=== PATIENT | male | born 1955 | race American Indian/Alaskan Native ===

== ENCOUNTER 2018-03-04 13:49 | Inpatient (IN) | payer BC, OTHER ==
[2018-03-04 14:06] VITALS: BMI 39.4
[2018-03-04] MEDS ORDERED: Sodium Chloride 0.9% 1,000 ML IV ONE (15:05)
[2018-03-04] MEDS ORDERED: Sodium Chloride 0.9% 1,000 ML ONE (15:15)
--- NOTE | 2018-03-04 15:34 | C.PDOC ---
History Of Present Illness 62-year-old male, presents to the emergency department with complaints of swelling to the right inner thigh for the past three days. Patient states he went to see his PMD, who referred him to ED for further evaluation. Patient denies any fever, rectal pain, scrotal pain, abdominal pain, or n/v. PMD Konrad Nicole MD. Time Seen by Provider: 03/04/18 14:30 Chief Complaint (Nursing): Abnormal Skin Integrity Past Medical History Vital Signs: Last Vital Signs Temp 98.3 F 03/04/18 17:30 Pulse 68 03/04/18 17:30 Resp 20 03/04/18 17:30 BP 161/76 H 03/04/18 17:30 Pulse Ox 98 03/04/18 17:30 - Medical History PMH: HTN Family History: States: Unknown Family Hx - Social History Hx Alcohol Use: No Hx Substance Use: No Review Of Systems Constitutional: Negative for: Fever Cardiovascular: Negative for: Chest Pain Respiratory: Negative for: Shortness of Breath Gastrointestinal: Negative for: Vomiting Musculoskeletal: Positive for: Other (swelling and erythema to right inner thigh ) Physical Exam - Physical Exam Appears: Well, Non-toxic, No Acute Distress, Other (obese) Skin: Warm, Dry, No Rash Head: Normacephalic Eye(s): bilateral: Normal Inspection, EOMI Nose: Normal Oral Mucosa: Moist Lips: Normal Appearing Neck: Normal ROM Chest: Symmetrical Cardiovascular: Rhythm Regular Respiratory: Normal Breath Sounds, No Accessory Muscle Use Gastrointestinal/Abdominal: Soft, No Tenderness Extremity: Normal ROM, No Deformity, Other (There is a 6x3cm area of induration with tenderness and warmth to medial aspect of right upper thigh. ) Neurological/Psych: Oriented x3, Normal Speech ED Course And Treatment - Laboratory Results Result Diagrams: 03/04/18 15:33 03/04/18 15:33 O2 Sat by Pulse Oximetry: 97 (RA) Pulse Ox Interpretation: Normal Progress Note: Case with Dr Nicole, agreed upon admission. Requests Dr Martinez for consult. Case discussed with Dr Martínez agreed upon consult. Disposition - Disposition Disposition: HOSPITALIZED Disposition Time: 17:00 Condition: STABLE - Clinical Impression Clinical Impression: Cellulitis, Abscess - Scribe Statement The provider has reviewed the documentation as recorded by the Scribe (Zunaira Tamanna) All medical record entries made by the Scribe were at my direction and personally dictated by me. I have reviewed the chart and agree that the record accurately reflects my personal performance of the history, physical exam, medical decision making, and the department course for this patient. I have also personally directed, reviewed, and agree with the discharge instructions and disposition.
[2018-03-04 15:38] LABS: BASO % 0.4 % (0.0-2.0); EOS # 0.1 K/uL (0.0-0.7); EOS % 1.4 % (0.0-4.0); HEMOGLOBIN 12.2 g/dL (12.0-18.0); LYMPH # 0.9 K/uL (1.0-4.3); LYMPH % 12.7 % (20.0-40.0); MEAN CELL VOLUME 85.6 fL (80.0-94.0); MEAN CORPUSCULAR HEMOGLOBIN 29.4 pg (27.0-31.0); MEAN CORPUSCULAR HGB CONC 34.3 g/dL (33.0-37.0); MEAN PLATELET VOLUME 10.2 fL (7.2-11.7); MONO # 0.5 K/uL (0.0-0.8); MONO % 6.3 % (0.0-10.0); NEUT # 5.8 K/uL (1.8-7.0); NEUT % 79.2 % (50.0-75.0); RBC 4.14 Mil/uL (4.40-5.90); RED CELL DISTRIBUTION WIDTH 13.4 % (11.5-14.5); WHITE BLOOD COUNT 7.3 K/uL (4.8-10.8)
[2018-03-04] MEDS ORDERED: Piperacillin/Tazobact 3.375 gm 100 ML IV STA (15:45)
[2018-03-04 15:46] LABS: INR 1.2; PROTHROMBIN TIME 12.7 SECONDS (9.7-12.2)
[2018-03-04 15:50] LABS: ALT/SGPT 23 U/L (21-72); AST/SGOT 22 U/L (17-59); BLOOD UREA NITROGEN 10 mg/dL (9-20); CALCIUM 9.4 mg/dl (8.6-10.4); GFR AFRICAN-AMERICAN > 60; GFR NON-AFRICAN AMERICAN > 60
[2018-03-04] MEDS ORDERED: Piperacillin/Tazobact 3.375 gm 100 ML IVPB ONE (16:02)
[2018-03-04 16:17] LABS: SQUAMOUS EPITHIAL < 1 /hpf (0-5); URINE BILIRUBIN NEGATIVE (NEGATIVE); URINE BLOOD NEGATIVE (NEGATIVE); URINE CLARITY Clear (Clear); URINE COLOR Yellow (YELLOW); URINE GLUCOSE (UA) NORMAL (Normal); URINE LEUKOCYTE ESTERASE NEG Leu/uL (Negative); URINE PROTEIN NEGATIVE (NEGATIVE); URINE UROBILINOGEN NORMAL mg/dL (0.2-1.0)
--- NOTE | 2018-03-05 10:14 | CP.PCM.PN ---
Subjective - Date & Time of Evaluation Date of Evaluation: 03/05/18 Time of Evaluation: 10:10 - Subjective Subjective: PGY-[address] Dillard's service Pt seen and examined at bedside. Nursing reports no acute events overnight. Patient reports minimal pain at site of abscess this morning. Pt NPO for drainage with Dr. Martinez this AM. Denies fever, chills, chest pain, palpitations, abd pain, N/V. 62-year-old male, presents to the emergency department with complaints of swelling to the right inner thigh for the past three days. Patient states he went to see his PMD, DR. DILLARD, who referred him to ED for further evaluation. Patient denies any fever, rectal pain, scrotal pain, abdominal pain, or n/v. Objective - Vital Signs/Intake and Output Vital Signs (last 24 hours): Temp Pulse Resp BP Pulse Ox 98.4 F 67 20 137/75 96 03/05/18 07:43 03/05/18 07:43 03/05/18 07:43 03/05/18 07:43 03/05/18 07:43 Intake and Output: 03/05/18 03/05/18 06:59 18:59 Intake Total 450 Balance 450 - Medications Medications: Current Medications Amlodipine Besylate (Norvasc) 2.5 mg PO DAILY [facility] Last Admin: 03/05/18 09:47 Dose: Not Given Aspirin (Ecotrin) 81 mg PO DAILY [facility] Last Admin: 03/05/18 09:47 Dose: Not Given Finasteride (Proscar) 5 mg PO DAILY [facility] Last Admin: 03/05/18 09:47 Dose: Not Given Lisinopril (Zestril) 40 mg PO DAILY [facility] Last Admin: 03/04/18 18:22 Dose: 40 mg Tamsulosin HCl (Flomax) 0.4 mg PO DAILY [facility] Last Admin: 03/05/18 09:47 Dose: Not Given - Labs Labs: 03/04/18 15:33 03/04/18 15:33 PT 12.7 SECONDS (9.7-12.2) H 03/04/18 15:33 INR 1.2 03/04/18 15:33 APTT 31 SECONDS (21-34) 03/04/18 15:33 - Constitutional Appears: Non-toxic, No Acute Distress - Head Exam Head Exam: ATRAUMATIC, NORMAL INSPECTION - Eye Exam Eye Exam: EOMI. absent: Scleral icterus Pupil Exam: PERRL - ENT Exam ENT Exam: Mucous Membranes Moist - Neck Exam Neck Exam: Full ROM - Respiratory Exam Respiratory Exam: Clear to Ausculation Bilateral, NORMAL BREATHING PATTERN - Cardiovascular Exam Cardiovascular Exam: REGULAR RHYTHM, +S1, +S2 - GI/Abdominal Exam GI & Abdominal Exam: Soft, Normal Bowel Sounds. absent: Tenderness - Exam Additional comments: Approximately 6 x 3 cm indurated area, warm to touch, slight TTP - Extremities Exam Extremities Exam: Normal Inspection. absent: Pedal Edema - Back Exam Back Exam: absent: CVA tenderness (L), CVA tenderness (R) - Neurological Exam Neurological Exam: Alert, Awake, Oriented x3 - Psychiatric Exam Psychiatric exam: Normal Affect, Normal Mood - Skin Skin Exam: Normal Color (except otherwise noted on exam (indurated abscess)) , Warm Assessment and Plan - Assessment and Plan (Free Text) Plan: Abscess rt inner thigh Admit to med/surg Pt afebrile overnight; WBC WNL Dr. Martinez consulted, Gen Surgery - NPO for this AM Pre-op workup f/u CXR, EKG Coags: INR 1.2, PT 12.7 HTN Norvasc 2.5 mg PO Daily CAD ASA 81mg PO Daily BPH Proscar 5mg PO Daily Flomax 0.4mg PO Daily Prophylaxis SCDs VTE c/i due to impending procedure, to be restarted per surgery GI not indicated Disposition: Pt NPO for procedure with Dr. Martinez. Mohit Griggs PGY-2 All management per Corey
--- NOTE | 2018-03-05 12:21 | RAD ---
HISTORY: PRE-OP COMPARISON: No prior. TECHNIQUE: Chest PA and lateral FINDINGS: LUNGS: No active pulmonary disease. PLEURA: No significant pleural effusion identified. No pneumothorax apparent. Mammillation of the right hemidiaphragm is identified. CARDIOVASCULAR: Cardiomegaly. No pulmonary vascular derangement. OSSEOUS STRUCTURES: No significant abnormalities. VISUALIZED UPPER ABDOMEN: Normal. OTHER FINDINGS: None. IMPRESSION: Cardiomegaly. No pulmonary vascular congestion. No active pulmonary disease appreciable.
[2018-03-05] MEDS: ceFAZolin 1 gm in NS 1 GM/100 ML BAG IVPB ONE ×3 (14:13→14:49)
[2018-03-05] MEDS ORDERED: Midazolam 2 MG/2 ML VIAL ONE (14:19)
[2018-03-05] MEDS ORDERED: Propofol 10 mg/ml Inj (20 ML) ONE ×2 (14:19→14:43)
[2018-03-05] MEDS ORDERED: ceFAZolin 1 gm in NS 1 GM/100 ML BAG IVPB ONE (14:30)
[2018-03-05] MEDS ORDERED: Bupivacaine HCl 0.25% PF (30 ml) Inj ONE (14:41)
[2018-03-05] MEDS ORDERED: Morphine 4 MG/ML VIAL IVP PRN (15:26)
[2018-03-05] MEDS: Piperacill/Tazo 3.375gm in Dex 3.375 GM/50 ML BAG IVPB SCH ×2 (17:22→21:20)
[2018-03-05] MEDS: Vancomycin 1 gm/NS 200 ml 1 GM/200 ML BAG IVPB SCH (22:10)
--- NOTE | 2018-03-06 00:24 | OP ---
PROCEDURE DATE: 03/05/2018 PREOPERATIVE DIAGNOSIS: Infected pelvic mass. POSTOPERATIVE DIAGNOSIS: Infected pelvic mass. PROCEDURE PERFORMED: Wide deep excision (radical resection) of infected pelvic mass with drainage of underlying pelvic (retroperitoneal) abscess and advancement flap closure. SURGEON: Dallin Martinez MD ANESTHESIA: General. BLOOD LOSS: 40 mL. POSTOPERATIVE CONDITION: Stable. INDICATIONS FOR SURGERY: This is a 62-year-old male with a history of a large left pelvic mass. It is indurated and there was suspicion of an underlying abscess. He now will undergo wide deep excision of the mass along with drainage of any underlying abscess. GROSS FINDINGS: The patient had 6 to 7 cm infected left pelvic mass which extended into the retroperitoneal space, underlying was a retroperitoneal abscess, wide deep excision was performed. DESCRIPTION OF PROCEDURE: The patient was taken to the operating room, general anesthesia was administered and the left pelvic region was prepped and draped after the patient was placed in lithotomy position. Generous elliptical incision was made, measuring approximately 8 x 12 cm and the mass was excised deep into the fascial layer into the pelvic retroperitoneal region. Underlying pus was drained and cultured. Bleeding was controlled using the Bovie. There was a very large tissue defect left and an advancement flap closure was performed by raising full-thickness flaps including muscle and fascia, bringing them together peripherally, measuring approximately 24 sq cm of closure. The central portion of wound was left open and packed open with wet saline gauze after the wound was aggressively irrigated. The patient tolerated the procedure well. Returned to recovery room in stable condition. Dallin Martinez MD
[2018-03-06] MEDS: Piperacill/Tazo 3.375gm in Dex 3.375 GM/50 ML BAG IVPB SCH ×4 (01:29→20:00)
[2018-03-06 08:08] LABS: BASO % 0.4 % (0.0-2.0); EOS # 0.1 K/uL (0.0-0.7); EOS % 2.6 % (0.0-4.0); HEMOGLOBIN 11.5 g/dL (12.0-18.0); LYMPH % 21.1 % (20.0-40.0); MEAN CELL VOLUME 84.9 fL (80.0-94.0); MEAN CORPUSCULAR HEMOGLOBIN 28.9 pg (27.0-31.0); MEAN PLATELET VOLUME 10.1 fL (7.2-11.7); MONO # 0.4 K/uL (0.0-0.8); MONO % 7.7 % (0.0-10.0); NEUT # 3.3 K/uL (1.8-7.0); NEUT % 68.2 % (50.0-75.0); NRBC % 0.1 % (0.0-2.0); RBC 3.98 Mil/uL (4.40-5.90); RED CELL DISTRIBUTION WIDTH 13.2 % (11.5-14.5); WHITE BLOOD COUNT 4.8 K/uL (4.8-10.8)
[2018-03-06 08:21] LABS: ALBUMIN 3.5 g/dL (3.5-5.0); ALT/SGPT 12 U/L (21-72); AST/SGOT 20 U/L (17-59); BLOOD UREA NITROGEN 11 mg/dL (9-20); CALCIUM 8.8 mg/dl (8.6-10.4); GFR AFRICAN-AMERICAN > 60; GFR NON-AFRICAN AMERICAN > 60
--- NOTE | 2018-03-06 09:52 | CP.PCM.PN ---
Subjective - Date & Time of Evaluation Date of Evaluation: 03/06/18 Time of Evaluation: 09:49 - Subjective Subjective: PGY-[address] Nicole's service Pt seen and examined at bedside. Nursing reports no acute events overnight. POD# 1 I&D of infected pelvic mass. Pt NPO for additional procedure this AM with Dr. Martinez. Patient states he has minimal pain this morning at site of surgery. Denies fever, chills, chest pain, palpitations, abd pain, N/V. Objective - Vital Signs/Intake and Output Vital Signs (last 24 hours): Temp Pulse Resp BP Pulse Ox 98.4 F 60 20 128/67 99 03/06/18 08:00 03/06/18 08:00 03/06/18 08:00 03/06/18 08:00 03/06/18 08:00 Intake and Output: 03/06/18 03/06/18 06:59 18:59 Intake Total 700 Output Total 1000 Balance -300 - Medications Medications: Current Medications Amlodipine Besylate (Norvasc) 2.5 mg PO DAILY [facility] Last Admin: 03/06/18 09:25 Dose: Not Given Aspirin (Ecotrin) 81 mg PO DAILY [facility] Last Admin: 03/06/18 09:24 Dose: Not Given Finasteride (Proscar) 5 mg PO DAILY [facility] Last Admin: 03/06/18 09:25 Dose: Not Given Piperacillin Sod/Tazobactam Sod (Zosyn 3.375 Gm Iv Premix) 3.375 gm in 50 mls @ 100 mls/hr IVPB Q6H [facility] PRN Reason: Protocol Last Admin: 03/06/18 08:28 Dose: 100 mls/hr Vancomycin/Sodium Chloride (Vancomycin 1 Gm/Ns 200 Ml) 1 gm in 200 mls @ 133 mls/hr IVPB Q12H [facility] PRN Reason: Protocol Stop: 03/10/18 22:01 Last Admin: 03/05/18 22:10 Dose: 133 mls/hr Lisinopril (Zestril) 40 mg PO DAILY [facility] Last Admin: 03/05/18 19:19 Dose: 40 mg Pneumococcal Polyvalent Vaccine (Pneumovax 23 Vaccine) 0.5 ml IM .ONCE ONE Stop: 03/07/18 10:01 Tamsulosin HCl (Flomax) 0.4 mg PO DAILY [facility] Last Admin: 03/06/18 09:24 Dose: Not Given - Labs Labs: 03/06/18 08:00 03/06/18 08:00 PT 12.7 SECONDS (9.7-12.2) H 03/04/18 15:33 INR 1.2 03/04/18 15:33 APTT 31 SECONDS (21-34) 03/04/18 15:33 - Additional Findings Additional findings: - Constitutional Appears: Non-toxic, No Acute Distress - Head Exam Head Exam: ATRAUMATIC, NORMAL INSPECTION - Eye Exam Eye Exam: EOMI. absent: Scleral icterus Pupil Exam: PERRL - ENT Exam ENT Exam: Mucous Membranes Moist - Neck Exam Neck Exam: Full ROM - Respiratory Exam Respiratory Exam: Clear to Ausculation Bilateral, NORMAL BREATHING PATTERN - Cardiovascular Exam Cardiovascular Exam: REGULAR RHYTHM, +S1, +S2 - GI/Abdominal Exam GI & Abdominal Exam: Soft, Normal Bowel Sounds. absent: Tenderness - Exam Additional comments: Surgical bandage at left inguinal area - Extremities Exam Extremities Exam: Normal Inspection. absent: Pedal Edema - Back Exam Back Exam: absent: CVA tenderness (L), CVA tenderness (R) - Neurological Exam Neurological Exam: Alert, Awake, Oriented x3 - Psychiatric Exam Psychiatric exam: Normal Affect, Normal Mood - Skin Skin Exam: Normal Color (except otherwise noted on exam (indurated abscess)) , Warm Assessment and Plan - Assessment and Plan (Free Text) Plan: Abscess rt inner thigh Admit to med/surg Pt afebrile overnight; WBC WNL Dr. Martinez consulted, Gen Surgery - contact isolation precautions per Dr. Martinez - s/p Pelvic abscess I&D (POD#1) - NPO for this AM for procedure Pre-op workup CXR (03/05/18): Cardiomegaly. No vasc congestion. No active disease. 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 Pt NPO for procedure with Dr. Martinez. F/u wound culture Mohit Griggs PGY-2 All management per Corey
[2018-03-06] MEDS: Vancomycin 1 gm/NS 200 ml 1 GM/200 ML BAG IVPB SCH ×2 (10:00→21:50)
[2018-03-06] MEDS ORDERED: Midazolam 2 MG/2 ML VIAL ONE (14:24)
[2018-03-06] MEDS ORDERED: Propofol 10 mg/ml Inj (20 ML) ONE (14:24)
[2018-03-06] MEDS ORDERED: HYDROmorphone 0.5 mg/0.5 ml ISec IVP PRN (15:18)
[2018-03-06] MEDS: Lactated Ringer's 1,000 ML IV SCH (17:30)
--- NOTE | 2018-03-06 19:08 | CP.PCM.CON ---
History of Present Illness - History of Present Illness History of Present Illness: 62-year-old male, presents to the emergency department with complaints of swelling to the left inner thigh for the past three days. Patient states he went to see his PMD, who referred him to ED for further evaluation. Patient denies any fever, rectal pain, scrotal pain, abdominal pain, or n/v. started on IV antibiotics ID consulted went for I and D cultures pending Review of Systems - Review of Systems All systems: reviewed and no additional remarkable complaints except - Constitutional Constitutional: As Per HPI - EENT Eyes: absent: As Per HPI, Blind Spots, Blurred Vision, Change in Vision, Decreased Night Vision, Diplopia, Discharge, Dry Eye, Exophthalmos, Floaters, Irritation, Itchy Eyes, Loss of Peripheral Vision, Pain, Photophobia, Requires Corrective Lenses, Sees Flashes, Spots in Vision, Tunnel Vision, Other Visual Disturbances, Loss of Vision, Other Ears: absent: As Per HPI, Decreased Hearing, Ear Discharge, Ear Pain, Tinnitus, Abnormal Hearing, Disequilibrium, Dizziness, Other Nose/Mouth/Throat: absent: As Per HPI, Epistaxis, Nasal Congestion, Nasal Discharge, Nasal Obstruction, Nasal Trauma, Nose Pain, Post Nasal Drip, Sinus Pain, Sinus Pressure, Bleeding Gums, Change in Voice, Dental Pain, Dry Mouth, Dysphagia, Halitosis, Hoarsness, Lip Swelling, Mouth Lesions, Mouth Pain, Odynophagia, Sore Throat, Throat Swelling, Tongue Swelling, Facial Pain, Neck Pain, Neck Mass, Other - Cardiovascular Cardiovascular: absent: As Per HPI, Acrocyanosis, Chest Pain, Chest Pain at Rest , Chest Pain with Activity, Claudication, Diaphoresis, Dyspnea, Dyspnea on Exertion, Edema, Irregular Heart Rhythm, Pain Radiating to Arm/Neck/Jaw, Leg Edema, Leg Ulcers, Lightheadedness, Orthopnea, Palpitations, Paroxysmal Nocturnal Dyspnea, Pedal Edema, Radiating Pain, Rapid Heart Rate, Slow Heart Rate, Syncope, Other - Respiratory Respiratory: absent: As Per HPI, Cough, Dyspnea, Hemoptysis, Dyspnea on Exertion , Wheezing, Snoring, Stridor, Pain on Inspiration, Chest Congestion, Excessive Mucous Production, Change in Mucous Color, Pain with Coughing, Other - Gastrointestinal Gastrointestinal: absent: As Per HPI, Abdominal Pain, Belching, Bloating, Change in Bowel Habits, Change in Stool Character, Coffee Ground Emesis, Constipation, Cramping, Diarrhea, Dyspepsia, Dysphagia, Early Satiety, Excessive Flatus, Fecal Incontinence, Heartburn, Hematemesis, Hematochezia, Loose Stools, Melena, Nausea, Odynophagia, Temesmus, Vomiting, Other - Genitourinary Genitourinary: absent: As Per HPI, Change in Urinary Stream, Difficulty Urinating, Dysuria, Flank Pain, Hematuria, Pyuria, Nocturia, Urinary Incontinence, Urinary Frequency, Urinary Hesitance, Urinary Urgency, Voiding Freq/Small Amts, Freq UTI, Hx Renal/Bladder Calculi, Hx /Renal Surgery, Bladder Distension, Other - Musculoskeletal Musculoskeletal: As Per HPI - Integumentary Integumentary: As Per HPI - Neurological Neurological: absent: As Per HPI, Abnormal Gait, Abnormal Hearing, Abnormal Movements, Abnormal Speech, Behavioral Changes, Burning Sensations, Confusion, Convulsions, Disequilibrium, Dizziness, Numbness, Focal Weakness, Frequent Falls , Headaches, Lack of Coordination, Loss of Vision, Memory Loss, Paresthesias, Radicular Pain, Restless Legs, Sensory Deficit, Syncope, Tingling, Tremor, Vertigo, Weakness, Other Visual Disturbances, Other - Psychiatric Psychiatric: absent: As Per HPI, Abnormal Sleep Pattern, Anhedonia, Anxiety, Auditory Hallucinations, Behavioral Changes, Change in Appetite, Change in Libido, Confusion, Depression, Difficulty Concentrating, Hallucinations, Homicidal Ideation, Hopelessness, Irritability, Memory Loss, Mood Swings, Panic Attacks, Paranoia, Suicidal Ideation, Visual Hallucinations, Tactile Hallucinations, Other - Endocrine Endocrine: absent: As Per HPI, Change in Body Appearance, Change in Libido, Cold Intolorance, Deepening of Voice, Excessive Sweating, Fatigue, Flushing, Heat Intolorance, Increase in Ring/Shoe/Hat Size, Palpitations, Polydipsia, Polyphagia, Polyuria, Other - Hematologic/Lymphatic Hematologic: absent: As Per HPI, Easy Bleeding, Easy Bruising, Lymphadenopathy, Other Past Patient History - Past Medical History & Family History Past Medical History?: Yes - Past Social History Smoking Status: Never Smoked - CARDIAC Hx Hypertension: Yes - PULMONARY Hx Respiratory Disorders: No - NEUROLOGICAL Hx Neurological Disorder: No - HEENT Hx HEENT Problems: No - RENAL Hx Chronic Kidney Disease: No - ENDOCRINE/METABOLIC Hx Endocrine Disorders: No - HEMATOLOGICAL/ONCOLOGICAL Hx Blood Disorders: No - INTEGUMENTARY Hx Dermatological Problems: No - MUSCULOSKELETAL/RHEUMATOLOGICAL Hx Musculoskeletal Disorders: No Hx Falls: No - GENITOURINARY/GYNECOLOGICAL Hx Genitourinary Disorders: No - PSYCHIATRIC Hx Psychophysiologic Disorder: No Hx Substance Use: No - SURGICAL HISTORY Hx Surgeries: Yes Other/Comment: STOMACH SURGERY PER PATIENT - ANESTHESIA Hx Anesthesia: Yes Hx Anesthesia Reactions: No Meds Allergies/Adverse Reactions: Allergies Allergy/AdvReac Type Severity Reaction Status Date / Time No Known Allergies Allergy Verified 03/04/18 13:57 - Medications Medications: Current Medications Amlodipine Besylate (Norvasc) 2.5 mg PO DAILY [facility] Last Admin: 03/06/18 09:25 Dose: Not Given Aspirin (Ecotrin) 81 mg PO DAILY [facility] Last Admin: 03/06/18 09:24 Dose: Not Given Finasteride (Proscar) 5 mg PO DAILY [facility] Last Admin: 03/06/18 09:25 Dose: Not Given Piperacillin Sod/Tazobactam Sod (Zosyn 3.375 Gm Iv Premix) 3.375 gm in 50 mls @ 100 mls/hr IVPB Q6H [facility] PRN Reason: Protocol Last Admin: 03/06/18 14:30 Dose: 50 mls Vancomycin/Sodium Chloride (Vancomycin 1 Gm/Ns 200 Ml) 1 gm in 200 mls @ 133 mls/hr IVPB Q12H [facility] PRN Reason: Protocol Stop: 03/10/18 22:01 Last Admin: 03/06/18 10:00 Dose: 133 mls/hr Lactated Ringer's (Lactated Ringer's) 1,000 mls @ 100 mls/hr IV .Q10H [facility] Lisinopril (Zestril) 40 mg PO DAILY [facility] Last Admin: 03/06/18 10:48 Dose: 40 mg Pneumococcal Polyvalent Vaccine (Pneumovax 23 Vaccine) 0.5 ml IM .ONCE ONE Stop: 03/07/18 10:01 Tamsulosin HCl (Flomax) 0.4 mg PO DAILY [facility] Last Admin: 03/06/18 09:24 Dose: Not Given Physical Exam - Constitutional Appears: Non-toxic, Chronically Ill - Head Exam Head Exam: NORMOCEPHALIC - Eye Exam Eye Exam: PERRL - ENT Exam ENT Exam: Mucous Membranes Dry - Neck Exam Neck exam: Negative for: Lymphadenopathy - Respiratory Exam Respiratory Exam: Decreased Breath Sounds - Cardiovascular Exam Cardiovascular Exam: REGULAR RHYTHM - GI/Abdominal Exam GI & Abdominal Exam: Diminished Bowel Sounds, Soft. absent: Tenderness - Rectal Exam Rectal Exam: Deferred - Exam Exam: NORMAL INSPECTION - Extremities Exam Extremities exam: Negative for: pedal edema - Back Exam Back exam: absent: CVA tenderness (L), CVA tenderness (R) - Neurological Exam Neurological exam: Alert, CN II-XII Intact, Oriented x3, Reflexes Normal - Psychiatric Exam Psychiatric exam: Normal Mood - Skin Skin Exam: Dry Additional comments: packing in place left inner thigh Results - Vital Signs Recent Vital Signs: Last Vital Signs Temp 97.6 F 03/06/18 16:00 Pulse 59 L 03/06/18 16:00 Resp 20 03/06/18 16:00 BP 152/88 H 03/06/18 16:00 Pulse Ox 95 03/06/18 16:00 - Labs Result Diagrams: 03/06/18 08:00 03/06/18 08:00 Labs: Laboratory Results - last 24 hr 03/06/18 03/06/18 08:00 08:00 WBC 4.8 RBC 3.98 L Hgb 11.5 L Hct 33.8 L MCV 84.9 MCH 28.9 MCHC 34.0 RDW 13.2 Plt Count 157 MPV 10.1 Neut % (Auto) 68.2 Lymph % (Auto) 21.1 [place] % (Auto) 7.7 Eos % (Auto) 2.6 Baso % (Auto) 0.4 Neut # (Auto) 3.3 Lymph # (Auto) 1.0 [place] # (Auto) 0.4 Eos # (Auto) 0.1 Baso # (Auto) 0.0 Sodium 145 Potassium 3.8 Chloride 106 Carbon Dioxide 28 Anion Gap 15 BUN 11 Creatinine 1.0 Est GFR ( Amer) > 60 Est GFR (Non-Af Amer) > 60 Random Glucose 100 Calcium 8.8 Phosphorus 3.1 Magnesium 2.2 Total Bilirubin 0.4 AST 20 ALT 12 L D Alkaline Phosphatase 78 Total Protein 7.0 Albumin 3.5 Globulin 3.4 Albumin/Globulin Ratio 1.0 Assessment & Plan (1) Abscess Status: Acute (2) Cellulitis Status: Acute - Assessment and Plan (Free Text) Assessment: await cultures cont iv rx and wound care
[2018-03-07] MEDS: Piperacill/Tazo 3.375gm in Dex 3.375 GM/50 ML BAG IVPB SCH ×4 (01:04→20:14)
[2018-03-07] MEDS: Lactated Ringer's 1,000 ML IV SCH ×2 (01:04→21:23)
--- NOTE | 2018-03-07 02:02 | OP ---
PROCEDURE DATE: 03/06/2018 PREOPERATIVE DIAGNOSIS: Left pelvic abscess with open wound to the pelvis. POSTOPERATIVE DIAGNOSIS: Left pelvic abscess with open wound to the pelvis. PROCEDURE: Redrainage of the pelvic abscess with debridement, repair of pelvic blood vessel and partial tissue transfer closure. SURGEON: Dallin Martinez MD TYPE OF ANESTHESIA: General. ESTIMATED BLOOD LOSS: 30 mL POSTOPERATIVE CONDITION: Stable. INDICATIONS FOR SURGERY: This is a 62-year-old male with a large left thigh and pelvic mass excised yesterday, which revealed an underlying abscess. This was drained, cultured and packed deeply, taken back to the operating room for change of packing under anesthesia. GROSS FINDINGS: There was fair amount of bleeding when the packing was removed and the blood vessel had to be repaired prior to pulse irrigation of the wound. Otherwise, the wound was open, clean and had only a small remnant of collection left which was redrained. DESCRIPTION OF PROCEDURE: The patient was taken to the operating room, general anesthesia was administered, placed in lithotomy position. The previous packing was removed and the area was prepped and draped. Bleeding blood vessel was immediately encountered and repaired. Wound was pulse irrigated with saline, Kantrex solution after debridement and redrainage of collection was carried out. The tissue flaps were raised to the periphery and a tissue flap closure was performed utilizing advancement flaps. Central portion of the wound was packed with saline gauze. The patient tolerated the procedure well, returned to recovery room in stable condition. Dallin Martinez MD
[2018-03-07 07:04] LABS: BASO % 0.7 % (0.0-2.0); EOS # 0.2 K/uL (0.0-0.7); EOS % 3.1 % (0.0-4.0); HEMOGLOBIN 11.9 g/dL (12.0-18.0); LYMPH # 1.4 K/uL (1.0-4.3); LYMPH % 25.3 % (20.0-40.0); MEAN CELL VOLUME 84.6 fL (80.0-94.0); MEAN CORPUSCULAR HEMOGLOBIN 29.5 pg (27.0-31.0); MEAN CORPUSCULAR HGB CONC 34.9 g/dL (33.0-37.0); MEAN PLATELET VOLUME 9.6 fL (7.2-11.7); MONO # 0.4 K/uL (0.0-0.8); MONO % 7.3 % (0.0-10.0); NEUT # 3.5 K/uL (1.8-7.0); NEUT % 63.6 % (50.0-75.0); RBC 4.02 Mil/uL (4.40-5.90); RED CELL DISTRIBUTION WIDTH 13.3 % (11.5-14.5); WHITE BLOOD COUNT 5.5 K/uL (4.8-10.8)
[2018-03-07 07:32] LABS: ALBUMIN 3.8 g/dL (3.5-5.0); ALT/SGPT 10 U/L (21-72); AST/SGOT 22 U/L (17-59); BLOOD UREA NITROGEN 12 mg/dL (9-20); CALCIUM 8.9 mg/dl (8.6-10.4); GFR AFRICAN-AMERICAN > 60; GFR NON-AFRICAN AMERICAN > 60
--- NOTE | 2018-03-07 08:18 | HP ---
HISTORY OF PRESENT ILLNESS: A 62-year-old male, admitted to the hospital today with swelling on his thigh. The patient was found to have a large abscess. PHYSICAL EXAMINATION: GENERAL: The patient is awake, alert, and oriented. VITAL SIGNS: Temperature 98, pulse 90, blood pressure 117/90. HEENT: Within normal limits. NECK: Supple. CHEST: Symmetrical. HEART: Regular. ABDOMEN: Soft. EXTREMITIES: Swelling of his thigh and tenderness and induration. IMPRESSION AND PLAN: The patient has cellulitis, abscess. The patient to get bedrest, antibiotics. Konrad Nicole MD
--- NOTE | 2018-03-07 09:53 | CP.PCM.PN ---
Subjective - Date & Time of Evaluation Date of Evaluation: 03/07/18 Time of Evaluation: 09:10 - Subjective Subjective: Medicine Progress Note for Dr. Nicole Patient seen and examined at bedside. No acute events reported overnight. Patient is aware of surgical procedure with Dr. Martinez after this morning. Patient reports to have discomfort at the incision site. Otherwise patient denies fever, chills, dizziness, shortness of breath, chest pain, nausea, vomiting, or diarrhea. Objective - Vital Signs/Intake and Output Vital Signs (last 24 hours): Temp Pulse Resp BP Pulse Ox 98.7 F 61 20 137/65 97 03/07/18 08:02 03/07/18 08:02 03/07/18 08:02 03/07/18 08:02 03/07/18 08:02 Intake and Output: 03/07/18 03/07/18 06:59 18:59 Intake Total 1700 Output Total 1100 Balance 600 - Medications Medications: Current Medications Amlodipine Besylate (Norvasc) 2.5 mg PO DAILY [facility] Last Admin: 03/06/18 22:00 Dose: 2.5 mg Aspirin (Ecotrin) 81 mg PO DAILY [facility] Last Admin: 03/06/18 09:24 Dose: Not Given Finasteride (Proscar) 5 mg PO DAILY [facility] Last Admin: 03/06/18 09:25 Dose: Not Given Piperacillin Sod/Tazobactam Sod (Zosyn 3.375 Gm Iv Premix) 3.375 gm in 50 mls @ 100 mls/hr IVPB Q6H [facility] PRN Reason: Protocol Last Admin: 03/07/18 08:25 Dose: 100 mls/hr Vancomycin/Sodium Chloride (Vancomycin 1 Gm/Ns 200 Ml) 1 gm in 200 mls @ 133 mls/hr IVPB Q12H [facility] PRN Reason: Protocol Stop: 03/10/18 22:01 Last Admin: 03/06/18 21:50 Dose: 133 mls/hr Lactated Ringer's (Lactated Ringer's) 1,000 mls @ 100 mls/hr IV .Q10H [facility] Last Admin: 03/07/18 01:04 Dose: 100 mls/hr Lisinopril (Zestril) 40 mg PO DAILY [facility] Last Admin: 03/06/18 10:48 Dose: 40 mg Pneumococcal Polyvalent Vaccine (Pneumovax 23 Vaccine) 0.5 ml IM .ONCE ONE Stop: 03/07/18 10:01 Tamsulosin HCl (Flomax) 0.4 mg PO DAILY [facility] Last Admin: 03/06/18 21:59 Dose: 0.4 mg - Labs Labs: 03/07/18 06:56 03/07/18 06:56 PT 12.7 SECONDS (9.7-12.2) H 03/04/18 15:33 INR 1.2 03/04/18 15:33 APTT 31 SECONDS (21-34) 03/04/18 15:33 - Additional Findings Additional findings: - Constitutional Appears: Non-toxic, No Acute Distress - Head Exam Head Exam: ATRAUMATIC, NORMAL INSPECTION - Eye Exam Eye Exam: EOMI. absent: Scleral icterus Pupil Exam: PERRL - ENT Exam ENT Exam: Mucous Membranes Moist - Neck Exam Neck Exam: Full ROM - Respiratory Exam Respiratory Exam: Clear to Ausculation Bilateral, NORMAL BREATHING PATTERN - Cardiovascular Exam Cardiovascular Exam: REGULAR RHYTHM, +S1, +S2 - GI/Abdominal Exam GI & Abdominal Exam: Soft, Normal Bowel Sounds. absent: Tenderness - Exam Additional comments: Surgical bandage at left inguinal area - Extremities Exam Extremities Exam: Normal Inspection. absent: Pedal Edema - Back Exam Back Exam: absent: CVA tenderness (L), CVA tenderness (R) - Neurological Exam Neurological Exam: Alert, Awake, Oriented x3 - Psychiatric Exam Psychiatric exam: Normal Affect, Normal Mood - Skin Skin Exam: Normal Color (except otherwise noted on exam (indurated abscess), Warm Assessment and Plan - Assessment and Plan (Free Text) Assessment: Abscess rt inner thigh Admit to med/surg Afebrile, no leukocytosis Dr. Mratinez consulted, Gen Surgery - contact isolation precautions per Dr. Martinez - s/p Pelvic abscess I&D, further I&D today Dr. Melara, ID labor relations consultant Zosyn 3.375gm IV Q6H (start 03/05/18), Trough 8.6 Vancomycin 1gm IV Q12H (start 03/05/18) Preliminary wound culture shows Gram Positive Cocci HTN Stable Norvasc 2.5 mg PO Daily CAD ASA 81mg PO Daily BPH Proscar 5mg PO Daily Flomax 0.4mg PO Daily Prophylaxis SCDs VTE c/i due to impending procedure, to be restarted per surgery GI not indicated Disposition: Pt s/p I&D (POD#1). Pt NPO for procedure with Dr. Martinez. F/u wound culture Case discussed with Attending physician All management per Dr. Nicole
[2018-03-07] MEDS ORDERED: Pneumococcal 23-Valent Vaccine IM ONE (10:00)
[2018-03-07] MEDS: Vancomycin 1 gm/NS 200 ml 1 GM/200 ML BAG IVPB SCH ×2 (10:10→21:24)
[2018-03-07] MEDS ORDERED: Propofol 10 mg/ml Inj (20 ML) ONE (11:38)
[2018-03-07] MEDS ORDERED: Midazolam 2 MG/2 ML VIAL ONE (11:38)
[2018-03-07] MEDS ORDERED: Atropine 0.4 mg/ml Inj (1 mL) ONE (12:20)
[2018-03-07] MEDS ORDERED: Bacitracin Ointment 30 GM TUBE ONE (12:32)
[2018-03-07] MEDS ORDERED: Lactated Ringer's 1,000 ML IV SCH (12:45)
[2018-03-07 17:32] VITALS: RESP 20
--- NOTE | 2018-03-07 19:19 | CP.PCM.PN ---
Subjective - Date & Time of Evaluation Date of Evaluation: 03/07/18 Time of Evaluation: 09:00 - Subjective Subjective: cultures pending growing cocci no ID yet on Vanco IV swelling less Objective - Vital Signs/Intake and Output Vital Signs (last 24 hours): Temp Pulse Resp BP Pulse Ox 98 F 60 20 131/67 97 03/07/18 15:00 03/07/18 15:00 03/07/18 15:00 03/07/18 15:00 03/07/18 15:00 Intake and Output: 03/07/18 03/08/18 18:59 06:59 Intake Total 500 Balance 500 - Medications Medications: Current Medications Amlodipine Besylate (Norvasc) 2.5 mg PO DAILY [facility] Last Admin: 03/07/18 10:09 Dose: 2.5 mg Aspirin (Ecotrin) 81 mg PO DAILY [facility] Last Admin: 03/07/18 10:09 Dose: Not Given Finasteride (Proscar) 5 mg PO DAILY [facility] Last Admin: 03/07/18 10:09 Dose: 5 mg Piperacillin Sod/Tazobactam Sod (Zosyn 3.375 Gm Iv Premix) 3.375 gm in 50 mls @ 100 mls/hr IVPB Q6H TIO PRN Reason: Protocol Last Admin: 03/07/18 14:05 Dose: 100 mls/hr Vancomycin/Sodium Chloride (Vancomycin 1 Gm/Ns 200 Ml) 1 gm in 200 mls @ 133 mls/hr IVPB Q12H TIO PRN Reason: Protocol Stop: 03/10/18 22:01 Last Admin: 03/07/18 10:10 Dose: 133 mls/hr Lactated Ringer's (Lactated Ringer's) 1,000 mls @ 100 mls/hr IV .Q10H [facility] Last Admin: 03/07/18 01:04 Dose: 100 mls/hr Lactated Ringer's (Lactated Ringer's) 1,000 mls @ 100 mls/hr IV .Q10H [facility] Lisinopril (Zestril) 40 mg PO DAILY [facility] Last Admin: 03/07/18 10:10 Dose: Not Given Tamsulosin HCl (Flomax) 0.4 mg PO DAILY [facility] Last Admin: 03/07/18 10:09 Dose: 0.4 mg - Labs Labs: 03/07/18 06:56 03/07/18 06:56 PT 12.7 SECONDS (9.7-12.2) H 03/04/18 15:33 INR 1.2 03/04/18 15:33 APTT 31 SECONDS (21-34) 03/04/18 15:33 Assessment and Plan (1) Abscess Status: Acute (2) Cellulitis Status: Acute
--- NOTE | 2018-03-08 00:13 | OP ---
PROCEDURE DATE: 03/07/2018 PREOPERATIVE DIAGNOSIS: Open wound secondary to pelvic abscess. POSTOPERATIVE DIAGNOSIS: Open wound secondary to pelvic abscess. PROCEDURE PERFORMED: Debridement, redrainage of pelvic abscess with advancement flap closure. SURGEON: Dallin Martinez MD ANESTHESIA: General. BLOOD LOSS: 40 mL. POSTOPERATIVE CONDITION: Stable. INDICATIONS FOR SURGERY: This is a 62-year-old male, status post drainage of a pelvic abscess with exchange of packing in the operating room yesterday, taken back for staged closure of the wound. DESCRIPTION OF PROCEDURE: The patient was taken to the operating room, placed in lithotomy position. The left pelvic area was prepped and draped, and the wound was aggressively debrided. Any remaining collections were drained. A pelvic blood vessel was repaired. Generous full-thickness tissue flaps were raised, and advancement flap closure totaling 32 sq cm was performed using multiple layers of Monocryl, subcuticular Monocryl. The wound was dressed sterilely with Bacitracin. The patient tolerated the procedure well and returned to the recovery room in stable condition. Dallin Martinez MD
[2018-03-08] MEDS: Piperacill/Tazo 3.375gm in Dex 3.375 GM/50 ML BAG IVPB SCH ×3 (01:03→13:26)
[2018-03-08 08:20] LABS: BASO % 0.5 % (0.0-2.0); EOS # 0.3 K/uL (0.0-0.7); EOS % 5.4 % (0.0-4.0); HEMOGLOBIN 11.8 g/dL (12.0-18.0); LYMPH # 1.1 K/uL (1.0-4.3); LYMPH % 23.1 % (20.0-40.0); MEAN CELL VOLUME 84.8 fL (80.0-94.0); MEAN CORPUSCULAR HEMOGLOBIN 28.8 pg (27.0-31.0); MEAN PLATELET VOLUME 10.2 fL (7.2-11.7); MONO # 0.4 K/uL (0.0-0.8); MONO % 7.4 % (0.0-10.0); NEUT # 3.1 K/uL (1.8-7.0); NEUT % 63.6 % (50.0-75.0); RBC 4.08 Mil/uL (4.40-5.90); RED CELL DISTRIBUTION WIDTH 13.1 % (11.5-14.5); WHITE BLOOD COUNT 4.8 K/uL (4.8-10.8)
[2018-03-08] MEDS: Lactated Ringer's 1,000 ML IV SCH (08:30)
[2018-03-08 08:49] LABS: ALBUMIN 3.7 g/dL (3.5-5.0); ALT/SGPT 14 U/L (21-72); AST/SGOT 25 U/L (17-59); BLOOD UREA NITROGEN 11 mg/dL (9-20); CALCIUM 9.4 mg/dl (8.6-10.4); GFR AFRICAN-AMERICAN > 60; GFR NON-AFRICAN AMERICAN > 60
--- NOTE | 2018-03-08 09:18 | CP.PCM.PN ---
Subjective - Date & Time of Evaluation Date of Evaluation: 03/08/18 Time of Evaluation: 09:04 - Subjective Subjective: PGY-[address] Nicole's service: Patient seen and examined at bedside. No acute events reported overnight. Reports only mild pain at site of incision. States able to walk without difficulty; tolerating diet. Denies fever or chills, shortness of breath, chest pain, nausea, vomiting, or diarrhea. Objective - Vital Signs/Intake and Output Vital Signs (last 24 hours): Temp Pulse Resp BP Pulse Ox 97.8 F 60 20 153/66 H 99 03/08/18 08:00 03/08/18 08:00 03/08/18 08:00 03/08/18 08:00 03/08/18 08:00 Intake and Output: 03/08/18 03/08/18 06:59 18:59 Intake Total 2160 Output Total 1600 Balance 560 - Medications Medications: Current Medications Amlodipine Besylate (Norvasc) 2.5 mg PO DAILY [facility] Last Admin: 03/07/18 10:09 Dose: 2.5 mg Aspirin (Ecotrin) 81 mg PO DAILY [facility] Last Admin: 03/07/18 10:09 Dose: Not Given Finasteride (Proscar) 5 mg PO DAILY [facility] Last Admin: 03/07/18 10:09 Dose: 5 mg Piperacillin Sod/Tazobactam Sod (Zosyn 3.375 Gm Iv Premix) 3.375 gm in 50 mls @ 100 mls/hr IVPB Q6H [facility] PRN Reason: Protocol Last Admin: 03/08/18 08:36 Dose: 100 mls/hr Vancomycin/Sodium Chloride (Vancomycin 1 Gm/Ns 200 Ml) 1 gm in 200 mls @ 133 mls/hr IVPB Q12H [facility] PRN Reason: Protocol Stop: 03/10/18 22:01 Last Admin: 03/07/18 21:24 Dose: 133 mls/hr Lactated Ringer's (Lactated Ringer's) 1,000 mls @ 100 mls/hr IV .Q10H [facility] Last Admin: 03/08/18 08:30 Dose: 100 mls/hr Lactated Ringer's (Lactated Ringer's) 1,000 mls @ 100 mls/hr IV .Q10H [facility] Lisinopril (Zestril) 40 mg PO DAILY [facility] Last Admin: 03/07/18 10:10 Dose: Not Given Tamsulosin HCl (Flomax) 0.4 mg PO DAILY [facility] Last Admin: 03/07/18 10:09 Dose: 0.4 mg - Labs Labs: 03/08/18 08:08 03/08/18 08:08 PT 12.7 SECONDS (9.7-12.2) H 03/04/18 15:33 INR 1.2 03/04/18 15:33 APTT 31 SECONDS (21-34) 03/04/18 15:33 - Additional Findings Additional findings: - Constitutional Appears: Non-toxic, No Acute Distress - Head Exam Head Exam: ATRAUMATIC, NORMAL INSPECTION - Eye Exam Eye Exam: EOMI. absent: Scleral icterus Pupil Exam: PERRL - ENT Exam ENT Exam: Mucous Membranes Moist - Neck Exam Neck Exam: Full ROM - Respiratory Exam Respiratory Exam: Clear to Ausculation Bilateral, NORMAL BREATHING PATTERN - Cardiovascular Exam Cardiovascular Exam: REGULAR RHYTHM, +S1, +S2 - GI/Abdominal Exam GI & Abdominal Exam: Soft, Normal Bowel Sounds. absent: Tenderness - Exam Additional comments: Surgical bandage at left inguinal area - Extremities Exam Extremities Exam: Normal Inspection. absent: Pedal Edema - Back Exam Back Exam: absent: CVA tenderness (L), CVA tenderness (R) - Neurological Exam Neurological Exam: Alert, Awake, Oriented x3 - Psychiatric Exam Psychiatric exam: Normal Affect, Normal Mood - Skin Skin Exam: Normal Color, Warm Assessment and Plan - Assessment and Plan (Free Text) Plan: Abscess rt inner thigh Admit to med/surg Afebrile, no leukocytosis Dr. Martinez consulted, Gen Surgery - contact isolation precautions per Dr. Martinez - s/p Pelvic abscess I&D, further I&D today Dr. Melara, ID physician practice consultant Zosyn 3.375gm IV Q6H (start 03/05/18), Trough 8.6 Vancomycin 1gm IV Q12H (start 03/05/18) Preliminary wound culture shows Gram Positive Cocci HTN Stable Norvasc 2.5 mg PO Daily CAD ASA 81mg PO Daily BPH Proscar 5mg PO Daily Flomax 0.4mg PO Daily Prophylaxis SCDs VTE c/i due to impending procedure, to be restarted per surgery GI not indicated Disposition: Dr. Martinez placed discharge yesterday. Antibiotics/pain meds per Michelle. F/u final wound culture as outpatient. Case discussed with Attending physician All management per Dr. Nicole
[2018-03-08] MEDS: Vancomycin 1 gm/NS 200 ml 1 GM/200 ML BAG IVPB SCH (10:14)
[2018-03-08 15:54] VITALS: BP 147/75; PULSE 55; TEMP 98.2; O2SAT 98
--- NOTE | 2018-03-08 17:21 | CARD ---
APPROVED REPORT EKG Measurement Heart [id number] <Conclusion> Normal sinus rhythm Right bundle branch block Minimal voltage criteria for LVH, may be normal variant Abnormal ECG
== END 2018-03-08 17:30 | disposition home or self-care (01) | DRG 357 ==
LOC: C.ER 13:49 → C.9E 15:46 → C.3T 16:27 → OBSVTOIN 03-06 11:07 → UNDODISIN 03-07 09:45
PROVIDERS: ADMIT Internal Medicine Pulmonary Disease; ATTEND Internal Medicine Pulmonary Disease
PROC: 0W9H0ZX Drainage of Retroperitoneum, Open Approach, Diagnostic (ICD-10-PCS; 2018-03-05)
PROC: 0JXC0ZC Transfer Pelvic Region Subcutaneous Tissue and Fascia with Skin, Subcutaneous Tissue and Fascia, Open Approach (ICD-10-PCS; 2018-03-05)
PROC: 0JBC0ZZ Excision of Pelvic Region Subcutaneous Tissue and Fascia, Open Approach (ICD-10-PCS; principal; 2018-03-05 14:45)
PROC: 0J9C0ZZ Drainage of Pelvic Region Subcutaneous Tissue and Fascia, Open Approach (ICD-10-PCS; 2018-03-06)
PROC: 0JBC0ZZ Excision of Pelvic Region Subcutaneous Tissue and Fascia, Open Approach (ICD-10-PCS; 2018-03-06)
PROC: 0JBC0ZZ Excision of Pelvic Region Subcutaneous Tissue and Fascia, Open Approach (ICD-10-PCS; 2018-03-07)
PROC: 0J9C0ZZ Drainage of Pelvic Region Subcutaneous Tissue and Fascia, Open Approach (ICD-10-PCS; 2018-03-07)
PROC: 0JXC0ZC Transfer Pelvic Region Subcutaneous Tissue and Fascia with Skin, Subcutaneous Tissue and Fascia, Open Approach (ICD-10-PCS; 2018-03-07)
DX: K68.19 Other retroperitoneal abscess (principal); L02.415 Cutaneous abscess of right lower limb; R19.00 Intra-abdominal and pelvic swelling, mass and lump, unspecified site; I10 Essential (primary) hypertension; I25.10 Atherosclerotic heart disease of native coronary artery without angina pectoris; N40.0 Benign prostatic hyperplasia without lower urinary tract symptoms; Z79.82 Long term (current) use of aspirin

== ENCOUNTER 2018-07-22 11:40 | Day surgery (SDC) | payer BC, OTHER ==
[2018-07-22] MEDS ORDERED: Ciprofloxacin 400mg/200ml D5W 400 MG/200 ML BAG IVPB ONE (16:02)
[2018-07-22] MEDS ORDERED: Gentamicin 80 mg in 0.9% NS 160 MG/200 ML BAG IVPB ONE (16:02)
[2018-07-22] MEDS ORDERED: Midazolam 2 MG/2 ML VIAL ONE (16:03)
[2018-07-22] MEDS ORDERED: Propofol 10 mg/ml Inj (20 ML) ONE (16:03)
[2018-07-22] MEDS ORDERED: Lidocaine 2% Jelly (Uro-Jet) ONE (16:11)
--- NOTE | 2018-07-22 16:18 | PCM.SURG1 ---
Surgeon's Initial Post Op Note - Surgeon's Notes Surgeon: Zara Dental Mechanic: Naye Type of Anesthesia: General LMA Anesthesia Administered By: Staff Pre-Operative Diagnosis: BPH VILLASENOR Operative Findings: SAME Post-Operative Diagnosis: SAME Operation Performed: CYSTOSCOPY Specimen/Specimens Removed: NA Estimated Blood Loss: EBL {In ML}: 0 Blood Products Given: N/A Drains Used: No Drains Post-Op Condition: Good Date of Surgery/Procedure: 07/22/18 Time of Surgery/Procedure: 16:17
[2018-07-22 17:13] VITALS: PULSE 55
[2018-07-22 17:32] VITALS: TEMP 97.6
[2018-07-22 17:47] VITALS: RESP 16
[2018-07-22 18:39] VITALS: BP 125/59; O2SAT 98
--- NOTE | 2018-07-23 06:38 | OP ---
PROCEDURE DATE: 07/22/2018 PREOPERATIVE DIAGNOSIS: Benign prostatic hyperplasia and bladder outlet obstruction refractory to medical therapy. POSTOPERATIVE DIAGNOSIS: Benign prostatic hyperplasia and bladder outlet obstruction refractory to medical therapy. PROCEDURE: Cystopanendoscopy. FINDINGS: Trilobar hypertrophy with a high median bar and compensatory trabeculation of the bladder. DESCRIPTION OF PROCEDURE: As follows: Prior to the procedure, a detailed informed consent was obtained from the patient. He is aware of the risks and complications of the cystoscopy and other ways of managing BPH refractory to medical therapy. He consented to the risks of procedure and was brought into the room and time-out was taken according to the rules and regulations of [facility]. The patient was then positioned in low lithotomy position, draped and prepped in the usual manner. After 2% Xylocaine gel was instilled through the urethra, he was cystoscoped with a #21 Storz panendoscope. The pendulous and membranous urethra were normal. The prostatic urethra showed trilobed hypertrophy with a high median bar. The bladder was entered atraumatically. There was +3 trabeculation of the bladder. Based on the above findings, it appears that the patient is a candidate for green light laser. If he consents, it will be scheduled in the next available day. Jalen Zuñiga MD
== END 2018-07-22 18:25 | disposition home or self-care (01) ==
LOC: C.SDS 11:40
PROVIDERS: ATTEND Urology
DX: N40.1 Benign prostatic hyperplasia with lower urinary tract symptoms (principal); N13.8 Other obstructive and reflux uropathy; N32.89 Other specified disorders of bladder
CPT/HCPCS: 52000; J0744; J1580

== ENCOUNTER 2018-08-06 18:08 | Inpatient (IN) | payer BC, OTHER ==
[2018-08-06 18:08] VITALS: BMI 39.4
[2018-08-06] MEDS ORDERED: ceFAZolin IV 1 gm in Dextrose 1 GM/50 ML BAG IVPB ONE (19:41)
[2018-08-06] MEDS ORDERED: ceFAZolin 1 gm in NS 1 GM/100 ML BAG IVPB ONE (19:52)
[2018-08-06 19:59] LABS: BASO % 0.5 % (0.0-2.0); EOS # 0.2 K/uL (0.0-0.7); EOS % 1.9 % (0.0-4.0); HEMOGLOBIN 12.6 g/dL (12.0-18.0); LYMPH # 0.9 K/uL (1.0-4.3); LYMPH % 10.7 % (20.0-40.0); MEAN CELL VOLUME 84.9 fL (80.0-94.0); MEAN CORPUSCULAR HEMOGLOBIN 28.6 pg (27.0-31.0); MEAN CORPUSCULAR HGB CONC 33.7 g/dL (33.0-37.0); MEAN PLATELET VOLUME 10.2 fL (7.2-11.7); MONO # 0.5 K/uL (0.0-0.8); NEUT % 80.9 % (50.0-75.0); NRBC % 0.1 % (0.0-2.0); RBC 4.4 Mil/uL (4.40-5.90); RED CELL DISTRIBUTION WIDTH 13.5 % (11.5-14.5); WHITE BLOOD COUNT 8.6 K/uL (4.8-10.8)
[2018-08-06 20:12] LABS: BLOOD UREA NITROGEN 14 mg/dL (9-20); CALCIUM 9.3 mg/dl (8.6-10.4); GFR NON-AFRICAN AMERICAN > 60
[2018-08-06 20:13] LABS: ALB/GLOB RATIO 1.1 (1.0-2.1); ALBUMIN 4.3 g/dL (3.5-5.0); ALT/SGPT 18 U/L (21-72); AST/SGOT 31 U/L (17-59)
[2018-08-06 20:26] LABS: INR 1.1; PROTHROMBIN TIME 11.7 SECONDS (9.7-12.2)
--- NOTE | 2018-08-06 20:34 | C.PDOC ---
History Of Present Illness 62 year old male presents to the ED for evaluation of swelling to his groin region. Patient reports that for the last 3 days, he has had swelling to the left side of his pubic area. Patient has experienced similar symptoms in the pas t, which have been intermittent. Patient states he sometimes pops the area, and symptoms resolved. Patient attempted to pop the area yesterday, which he notes made the area worse. The area has increased in size and has become more painful. Patient also reports subjective fever and took Ibuprofen. Patient was evaluated by his doctor today, and advised to present to the ED for further management and possible surgical management of his groin abscess. Patient denies abdominal pain, back pain. Past medical history: hypertension surgical history: patient had similar episode previously social history: no smoking Time Seen by Provider: 08/06/18 18:48 Chief Complaint (Nursing): Abnormal Skin Integrity History Per: Patient History/Exam Limitations: no limitations Current Symptoms Are (Timing): Still Present Quality Of Symptoms: Painful Additional History Per: Patient Past Medical History Reviewed: Historical Data, Nursing Documentation, Vital Signs Vital Signs: Last Vital Signs Temp 99.8 F H 08/06/18 20:13 Pulse 68 08/06/18 20:13 Resp 16 08/06/18 20:13 BP 143/77 08/06/18 20:13 Pulse Ox 97 08/06/18 20:13 - Medical History PMH: HTN Denies: Chronic Kidney Disease Surgical History: No Surg Hx - [facility] Procedures DRAINAGE OF PELVIC SUBCU/FASCIA, OPEN APPROACH (03/06/18) DRAINAGE OF RETROPERITONEUM, OPEN APPROACH, DIAGNOSTIC (03/06/18) EXCISION OF PELVIC SUBCU/FASCIA, OPEN APPROACH (03/06/18) TRANSFER PELVIC SUBCU/FASCIA W SKIN, SUBCU, FASCIA, OPEN (03/06/18) Family History: States: Unknown Family Hx - Social History Hx Alcohol Use: No Hx Substance Use: No Review Of Systems Skin: Positive for: Other (skin abscess ) Physical Exam - Physical Exam Appears: Non-toxic, No Acute Distress Skin: Other (suprapubic area, left of midline: there is an indurated swelling with tenderness, warmth and questionable fluctuance) Head: Normacephalic, Tenderness Eye(s): bilateral: PERRL, EOMI Oral Mucosa: Moist Throat: No Erythema, No Exudate Neck: Normal ROM, Trachea Midline Lymphatic: No Adenopathy Cardiovascular: Rhythm Regular, No Murmur Respiratory: Normal Breath Sounds, No Rales Gastrointestinal/Abdominal: Soft, No Tenderness Extremity: Normal ROM, No Deformity Neurological/Psych: Oriented x3, Normal Motor, Normal Sensation ED Course And Treatment - Laboratory Results Result Diagrams: 08/06/18 19:56 08/06/18 19:56 ECG: Interpreted By Me ECG Rhythm: Sinus Rhythm (66), R BBB, Nonspecific Changes O2 Sat by Pulse Oximetry: 97 (on RA) Pulse Ox Interpretation: Normal Medical Decision Making Medical Decision Making: Impression: abscess and cellulitis to pubic area Progress: Bloodwork, EKG, CXR ordered and reviewed. Ancef IV given. Case discussed with Dr. Nicole and Dr. Martinez. PAtient to be hospitalized for surgical management in the morning. Discussed this with patient. Disposition - Disposition Disposition: HOSPITALIZED Disposition Time: 19:30 Condition: FAIR - POA Present On Arrival: None - Clinical Impression Clinical Impression: Abscess, Cellulitis - Scribe Statement The provider has reviewed the documentation as recorded by the Scribe (Lisa Wu) Provider Attestation: All medical record entries made by the Scribe were at my direction and personally dictated by me. I have reviewed the chart and agree that the record accurately reflects my personal performance of the history, physical exam, me dical decision making, and the department course for this patient. I have also personally directed, reviewed, and agree with the discharge instructions and disposition.
[2018-08-06] MEDS: Dextrose 5%/0.45% NS 1,000 ML IV SCH (21:30)
[2018-08-06] MEDS ORDERED: Dextrose 5%/0.45% NS 1,000 ML IV ONE (21:31)
[2018-08-07] MEDS: Dextrose 5%/0.45% NS 1,000 ML IV SCH ×2 (06:58→10:00)
--- NOTE | 2018-08-07 07:46 | RAD ---
Date of service: 08/06/2018 HISTORY: preop COMPARISON: No prior. TECHNIQUE: Chest PA and lateral FINDINGS: LUNGS: No active pulmonary disease. PLEURA: No significant pleural effusion identified. No pneumothorax apparent. CARDIOVASCULAR: Stable cardiomegaly. No pulmonary vascular congestion. OSSEOUS STRUCTURES: No significant abnormalities. VISUALIZED UPPER ABDOMEN: Mammilated right hemidiaphragm reiterated. OTHER FINDINGS: None. IMPRESSION: Stable cardiomegaly. No interval acute cardiopulmonary disease identified.
--- NOTE | 2018-08-07 10:10 | CP.PCM.PN ---
Subjective - Date & Time of Evaluation Date of Evaluation: 08/07/18 Time of Evaluation: 07:00 - Subjective Subjective: PGY2- Progress Note for Dr. Nicole Patient is a 62 year old male with PMHx of HTN, BPH, and possible CAD who presents today for a left sided groin abscess. Patient says it started out as a small bump and then he tried to squeeze it and for the past two days it has grown larger and become painful. Patient also mentions a smaller raised area on the right side of his groin which he says is just starting to develop. Patient had an abscess like this in February which was drained and treated with antibiotics. At the time wound was positive for MRSA. Patient denies fevers, chills, headache, chest pain, abdominal pain, nausea, vomiting, constipation, or diarrhea. All: NKDA PMHx: HTN, BPH, CAD Surg: R thigh abscess I&D, cystoscopy 08/[address] 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 Meds: Amlodipine 5mg po daily, Flomax .4mg po daily, ASA 81mg po daily Objective - Vital Signs/Intake and Output Vital Signs (last 24 hours): Temp Pulse Resp BP Pulse Ox 98.5 F 64 20 160/70 H 94 L 08/07/18 07:00 08/07/18 07:00 08/07/18 07:00 08/07/18 07:00 08/07/18 07:00 Intake and Output: 08/07/18 08/07/18 06:59 18:59 Intake Total 640 Output Total 700 Balance -60 - Medications Medications: Current Medications Amlodipine Besylate (Norvasc) 5 mg PO DAILY [facility] Dextrose/Sodium Chloride (Dextrose 5%/0.45% Ns 1000 Ml) 1,000 mls @ 80 mls/hr IV .[id number] [facility] Last Admin: 08/07/18 06:58 Dose: 80 mls/hr Pneumococcal Polyvalent Vaccine (Pneumovax 23 Vaccine) 0.5 ml IM .ONCE ONE Stop: 08/08/18 10:01 Tamsulosin HCl (Flomax) 0.4 mg PO DAILY [facility] - Labs Labs: 08/06/18 19:56 08/06/18 19:56 PT 11.7 SECONDS (9.7-12.2) 08/06/18 19:56 INR 1.1 08/06/18 19:56 APTT 30 SECONDS (21-34) 08/06/18 19:56 - Constitutional Appears: Non-toxic, No Acute Distress - Head Exam Head Exam: ATRAUMATIC, NORMAL INSPECTION, NORMOCEPHALIC - Eye Exam Eye Exam: EOMI, Normal appearance - ENT Exam ENT Exam: Mucous Membranes Moist - Respiratory Exam Respiratory Exam: Clear to Ausculation Bilateral, NORMAL BREATHING PATTERN. absent: Rales, Wheezes - Cardiovascular Exam Cardiovascular Exam: REGULAR RHYTHM, RRR, +S1, +S2 - GI/Abdominal Exam GI & Abdominal Exam: Soft, Normal Bowel Sounds. absent: Tenderness - Exam Additional comments: left sided suprapubic area of induration with tenderness - Extremities Exam Extremities Exam: Full ROM. absent: Pedal Edema, Tenderness - Neurological Exam Neurological Exam: Alert, Awake, Oriented x3 - Psychiatric Exam Psychiatric exam: Normal Affect, Normal Mood - Skin Skin Exam: Intact, Normal Color, Warm Assessment and Plan - Assessment and Plan (Free Text) Assessment: L Sided Groin Abscess NPO f/u blood cultures possible I&D with Dr. Martinez today D5 1/2 NS at 80 cc/hr HTN Norvasc 5mg po daily EKG: NSR at 66bpm, RBBB Cxray: stable cardiomegaly, no interval acute cardiopulmonary disease identified. BPH Flomax .4mg po daily Prophylaxis SCDs Management as per Dr. Nicole
[2018-08-07 11:54] LABS: BASO % 0.3 % (0.0-2.0); EOS # 0.1 K/uL (0.0-0.7); EOS % 1.6 % (0.0-4.0); HEMOGLOBIN 11.9 g/dL (12.0-18.0); LYMPH % 13.6 % (20.0-40.0); MEAN CELL VOLUME 84.6 fL (80.0-94.0); MEAN CORPUSCULAR HEMOGLOBIN 28.5 pg (27.0-31.0); MEAN CORPUSCULAR HGB CONC 33.7 g/dL (33.0-37.0); MEAN PLATELET VOLUME 10.6 fL (7.2-11.7); MONO # 0.5 K/uL (0.0-0.8); MONO % 6.4 % (0.0-10.0); NEUT # 5.7 K/uL (1.8-7.0); NEUT % 78.1 % (50.0-75.0); RBC 4.17 Mil/uL (4.40-5.90); RED CELL DISTRIBUTION WIDTH 13.6 % (11.5-14.5); WHITE BLOOD COUNT 7.3 K/uL (4.8-10.8)
[2018-08-07 12:15] LABS: ALB/GLOB RATIO 1.2 (1.0-2.1); ALT/SGPT 21 U/L (21-72); AST/SGOT 21 U/L (17-59); BLOOD UREA NITROGEN 10 mg/dL (9-20); CALCIUM 9.1 mg/dl (8.6-10.4); GFR NON-AFRICAN AMERICAN > 60
[2018-08-07] MEDS ORDERED: ceFAZolin IV 1 gm in Dextrose 2 GM/100 ML BAG IVPB ONE (12:51)
[2018-08-07] MEDS ORDERED: Propofol 10 mg/ml Inj (20 ML) ONE (12:54)
[2018-08-07] MEDS ORDERED: Midazolam 2 MG/2 ML VIAL ONE (12:54)
[2018-08-07] MEDS ORDERED: Succinylcholine Chloride 20 mg/ml Syr (5 ml) IV ONE (12:55)
[2018-08-07] MEDS ORDERED: Rocuronium 10 mg/ml (5 ml) ONE (12:55)
[2018-08-07] MEDS ORDERED: Clotrimazole/Betamethasone Cream(15 gm) TOP ONE (13:09)
[2018-08-07] MEDS ORDERED: HYDROmorphone 0.5 mg/0.5 ml ISec IVP PRN (13:52)
[2018-08-07] MEDS ORDERED: Oxycodone/Acetaminophen 5/325 mg Tab PO PRN (14:28)
--- NOTE | 2018-08-07 20:46 | OP ---
PROCEDURE DATE: 08/07/2018 PREOPERATIVE DIAGNOSIS: Bilateral infected groin masses. POSTOPERATIVE DIAGNOSIS: Bilateral infected groin masses. PROCEDURE PERFORMED: Wide and deep excision, radical resection, 5-cm bilateral infected masses of the right groin and pelvis. SURGEON: Dallin Martinez MD ANESTHESIA: General. BLOOD LOSS: 40 mL. POSTOPERATIVE CONDITION: Stable. INDICATIONS FOR SURGERY: This is a 62-year-old male, presents with bilateral masses in both his groins, painful, indurated, infected who presents for operative I and D and possible excision. DESCRIPTION OF PROCEDURE: The patient was taken to the operating room, general anesthesia administered. The patient was placed in the modified frog position. Both groins along with the proximal extremities in the lower abdomen were prepped and draped. Attention was first turned to the right pelvic area where a wide generous elliptical incision was made surrounding the 5 cm mass. It was dissected into the fascia and the mass was completely removed at a side table, it was opened and cultured. Bleeding was controlled using the Bovie. Larger blood vessel was repaired separately with Prolene. Full-thickness tissue flaps were raised with Prolene and counter incisions were made into the flaps and advancement flap closure of 32 sq cm was performed on the right side. Next, the wounds were closed with heavy Vicryl, and the skin was closed loosely with skin clips. Next, attention was turned to the left side. Once again, a generous elliptical incision was made surrounding the 5 cm mass, it was dissected into and through the fascial layer and completely removed. Bleeding was controlled using the Bovie. Full-thickness flaps were raised, and a partial tissue flap closure was performed. The central portion of wound was packed open with wet saline gauze due to contamination with pus. The wounds were dressed sterilely. The patient tolerated the procedure well. Returned to recovery room in stable condition. Dallin Martinez MD
[2018-08-08] MEDS: Dextrose 5%/0.45% NS 1,000 ML IV SCH ×2 (04:36→21:15)
--- NOTE | 2018-08-08 07:03 | HP ---
HISTORY OF PRESENT ILLNESS: A 62-year-old male admitted to the hospital with chief complaints weakness, tiredness and left groin swelling and pain. The patient has a left groin abscess. Advised ER visit and advised admission. The patient has history of diabetes, hypertension. PHYSICAL EXAMINATION: GENERAL: The patient is awake, alert and oriented. VITAL SIGNS: Temperature 98, pulse 90. HEENT: Within normal limits. NECK: Supple. CHEST: Symmetrical. HEART: Regular. ABDOMEN: Soft. EXTREMITIES: No edema. There is a swelling in the left groin. IMPRESSION: The patient suffers from an abscess left groin. Surgical consult, antibiotics. Konrad Nicole MD
[2018-08-08 07:39] LABS: ALB/GLOB RATIO 1.2 (1.0-2.1); ALBUMIN 3.7 g/dL (3.5-5.0); ALT/SGPT 23 U/L (21-72); AST/SGOT 23 U/L (17-59); BLOOD UREA NITROGEN 11 mg/dL (9-20); CALCIUM 8.8 mg/dl (8.6-10.4); GFR NON-AFRICAN AMERICAN > 60
--- NOTE | 2018-08-08 07:56 | CP.PCM.PN ---
Subjective - Date & Time of Evaluation Date of Evaluation: 08/08/18 Time of Evaluation: 07:56 - Subjective Subjective: Medicine Progress Note - Dr Nicole Patient seen and examined at bedside. Patient had incision and drainage of groin abscess yesterday. Patient is NPO currently for possible surgical procedure. He is doing well, pain is controlled. Offers no other complaints at this time. Objective - Vital Signs/Intake and Output Vital Signs (last 24 hours): Temp Pulse Resp BP Pulse Ox 98.3 F 63 20 147/73 98 08/07/18 23:20 08/07/18 23:20 08/07/18 23:20 08/07/18 15:07 08/07/18 23:20 Intake and Output: 08/08/18 08/08/18 06:59 18:59 Intake Total 640 Balance 640 - Medications Medications: Current Medications Amlodipine Besylate (Norvasc) 5 mg PO DAILY [facility] Last Admin: 08/07/18 11:02 Dose: 5 mg Dextrose/Sodium Chloride (Dextrose 5%/0.45% Ns 1000 Ml) 1,000 mls @ 80 mls/hr IV .[id number] [facility] Last Admin: 08/08/18 04:36 Dose: 80 mls/hr Cefazolin Sodium 500 mg/ (Sodium Chloride) 100 mls @ 200 mls/hr IVPB Q8H [facility]; Protocol Last Admin: 08/08/18 04:37 Dose: 200 mls/hr Oxycodone/Acetaminophen (Percocet 5/325 Mg Tab) 2 tab PO Q4H PRN PRN Reason: Pain, moderate (4-7) Stop: 08/10/18 14:29 Pneumococcal Polyvalent Vaccine (Pneumovax 23 Vaccine) 0.5 ml IM .ONCE ONE Stop: 08/08/18 10:01 Tamsulosin HCl (Flomax) 0.4 mg PO DAILY [facility] Last Admin: 08/07/18 11:01 Dose: 0.4 mg - Labs Labs: 08/07/18 11:49 08/08/18 07:11 PT 11.7 SECONDS (9.7-12.2) 08/06/18 19:56 INR 1.1 08/06/18 19:56 APTT 30 SECONDS (21-34) 08/06/18 19:56 - Constitutional Appears: Non-toxic, No Acute Distress - Head Exam Head Exam: ATRAUMATIC, NORMAL INSPECTION, NORMOCEPHALIC - Eye Exam Eye Exam: EOMI, Normal appearance Pupil Exam: NORMAL ACCOMODATION - ENT Exam ENT Exam: Mucous Membranes Moist - Neck Exam Neck Exam: Full ROM - Respiratory Exam Respiratory Exam: Clear to Ausculation Bilateral, NORMAL BREATHING PATTERN. absent: Rales, Rhonchi, Wheezes - Cardiovascular Exam Cardiovascular Exam: REGULAR RHYTHM, +S1, +S2 - GI/Abdominal Exam GI & Abdominal Exam: Soft. absent: Guarding, Rigid, Tenderness - Exam Additional comments: Groin Dressing intact with dried blood - Extremities Exam Extremities Exam: absent: Calf Tenderness - Neurological Exam Neurological Exam: Alert, Awake, Oriented x3 - Psychiatric Exam Psychiatric exam: Normal Affect, Normal Mood - Skin Skin Exam: Dry, Normal Color, Warm Assessment and Plan - Assessment and Plan (Free Text) Assessment: L Sided Groin Abscess -Stable, afebrile -Patient is s/p Incision and Drainage POD#1 -Antibiotics: Cefazolin 1 gm Q8H IVPB -Diet NPO for possible OR today -Tissue cultures, blood cultures pending -D5 1/2 NS at 80 cc/hr HTN -Continue Norvasc 5mg PO daily -EKG: NSR at 66bpm, RBBB -Cxray: stable cardiomegaly, no interval acute cardiopulmonary disease identified. BPH -Continue Flomax .4mg po daily Prophylaxis -SCDs -No GI ppx indicated at this time Management as per Dr. Corey Peters DO PGY-2
[2018-08-08 08:03] LABS: BASO % 0.3 % (0.0-2.0); EOS # 0.2 K/uL (0.0-0.7); EOS % 3.4 % (0.0-4.0); HEMOGLOBIN 11.8 g/dL (12.0-18.0); LYMPH % 19.1 % (20.0-40.0); MEAN CELL VOLUME 85.1 fL (80.0-94.0); MEAN CORPUSCULAR HEMOGLOBIN 28.9 pg (27.0-31.0); MEAN CORPUSCULAR HGB CONC 33.9 g/dL (33.0-37.0); MEAN PLATELET VOLUME 10.4 fL (7.2-11.7); MONO # 0.4 K/uL (0.0-0.8); MONO % 7.9 % (0.0-10.0); NEUT # 3.6 K/uL (1.8-7.0); NEUT % 69.3 % (50.0-75.0); NRBC % 0.1 % (0.0-2.0); RBC 4.1 Mil/uL (4.40-5.90); RED CELL DISTRIBUTION WIDTH 13.9 % (11.5-14.5); WHITE BLOOD COUNT 5.2 K/uL (4.8-10.8)
[2018-08-08] MEDS ORDERED: Pneumococcal 23-Valent Vaccine IM ONE (10:00)
[2018-08-08] MEDS ORDERED: Propofol 10 mg/ml Inj (20 ML) ONE (12:03)
[2018-08-08] MEDS ORDERED: Midazolam 2 MG/2 ML VIAL ONE (12:03)
[2018-08-08] MEDS ORDERED: Bacitracin Ointment 30 GM TUBE ONE (12:29)
[2018-08-08] MEDS ORDERED: HYDROmorphone 0.5 mg/0.5 ml ISec IVP PRN (12:57)
[2018-08-08] MEDS ORDERED: Lactated Ringer's 1,000 ML IV SCH (13:00)
[2018-08-08 13:39] LABS: HEMOGLOBIN 11.6 g/dL (12.0-18.0); MEAN CELL VOLUME 84.8 fL (80.0-94.0); MEAN CORPUSCULAR HEMOGLOBIN 28.4 pg (27.0-31.0); MEAN CORPUSCULAR HGB CONC 33.5 g/dL (33.0-37.0); MEAN PLATELET VOLUME 9.9 fL (7.2-11.7); RBC 4.07 Mil/uL (4.40-5.90); RED CELL DISTRIBUTION WIDTH 13.7 % (11.5-14.5); WHITE BLOOD COUNT 4.4 K/uL (4.8-10.8)
[2018-08-08 16:49] VITALS: RESP 20
--- NOTE | 2018-08-08 22:20 | OP ---
PROCEDURE DATE: 08/08/2018 PREOPERATIVE DIAGNOSES: Left groin and retroperitoneal abscess. POSTOPERATIVE DIAGNOSES: Left groin and retroperitoneal abscess. PROCEDURE PERFORMED: Debridement and re-drainage of left pelvic and retroperitoneal abscess with repair of pelvic blood vessel and advancement flap closure (32 square centimeters). SURGEON: Dallin Martinez MD ANESTHESIA: General. BLOOD LOSS: 30 mL. POSTOPERATIVE CONDITION: Stable. INDICATIONS FOR SURGERY: This is a 62-year-old male who yesterday underwent bilateral drainage of groin and pelvic abscesses, who today is taken back to the OR for re-debridement, drainage and change of packing of a large left pelvic and retroperitoneal abscess open wound. DESCRIPTION OF PROCEDURE: The patient was taken to the operating room, general anesthesia was administered. The previous packing from the left groin and pelvic region was removed. Almost immediately, there was a fair amount of bleeding. So the wound was quickly prepped and draped. A pelvic blood vessel was isolated, dissected free, and repaired separately using 4-0 Prolene suture. The abscess cavity was then re-debrided and the remaining retroperitoneal collections were drained and cultured. The remainder of bleeding was controlled using the Bovie. The wound was pulse irrigated with 2 liters of saline and Kantrex solution. Full-thickness tissue flaps were raised and counter incisions were made and advancement flap closures were performed, totaling 32 square centimeters using multiple layers of subcuticular Monocryl. The wounds were dressed with bacitracin and a dry sterile dressing. The patient tolerated the procedure well and returned to Recovery in stable condition. Dallin Martinez MD
[2018-08-09 06:39] LABS: BASO % 0.4 % (0.0-2.0); EOS # 0.2 K/uL (0.0-0.7); EOS % 4.3 % (0.0-4.0); HEMOGLOBIN 10.7 g/dL (12.0-18.0); LYMPH # 0.8 K/uL (1.0-4.3); LYMPH % 17.8 % (20.0-40.0); MEAN CELL VOLUME 85.6 fL (80.0-94.0); MEAN CORPUSCULAR HGB CONC 33.9 g/dL (33.0-37.0); MEAN PLATELET VOLUME 10.4 fL (7.2-11.7); MONO # 0.4 K/uL (0.0-0.8); MONO % 8.2 % (0.0-10.0); NEUT # 3.1 K/uL (1.8-7.0); NEUT % 69.3 % (50.0-75.0); RBC 3.71 Mil/uL (4.40-5.90); RED CELL DISTRIBUTION WIDTH 13.9 % (11.5-14.5); WHITE BLOOD COUNT 4.5 K/uL (4.8-10.8)
[2018-08-09 07:00] LABS: ALB/GLOB RATIO 1.1 (1.0-2.1); ALBUMIN 3.5 g/dL (3.5-5.0); ALT/SGPT 25 U/L (21-72); AST/SGOT 21 U/L (17-59); BLOOD UREA NITROGEN 9 mg/dL (9-20); CALCIUM 8.4 mg/dl (8.6-10.4); GFR NON-AFRICAN AMERICAN > 60
--- NOTE | 2018-08-09 07:09 | CP.PCM.PN ---
Subjective - Date & Time of Evaluation Date of Evaluation: 08/09/18 Time of Evaluation: 07:09 - Subjective Subjective: Medicine Progress Note - Dr Nicole Patient seen and examined at bedside. Per nursing no acute events overnight. Patient is doing well, pain is controlled. Offers no complaints at this time. Objective - Vital Signs/Intake and Output Vital Signs (last 24 hours): Temp Pulse Resp BP Pulse Ox 98 F 61 20 160/85 H 96 08/09/18 05:16 08/09/18 05:16 08/09/18 05:16 08/09/18 05:16 08/09/18 05:16 Intake and Output: 08/09/18 08/09/18 06:59 18:59 Intake Total 1600 Balance 1600 - Medications Medications: Current Medications Amlodipine Besylate (Norvasc) 5 mg PO DAILY [facility] Last Admin: 08/08/18 10:33 Dose: 5 mg Dextrose/Sodium Chloride (Dextrose 5%/0.45% Ns 1000 Ml) 1,000 mls @ 80 mls/hr IV .[id number] [facility] Last Admin: 08/08/18 21:15 Dose: 80 mls/hr Lactated Ringer's (Lactated Ringer's) 1,000 mls @ 100 mls/hr IV .Q10H [facility] Oxycodone/Acetaminophen (Percocet 5/325 Mg Tab) 2 tab PO Q4H PRN PRN Reason: Pain, moderate (4-7) Stop: 08/10/18 14:29 Tamsulosin HCl (Flomax) 0.4 mg PO DAILY [facility] Last Admin: 08/07/18 11:01 Dose: 0.4 mg - Labs Labs: 08/09/18 06:31 08/09/18 06:31 PT 11.7 SECONDS (9.7-12.2) 08/06/18 19:56 INR 1.1 08/06/18 19:56 APTT 30 SECONDS (21-34) 08/06/18 19:56 - Additional Findings Additional findings: - Constitutional Appears: Non-toxic, No Acute Distress - Head Exam Head Exam: ATRAUMATIC, NORMAL INSPECTION, NORMOCEPHALIC - Eye Exam Eye Exam: EOMI, Normal appearance Pupil Exam: NORMAL ACCOMODATION - ENT Exam ENT Exam: Mucous Membranes Moist - Neck Exam Neck Exam: Full ROM - Respiratory Exam Respiratory Exam: Clear to Ausculation Bilateral, NORMAL BREATHING PATTERN. absent: Rales, Rhonchi, Wheezes - Cardiovascular Exam Cardiovascular Exam: REGULAR RHYTHM, +S1, +S2 - GI/Abdominal Exam GI & Abdominal Exam: Soft. absent: Guarding, Rigid, Tenderness - Exam Additional comments: Groin Dressing clean dry and intact - Extremities Exam Extremities Exam: absent: Calf Tenderness - Neurological Exam Neurological Exam: Alert, Awake, Oriented x3 - Psychiatric Exam Psychiatric exam: Normal Affect, Normal Mood - Skin Skin Exam: Dry, Normal Color, Warm Assessment and Plan - Assessment and Plan (Free Text) Assessment: L Sided Groin Abscess -Stable, afebrile -Patient is s/p Incision and Drainage -Antibiotics: Cefazolin 1 gm Q8H IVPB -Tissue cultures growing staph aureus, sensitivities pending -Blood cultures showing no growth x 48 hours -Patient cleared for discharge home today -Follow up with Dr Martinez outpatient HTN -Continue Norvasc 5mg PO daily -EKG: NSR at 66bpm, RBBB -Cxray: stable cardiomegaly, no interval acute cardiopulmonary disease identified. BPH -Continue Flomax .4mg po daily Prophylaxis -SCDs -No GI ppx indicated at this time Management as per Dr. Corey Peters DO PGY-2
[2018-08-09 08:46] VITALS: BP 141/71; PULSE 80; TEMP 98.9; O2SAT 97
--- NOTE | 2018-08-10 06:38 | CARD ---
APPROVED REPORT Date of service: 08/06/2018 EKG Measurement Heart [id number] <Conclusion> Normal sinus rhythm Right bundle branch block Minimal voltage criteria for LVH, may be normal variant Abnormal ECG
== END 2018-08-09 09:36 | disposition home or self-care (01) | DRG 573 ==
LOC: C.ER 18:08 → C.9E 19:40 → C.6T 21:50
PROVIDERS: ADMIT Internal Medicine Pulmonary Disease; ATTEND Internal Medicine Pulmonary Disease
PROC: 0JXC0ZZ Transfer Pelvic Region Subcutaneous Tissue and Fascia, Open Approach (ICD-10-PCS; 2018-08-07)
PROC: 0JBC0ZZ Excision of Pelvic Region Subcutaneous Tissue and Fascia, Open Approach (ICD-10-PCS; 2018-08-07)
PROC: 0HDAXZZ Extraction of Inguinal Skin, External Approach (ICD-10-PCS; 2018-08-08)
PROC: 0J9C0ZX Drainage of Pelvic Region Subcutaneous Tissue and Fascia, Open Approach, Diagnostic (ICD-10-PCS; 2018-08-08)
PROC: 0HR Skin and Breast, Replacement (ICD-10-PCS; principal; 2018-08-08 13:30)
DX: L02.214 Cutaneous abscess of groin (principal); K68.19 Other retroperitoneal abscess; I25.10 Atherosclerotic heart disease of native coronary artery without angina pectoris; E11.9 Type 2 diabetes mellitus without complications; I10 Essential (primary) hypertension; I45.10 Unspecified right bundle-branch block; N40.0 Benign prostatic hyperplasia without lower urinary tract symptoms; B95.62 Methicillin resistant Staphylococcus aureus infection as the cause of diseases classified elsewhere

== ENCOUNTER 2018-08-12 11:09 | Day surgery (SDC) | payer BC, OTHER | END 2018-08-12 12:00 | disposition home or self-care (01) | LOC: C.SDS 11:09 | PROVIDERS: ATTEND Urology | DX: N40.1 Benign prostatic hyperplasia with lower urinary tract symptoms (principal); L02.818 Cutaneous abscess of other sites; Z53.8 Procedure and treatment not carried out for other reasons | CPT/HCPCS: 52648; P000X ==

== ENCOUNTER 2018-12-08 08:16 | Inpatient (IN) | payer BC, OTHER ==
[2018-12-08 08:16] VITALS: BMI 45.1
[2018-12-08] MEDS ORDERED: Iohexol 240 (50 ml) PO STA (08:49)
[2018-12-08 08:51] LABS: VENOUS BLOOD GAS BASE EXCESS 1.9 mmol/L (0.0-2.0); VENOUS BLOOD GAS PCO2 41 mmHg (40-60); VENOUS BLOOD GAS PO2 49 mm/Hg (30-55); VENOUS BLOOD PH 7.42 (7.32-7.43)
[2018-12-08 08:58] LABS: BASO % 0.3 % (0.0-2.0); EOS % 0.1 % (0.0-4.0); HEMOGLOBIN 12.1 g/dL (12.0-18.0); LYMPH # 0.6 K/uL (1.0-4.3); LYMPH % 6.4 % (20.0-40.0); MEAN CELL VOLUME 86.1 fL (80.0-94.0); MEAN CORPUSCULAR HEMOGLOBIN 28.2 pg (27.0-31.0); MEAN CORPUSCULAR HGB CONC 32.7 g/dL (33.0-37.0); MEAN PLATELET VOLUME 10.3 fL (7.2-11.7); MONO # 0.8 K/uL (0.0-0.8); NEUT # 8.1 K/uL (1.8-7.0); NEUT % 85.2 % (50.0-75.0); PLATELET COUNT 180 K/uL (130-400)
[2018-12-08 09:00] LABS: WHITE BLOOD COUNT 9.5 K/uL (4.8-10.8)
[2018-12-08 09:08] LABS: URINE BACTERIA RARE (<OCC); URINE BILIRUBIN NEGATIVE (NEGATIVE); URINE BLOOD 1+ (NEGATIVE); URINE CLARITY Hazy (Clear); URINE COLOR Yellow (YELLOW); URINE GLUCOSE (UA) NORMAL (Normal); URINE LEUKOCYTE ESTERASE 1+ Leu/uL (Negative); URINE PROTEIN 1+ mg/dL (NEGATIVE); URINE UROBILINOGEN NORMAL mg/dL (0.2-1.0)
[2018-12-08] MEDS ORDERED: Iohexol 240 (50 ml) ONE (09:09)
[2018-12-08 09:13] LABS: ALB/GLOB RATIO 1.1 (1.0-2.1); ALBUMIN 4.2 g/dL (3.5-5.0); ALT/SGPT 44 U/L (21-72); AST/SGOT 82 U/L (17-59); BLOOD UREA NITROGEN 10 mg/dL (9-20); CALCIUM 8.9 mg/dl (8.6-10.4); GFR NON-AFRICAN AMERICAN > 60; LIPASE 29 U/L (23-300)
[2018-12-08 09:34] LABS: EOSINOPHIL 1 % (0-4); LYMPHOCYTE 7 % (20-40); MONOCYTE 8 % (0-10); NEUTROPHIL 84 % (50-75); TOTAL CELLS COUNTED 100
[2018-12-08 09:35] LABS: ANISOCYTOSIS SLIGHT; HYPOCHROMIC SLIGHT; LARGE PLATELETS PRESENT; PLATELET ESTIMATE NORMAL (NORMAL); POLYCHROMIC SLIGHT
--- NOTE | 2018-12-08 09:41 | C.PDOC ---
History Of Present Illness Patient presents to ED c/o intermittent abdominal pain for approx 2 weeks. He was seen by PMD and given "medications", has also been using pepto bismol - only calmed the pain periodically. He denies nausea/vomiting, fever, cough, dysuria. He does admit to constipation. Patient denies history of abdominal/pelvic surgeries. Time Seen by Provider: 12/08/18 08:21 Chief Complaint (Nursing): Abdominal Pain Past Medical History Reviewed: Historical Data, Nursing Documentation, Vital Signs Vital Signs: Last Vital Signs Temp 100.6 F H 12/08/18 08:17 Pulse 92 H 12/08/18 08:17 Resp 20 12/08/18 08:17 BP 166/79 H 12/08/18 08:17 Pulse Ox 97 12/08/18 08:17 - Medical History PMH: HTN - [facility] Procedures DRAINAGE OF PELVIC SUBCU/FASCIA, OPEN APPROACH (03/06/18) DRAINAGE OF PELVIC SUBCU/FASCIA, OPEN APPROACH, DIAGN (08/06/18) DRAINAGE OF RETROPERITONEUM, OPEN APPROACH, DIAGNOSTIC (03/06/18) EXCISION OF PELVIC SUBCU/FASCIA, OPEN APPROACH (08/06/18) EXTRACTION OF GENITALIA SKIN, EXTERNAL APPROACH (08/06/18) REPLACE GENITALIA SKIN W AUTOL SUB, FULL THICK, DIRECTOR OF LABOR AND DELIVERY (08/06/18) TRANSFER PELVIC SUBCU/FASCIA W SKIN, SUBCU, FASCIA, OPEN (03/06/18) TRANSFER PELVIC SUBCU/FASCIA, OPEN APPROACH (08/06/18) Family History: States: No Known Family Hx - Social History Hx Alcohol Use: No Hx Substance Use: No - Immunization History Hx Tetanus Toxoid Vaccination: No Hx Influenza Vaccination: No Hx Pneumococcal Vaccination: No Review Of Systems Cardiovascular: Negative for: Chest Pain, Palpitations Respiratory: Negative for: Cough, Shortness of Breath Gastrointestinal: Positive for: Abdominal Pain, Constipation. Negative for: Nausea, Vomiting, Diarrhea Genitourinary: Negative for: Dysuria, Hematuria Skin: Negative for: Rash Physical Exam - Physical Exam Appears: Well, Non-toxic, In Acute Distress (in mild pain) Skin: Normal Color, Warm, Dry Eye(s): bilateral: Normal Inspection Oral Mucosa: Moist Cardiovascular: Rhythm Regular Respiratory: Normal Breath Sounds, No Rales, No Rhonchi, No Wheezing Gastrointestinal/Abdominal: Bowel Sounds, Soft, Tenderness (TTP at epigastric area), Distention, No Guarding, No Rebound, Other (large ventral hernia with TTP, reducible umblical hernia) Back: No CVA Tenderness Neurological/Psych: Oriented x3 ED Course And Treatment - Laboratory Results Result Diagrams: 12/19/18 06:09 12/19/18 06:10 Lab Results: pO2 49 mm/Hg (30-55) 12/08/18 08:47 VBG pH 7.42 (7.32-7.43) 12/08/18 08:47 VBG pCO2 41 mmHg (40-60) 12/08/18 08:47 VBG HCO3 26.1 mmol/L 12/08/18 08:47 VBG Total CO2 27.9 mmol/L (22-28) 12/08/18 08:47 VBG O2 Sat (Calc) 86.6 % (40-65) H 12/08/18 08:47 VBG Base Excess 1.9 mmol/L (0.0-2.0) 12/08/18 08:47 VBG Potassium 3.8 mmol/L (3.6-5.2) 12/08/18 08:47 Sodium 139.0 mmol/l (132-148) 12/08/18 08:47 Chloride 106.0 mmol/L (98-107) 12/08/18 08:47 Glucose 127 mg/dl (75-110) H 12/08/18 08:47 Lactate 0.9 mmol/L (0.7-2.1) 12/08/18 08:47 Total Bilirubin 0.7 mg/dL (0.2-1.3) 12/08/18 08:50 AST 82 U/L (17-59) H D 12/08/18 08:50 ALT 44 U/L (21-72) 12/08/18 08:50 Alkaline Phosphatase 123 U/L (38-126) 12/08/18 08:50 Total Protein 7.9 g/dL (6.3-8.3) 12/08/18 08:50 Albumin 4.2 g/dL (3.5-5.0) 12/08/18 08:50 Globulin 3.7 gm/dL (2.2-3.9) 12/08/18 08:50 Albumin/Globulin Ratio 1.1 (1.0-2.1) 12/08/18 08:50 Lipase 29 U/L (23-300) 12/08/18 08:50 Urine Color Yellow (YELLOW) 12/08/18 08:57 Urine Clarity Hazy (Clear) 12/08/18 08:57 Urine pH 5.0 (5.0-8.0) 12/08/18 08:57 Ur Specific Pinch 1.016 (1.003-1.030) 12/08/18 08:57 Urine Protein 1+ mg/dL (NEGATIVE) H 12/08/18 08:57 Urine Glucose (UA) Normal mg/dL (Normal) 12/08/18 08:57 Urine Ketones 1+ mg/dL (NEGATIVE) H 12/08/18 08:57 Urine Blood 1+ (NEGATIVE) H 12/08/18 08:57 Urine Nitrate Negative (NEGATIVE) 12/08/18 08:57 Urine Bilirubin Negative (NEGATIVE) 12/08/18 08:57 Urine Urobilinogen Normal mg/dL (0.2-1.0) 12/08/18 08:57 Ur Leukocyte Esterase 1+ Lisbet/uL (Negative) H 12/08/18 08:57 Urine WBC (Auto) 47 /hpf (0-5) H 12/08/18 08:57 Urine RBC (Auto) 1 /hpf (0-3) 12/08/18 08:57 Urine Bacteria Rare (<OCC) 12/08/18 08:57 O2 Sat by Pulse Oximetry: 97 (RA) Pulse Ox Interpretation: Normal Progress Note: Blood work, UA, CT scan abd/pelvis ordered and reviewed. Patient given IV Ns bolus, PO tylenol for fever, IV morphine for pain. CT scan showed findings consistent with colitis vs possible neoplasm- IV Ciprofloxacin and IV Flagyl ordered. - Physician Consult Information Physician Contacted: Ciera Hicks Outcome Of Conversation: Spoke with hospitalist (3:30pm), they are covering Dr. Brown, admission changed to her service. Disposition - Disposition Disposition: HOSPITALIZED Disposition Time: 12:14 Condition: STABLE - Clinical Impression Clinical Impression: Colitis, Fever, Abdominal pain, Hernia Decision To Admit - Pt Status Changed To: Hospital Disposition Of: Inpatient - Admit Certification Admit to Inpatient:: After my assessment, the patient will require hospitalization for at least two midnights. This is because of the severity of symptoms shown, intensity of services needed, and/or the medical risk in this patient being treated as an outpatient. - InPatient: Physician Admission Certification:: see notes - . Bed Request Type: Regular Admitting Physician: Ciera Hicks Patient Diagnosis: Constipation, Abdominal pain, Colitis, Fever
[2018-12-08] MEDS ORDERED: Sodium Chloride 0.9% 1,000 ML IV ONE (09:43)
[2018-12-08] MEDS ORDERED: Iohexol 300 100 ML IJ ONE (10:04)
[2018-12-08] MEDS ORDERED: Morphine 4 MG/ML VIAL ONE (10:07)
--- NOTE | 2018-12-08 11:45 | CT ---
Date of service: 12/08/2018 PROCEDURE: CT Abdomen and Pelvis with contrast HISTORY: ABD PAIN, CONTIPATON, LARGE VENTRAL HERNIA COMPARISON: None. TECHNIQUE: Contrast dose: 100 mL of Omnipaque 300 intravenously. Axial and reformatted coronal and sagittal CT images of the abdomen and pelvis were obtained after IV and oral contrast administration Radiation dose: Total exam DLP = 1453.28 mGy-cm. This CT exam was performed using one or more of the following dose reduction techniques: Automated exposure control, adjustment of the mA and/or kV according to patient size, and/or use of iterative reconstruction technique. FINDINGS: LOWER THORAX: No evidence of acute pathology. The heart is mildly enlarged. Mildly dilated distal esophagus noted. LIVER: Mild hepatomegaly noted. No evidence of discrete mass lesion in the liver. GALLBLADDER AND BILE DUCTS: Unremarkable. PANCREAS: Unremarkable. No gross lesion or ductal dilatation. SPLEEN: Unremarkable. ADRENALS: Unremarkable. No mass. KIDNEYS AND URETERS: There is duplicating collecting system of left kidney noted. There is mild left hydronephrosis . The distal portion of the left ureter is seen extending to large left inguinal hernia. The valuation of the distal portion of the left ureter is somewhat limited in this study. There is 4 millimeter calcification noted in left inguinal hernia may represent phleboliths versus less likely distal left ureter stone. Part of the bladder is also seen in left inguinal hernia. No evidence of right hydronephrosis or hydroureter. VASCULATURE: No aortic aneurysm is identified. Small foci of atherosclerotic calcification noted in the abdominal aorta. BOWEL: There is segmental moderate wall thickening of the transverse colon noted surrounding with inflammatory changes. Findings suspicious for colitis. The possibility of underlying neoplasm is not totally excluded. [id number] constipation in the ascending and proximal transverse colon noted. No evidence of high-grade bowel obstruction. APPENDIX: No evidence of appendicitis. PERITONEUM: Unremarkable. No free fluid. No free air. LYMPH NODES: Unremarkable. No enlarged lymph nodes. BLADDER: The urinary bladder is distended. The left aspect of the urinary bladder is seen extending into the left inguinal hernia up to the scrotum. There is mild diffuse urinary bladder wall thickening. REPRODUCTIVE: The prostate is mildly enlarged. BONES: No acute fracture. OTHER FINDINGS: There is also fat containing right inguinal hernia. IMPRESSION: Segmental moderate to marked wall thickening of the mid and distal transverse colon surrounding with inflammatory changes consistent with colitis. The possibility of underline infiltrative neoplasm is not totally excluded. The differential consideration includes ischemic infection or inflammatory colitis. 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 Mild to moderate left hydroureter. The distal portion of the left ureter is extending into large left inguinal hernia. Part of urinary bladder is also herniated and the left UV junction is likely in the left inguinal hernia. The possibility of distal left ureter stone is not totally excluded. The differential consideration includes compression on the distal left ureter at left inguinal hernia. Otherwise no evidence of acute pathology in the abdomen and pelvis.
[2018-12-08] MEDS ORDERED: Ciprofloxacin 400mg/200ml D5W 400 MG/200 ML BAG IV STA (11:59)
[2018-12-08] MEDS ORDERED: metroNIDAZOLE IV 500 mg/100 ml 500 MG/100 ML BAG IV SCH (12:00)
[2018-12-08] MEDS ORDERED: metroNIDAZOLE IV 500 mg/100 ml 500 MG/100 ML BAG IV STA (12:00)
[2018-12-08] MEDS ORDERED: Ciprofloxacin 400mg/200ml D5W 400 MG/200 ML BAG IVPB ONE (12:12)
[2018-12-08] MEDS ORDERED: Sodium Chloride 0.45% 1,000 ML IV SCH (16:15)
[2018-12-08] MEDS: metroNIDAZOLE IV 500 mg/100 ml 500 MG/100 ML BAG IVPB SCH (16:30)
--- NOTE | 2018-12-08 16:38 | CP.PCM.HP ---
<DominikDainClint - Last Filed: 12/08/18 16:33> History of Present Illness - History of Present Illness History of Present Illness: This is a 63 yo male, originally from [place], with past medical hx of groin abscess, HTN, and BPH, presenting to [facility] with chief complaint of abd ominal pain. Pain is present x 2 weeks. Pain was getting worse so pt decided to come in. Has never happened before. It is diffuse in location with no radiation beyond the abdomen. Reports constipation. Denies fevers, chills, vomiting, diarrhea. Tried pepto bismol but did not help. Thinks eating a lot of soda and junk food recently has triggered it. Had a colonoscopy here roughly 10 yrs ago, but reportedly normal. PMH: groin abscess, HTN, BPH PSH: groin abscess repair Allergies: NKDA FH: Denies Home meds: BP medication Social hx: no smoking, drinking, drug use. Born in [place]. 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 Lives with and children at home. Present on Admission - Present on Admission Any Indicators Present on Admission: No History of DVT/PE: No History of Uncontrolled Diabetes: No Urinary Catheter: No Decubitus Ulcer Present: No Review of Systems - Constitutional Constitutional: absent: Chills, Night Sweats - EENT Eyes: absent: Blurred Vision, Change in Vision Ears: absent: Decreased Hearing, Ear Discharge Nose/Mouth/Throat: absent: Nasal Congestion, Nasal Discharge - Cardiovascular Cardiovascular: absent: Chest Pain, Chest Pain at Rest - Respiratory Respiratory: absent: Cough, Dyspnea - Gastrointestinal Gastrointestinal: Abdominal Pain, Bloating. absent: Vomiting - Genitourinary Genitourinary: absent: Change in Urinary Stream, Difficulty Urinating - Musculoskeletal Musculoskeletal: absent: Abnormal Gait, Back Pain, Numbness - Integumentary Integumentary: absent: Acne, Alopecia - Neurological Neurological: absent: Abnormal Gait, Abnormal Hearing, Abnormal Movements - Psychiatric Psychiatric: absent: Anxiety, Hallucinations - Endocrine Endocrine: absent: Change in Body Appearance, Excessive Sweating - Hematologic/Lymphatic Hematologic: absent: Easy Bleeding, Easy Bruising Past Patient History - Infectious Disease Hx of Infectious Diseases: None - Tetanus Immunizations Tetanus Immunization: Unknown - Past Medical History & Family History Past Medical History?: Yes Past Family History: Reviewed and not pertinent - Past Social History Smoking Status: Never Smoked Chewing Tobacco Use: No Cigar Use: No Alcohol: None Drugs: Denies Home Situation {Lives}: With Family Domestic Violence: Negative - CARDIAC Hx Hypertension: Yes - PULMONARY Hx Respiratory Disorders: No - NEUROLOGICAL Hx Neurological Disorder: No - HEENT Hx HEENT Problems: No - ENDOCRINE/METABOLIC Hx Endocrine Disorders: No - HEMATOLOGICAL/ONCOLOGICAL Hx Blood Disorders: No - INTEGUMENTARY Other/Comment: last year had an abscess and it was I/D - MUSCULOSKELETAL/RHEUMATOLOGICAL Hx Musculoskeletal Disorders: No Hx Falls: No - GASTROINTESTINAL Hx Colitis: Yes HX Swallowing Problems: No Hx Vomiting: No - GENITOURINARY/GYNECOLOGICAL Hx Genitourinary Disorders: Yes Hx Prostate Problems: Yes (BPH) - PSYCHIATRIC Hx Substance Use: No - SURGICAL HISTORY Hx Surgeries: Yes Other/Comment: STOMACH SURGERY PER PATIENT. HX: CYSTOSCOPY - ANESTHESIA Hx Anesthesia: Yes Hx Anesthesia Reactions: No Has any member of the family had a problem w/ anesthesia?: No Meds Allergies/Adverse Reactions: Allergies Allergy/AdvReac Type Severity Reaction Status Date / Time No Known Allergies Allergy Verified 12/08/18 08:19 Physical Exam - Constitutional Appears: Non-toxic, No Acute Distress - Head Exam Head Exam: ATRAUMATIC, NORMAL INSPECTION, NORMOCEPHALIC - Eye Exam Eye Exam: EOMI - ENT Exam ENT Exam: Mucous Membranes Moist - Neck Exam Neck exam: Positive for: Full Rom, Normal Inspection - Respiratory Exam Respiratory Exam: NORMAL BREATHING PATTERN. absent: Respiratory Distress - Cardiovascular Exam Cardiovascular Exam: +S1, +S2 - GI/Abdominal Exam GI & Abdominal Exam: Distended, Firm, Tenderness - Extremities Exam Extremities exam: Positive for: full ROM, normal inspection - Back Exam Back exam: NORMAL INSPECTION - Neurological Exam Neurological exam: Alert, CN II-XII Intact, Oriented x3 - Psychiatric Exam Psychiatric exam: Normal Affect, Normal Mood - Skin Skin Exam: Dry, Intact, Normal Color, Warm Results - Vital Signs Recent Vital Signs: Last Vital Signs Temp 98.7 F 12/08/18 13:56 Pulse 79 12/08/18 13:56 Resp 20 12/08/18 13:56 BP 166/81 H 12/08/18 13:56 Pulse Ox 97 12/08/18 15:31 - Labs Result Diagrams: 12/08/18 08:50 12/08/18 08:50 Labs: Laboratory Results - last 24 hr 12/08/18 12/08/18 12/08/18 08:47 08:50 08:50 WBC 9.5 D RBC 4.30 L Hgb 12.1 Hct 37.0 MCV 86.1 MCH 28.2 MCHC 32.7 L RDW 14.0 Plt Count 180 MPV 10.3 Neut % (Auto) 85.2 H Lymph % (Auto) 6.4 L [place] % (Auto) 8.0 Eos % (Auto) 0.1 Baso % (Auto) 0.3 Neut # (Auto) 8.1 H Lymph # (Auto) 0.6 L [place] # (Auto) 0.8 Eos # (Auto) 0.0 Baso # (Auto) 0.0 Neutrophils % (Manual) 84 H Lymphocytes % (Manual) 7 L Monocytes % (Manual) 8 Eosinophils % (Manual) 1 Platelet Estimate Normal Large Platelets Present Polychromasia Slight Hypochromasia (manual) Slight Anisocytosis (manual) Slight pO2 49 VBG pH 7.42 VBG pCO2 41 VBG HCO3 26.1 VBG Total CO2 27.9 VBG O2 Sat (Calc) 86.6 H VBG Base Excess 1.9 VBG Potassium 3.8 Sodium 139.0 138 Chloride 106.0 103 Glucose 127 H Lactate 0.9 Potassium 3.5 L Carbon Dioxide 25 Anion Gap 14 BUN 10 Creatinine 0.8 Est GFR ( Amer) > 60 Est GFR (Non-Af Amer) > 60 Random Glucose 131 H D Calcium 8.9 Total Bilirubin 0.7 AST 82 H D ALT 44 Alkaline Phosphatase 123 Total Protein 7.9 Albumin 4.2 Globulin 3.7 Albumin/Globulin Ratio 1.1 Lipase 29 Venous Blood Potassium 3.8 Urine Color Urine Clarity Urine pH Ur Specific [place] Urine Protein Urine Glucose (UA) Urine Ketones Urine Blood Urine Nitrate Urine Bilirubin Urine Urobilinogen Ur Leukocyte Esterase Urine WBC (Auto) Urine RBC (Auto) Urine Bacteria 12/08/18 08:57 WBC RBC Hgb Hct MCV MCH MCHC RDW Plt Count MPV Neut % (Auto) Lymph % (Auto) [place] % (Auto) Eos % (Auto) Baso % (Auto) Neut # (Auto) Lymph # (Auto) [place] # (Auto) Eos # (Auto) Baso # (Auto) Neutrophils % (Manual) Lymphocytes % (Manual) Monocytes % (Manual) Eosinophils % (Manual) Platelet Estimate Large Platelets Polychromasia Hypochromasia (manual) Anisocytosis (manual) pO2 VBG pH VBG pCO2 VBG HCO3 VBG Total CO2 VBG O2 Sat (Calc) VBG Base Excess VBG Potassium Sodium Chloride Glucose Lactate Potassium Carbon Dioxide Anion Gap BUN Creatinine Est GFR ( Amer) Est GFR (Non-Af Amer) Random Glucose Calcium Total Bilirubin AST ALT Alkaline Phosphatase Total Protein Albumin Globulin Albumin/Globulin Ratio Lipase Venous Blood Potassium Urine Color Yellow Urine Clarity Hazy Urine pH 5.0 Ur Specific [place] 1.016 Urine Protein 1+ H Urine Glucose (UA) Normal Urine Ketones 1+ H Urine Blood 1+ H Urine Nitrate Negative Urine Bilirubin Negative Urine Urobilinogen Normal Ur Leukocyte Esterase 1+ H Urine WBC (Auto) 47 H Urine RBC (Auto) 1 Urine Bacteria Rare Assessment & Plan - Assessment and Plan (Free Text) Assessment: This is a 63 yo male with 1. Abdominal pain -likely secondary to colitis vs constipation -CT scan abdomen shows colitis, large amt of stool, also neoplasm cannot be excluded -GI consult. Dr. Zamora. recs appreciated. -liquid diet -morphine prn for pain -IV cipro -IV flagyl -blood and urine cultures -trend troponins and serial ekgs , as pt is obese and advanced age, must rule out cardiac as well -follow up am labs -portable CXR -1/2 NS 100 cc/hr -lactulose for constipation 2. Inguinal hernia -noted on ct scan -sx consult. Dr. Adam. recs appreciated. 3. hx of HTN -restart home bp med 4. hx of BPH -restart medication 5. GI/DVT ppx -protonix daily -SCDs discussed with Dr. Paul <Magnus Paul H - Last Filed: 12/09/18 06:43> Results - Vital Signs Recent Vital Signs: Last Vital Signs Temp 98.9 F 12/09/18 00:00 Pulse 71 12/09/18 00:00 Resp 20 12/09/18 00:00 BP 169/76 H 12/09/18 00:00 Pulse Ox 95 12/09/18 00:00 - Labs Result Diagrams: 12/09/18 04:56 12/09/18 04:56 Labs: Laboratory Results - last 24 hr 12/08/18 12/08/18 12/08/18 08:47 08:50 08:50 WBC 9.5 D RBC 4.30 L Hgb 12.1 Hct 37.0 MCV 86.1 MCH 28.2 MCHC 32.7 L RDW 14.0 Plt Count 180 MPV 10.3 Neut % (Auto) 85.2 H Lymph % (Auto) 6.4 L [place] % (Auto) 8.0 Eos % (Auto) 0.1 Baso % (Auto) 0.3 Neut # (Auto) 8.1 H Lymph # (Auto) 0.6 L [place] # (Auto) 0.8 Eos # (Auto) 0.0 Baso # (Auto) 0.0 Neutrophils % (Manual) 84 H Lymphocytes % (Manual) 7 L Monocytes % (Manual) 8 Eosinophils % (Manual) 1 Platelet Estimate Normal Large Platelets Present Polychromasia Slight Hypochromasia (manual) Slight Anisocytosis (manual) Slight pO2 49 VBG pH 7.42 VBG pCO2 41 VBG HCO3 26.1 VBG Total CO2 27.9 VBG O2 Sat (Calc) 86.6 H VBG Base Excess 1.9 VBG Potassium 3.8 Sodium 139.0 138 Chloride 106.0 103 Glucose 127 H Lactate 0.9 Potassium 3.5 L Carbon Dioxide 25 Anion Gap 14 BUN 10 Creatinine 0.8 Est GFR ( Amer) > 60 Est GFR (Non-Af Amer) > 60 Random Glucose 131 H D Calcium 8.9 Phosphorus Magnesium Total Bilirubin 0.7 AST 82 H D ALT 44 Alkaline Phosphatase 123 Troponin I Total Protein 7.9 Albumin 4.2 Globulin 3.7 Albumin/Globulin Ratio 1.1 Lipase 29 Venous Blood Potassium 3.8 Urine Color Urine Clarity Urine pH Ur Specific [place] Urine Protein Urine Glucose (UA) Urine Ketones Urine Blood Urine Nitrate Urine Bilirubin Urine Urobilinogen Ur Leukocyte Esterase Urine WBC (Auto) Urine RBC (Auto) Urine Bacteria 12/08/18 12/08/18 12/08/18 08:57 20:05 22:43 WBC RBC Hgb Hct MCV MCH MCHC RDW Plt Count MPV Neut % (Auto) Lymph % (Auto) [place] % (Auto) Eos % (Auto) Baso % (Auto) Neut # (Auto) Lymph # (Auto) [place] # (Auto) Eos # (Auto) Baso # (Auto) Neutrophils % (Manual) Lymphocytes % (Manual) Monocytes % (Manual) Eosinophils % (Manual) Platelet Estimate Large Platelets Polychromasia Hypochromasia (manual) Anisocytosis (manual) pO2 VBG pH VBG pCO2 VBG HCO3 VBG Total CO2 VBG O2 Sat (Calc) VBG Base Excess VBG Potassium Sodium Chloride Glucose Lactate Potassium Carbon Dioxide Anion Gap BUN Creatinine Est GFR ( Amer) Est GFR (Non-Af Amer) Random Glucose Calcium Phosphorus Magnesium Total Bilirubin AST ALT Alkaline Phosphatase Troponin I < 0.0120 < 0.0120 Total Protein Albumin Globulin Albumin/Globulin Ratio Lipase Venous Blood Potassium Urine Color Yellow Urine Clarity Hazy Urine pH 5.0 Ur Specific [place] 1.016 Urine Protein 1+ H Urine Glucose (UA) Normal Urine Ketones 1+ H Urine Blood 1+ H Urine Nitrate Negative Urine Bilirubin Negative Urine Urobilinogen Normal Ur Leukocyte Esterase 1+ H Urine WBC (Auto) 47 H Urine RBC (Auto) 1 Urine Bacteria Rare 12/09/18 12/09/18 04:56 04:56 WBC 9.3 RBC 3.94 L Hgb 11.0 L Hct 33.7 L MCV 85.4 MCH 28.0 MCHC 32.7 L RDW 13.8 Plt Count 153 MPV 10.1 Neut % (Auto) 80.5 H Lymph % (Auto) 10.4 L [place] % (Auto) 7.6 Eos % (Auto) 1.2 Baso % (Auto) 0.3 Neut # (Auto) 7.5 H Lymph # (Auto) 1.0 [place] # (Auto) 0.7 Eos # (Auto) 0.1 Baso # (Auto) 0.0 Neutrophils % (Manual) Lymphocytes % (Manual) Monocytes % (Manual) Eosinophils % (Manual) Platelet Estimate Large Platelets Polychromasia Hypochromasia (manual) Anisocytosis (manual) pO2 VBG pH VBG pCO2 VBG HCO3 VBG Total CO2 VBG O2 Sat (Calc) VBG Base Excess VBG Potassium Sodium 137 Chloride 102 Glucose Lactate Potassium 3.4 L Carbon Dioxide 28 Anion Gap 11 BUN 7 L Creatinine 0.8 Est GFR ( Amer) > 60 Est GFR (Non-Af Amer) > 60 Random Glucose 123 H Calcium 8.8 Phosphorus 2.8 Magnesium 2.1 Total Bilirubin 0.6 AST 53 ALT 52 Alkaline Phosphatase 100 Troponin I < 0.0120 Total Protein 6.9 Albumin 3.5 Globulin 3.4 Albumin/Globulin Ratio 1.0 Lipase Venous Blood Potassium Urine Color Urine Clarity Urine pH Ur Specific [place] Urine Protein Urine Glucose (UA) Urine Ketones Urine Blood Urine Nitrate Urine Bilirubin Urine Urobilinogen Ur Leukocyte Esterase Urine WBC (Auto) Urine RBC (Auto) Urine Bacteria Attending/Attestation - Attestation I have personally seen and examined this patient.: Yes I have fully participated in the care of the patient.: Yes I have reviewed all pertinent clinical information: Yes Notes (Text): 12/09/18 06:37 Medical attending: Patient was seen and examined by me. Agree with the above note by the resident The patient was not in any acute distress however has been having pain as described above in the resident note The patient had a CT scan done which showed he has probably transverse colon area colitis. He will be placed on IV abx and probably at some point in the future should have a colonoscopy when he is better. Blood cultures were ordered, slow IVF, for now liquid diet Magnus Paul
--- NOTE | 2018-12-08 17:47 | RAD ---
Date of service: 12/08/2018 HISTORY: hx of cad COMPARISON: Comparison is made with 08/06/2018 FINDINGS: LUNGS: No evidence of new infiltrate or consolidation in the lungs. PLEURA: No significant pleural effusion identified, no pneumothorax apparent. CARDIOVASCULAR: No aortic atherosclerotic calcification present. Normal cardiac size. No pulmonary vascular congestion. OSSEOUS STRUCTURES: No significant abnormalities. VISUALIZED UPPER ABDOMEN: Normal. OTHER FINDINGS: None. IMPRESSION: No definite radiographic evidence of acute pulmonary disease.
--- NOTE | 2018-12-08 19:22 | CP.PCM.CON ---
History of Present Illness - History of Present Illness History of Present Illness: SURGERY NOTE FOR DR. BURNETTE Reason: CT finding of colitis and hernia 63M presents with abdominal pain that has been ongoing for 2 weeks. States pain got worse today and decided to come to hospital. He denies any nausea or vomiting, He denies any fevers or chills. Patient states he does have some trouble fully emptying his bladder. Also states he does feel very constipated. He eats a small amount of food at a time because he feels full. PMH Groin abscess, HTN, BPH PSH: I&D of groin abscesses Social: denies tobacco, alcohol and illicit drug use Allergies: NKDA Past Patient History - Infectious Disease Hx of Infectious Diseases: None - Tetanus Immunizations Tetanus Immunization: Unknown - Past Medical History & Family History Past Medical History?: Yes Past Family History: Reviewed and not pertinent - Past Social History Smoking Status: Never Smoked Chewing Tobacco Use: No Cigar Use: No Alcohol: None Drugs: Denies Home Situation {Lives}: With Family Domestic Violence: Negative - CARDIAC Hx Hypertension: Yes - PULMONARY Hx Respiratory Disorders: No - NEUROLOGICAL Hx Neurological Disorder: No - HEENT Hx HEENT Problems: No - ENDOCRINE/METABOLIC Hx Endocrine Disorders: No - HEMATOLOGICAL/ONCOLOGICAL Hx Blood Disorders: No - INTEGUMENTARY Other/Comment: last year had an abscess and it was I/D - MUSCULOSKELETAL/RHEUMATOLOGICAL Hx Musculoskeletal Disorders: No Hx Falls: No - GASTROINTESTINAL Hx Colitis: Yes HX Swallowing Problems: No Hx Vomiting: No - GENITOURINARY/GYNECOLOGICAL Hx Genitourinary Disorders: Yes Hx Prostate Problems: Yes (BPH) - PSYCHIATRIC Hx Substance Use: No - SURGICAL HISTORY Hx Surgeries: Yes Other/Comment: STOMACH SURGERY PER PATIENT. HX: CYSTOSCOPY - ANESTHESIA Hx Anesthesia: Yes Hx Anesthesia Reactions: No Has any member of the family had a problem w/ anesthesia?: No Meds Allergies/Adverse Reactions: Allergies Allergy/AdvReac Type Severity Reaction Status Date / Time No Known Allergies Allergy Verified 12/08/18 08:19 - Medications Medications: Current Medications Sodium Chloride (Sodium Chloride 0.45%) 1,000 mls @ 100 mls/hr IV .Q10H [facility] Last Admin: 12/08/18 16:30 Dose: 100 mls/hr Metronidazole (Flagyl) 500 mg in 100 mls @ 100 mls/hr IVPB Q8H [facility]; Protocol Last Admin: 12/08/18 16:30 Dose: 100 mls/hr Ciprofloxacin (Cipro 400mg/200ml Dsw) 400 mg in 200 mls @ 133 mls/hr IVPB Q12H [facility]; Protocol Morphine Sulfate (Morphine) 2 mg IVP Q4 PRN PRN Reason: Pain, moderate (4-7) Physical Exam - Constitutional Appears: Non-toxic, No Acute Distress - Eye Exam Eye Exam: EOMI, PERRL - ENT Exam ENT Exam: Mucous Membranes Moist - Respiratory Exam Respiratory Exam: Clear to Auscultation Bilateral, NORMAL BREATHING PATTERN - Cardiovascular Exam Cardiovascular Exam: REGULAR RHYTHM, +S1, +S2 - GI/Abdominal Exam GI & Abdominal Exam: Soft, Tenderness. absent: Distended, Firm, Guarding, Rebound, Rigid Additional comments: diastasis recti - Exam Additional comments: left inguinal hernia - Extremities Exam Extremities exam: Negative for: pedal edema, tenderness - Neurological Exam Neurological exam: Alert, Oriented x3 - Psychiatric Exam Psychiatric exam: Normal Affect, Normal Mood - Skin Skin Exam: Dry, Intact, Normal Color, Warm Results - Vital Signs Recent Vital Signs: Last Vital Signs Temp 99 F 12/08/18 16:00 Pulse 69 12/08/18 16:00 Resp 20 12/08/18 16:00 BP 126/66 12/08/18 16:00 Pulse Ox 96 12/08/18 16:00 - Labs Result Diagrams: 12/08/18 08:50 12/08/18 08:50 Labs: Laboratory Results - last 24 hr 12/08/18 12/08/18 12/08/18 08:47 08:50 08:50 WBC 9.5 D RBC 4.30 L Hgb 12.1 Hct 37.0 MCV 86.1 MCH 28.2 MCHC 32.7 L RDW 14.0 Plt Count 180 MPV 10.3 Neut % (Auto) 85.2 H Lymph % (Auto) 6.4 L [place] % (Auto) 8.0 Eos % (Auto) 0.1 Baso % (Auto) 0.3 Neut # (Auto) 8.1 H Lymph # (Auto) 0.6 L [place] # (Auto) 0.8 Eos # (Auto) 0.0 Baso # (Auto) 0.0 Neutrophils % (Manual) 84 H Lymphocytes % (Manual) 7 L Monocytes % (Manual) 8 Eosinophils % (Manual) 1 Platelet Estimate Normal Large Platelets Present Polychromasia Slight Hypochromasia (manual) Slight Anisocytosis (manual) Slight pO2 49 VBG pH 7.42 VBG pCO2 41 VBG HCO3 26.1 VBG Total CO2 27.9 VBG O2 Sat (Calc) 86.6 H VBG Base Excess 1.9 VBG Potassium 3.8 Sodium 139.0 138 Chloride 106.0 103 Glucose 127 H Lactate 0.9 Potassium 3.5 L Carbon Dioxide 25 Anion Gap 14 BUN 10 Creatinine 0.8 Est GFR ( Amer) > 60 Est GFR (Non-Af Amer) > 60 Random Glucose 131 H D Calcium 8.9 Total Bilirubin 0.7 AST 82 H D ALT 44 Alkaline Phosphatase 123 Total Protein 7.9 Albumin 4.2 Globulin 3.7 Albumin/Globulin Ratio 1.1 Lipase 29 Venous Blood Potassium 3.8 Urine Color Urine Clarity Urine pH Ur Specific [place] Urine Protein Urine Glucose (UA) Urine Ketones Urine Blood Urine Nitrate Urine Bilirubin Urine Urobilinogen Ur Leukocyte Esterase Urine WBC (Auto) Urine RBC (Auto) Urine Bacteria 12/08/18 08:57 WBC RBC Hgb Hct MCV MCH MCHC RDW Plt Count MPV Neut % (Auto) Lymph % (Auto) [place] % (Auto) Eos % (Auto) Baso % (Auto) Neut # (Auto) Lymph # (Auto) [place] # (Auto) Eos # (Auto) Baso # (Auto) Neutrophils % (Manual) Lymphocytes % (Manual) Monocytes % (Manual) Eosinophils % (Manual) Platelet Estimate Large Platelets Polychromasia Hypochromasia (manual) Anisocytosis (manual) pO2 VBG pH VBG pCO2 VBG HCO3 VBG Total CO2 VBG O2 Sat (Calc) VBG Base Excess VBG Potassium Sodium Chloride Glucose Lactate Potassium Carbon Dioxide Anion Gap BUN Creatinine Est GFR ( Amer) Est GFR (Non-Af Amer) Random Glucose Calcium Total Bilirubin AST ALT Alkaline Phosphatase Total Protein Albumin Globulin Albumin/Globulin Ratio Lipase Venous Blood Potassium Urine Color Yellow Urine Clarity Hazy Urine pH 5.0 Ur Specific [place] 1.016 Urine Protein 1+ H Urine Glucose (UA) Normal Urine Ketones 1+ H Urine Blood 1+ H Urine Nitrate Negative Urine Bilirubin Negative Urine Urobilinogen Normal Ur Leukocyte Esterase 1+ H Urine WBC (Auto) 47 H Urine RBC (Auto) 1 Urine Bacteria Rare Assessment & Plan - Assessment and Plan (Free Text) Assessment: 63M with abdominal pain 2/2 constipation, colitis vs neoplasm Patient also has a left inguinal hernia contained portion of the bladder, left hydronephrosis indicating possible involvement of left ureter Plan: - liquid diet - Pain control - antibiotics - stool softeners - GI consult, colonoscopy r/o neoplasm - Further recs discuss with Dr. Kia Munoz, PGY3
[2018-12-08] MEDS: Sodium Chloride 0.45% 1,000 ML IV SCH (19:45)
[2018-12-09] MEDS: Ciprofloxacin 400mg/200ml D5W 400 MG/200 ML BAG IVPB SCH ×3 (00:16→23:45)
[2018-12-09] MEDS: Sodium Chloride 0.45% 1,000 ML IV SCH ×6 (02:25→21:46)
[2018-12-09 05:07] LABS: BASO % 0.3 % (0.0-2.0); EOS # 0.1 K/uL (0.0-0.7); EOS % 1.2 % (0.0-4.0); LYMPH % 10.4 % (20.0-40.0); MEAN CELL VOLUME 85.4 fL (80.0-94.0); MEAN CORPUSCULAR HGB CONC 32.7 g/dL (33.0-37.0); MEAN PLATELET VOLUME 10.1 fL (7.2-11.7); MONO # 0.7 K/uL (0.0-0.8); MONO % 7.6 % (0.0-10.0); NEUT # 7.5 K/uL (1.8-7.0); NEUT % 80.5 % (50.0-75.0); RBC 3.94 Mil/uL (4.40-5.90); RED CELL DISTRIBUTION WIDTH 13.8 % (11.5-14.5); WHITE BLOOD COUNT 9.3 K/uL (4.8-10.8)
[2018-12-09 05:28] LABS: ALBUMIN 3.5 g/dL (3.5-5.0); ALT/SGPT 52 U/L (21-72); AST/SGOT 53 U/L (17-59); BLOOD UREA NITROGEN 7 mg/dL (9-20); CALCIUM 8.8 mg/dl (8.6-10.4); GFR NON-AFRICAN AMERICAN > 60
--- NOTE | 2018-12-09 08:13 | CP.PCM.PN ---
<Gaby Pelaez - Last Filed: 12/09/18 11:12> Subjective - Date & Time of Evaluation Date of Evaluation: 12/09/18 Time of Evaluation: 08:00 - Subjective Subjective: Progress note for Dr. Paul (covering for Dr. Nicole) Patient was seen and examined at bedside in no acute distress. Patient states he has slight upper abdominal pain 5/10. He states he had a bowel movement last night but since then he has been passing flatus. He states he has been having difficulty completely voiding. He states during urination he has to manually compress hernia in order to completely void. Patient denies chest pain, shortness of breath, palpitations, nausea, vomiting or fever. Objective - Vital Signs/Intake and Output Vital Signs (last 24 hours): Temp Pulse Resp BP Pulse Ox 97.9 F 62 20 156/74 H 97 12/09/18 08:05 12/09/18 08:05 12/09/18 08:05 12/09/18 08:05 12/09/18 08:05 Intake and Output: 12/09/18 12/09/18 06:59 18:59 Intake Total 840 1200 Balance 840 1200 - Medications Medications: Current Medications Docusate Sodium (Colace) 100 mg PO DAILY [facility] Metronidazole (Flagyl) 500 mg in 100 mls @ 100 mls/hr IVPB Q8H [facility]; Protocol Last Admin: 12/09/18 00:00 Dose: 100 mls/hr Ciprofloxacin (Cipro 400mg/200ml Dsw) 400 mg in 200 mls @ 133 mls/hr IVPB Q12H [facility]; Protocol Last Admin: 12/09/18 00:16 Dose: 133 mls/hr Sodium Chloride (Sodium Chloride 0.45%) 1,000 mls @ 150 mls/hr IV .Q6H40M [facility] Last Admin: 12/09/18 05:57 Dose: 150 mls/hr Potassium Chloride (Potassium Chloride 20 Meq/100 Ml) 20 meq in 100 mls @ 50 mls/hr IVPB ONCE ONE Stop: 12/09/18 10:11 Morphine Sulfate (Morphine) 2 mg IVP Q4 PRN PRN Reason: Pain, moderate (4-7) - Labs Labs: 12/09/18 04:56 12/09/18 04:56 - Constitutional Appears: No Acute Distress - Head Exam Head Exam: ATRAUMATIC, NORMAL INSPECTION - Eye Exam Eye Exam: EOMI, Normal appearance - ENT Exam ENT Exam: Mucous Membranes Moist - Respiratory Exam Respiratory Exam: Clear to Ausculation Bilateral, NORMAL BREATHING PATTERN - Cardiovascular Exam Cardiovascular Exam: REGULAR RHYTHM, +S1, +S2 - GI/Abdominal Exam GI & Abdominal Exam: Distended, Soft, Normal Bowel Sounds. absent: Tenderness - Extremities Exam Extremities Exam: Normal Inspection - Neurological Exam Neurological Exam: Alert, Awake, Oriented x3 - Psychiatric Exam Psychiatric exam: Normal Affect Assessment and Plan - Assessment and Plan (Free Text) Assessment: Abdominal pain secondary to Colitis - GI Consult: Dr. Zamora --> help appreciated - Liquid Diet - Images: * CT of Abdomen/Pelvis: Segmental moderate to marked wall thickening of the mid and distal transverse colon surrounding with inflammatory changes consistent with colitis. The possibility of underline infiltrative neoplasm is not totally excluded. The differential consideration includes ischemic infection or inflammatory colitis. 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 Mild to moderate left hydroureter. The distal portion of the left ureter is extending into large left inguinal hernia. Part of urinary bladder is also herniated and the left UV junction is likely in the left inguinal hernia. The possibility of distal left ureter stone is not totally excluded. The di fferential consideration includes compression on the distal left ureter at left inguinal hernia. Otherwise no evidence of acute pathology in the abdomen and pelvis. * f/u Abdominal Xray - Blood Culture Negative - Medications: * Metronidazole 500mg IV q8h * Ciprofloxacin 400mg IV q12h * NS @150cc/hr * Colace 100mg po daily * Morphine 2mg IV q4 prn Left inguinal hernia - Containes portion of the bladder, left hydronephrosis indicating possible involvement of left ureter - Surgery Consult: Dr. Adam --> help appreciated - Urine Culture: Gram negative rods - Ciprofloxacin 400mg IV q12h HTN - Continue home medication Norvasc 5mg po daily History of BPH - Continue home medication Flomax 0.4mg po daily Prophylaxis - Protonix daily - SCDs Case disccused with Dr. Beverly Pelaez PGY-2 <Magnus Paul - Last Filed: 12/09/18 12:39> Objective - Vital Signs/Intake and Output Vital Signs (last 24 hours): Temp Pulse Resp BP Pulse Ox 97.9 F 62 20 156/74 H 97 12/09/18 08:05 12/09/18 08:05 12/09/18 08:05 12/09/18 08:05 12/09/18 08:05 Intake and Output: 12/09/18 12/09/18 06:59 18:59 Intake Total 840 1200 Balance 840 1200 - Medications Medications: Current Medications Amlodipine Besylate (Norvasc) 5 mg PO DAILY [facility] Docusate Sodium (Colace) 100 mg PO DAILY [facility] Last Admin: 12/09/18 09:54 Dose: 100 mg Metronidazole (Flagyl) 500 mg in 100 mls @ 100 mls/hr IVPB Q8H [facility]; Protocol Last Admin: 12/09/18 08:27 Dose: 100 mls/hr Ciprofloxacin (Cipro 400mg/200ml Dsw) 400 mg in 200 mls @ 133 mls/hr IVPB Q12H [facility]; Protocol Last Admin: 12/09/18 00:16 Dose: 133 mls/hr Sodium Chloride (Sodium Chloride 0.45%) 1,000 mls @ 150 mls/hr IV .Q6H40M [facility] Last Admin: 12/09/18 09:52 Dose: Not Given Influenza Virus Vaccine (Flucelvax Quad 7298-3528 Syr) 60 mcg IM .ONCE ONE Stop: 12/11/18 10:01 Morphine Sulfate (Morphine) 2 mg IVP Q4 PRN PRN Reason: Pain, moderate (4-7) Pantoprazole Sodium (Protonix Ec Tab) 20 mg PO DAILY [facility] Pneumococcal Polyvalent Vaccine (Pneumovax 23 Vaccine) 0.5 ml IM .ONCE ONE Stop: 12/11/18 10:01 Tamsulosin HCl (Flomax) 0.4 mg PO DAILY [facility] - Labs Labs: 12/09/18 04:56 12/09/18 04:56 Attending/Attestation - Attestation I have personally seen and examined this patient.: Yes I have fully participated in the care of the patient.: Yes I have reviewed all pertinent clinical information, including history, physical exam and plan: Yes Notes (Text): 12/09/18 12:34 Medical attending: Patient was seen and examined by me. Agree with the above note by the resident The patient was reporting that he felt that his abdominal pain had decreased a lot. He felt more comfortable today he reported. Last night he reported ONE BM that appeared normal to him. No acute changes overnight The CT scan from yesterday as mentioned previously shows colon area wall inflammation which torres is colitis but will need a colonscopy at some point for further evaluation Also with reguards to the hydruterter - the CT shows inguinal hernia with the patient reporting he's had difficulty urinating. Explained to the patient via drawing a diagram that he will at some point need surgery to address the inguinal hernia as it is affecting the ureter as well Magnus Paul
[2018-12-09] MEDS: metroNIDAZOLE IV 500 mg/100 ml 500 MG/100 ML BAG IVPB SCH ×3 (08:27→16:31)
--- NOTE | 2018-12-09 11:50 | CP.PCM.PN ---
Subjective - Date & Time of Evaluation Date of Evaluation: 12/09/18 Time of Evaluation: 11:43 - Subjective Subjective: abdomen is markeg dly distended but soft. slight tenderness epigastric area. no palpale masses except for a reducible umbilicalhernia. Left scrotal sac is large but not tender with probably a combinatiion harnia and hydrocoele. slght left lower abdominal tenderness noted. ct scan results noted. this patient will nee a repair of both inguinal and umbilical hernia. suggest urological evaluation and if a hernia repair is done, a ureteral stent to identify ureters during surgery. will follow closely. Objective - Vital Signs/Intake and Output Vital Signs (last 24 hours): Temp Pulse Resp BP Pulse Ox 97.9 F 62 20 156/74 H 97 12/09/18 08:05 12/09/18 08:05 12/09/18 08:05 12/09/18 08:05 12/09/18 08:05 Intake and Output: 12/09/18 12/09/18 06:59 18:59 Intake Total 840 1200 Balance 840 1200 - Medications Medications: Current Medications Amlodipine Besylate (Norvasc) 5 mg PO DAILY [facility] Docusate Sodium (Colace) 100 mg PO DAILY [facility] Last Admin: 12/09/18 09:54 Dose: 100 mg Metronidazole (Flagyl) 500 mg in 100 mls @ 100 mls/hr IVPB Q8H [facility] 234 [facility]S AT [facility]; Protocol Last Admin: 12/09/18 08:27 Dose: 100 mls/hr Ciprofloxacin (Cipro 400mg/200ml Dsw) 400 mg in 200 mls @ 133 mls/hr IVPB Q12H [facility] 234 [facility]S AT [facility]; Protocol Last Admin: 12/09/18 00:16 Dose: 133 mls/hr Sodium Chloride (Sodium Chloride 0.45%) 1,000 mls @ 150 mls/hr IV .Q6H40M [facility] 234 [facility]S AT [facility] Last Admin: 12/09/18 09:52 Dose: Not Given Influenza Virus Vaccine (Flucelvax Quad 7401-8652 Syr) 60 mcg IM .ONCE ONE Stop: 12/11/18 10:01 Morphine Sulfate (Morphine) 2 mg IVP Q4 PRN PRN Reason: Pain, moderate (4-7) Pantoprazole Sodium (Protonix Ec Tab) 20 mg PO DAILY [facility] 234 [facility]S [facility] Pneumococcal Polyvalent Vaccine (Pneumovax 23 Vaccine) 0.5 ml IM .ONCE ONE Stop: 12/11/18 10:01 Tamsulosin HCl (Flomax) 0.4 mg PO DAILY [facility] - Labs Labs: 12/09/18 04:56 12/09/18 04:56
--- NOTE | 2018-12-09 14:35 | PN ---
DATE: 12/09/2018 LOCATION: 353, bed A. SUBJECTIVE: This 63-year-old male seen and examined initially for GI consultation on 12/08/2018, reexamined again today with less abdominal pain and less distention with mild nausea, but no vomiting. The patient's abdomen is still somewhat rigid and distended for me. Most recently done CT scan of the abdomen and pelvis, official report is seen and I offered the patient colonoscopy to be done, he refused for now. LABORATORY DATA: Today's lab results showed low hemoglobin 10, hematocrit 33.7 with normal white blood cells and platelet count with potassium 3.4, glucose 123 with normal liver function test as well as normal lipase and amylase level. again due to the patient's anemia, he was offered also upper endoscopy, refused. PHYSICAL EXAMINATION: GENERAL: A 63-year-old male, appeared to be awake, alert, oriented, still complaining of abdominal pain and distention. HEENT: Showed pale dry oral mucous membrane. Nonicteric sclerae. VITAL SIGNS: The patient is afebrile with heart rate of 64, respiratory rate 20 to 22, blood pressure 152/72. HEART: Positive S1 and S2. ABDOMEN: Soft with [id number] distention, somewhat fair, bowel sounds are hypoactive. No mass or organomegaly. No rebound tenderness or guarding. RECTAL: The patient refused. EXTREMITIES: Without significant edema, clubbing or cyanosis. NEUROLOGIC: No reported new neurological deficits, sensory or motor. IMPRESSION: 1. Abnormal CAT scan of the abdomen and pelvis with evidence of acute colitis versus possible neoplastic changes. 2. Re-exacerbation of peptic ulcer disease. 3. Multiple past medical history before, abdominal surgeries. 4. Electrolyte imbalance. 5. Rule out occult gastrointestinal malignancy. 6. Anemia, most likely secondary to above. SUGGESTIONS: 1. Continue current management. 2. Proton pump inhibitors. 3. Cancer markers. 4. Antireflux measure. 5. Due to the patient's reported left inguinal hernia, surgical consultation to be kept in mind. 6. Further recommendation to follow. Eric Silva MD
--- NOTE | 2018-12-09 15:49 | RAD ---
Date of service: 12/09/2018 HISTORY: f/u contrast COMPARISON: 2018. CT abdomen and pelvis FINDINGS: BOWEL: No obstruction. No free air. Residual contrast in nondistended colon. BONES: Normal. OTHER FINDINGS: None. IMPRESSION: Residual contrast from recent CT scan identified scattered throughout the entire colon including sigmoid and rectum.
[2018-12-10] MEDS: metroNIDAZOLE IV 500 mg/100 ml 500 MG/100 ML BAG IVPB SCH ×3 (01:15→17:27)
[2018-12-10] MEDS: Sodium Chloride 0.45% 1,000 ML IV SCH ×3 (05:25→17:39)
[2018-12-10 07:14] LABS: HEMOGLOBIN 11.1 g/dL (12.0-18.0); MEAN CELL VOLUME 86.4 fL (80.0-94.0); MEAN CORPUSCULAR HGB CONC 32.4 g/dL (33.0-37.0); MEAN PLATELET VOLUME 10.3 fL (7.2-11.7); RBC 3.95 Mil/uL (4.40-5.90); RED CELL DISTRIBUTION WIDTH 14.4 % (11.5-14.5); WHITE BLOOD COUNT 5.9 K/uL (4.8-10.8)
--- NOTE | 2018-12-10 07:30 | CP.PCM.PN ---
Subjective - Date & Time of Evaluation Date of Evaluation: 12/10/18 Time of Evaluation: 08:00 - Subjective Subjective: Medicine Progress note for Dr. Nicole Patient was seen and examined at bedside in no acute distress. He states he had another bowel movement this morning and continues to pass flatus. Patient denies abdominal pain. Patient denies chest pain, shortness of breath, palpitations, nausea, vomiting or fever. Objective - Vital Signs/Intake and Output Vital Signs (last 24 hours): Temp Pulse Resp BP Pulse Ox 97.9 F 61 20 163/80 H 97 12/10/18 00:00 12/10/18 00:00 12/10/18 00:00 12/10/18 00:00 12/10/18 00:00 Intake and Output: 12/10/18 12/10/18 06:59 18:59 Intake Total 1500 Balance 1500 - Medications Medications: Current Medications Amlodipine Besylate (Norvasc) 5 mg PO DAILY [facility] Last Admin: 12/09/18 14:13 Dose: 5 mg Docusate Sodium (Colace) 100 mg PO DAILY [facility] Last Admin: 12/09/18 09:54 Dose: 100 mg Metronidazole (Flagyl) 500 mg in 100 mls @ 100 mls/hr IVPB Q8H [facility]; Protocol Last Admin: 12/10/18 01:15 Dose: 100 mls/hr Ciprofloxacin (Cipro 400mg/200ml Dsw) 400 mg in 200 mls @ 133 mls/hr IVPB Q12H [facility]; Protocol Last Admin: 12/09/18 23:45 Dose: 133 mls/hr Sodium Chloride (Sodium Chloride 0.45%) 1,000 mls @ 150 mls/hr IV .Q6H40M [facility] Last Admin: 12/10/18 05:25 Dose: 150 mls/hr Influenza Virus Vaccine (Flucelvax Quad [id number] Syr) 60 mcg IM .ONCE ONE Stop: 12/11/18 10:01 Metoclopramide HCl (Reglan) 5 mg IVP Q6H [facility] Morphine Sulfate (Morphine) 2 mg IVP Q4 PRN PRN Reason: Pain, moderate (4-7) Pantoprazole Sodium (Protonix Ec Tab) 20 mg PO DAILY [facility] Pneumococcal Polyvalent Vaccine (Pneumovax 23 Vaccine) 0.5 ml IM .ONCE ONE Stop: 12/11/18 10:01 Tamsulosin HCl (Flomax) 0.4 mg PO DAILY [facility] Last Admin: 12/09/18 14:13 Dose: 0.4 mg - Labs Labs: 12/10/18 07:05 12/09/18 04:56 - Constitutional Appears: No Acute Distress - Head Exam Head Exam: ATRAUMATIC, NORMAL INSPECTION - Eye Exam Eye Exam: EOMI, Normal appearance - ENT Exam ENT Exam: Mucous Membranes Moist - Respiratory Exam Respiratory Exam: Clear to Ausculation Bilateral, NORMAL BREATHING PATTERN - Cardiovascular Exam Cardiovascular Exam: REGULAR RHYTHM, +S1, +S2 - GI/Abdominal Exam GI & Abdominal Exam: Distended, Soft, Normal Bowel Sounds. absent: Tenderness Additional comments: umbilical hernia - Exam Additional comments: enlarged scrotum - Extremities Exam Extremities Exam: Normal Inspection - Neurological Exam Neurological Exam: Alert, Awake, Oriented x3 - Psychiatric Exam Psychiatric exam: Normal Affect - Skin Skin Exam: Normal Color Assessment and Plan - Assessment and Plan (Free Text) Assessment: Abdominal pain secondary to Colitis - GI Consult: Dr. Zamora --> help appreciated - Liquid Diet/NPO after midnight - Colonoscopy 12/11/18 - Images: * CT of Abdomen/Pelvis: Segmental moderate to marked wall thickening of the mid and distal transverse colon surrounding with inflammatory changes consistent with colitis. The possibility of underline infiltrative neoplasm is not totally excluded. The differential consideration includes ischemic infection or inflammatory colitis. 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 Mild to moderate left hydroureter. The distal portion of the left ureter is extending into large left inguinal hernia. Part of urinary bladder is also herniated and the left UV junction is likely in the left inguinal hernia. The possibility of distal left ureter stone is not totally excluded. The differential consideration includes compression on the distal left ureter at left inguinal hernia. Otherwise no evidence of acute pathology in the abdomen and pelvis. - Blood Culture Negative - Medications: * Metronidazole 500mg IV q8h * Ciprofloxacin 400mg IV q12h * NS @150cc/hr * Colace 100mg po daily * Morphine 2mg IV q4 prn Left inguinal hernia - Contains portion of the bladder, left hydronephrosis indicating possible involvement of left ureter - Surgery Consult: Dr. Adam --> help appreciated - Urology Consult: Dr. Chica Boss --> help appreciated - Urine Culture: Gram negative rods f/u final report - Ciprofloxacin 400mg IV q12h HTN - Continue home medication Norvasc 5mg po daily History of BPH - Continue home medication Flomax 0.4mg po daily Prophylaxis - Protonix daily - SCDs Case disccused with Dr. Corey Pelaez PGY-2
[2018-12-10 07:44] LABS: BLOOD UREA NITROGEN 8 mg/dL (9-20); GFR NON-AFRICAN AMERICAN > 60
[2018-12-10] MEDS ORDERED: Potassium Chloride 20 mEq ER Tab PO ONE (07:49)
[2018-12-10] MEDS: Pantoprazole 40 mg EC Tab PO SCH (09:32)
[2018-12-10] MEDS ORDERED: Pantoprazole 20 mg EC Tab PO SCH ×2 (10:00)
--- NOTE | 2018-12-10 11:03 | CP.PCM.PN ---
Subjective - Date & Time of Evaluation Date of Evaluation: 12/10/18 Time of Evaluation: 10:54 - Subjective Subjective: SURGERY NOTE FOR DR. BURNETTE 63M seen and examine day bedside. Patient continues to have mild pain in the epigastric region. Denies nausea, vomiting, Continues to pass flatus and bowel movement. Continues to void freely. Objective - Vital Signs/Intake and Output Vital Signs (last 24 hours): Temp Pulse Resp BP Pulse Ox 97.6 F 70 20 164/75 H 96 12/10/18 08:25 12/10/18 08:25 12/10/18 08:25 12/10/18 08:25 12/10/18 08:25 Intake and Output: 12/10/18 12/10/18 06:59 18:59 Intake Total 1500 1400 Balance 1500 1400 - Medications Medications: Current Medications Amlodipine Besylate (Norvasc) 10 mg PO DAILY [facility] Last Admin: 12/10/18 09:03 Dose: 10 mg Bisacodyl (Dulcolax) 10 mg PO ONCE ONE Stop: 12/10/18 17:01 Docusate Sodium (Colace) 100 mg PO DAILY [facility] Last Admin: 12/10/18 09:03 Dose: 100 mg Metronidazole (Flagyl) 500 mg in 100 mls @ 100 mls/hr IVPB Q8H [facility]; Protocol Last Admin: 12/10/18 08:14 Dose: 100 mls/hr Ciprofloxacin (Cipro 400mg/200ml Dsw) 400 mg in 200 mls @ 133 mls/hr IVPB Q12H [facility]; Protocol Last Admin: 12/09/18 23:45 Dose: 133 mls/hr Sodium Chloride (Sodium Chloride 0.45%) 1,000 mls @ 150 mls/hr IV .Q6H40M [facility] Last Admin: 12/10/18 05:25 Dose: 150 mls/hr Influenza Virus Vaccine (Flucelvax Quad [id number] Syr) 60 mcg IM .ONCE ONE Stop: 12/11/18 10:01 Metoclopramide HCl (Reglan) 5 mg IVP Q6H [facility] Last Admin: 12/10/18 08:13 Dose: 5 mg Morphine Sulfate (Morphine) 2 mg IVP Q4 PRN PRN Reason: Pain, moderate (4-7) Pantoprazole Sodium (Protonix Ec Tab) 40 mg PO DAILY [facility] Last Admin: 12/10/18 09:32 Dose: Not Given Pneumococcal Polyvalent Vaccine (Pneumovax 23 Vaccine) 0.5 ml IM .ONCE ONE Stop: 12/11/18 10:01 Polyethylene Glycol/Electrolytes (Golytely) 4,000 ml PO ONCE ONE Stop: 12/10/18 11:31 Tamsulosin HCl (Flomax) 0.4 mg PO DAILY [facility] Last Admin: 12/10/18 09:03 Dose: 0.4 mg - Labs Labs: 12/10/18 07:05 12/10/18 07:05 - Constitutional Appears: Non-toxic, No Acute Distress - Respiratory Exam Respiratory Exam: Clear to Ausculation Bilateral, NORMAL BREATHING PATTERN - Cardiovascular Exam Cardiovascular Exam: REGULAR RHYTHM, +S1, +S2 - GI/Abdominal Exam GI & Abdominal Exam: Soft, Tenderness (mild epigastric tenderness). absent: Distended, Firm, Guarding, Rigid, Rebound Additional comments: umbilical hernia, left inguinal hernia - Extremities Exam Extremities Exam: absent: Pedal Edema, Tenderness - Neurological Exam Neurological Exam: Alert, Awake - Psychiatric Exam Psychiatric exam: Normal Affect, Normal Mood - Skin Skin Exam: Dry, Intact, Normal Color, Warm Assessment and Plan - Assessment and Plan (Free Text) Assessment: 63M with left inguinal hernia, umbilical hernia. colitis r/o ca Plan: - patient needs colonoscopy - patient needs ureteral stents - will need umbilical inguinal/ hernia repair -Discussed with Dr. Kia Munoz, PGY3
--- NOTE | 2018-12-10 11:13 | CP.PCM.CON ---
History of Present Illness - History of Present Illness History of Present Illness: UROLOGY CONSULTATION Past Patient History - Infectious Disease Hx of Infectious Diseases: None - Tetanus Immunizations Tetanus Immunization: Unknown - Past Medical History & Family History Past Medical History?: Yes Past Family History: Reviewed and not pertinent - Past Social History Smoking Status: Never Smoked Chewing Tobacco Use: No Cigar Use: No Alcohol: None Drugs: Denies Home Situation {Lives}: With Family Domestic Violence: Negative - CARDIAC Hx Hypertension: Yes - PULMONARY Hx Respiratory Disorders: No - NEUROLOGICAL Hx Neurological Disorder: No - HEENT Hx HEENT Problems: No - ENDOCRINE/METABOLIC Hx Endocrine Disorders: No - HEMATOLOGICAL/ONCOLOGICAL Hx Blood Disorders: No - INTEGUMENTARY Other/Comment: last year had an abscess and it was I/D - MUSCULOSKELETAL/RHEUMATOLOGICAL Hx Musculoskeletal Disorders: No Hx Falls: No - GASTROINTESTINAL Hx Colitis: Yes HX Swallowing Problems: No Hx Vomiting: No - GENITOURINARY/GYNECOLOGICAL Hx Genitourinary Disorders: Yes Hx Prostate Problems: Yes (BPH) - PSYCHIATRIC Hx Substance Use: No - SURGICAL HISTORY Hx Surgeries: Yes Other/Comment: STOMACH SURGERY PER PATIENT. HX: CYSTOSCOPY - ANESTHESIA Hx Anesthesia: Yes Hx Anesthesia Reactions: No Has any member of the family had a problem w/ anesthesia?: No Meds Allergies/Adverse Reactions: Allergies Allergy/AdvReac Type Severity Reaction Status Date / Time No Known Allergies Allergy Verified 12/08/18 08:19 - Medications Medications: Current Medications Amlodipine Besylate (Norvasc) 10 mg PO DAILY [facility] Last Admin: 12/10/18 09:03 Dose: 10 mg Bisacodyl (Dulcolax) 10 mg PO ONCE ONE Stop: 12/10/18 17:01 Docusate Sodium (Colace) 100 mg PO DAILY [facility] Last Admin: 12/10/18 09:03 Dose: 100 mg Metronidazole (Flagyl) 500 mg in 100 mls @ 100 mls/hr IVPB Q8H [facility]; Protocol Last Admin: 12/10/18 08:14 Dose: 100 mls/hr Ciprofloxacin (Cipro 400mg/200ml Dsw) 400 mg in 200 mls @ 133 mls/hr IVPB Q12H [facility]; Protocol Last Admin: 12/09/18 23:45 Dose: 133 mls/hr Sodium Chloride (Sodium Chloride 0.45%) 1,000 mls @ 150 mls/hr IV .Q6H40M [facility] Last Admin: 12/10/18 05:25 Dose: 150 mls/hr Influenza Virus Vaccine (Flucelvax Quad [id number] Syr) 60 mcg IM .ONCE ONE Stop: 12/11/18 10:01 Metoclopramide HCl (Reglan) 5 mg IVP Q6H [facility] Last Admin: 12/10/18 08:13 Dose: 5 mg Morphine Sulfate (Morphine) 2 mg IVP Q4 PRN PRN Reason: Pain, moderate (4-7) Pantoprazole Sodium (Protonix Ec Tab) 40 mg PO DAILY [facility] Last Admin: 12/10/18 09:32 Dose: Not Given Pneumococcal Polyvalent Vaccine (Pneumovax 23 Vaccine) 0.5 ml IM .ONCE ONE Stop: 12/11/18 10:01 Polyethylene Glycol/Electrolytes (Golytely) 4,000 ml PO ONCE ONE Stop: 12/10/18 11:31 Tamsulosin HCl (Flomax) 0.4 mg PO DAILY [facility] Last Admin: 12/10/18 09:03 Dose: 0.4 mg Results - Vital Signs Recent Vital Signs: Last Vital Signs Temp 97.6 F 12/10/18 08:25 Pulse 70 12/10/18 08:25 Resp 20 12/10/18 08:25 BP 164/75 H 12/10/18 08:25 Pulse Ox 96 12/10/18 08:25 - Labs Result Diagrams: 12/15/18 05:48 12/15/18 05:48 Labs: Laboratory Results - last 24 hr 12/09/18 12/10/18 12/10/18 13:02 07:05 07:05 WBC 5.9 RBC 3.95 L Hgb 11.1 L Hct 34.1 L MCV 86.4 MCH 28.0 MCHC 32.4 L RDW 14.4 Plt Count 185 MPV 10.3 Sodium 139 Potassium 3.5 L Chloride 104 Carbon Dioxide 28 Anion Gap 10 BUN 8 L Creatinine 0.8 Est GFR ( Amer) > 60 Est GFR (Non-Af Amer) > 60 Random Glucose 101 Calcium 9.0 Phosphorus 3.5 Magnesium 2.1 Carcinoembryonic Ag 204.0 H CA 19-9 Antigen 136 H Assessment & Plan - Assessment and Plan (Free Text) Assessment: IMP: UTI BPH L HYDRONEPHROSIS LIH, CONTAINING BLADDER ABD PAIN YS - Date & Time Date: 12/10/18 Time: 10:30
[2018-12-10] MEDS: Ciprofloxacin 400mg/200ml D5W 400 MG/200 ML BAG IVPB SCH (11:15)
[2018-12-10] MEDS ORDERED: Peg-Electrolyte Oral Soln 4L (Golytely) PO ONE (11:30)
[2018-12-10] MEDS ORDERED: Bisacodyl 5mg EC Tab PO ONE (17:00)
[2018-12-11] MEDS: Ciprofloxacin 400mg/200ml D5W 400 MG/200 ML BAG IVPB SCH (00:09)
[2018-12-11] MEDS: Sodium Chloride 0.45% 1,000 ML IV SCH ×7 (01:05→21:52)
[2018-12-11] MEDS: metroNIDAZOLE IV 500 mg/100 ml 500 MG/100 ML BAG IVPB SCH ×3 (01:35→17:21)
--- NOTE | 2018-12-11 07:28 | CP.PCM.PN ---
Subjective - Date & Time of Evaluation Date of Evaluation: 12/11/18 Time of Evaluation: 07:25 - Subjective Subjective: Progress note for Dr. Nicole Patient was seen and examined at bedside in no acute distress. Patient reports feeling better and no longer has abdominal pain. Patient denies chest pain, palpitations, nausea, vomiting, fevers, headaches, dizziness, dysuria. Objective - Vital Signs/Intake and Output Vital Signs (last 24 hours): Temp Pulse Resp BP Pulse Ox 97 F L 64 16 136/67 98 12/11/18 00:00 12/11/18 00:00 12/11/18 00:00 12/11/18 00:00 12/11/18 00:00 Intake and Output: 12/11/18 12/11/18 06:59 18:59 Intake Total 1400 Balance 1400 - Medications Medications: Current Medications Amlodipine Besylate (Norvasc) 10 mg PO DAILY [facility] Last Admin: 12/10/18 09:03 Dose: 10 mg Docusate Sodium (Colace) 100 mg PO DAILY [facility] Last Admin: 12/10/18 09:03 Dose: 100 mg Metronidazole (Flagyl) 500 mg in 100 mls @ 100 mls/hr IVPB Q8H [facility]; Protocol Last Admin: 12/11/18 01:35 Dose: 100 mls/hr Ciprofloxacin (Cipro 400mg/200ml Dsw) 400 mg in 200 mls @ 133 mls/hr IVPB Q12H [facility]; Protocol Last Admin: 12/11/18 00:09 Dose: 133 mls/hr Sodium Chloride (Sodium Chloride 0.45%) 1,000 mls @ 150 mls/hr IV .Q6H40M [facility] Last Admin: 12/11/18 01:34 Dose: 150 mls/hr Influenza Virus Vaccine (Flucelvax Quad [id number] Syr) 60 mcg IM .ONCE ONE Stop: 12/11/18 10:01 Metoclopramide HCl (Reglan) 5 mg IVP Q6H [facility] Last Admin: 12/11/18 01:30 Dose: 5 mg Morphine Sulfate (Morphine) 2 mg IVP Q4 PRN PRN Reason: Pain, moderate (4-7) Pantoprazole Sodium (Protonix Ec Tab) 40 mg PO DAILY [facility] Last Admin: 12/10/18 09:32 Dose: Not Given Pneumococcal Polyvalent Vaccine (Pneumovax 23 Vaccine) 0.5 ml IM .ONCE ONE Stop: 12/11/18 10:01 Tamsulosin HCl (Flomax) 0.4 mg PO DAILY [facility] Last Admin: 12/10/18 09:03 Dose: 0.4 mg - Labs Labs: 12/10/18 07:05 12/10/18 07:05 - Constitutional Appears: No Acute Distress - Head Exam Head Exam: ATRAUMATIC, NORMAL INSPECTION - Eye Exam Eye Exam: EOMI, Normal appearance - ENT Exam ENT Exam: Mucous Membranes Moist - Respiratory Exam Respiratory Exam: NORMAL BREATHING PATTERN. absent: Rales, Rhonchi, Wheezes, Respiratory Distress - Cardiovascular Exam Cardiovascular Exam: REGULAR RHYTHM, +S1, +S2 - GI/Abdominal Exam GI & Abdominal Exam: Distended, Soft, Hernia, Normal Bowel Sounds. absent: Tenderness - Extremities Exam Extremities Exam: Normal Inspection. absent: Pedal Edema, Tenderness - Neurological Exam Neurological Exam: Alert, Awake, Oriented x3 - Psychiatric Exam Psychiatric exam: Normal Affect, Normal Mood - Skin Skin Exam: Dry, Warm Assessment and Plan - Assessment and Plan (Free Text) Plan: Abdominal pain secondary to Colitis - GI Consult: Dr. Zamora --> help appreciated - Liquid Diet/NPO after midnight - Scheduled for Colonoscopy on 12/11/18 - Images: * CT of Abdomen/Pelvis: Segmental moderate to marked wall thickening of the mid and distal transverse colon surrounding with inflammatory changes consistent with colitis. The possibility of underline infiltrative neoplasm is not totally excluded. The differential consideration includes ischemic infection or inflammatory colitis. 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 Mild to moderate left hydroureter. The distal portion of the left ureter is extending into large left inguinal hernia. Part of urinary bladder is also herniated and the left UV junction is likely in the left inguinal hernia. The possibility of distal left ureter stone is not totally excluded. The differential consideration includes compression on the distal left ureter at left inguinal hernia. Otherwise no evidence of acute pathology in the abdomen and pelvis. - Blood Culture Negative - Urine cx: + Ecoli, + ESBL - Medications: * Metronidazole 500mg IV q8h * Discontinued Ciprofloxacin 400mg IV q12h * NS @150cc/hr * Colace 100mg po daily * Morphine 2mg IV q4 prn UTI - UA: +1LE - Urine cx: + Ecoli, + ESBL - ID consulted, Dr. Melara. Help appreciated - Medications: * Merrem 1g IV Q8 (active since 12/11/18) Left inguinal hernia - Contains portion of the bladder, left hydronephrosis indicating possible involvement of left ureter - Surgery Consult: Dr. Adam --> help appreciated - Urology Consult: Dr. Chica Boss --> help appreciated - Urine Culture: + Ecoli, + ESBL * Discontinued Ciprofloxacin 400mg IV q12h (resistant) * Started Merrem 1g IV Q8h (active on 12/11/18) HTN - Continue home medication Norvasc 5mg po daily History of BPH - Continue home medication Flomax 0.4mg po daily Prophylaxis - Protonix daily - SCDs Case discussed with Dr. Corey Menon, PGY-2
[2018-12-11 07:39] LABS: BLOOD UREA NITROGEN 5 mg/dL (9-20); CALCIUM 8.9 mg/dl (8.6-10.4); GFR NON-AFRICAN AMERICAN > 60
[2018-12-11 08:13] LABS: INR 1.3; PROTHROMBIN TIME 14.5 SECONDS (9.7-12.2)
[2018-12-11] MEDS: Pantoprazole 40 mg EC Tab PO SCH (09:23)
[2018-12-11] MEDS ORDERED: Influenza Vaccine 60 mcg/0.5 mL SYR (4YR UP) IM ONE (10:00)
[2018-12-11] MEDS ORDERED: Pneumococcal 23-Valent Vaccine IM ONE (10:00)
--- NOTE | 2018-12-11 11:48 | CP.PCM.CON ---
History of Present Illness - History of Present Illness History of Present Illness: 63 yo male, originally from [place], with past medical hx of groin abscess, HTN, and BPH, presenting to [facility] (formerly [facility]3] with chief complaint of abdominal pain. Pain is present x 2 weeks. He is found to have hydronephrosis, pyelonephritis with ESBL + UTI ID consulted for antibiotic maangement PMH: groin abscess, HTN, BPH PSH: groin abscess repair Allergies: NKDA FH: Denies Home meds: BP medication Social hx: no smoking, drinking, drug use. Born in [place]. 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 Lives with and children at home. Review of Systems - Review of Systems All systems: reviewed and no additional remarkable complaints except - Constitutional Constitutional: As Per HPI - EENT Ears: absent: As Per HPI, Decreased Hearing, Ear Discharge, Ear Pain, Tinnitus, Abnormal Hearing, Disequilibrium, Dizziness, Other Nose/Mouth/Throat: absent: As Per HPI, Epistaxis, Nasal Congestion, Nasal Discharge, Nasal Obstruction, Nasal Trauma, Nose Pain, Post Nasal Drip, Sinus Pain, Sinus Pressure, Bleeding Gums, Change in Voice, Dental Pain, Dry Mouth, Dysphagia, Halitosis, Hoarsness, Lip Swelling, Mouth Lesions, Mouth Pain, Odynophagia, Sore Throat, Throat Swelling, Tongue Swelling, Facial Pain, Neck Pain, Neck Mass, Other - Cardiovascular Cardiovascular: absent: As Per HPI, Acrocyanosis, Chest Pain, Chest Pain at Rest, Chest Pain with Activity, Claudication, Diaphoresis, Dyspnea, Dyspnea on Exertion, Edema, Irregular Heart Rhythm, Pain Radiating to Arm/Neck/Jaw, Leg Edema, Leg Ulcers, Lightheadedness, Orthopnea, Palpitations, Paroxysmal Nocturnal Dyspnea, Pedal Edema, Radiating Pain, Rapid Heart Rate, Slow Heart Rate, Syncope, Other - Respiratory Respiratory: As Per HPI - Gastrointestinal Gastrointestinal: absent: As Per HPI, Abdominal Pain, Belching, Bloating, Change in Bowel Habits, Change in Stool Character, Coffee Ground Emesis, Constipation, Cramping, Diarrhea, Dyspepsia, Dysphagia, Early Satiety, Excessive Flatus, Fecal Incontinence, Heartburn, Hematemesis, Hematochezia, Loose Stools, Melena, Nausea, Odynophagia, Temesmus, Vomiting, Other - Genitourinary Genitourinary: As Per HPI - Reproductive: Male Reproductive:Male: As Per HPI - Musculoskeletal Musculoskeletal: absent: As Per HPI, Abnormal Gait, Arthralgias, Atrophy, Back Pain, Deformity, Joint Swelling, Limited Range of Motion, Loss of Height, Muscle Cramps, Muscle Weakness, Myalgias, Neck Pain, Numbness, Radiating Pain into Limb, Stiffness, Tingling, Other - Integumentary Integumentary: absent: As Per HPI, Acne, Alopecia, Bleeding Lesions, Change in Hair, Change in Nails, Change in Pigmentation, Changing Lesions, Dry Skin, Erythema, Furuncle, Hirsutism, Lesions, New Lesions, Non-Healing Lesions, Photosensitivity, Pruritus, Rash, Skin Pain, Skin Ulcer, Sores, Striae, Swelling, Unusual Bruising, Wounds, Jaundice, Other - Neurological Neurological: absent: As Per HPI, Abnormal Gait, Abnormal Hearing, Abnormal Movements, Abnormal Speech, Behavioral Changes, Burning Sensations, Confusion, Convulsions, Disequilibrium, Dizziness, Numbness, Focal Weakness, Frequent Falls, Headaches, Lack of Coordination, Loss of Vision, Memory Loss, Paresthesias, Radicular Pain, Restless Legs, Sensory Deficit, Syncope, Tingling, Tremor, Vertigo, Weakness, Other Visual Disturbances, Other - Psychiatric Psychiatric: absent: As Per HPI, Abnormal Sleep Pattern, Anhedonia, Anxiety, Auditory Hallucinations, Behavioral Changes, Change in Appetite, Change in Libido, Confusion, Depression, Difficulty Concentrating, Hallucinations, Homicidal Ideation, Hopelessness, Irritability, Memory Loss, Mood Swings, Panic Attacks, Paranoia, Suicidal Ideation, Visual Hallucinations, Tactile Hallucinations, Other - Endocrine Endocrine: absent: As Per HPI, Change in Body Appearance, Change in Libido, Cold Intolorance, Deepening of Voice, Excessive Sweating, Fatigue, Flushing, Heat Intolorance, Increase in Ring/Shoe/Hat Size, Palpitations, Polydipsia, Polyphagia, Polyuria, Other - Hematologic/Lymphatic Hematologic: absent: As Per HPI, Easy Bleeding, Easy Bruising, Lymphadenopathy, Other Past Patient History - Infectious Disease Hx of Infectious Diseases: None - Tetanus Immunizations Tetanus Immunization: Unknown - Past Medical History & Family History Past Medical History?: Yes Past Family History: Reviewed and not pertinent - Past Social History Smoking Status: Never Smoked Chewing Tobacco Use: No Cigar Use: No Alcohol: None Drugs: Denies Home Situation {Lives}: With Family Domestic Violence: Negative - CARDIAC Hx Hypertension: Yes - PULMONARY Hx Respiratory Disorders: No - NEUROLOGICAL Hx Neurological Disorder: No - HEENT Hx HEENT Problems: No - ENDOCRINE/METABOLIC Hx Endocrine Disorders: No - HEMATOLOGICAL/ONCOLOGICAL Hx Blood Disorders: No - INTEGUMENTARY Other/Comment: last year had an abscess and it was I/D - MUSCULOSKELETAL/RHEUMATOLOGICAL Hx Musculoskeletal Disorders: No Hx Falls: No - GASTROINTESTINAL Hx Colitis: Yes HX Swallowing Problems: No Hx Vomiting: No - GENITOURINARY/GYNECOLOGICAL Hx Genitourinary Disorders: Yes Hx Prostate Problems: Yes (BPH) - PSYCHIATRIC Hx Substance Use: No - SURGICAL HISTORY Hx Surgeries: Yes Other/Comment: STOMACH SURGERY PER PATIENT. HX: CYSTOSCOPY - ANESTHESIA Hx Anesthesia: Yes Hx Anesthesia Reactions: No Has any member of the family had a problem w/ anesthesia?: No Meds Allergies/Adverse Reactions: Allergies Allergy/AdvReac Type Severity Reaction Status Date / Time No Known Allergies Allergy Verified 12/08/18 08:19 - Medications Medications: Current Medications Amlodipine Besylate (Norvasc) 10 mg PO DAILY [facility] Last Admin: 12/11/18 09:55 Dose: 10 mg Docusate Sodium (Colace) 100 mg PO DAILY [facility] Last Admin: 12/11/18 09:22 Dose: Not Given Metronidazole (Flagyl) 500 mg in 100 mls @ 100 mls/hr IVPB Q8H [facility]; Protocol Last Admin: 12/11/18 08:12 Dose: 100 mls/hr Sodium Chloride (Sodium Chloride 0.45%) 1,000 mls @ 150 mls/hr IV .Q6H40M [facility] Last Admin: 12/11/18 09:55 Dose: 150 mls/hr Meropenem 1 gm/ Sodium (Chloride) 100 mls @ 100 mls/hr IVPB Q8H [facility]; Protocol Metoclopramide HCl (Reglan) 5 mg IVP Q6H [facility] Last Admin: 12/11/18 08:11 Dose: 5 mg Morphine Sulfate (Morphine) 2 mg IVP Q4 PRN PRN Reason: Pain, moderate (4-7) Pantoprazole Sodium (Protonix Ec Tab) 40 mg PO DAILY [facility] Last Admin: 12/11/18 09:23 Dose: Not Given Tamsulosin HCl (Flomax) 0.4 mg PO DAILY [facility] Last Admin: 12/11/18 09:22 Dose: Not Given Physical Exam - Constitutional Appears: Non-toxic, Chronically Ill - Head Exam Head Exam: ATRAUMATIC, NORMOCEPHALIC - Eye Exam Eye Exam: PERRL. absent: Scleral icterus Pupil Exam: NORMAL ACCOMODATION - ENT Exam ENT Exam: Mucous Membranes Dry, Normal External Ear Exam, Normal Oropharynx - Neck Exam Neck exam: Negative for: Lymphadenopathy (O), Thyromegaly - Respiratory Exam Respiratory Exam: Decreased Breath Sounds, Prolonged Expiratory Phase - Cardiovascular Exam Cardiovascular Exam: REGULAR RHYTHM, +S1, +S2 - Rectal Exam Rectal Exam: Deferred - Exam Exam: NORMAL INSPECTION - Extremities Exam Extremities exam: Positive for: pedal pulses present. Negative for: pedal edema, tenderness - Back Exam Back exam: absent: CVA tenderness (L), CVA tenderness (R), paraspinal tenderness - Neurological Exam Neurological exam: Alert, CN II-XII Intact, Oriented x3, Reflexes Normal - Psychiatric Exam Psychiatric exam: Normal Mood - Skin Skin Exam: Dry Results - Vital Signs Recent Vital Signs: Last Vital Signs Temp 97.6 F 12/11/18 08:00 Pulse 74 12/11/18 08:00 Resp 20 12/11/18 08:00 BP 158/80 H 12/11/18 08:00 Pulse Ox 97 12/11/18 08:00 - Labs Result Diagrams: 12/10/18 07:05 12/11/18 06:58 Labs: Laboratory Results - last 24 hr 12/11/18 12/11/18 06:58 06:58 PT 14.5 H INR 1.3 APTT 29 Sodium 139 Potassium 3.4 L Chloride 106 Carbon Dioxide 28 Anion Gap 8 L BUN 5 L Creatinine 0.8 Est GFR ( Amer) > 60 Est GFR (Non-Af Amer) > 60 Random Glucose 102 Calcium 8.9 Assessment & Plan (1) Hydronephrosis Status: Acute (2) ESBL (extended spectrum beta-lactamase) producing bacteria infection Status: Acute - Assessment and Plan (Free Text) Assessment: eval in progress will likely need 14 days IV antibiotics Plan: GI eval to r/o malignancy 'EGD andc colonoscopy are pending
[2018-12-11] MEDS: Meropenem 1 GM in Sodium Chloride 0.9% 100 ML IVPB SCH ×3 (12:30→20:10)
[2018-12-11] MEDS ORDERED: Lactated Ringer's 1,000 ML IV ONE (12:50)
[2018-12-11] MEDS ORDERED: Propofol 10 mg/ml Inj (20 ML) ONE (12:50)
[2018-12-11] MEDS ORDERED: Lactated Ringer's 500 ML IV SCH (13:00)
[2018-12-11] MEDS ORDERED: Phytonadione 10 mg/ml Inj (Adult) SC STA ×2 (13:23→14:30)
--- NOTE | 2018-12-11 14:59 | CP.PCM.PN ---
Subjective - Date & Time of Evaluation Date of Evaluation: 12/11/18 Time of Evaluation: 14:57 - Subjective Subjective: message from Dr. Zamora. FINDINGS OF ALMOST TOTALLY OBSTRUCTING LESION OF TRANSVERSE COLON. will nee urgent resection and hopefully repair hrniae same time Objective - Vital Signs/Intake and Output Vital Signs (last 24 hours): Temp Pulse Resp BP Pulse Ox 98.4 F 62 20 144/74 96 12/11/18 14:35 12/11/18 14:35 12/11/18 14:35 12/11/18 14:35 12/11/18 14:35 Intake and Output: 12/11/18 12/11/18 06:59 18:59 Intake Total 1400 850 Balance 1400 850 - Medications Medications: Current Medications Amlodipine Besylate (Norvasc) 10 mg PO DAILY [facility] Last Admin: 12/11/18 09:55 Dose: 10 mg Docusate Sodium (Colace) 100 mg PO DAILY [facility] Last Admin: 12/11/18 09:22 Dose: Not Given Metronidazole (Flagyl) 500 mg in 100 mls @ 100 mls/hr IVPB Q8H [facility]; Protocol Last Admin: 12/11/18 08:12 Dose: 100 mls/hr Sodium Chloride (Sodium Chloride 0.45%) 1,000 mls @ 150 mls/hr IV .Q6H40M [facility] Last Admin: 12/11/18 09:55 Dose: 150 mls/hr Meropenem 1 gm/ Sodium (Chloride) 100 mls @ 100 mls/hr IVPB Q8H [facility]; Protocol Last Admin: 12/11/18 14:37 Dose: 100 mls/hr Lactated Ringer's (Lactated Ringer's 500ml) 500 mls @ 75 mls/hr IV .Q6H40M [facility] Last Admin: 12/11/18 13:00 Dose: Not Given Metoclopramide HCl (Reglan) 5 mg IVP Q6H [facility] Last Admin: 12/11/18 14:39 Dose: 5 mg Morphine Sulfate (Morphine) 2 mg IVP Q4 PRN PRN Reason: Pain, moderate (4-7) Pantoprazole Sodium (Protonix Ec Tab) 40 mg PO DAILY [facility] Last Admin: 12/11/18 09:23 Dose: Not Given Tamsulosin HCl (Flomax) 0.4 mg PO DAILY [facility] Last Admin: 12/11/18 09:22 Dose: Not Given - Labs Labs: 12/10/18 07:05 12/11/18 06:58 PT 14.5 SECONDS (9.7-12.2) H 12/11/18 06:58 INR 1.3 12/11/18 06:58 APTT 29 SECONDS (21-34) 12/11/18 06:58
[2018-12-12] MEDS: metroNIDAZOLE IV 500 mg/100 ml 500 MG/100 ML BAG IVPB SCH ×3 (00:58→16:16)
[2018-12-12] MEDS: Sodium Chloride 0.45% 1,000 ML IV SCH ×3 (04:03→16:52)
[2018-12-12] MEDS: Meropenem 1 GM in Sodium Chloride 0.9% 100 ML IVPB SCH ×3 (04:32→20:12)
--- NOTE | 2018-12-12 07:29 | CP.PCM.PN ---
Subjective - Date & Time of Evaluation Date of Evaluation: 12/12/18 Time of Evaluation: 08:00 - Subjective Subjective: Medicine Progress note for Dr. Nicole Patient was seen and examined at bedside in no acute distress. Patient denies abdominal pain. Patient denies chest pain, shortness of breath, palpitations, nausea, vomiting or fever. Objective - Vital Signs/Intake and Output Vital Signs (last 24 hours): Temp Pulse Resp BP Pulse Ox 97.8 F 64 20 157/78 H 96 12/12/18 00:00 12/12/18 00:00 12/12/18 00:00 12/12/18 00:00 12/12/18 00:00 Intake and Output: 12/12/18 12/12/18 06:59 18:59 Intake Total 1460 Balance 1460 - Medications Medications: Current Medications Amlodipine Besylate (Norvasc) 10 mg PO DAILY [facility] Last Admin: 12/11/18 09:55 Dose: 10 mg Docusate Sodium (Colace) 100 mg PO DAILY [facility] Last Admin: 12/11/18 09:22 Dose: Not Given Metronidazole (Flagyl) 500 mg in 100 mls @ 100 mls/hr IVPB Q8H [facility]; Protocol Last Admin: 12/12/18 00:58 Dose: 100 mls/hr Sodium Chloride (Sodium Chloride 0.45%) 1,000 mls @ 150 mls/hr IV .Q6H40M [facility] Last Admin: 12/12/18 06:48 Dose: 150 mls/hr Meropenem 1 gm/ Sodium (Chloride) 100 mls @ 100 mls/hr IVPB Q8H [facility]; Protocol Last Admin: 12/12/18 04:32 Dose: 100 mls/hr Lactated Ringer's (Lactated Ringer's 500ml) 500 mls @ 75 mls/hr IV .Q6H40M [facility] Last Admin: 12/11/18 13:00 Dose: Not Given Metoclopramide HCl (Reglan) 5 mg IVP Q6H [facility] Last Admin: 12/12/18 06:49 Dose: 5 mg Morphine Sulfate (Morphine) 2 mg IVP Q4 PRN PRN Reason: Pain, moderate (4-7) Pantoprazole Sodium (Protonix Ec Tab) 40 mg PO DAILY [facility] Last Admin: 12/11/18 09:23 Dose: Not Given Sodium Phosphate (Fleet Enema) 135 ml GA ONCE ONE Stop: 12/12/18 10:01 Tamsulosin HCl (Flomax) 0.4 mg PO DAILY [facility] Last Admin: 12/11/18 09:22 Dose: Not Given - Labs Labs: 12/10/18 07:05 12/11/18 06:58 PT 14.5 SECONDS (9.7-12.2) H 12/11/18 06:58 INR 1.3 12/11/18 06:58 APTT 29 SECONDS (21-34) 12/11/18 06:58 - Constitutional Appears: No Acute Distress - Head Exam Head Exam: ATRAUMATIC, NORMAL INSPECTION - Eye Exam Eye Exam: EOMI, Normal appearance - ENT Exam ENT Exam: Mucous Membranes Moist - Respiratory Exam Respiratory Exam: Clear to Ausculation Bilateral, NORMAL BREATHING PATTERN - Cardiovascular Exam Cardiovascular Exam: REGULAR RHYTHM, +S1, +S2 - GI/Abdominal Exam GI & Abdominal Exam: Soft, Normal Bowel Sounds. absent: Tenderness Additional comments: umbilical hernia - Exam Additional comments: enlarged scrotum - Neurological Exam Neurological Exam: Alert, Awake, Oriented x3 - Psychiatric Exam Psychiatric exam: Normal Affect - Skin Skin Exam: Normal Color Assessment and Plan - Assessment and Plan (Free Text) Assessment: Adenocardinoma of the Proximal Descending Colon - GI Consult: Dr. Zamora --> help appreciated - Surgery Consult: Dr. Adam --> help appreciated - Hem/Onc Consult: Dr. Lewis --> help appreciated - Chest CT: Cardiomegaly. Medial left upper lobe bronchiectasis and small bulla evident. 4 mm nodular opacity along the pleura, possibly intrapulmonary lymph node. 2 mm right middle lobe nodule. Recommend [address] follow-up. Limited visualization of the upper abdomen reveals partially imaged moderate to severe wall thickening of the mid to distal transverse colon which appears consistent with provided history of colonic carcinoma. 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 - s/p colonoscopy 12/11/18 * Findings: Malignant-appearing intrinsic severe stenosis was found in the transverse colon and non-transverse colon * Pathology: adenocarcinoma of the proximal descending colon - Patient is scheduled for a colon resection 12/13/[address] Adam - Cardiac Clearance --> Cardiac Consult: Dr. Carias --> help appreciated - f/u ECHO Colitis - GI Consult: Dr. Zamora --> help appreciated - Liquid Diet/NPO after midnight - Images: * CT of Abdomen/Pelvis: Segmental moderate to marked wall thickening of the mid and distal transverse colon surrounding with inflammatory changes consistent with colitis. The possibility of underline infiltrative neoplasm is not totally excluded. The differential consideration includes ischemic infection or inflammatory colitis. 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 Mild to moderate left hydroureter. The distal portion of the left ureter is extending into large left inguinal hernia. Part of urinary bladder is also herniated and the left UV junction is likely in the left inguinal hernia. The possibility of distal left ureter stone is not totally excluded. The differential consideration includes compression on the distal left ureter at left inguinal hernia. Otherwise no evidence of acute pathology in the abdomen and pelvis. - s/p Colonoscopy on 12/11/18 please see results above - Blood Culture Negative - Medications: * Metronidazole 500mg IV q8h * NS @150cc/hr * Colace 100mg po daily * Reglan 5mg IV q6h * Morphine 2mg IV q4 prn UTI - UA: +1LE - Urine Culture: + Ecoli, + ESBL - ID consulted, Dr. Melara. Help appreciated - Medications: * Merrem 1g IV Q8 (active since 12/11/18) Left inguinal hernia - Contains portion of the bladder, left hydronephrosis indicating possible involvement of left ureter - Surgery Consult: Dr. Adam --> help appreciated - Urology Consult: Dr. Chica Boss --> help appreciated HTN - Continue home medication Norvasc 10mg po daily History of BPH - Continue home medication Flomax 0.4mg po daily Prophylaxis - Protonix daily - Colace 100mg dialy - SCDs - VTE prophylaxis - hold Case discussed with Dr. Corey Pelaez PGY-2
[2018-12-12] MEDS: Pantoprazole 40 mg EC Tab PO SCH (09:47)
--- NOTE | 2018-12-12 10:45 | CP.PCM.PN ---
Subjective - Date & Time of Evaluation Date of Evaluation: 12/12/18 Time of Evaluation: 10:40 - Subjective Subjective: SURGERY NOTE FOR DR. BURNETTE 63M seen and examined at bedside. Patient continues to complain of epigastric pain, denies nausea or vomiting, States he has been going to bathroom with small about of stool. States he is tolerating diet. Objective - Vital Signs/Intake and Output Vital Signs (last 24 hours): Temp Pulse Resp BP Pulse Ox 98.4 F 66 20 143/68 96 12/12/18 07:30 12/12/18 07:30 12/12/18 07:30 12/12/18 07:30 12/12/18 07:30 Intake and Output: 12/12/18 12/12/18 06:59 18:59 Intake Total 1460 Balance 1460 - Medications Medications: Current Medications Amlodipine Besylate (Norvasc) 10 mg PO DAILY [facility] Last Admin: 12/12/18 09:47 Dose: 10 mg Docusate Sodium (Colace) 100 mg PO DAILY [facility] Last Admin: 12/12/18 09:46 Dose: 100 mg Metronidazole (Flagyl) 500 mg in 100 mls @ 100 mls/hr IVPB Q8H [facility]; Protocol Last Admin: 12/12/18 08:45 Dose: 100 mls/hr Sodium Chloride (Sodium Chloride 0.45%) 1,000 mls @ 150 mls/hr IV .Q6H40M [facility] Last Admin: 12/12/18 06:48 Dose: 150 mls/hr Meropenem 1 gm/ Sodium (Chloride) 100 mls @ 100 mls/hr IVPB Q8H [facility]; Protocol Last Admin: 12/12/18 04:32 Dose: 100 mls/hr Lactated Ringer's (Lactated Ringer's 500ml) 500 mls @ 75 mls/hr IV .Q6H40M [facility] Last Admin: 12/11/18 13:00 Dose: Not Given Metoclopramide HCl (Reglan) 5 mg IVP Q6H [facility] Last Admin: 12/12/18 06:49 Dose: 5 mg Morphine Sulfate (Morphine) 2 mg IVP Q4 PRN PRN Reason: Pain, moderate (4-7) Pantoprazole Sodium (Protonix Ec Tab) 40 mg PO DAILY [facility] Last Admin: 12/12/18 09:47 Dose: 40 mg Tamsulosin HCl (Flomax) 0.4 mg PO DAILY [facility] Last Admin: 12/12/18 09:47 Dose: 0.4 mg - Labs Labs: 12/10/18 07:05 12/11/18 06:58 PT 14.5 SECONDS (9.7-12.2) H 12/11/18 06:58 INR 1.3 12/11/18 06:58 APTT 29 SECONDS (21-34) 12/11/18 06:58 - Constitutional Appears: Non-toxic, No Acute Distress - Respiratory Exam Respiratory Exam: Clear to Ausculation Bilateral, NORMAL BREATHING PATTERN - Cardiovascular Exam Cardiovascular Exam: REGULAR RHYTHM, +S1, +S2 - GI/Abdominal Exam GI & Abdominal Exam: Soft, Tenderness. absent: Distended, Firm, Guarding, Rigid, Rebound - Extremities Exam Extremities Exam: absent: Pedal Edema, Tenderness - Neurological Exam Neurological Exam: Alert, Awake - Skin Skin Exam: Dry, Intact, Normal Color, Warm Assessment and Plan - Assessment and Plan (Free Text) Assessment: 63M with transverse colon mass s/p colonoscopy with malignant appearing mass with biopsy, also left inguinal hernia containing bladder Plan: Patient's and daughter bedside. - NPO afternight midnight - Pre-op Patient - AM labs, T&C, cardio clearance - Bowel prep- Neomycin, Flagyl, Go-lytely - CT chest - r/o metastasis - Urology to place stent tomorrow prior to operation - OR for Colon resection with poss ostomy and possible left inguinal hernia repair Discussed with Attending Haider Munoz, PGY3
[2018-12-12] MEDS ORDERED: Iodixanol 320 MG/ML 100 ML BOTTLE IV ONE (10:57)
[2018-12-12] MEDS ORDERED: Lactated Ringer's 500 ML IV SCH (11:07)
[2018-12-12] MEDS ORDERED: Peg-Electrolyte Oral Soln 4L (Golytely) PO ONE (11:15)
[2018-12-12] MEDS: Lactated Ringer's 1,000 ML IV SCH ×3 (12:28→20:22)
--- NOTE | 2018-12-12 12:37 | CT ---
Date of service: 12/12/2018 CT chest with IV contrast Indication: colon mass, poss malig, r/o mets Technique: Contiguous axial images were obtained through the chest with intravenous contrast enhancement. Sagittal and coronal reconstructions were generated and reviewed. This CT exam was performed using 1 or more of the following dose reduction techniques: Automated exposure control, adjustment of the MAA and/or kV according to patient size, and/or use of iterative reconstruction technique. IV contrast: 100 cc Visipaque 320 IV Radiation dose (DLP): 1082.6 MGy-cm. Comparison: Chest x-ray performed 12/08/18 Findings: Visualized portions of the inferior thyroid gland appear unremarkable. The mediastinal and hilar vascular structures appear within normal limits. Cardiomegaly. Medial left upper lobe bronchiectasis and small bulla evident. No focal consolidation. No pleural effusion. No pneumothorax. 4 mm nodular opacity along the pleura (series 3, image 66), possibly intrapulmonary lymph node. 2 mm right middle lobe nodule (series 3, image 73). Limited visualization of the upper abdomen reveals partially imaged moderate to severe wall thickening of the mid to distal transverse colon which appears consistent with provided history of colonic carcinoma. 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 Impression: Cardiomegaly. Medial left upper lobe bronchiectasis and small bulla evident. 4 mm nodular opacity along the pleura, possibly intrapulmonary lymph node. 2 mm right middle lobe nodule. Recommend [address] follow-up. Limited visualization of the upper abdomen reveals partially imaged moderate to severe wall thickening of the mid to distal transverse colon which appears consistent with provided history of colonic carcinoma. 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
[2018-12-12 13:55] LABS: BASO % 1.1 % (0.0-2.0); EOS # 0.1 K/uL (0.0-0.7); EOS % 2.8 % (0.0-4.0); HEMOGLOBIN 11.8 g/dL (12.0-18.0); LYMPH # 0.7 K/uL (1.0-4.3); LYMPH % 17.2 % (20.0-40.0); MEAN CELL VOLUME 85.7 fL (80.0-94.0); MEAN CORPUSCULAR HEMOGLOBIN 28.6 pg (27.0-31.0); MEAN CORPUSCULAR HGB CONC 33.3 g/dL (33.0-37.0); MEAN PLATELET VOLUME 9.3 fL (7.2-11.7); MONO # 0.3 K/uL (0.0-0.8); MONO % 6.9 % (0.0-10.0); RBC 4.13 Mil/uL (4.40-5.90); RED CELL DISTRIBUTION WIDTH 14.3 % (11.5-14.5); WHITE BLOOD COUNT 4.2 K/uL (4.8-10.8)
[2018-12-12 14:08] LABS: ALB/GLOB RATIO 1.1 (1.0-2.1); ALT/SGPT 32 U/L (21-72); AST/SGOT 45 U/L (17-59); BLOOD UREA NITROGEN 4 mg/dL (9-20); CALCIUM 9.5 mg/dl (8.6-10.4); GFR NON-AFRICAN AMERICAN > 60
--- NOTE | 2018-12-12 14:20 | PN ---
DATE: 12/12/2018 LOCATION: 655. SUBJECTIVE: This is a 63-year-old male, post upper and lower endoscopy, seen and examined in rounds without significant clinical changes or reported active bleeding post colonoscopy yesterday with large colon mass with near complete obstruction of the lumen of the colon, seen by the consumer services consultant on the case. The patient denied any actual chest pain, palpitation, significant shortness of breath but mild intermittent abdominal pain. Today's lab results showed PT of 14.5, potassium 3.4 with low BUN and creatinine. Rest of the lab results still pending. PHYSICAL EXAMINATION: GENERAL: A 63-year-old male, awake, alert, oriented, out of bed. VITAL SIGNS: Afebrile with pulse of 68, respiratory rate 20-22, blood pressure 146/66. HEENT: Showed pale dry oral mucous membrane. Nonicteric sclerae. LUNGS: Few scattered crepitation. Decreased air entry at bases. HEART: Positive S1 and S2. ABDOMEN: Soft with mild generalized tenderness. No mass or organomegaly. No rebound tenderness or guarding, but with abdominal wall hernia. EXTREMITIES: With mild lower extremity edematous changes. No clubbing or cyanosis. NEUROLOGIC: No reported neurological deficits, sensory or motor. IMPRESSION: 1. Colon mass lesion with high-grade narrowing of the lumen at the level of about the splenic flexure , transverse colon, biopsy results is still pending, the lesion was also marked and tattooed by blue ink. 2. Anemia, most likely secondary to above. 3. upper endoscopy. 4. Electrolyte imbalance with hypokalemia. SUGGESTIONS: 1. Continue current management. 2. The patient may need full pulmonary also workup before any aggressive surgery, may have a sleep apnea. 3. Correct an underlying coagulopathy. 4. The patient again may need upper endoscopy before any surgery to rule out possible metastatic lesion versus primary second lesion. Case is to be discussed with Oncology, Hematology consult. Further recommendation to follow. Eric Silva MD
--- NOTE | 2018-12-12 19:58 | CP.PCM.CON ---
History of Present Illness - History of Present Illness History of Present Illness: Patient seen examined. full conutl to follow I discussed management with patient and his family. Patient is at intermediate risk for the planned procedure. I recommend perioperative betablocker to attenuate operative risk. There is no cardiovascular contraindication to the planned surgery. Past Patient History - Infectious Disease Hx of Infectious Diseases: None - Tetanus Immunizations Tetanus Immunization: Unknown - Past Medical History & Family History Past Medical History?: Yes Past Family History: Reviewed and not pertinent - Past Social History Smoking Status: Never Smoked Chewing Tobacco Use: No Cigar Use: No Alcohol: None Drugs: Denies Home Situation {Lives}: With Family Domestic Violence: Negative - CARDIAC Hx Hypertension: Yes - PULMONARY Hx Respiratory Disorders: No - NEUROLOGICAL Hx Neurological Disorder: No - HEENT Hx HEENT Problems: No - ENDOCRINE/METABOLIC Hx Endocrine Disorders: No - HEMATOLOGICAL/ONCOLOGICAL Hx Blood Disorders: No - INTEGUMENTARY Other/Comment: last year had an abscess and it was I/D - MUSCULOSKELETAL/RHEUMATOLOGICAL Hx Musculoskeletal Disorders: No Hx Falls: No - GASTROINTESTINAL Hx Colitis: Yes HX Swallowing Problems: No Hx Vomiting: No - GENITOURINARY/GYNECOLOGICAL Hx Genitourinary Disorders: Yes Hx Prostate Problems: Yes (BPH) - PSYCHIATRIC Hx Substance Use: No - SURGICAL HISTORY Hx Surgeries: Yes Other/Comment: STOMACH SURGERY PER PATIENT. HX: CYSTOSCOPY - ANESTHESIA Hx Anesthesia: Yes Hx Anesthesia Reactions: No Has any member of the family had a problem w/ anesthesia?: No Meds Allergies/Adverse Reactions: Allergies Allergy/AdvReac Type Severity Reaction Status Date / Time No Known Allergies Allergy Verified 12/08/18 08:19 - Medications Medications: Current Medications Amlodipine Besylate (Norvasc) 10 mg PO DAILY [facility] Last Admin: 12/12/18 09:47 Dose: 10 mg Docusate Sodium (Colace) 100 mg PO DAILY [facility] Last Admin: 12/12/18 09:46 Dose: 100 mg Metronidazole (Flagyl) 500 mg in 100 mls @ 100 mls/hr IVPB Q8H [facility]; Protocol Last Admin: 12/12/18 16:16 Dose: 100 mls/hr Sodium Chloride (Sodium Chloride 0.45%) 1,000 mls @ 150 mls/hr IV .Q6H40M [facility] Last Admin: 12/12/18 16:52 Dose: Not Given Meropenem 1 gm/ Sodium (Chloride) 100 mls @ 100 mls/hr IVPB Q8H [facility]; Protocol Last Admin: 12/12/18 12:43 Dose: 100 mls/hr Lactated Ringer's (Lactated Ringer's) 1,000 mls @ 150 mls/hr IV .Q6H40M [facility] Last Admin: 12/12/18 18:18 Dose: Not Given Metoclopramide HCl (Reglan) 5 mg IVP Q6H [facility] Last Admin: 12/12/18 12:46 Dose: Not Given Metronidazole (Flagyl) 500 mg PO ONCE ONE; Protocol Stop: 12/12/18 22:01 Morphine Sulfate (Morphine) 2 mg IVP Q4 PRN PRN Reason: Pain, moderate (4-7) Neomycin Sulfate (Neomycin Tab) 1,000 mg PO ONCE ONE Stop: 12/12/18 22:01 Pantoprazole Sodium (Protonix Ec Tab) 40 mg PO DAILY [facility] Last Admin: 12/12/18 09:47 Dose: 40 mg Tamsulosin HCl (Flomax) 0.4 mg PO DAILY [facility] Last Admin: 12/12/18 09:47 Dose: 0.4 mg Results - Vital Signs Recent Vital Signs: Last Vital Signs Temp 97.4 F L 12/12/18 16:00 Pulse 68 12/12/18 16:00 Resp 20 12/12/18 16:00 BP 152/74 H 12/12/18 16:00 Pulse Ox 96 12/12/18 16:00 - Labs Result Diagrams: 12/12/18 13:50 12/12/18 13:50 Labs: Laboratory Results - last 24 hr 12/12/18 12/12/18 12/12/18 13:50 13:50 16:28 WBC 4.2 L RBC 4.13 L Hgb 11.8 L Hct 35.4 MCV 85.7 MCH 28.6 MCHC 33.3 RDW 14.3 Plt Count 252 MPV 9.3 Neut % (Auto) 72.0 Lymph % (Auto) 17.2 L [place] % (Auto) 6.9 Eos % (Auto) 2.8 Baso % (Auto) 1.1 Neut # (Auto) 3.0 Lymph # (Auto) 0.7 L [place] # (Auto) 0.3 Eos # (Auto) 0.1 Baso # (Auto) 0.0 Sodium 139 Potassium 3.8 Chloride 104 Carbon Dioxide 27 Anion Gap 12 BUN 4 L Creatinine 0.8 Est GFR ( Amer) > 60 Est GFR (Non-Af Amer) > 60 Random Glucose 150 H D Calcium 9.5 Phosphorus 3.7 Magnesium 1.9 Total Bilirubin 0.3 AST 45 ALT 32 Alkaline Phosphatase 84 Total Protein 7.5 Albumin 4.0 Globulin 3.5 Albumin/Globulin Ratio 1.1 Blood Type O POSITIVE Antibody Screen Negative
[2018-12-12] MEDS ORDERED: Metoprolol Succinate 25 mg XL Tab PO ONE (19:59)
--- NOTE | 2018-12-12 19:59 | CP.PCM.PN ---
Subjective - Date & Time of Evaluation Date of Evaluation: 12/12/18 Time of Evaluation: 09:00 - Subjective Subjective: for colon resection IV antibiotics in progress Objective - Vital Signs/Intake and Output Vital Signs (last 24 hours): Temp Pulse Resp BP Pulse Ox 97.4 F L 68 20 152/74 H 96 12/12/18 16:00 12/12/18 16:00 12/12/18 16:00 12/12/18 16:00 12/12/18 16:00 Intake and Output: 12/12/18 12/13/18 18:59 06:59 Intake Total 1400 Balance 1400 - Medications Medications: Current Medications Amlodipine Besylate (Norvasc) 10 mg PO DAILY [facility] Last Admin: 12/12/18 09:47 Dose: 10 mg Docusate Sodium (Colace) 100 mg PO DAILY [facility] Last Admin: 12/12/18 09:46 Dose: 100 mg Metronidazole (Flagyl) 500 mg in 100 mls @ 100 mls/hr IVPB Q8H [facility]; Protocol Last Admin: 12/12/18 16:16 Dose: 100 mls/hr Sodium Chloride (Sodium Chloride 0.45%) 1,000 mls @ 150 mls/hr IV .Q6H40M [facility] Last Admin: 12/12/18 16:52 Dose: Not Given Meropenem 1 gm/ Sodium (Chloride) 100 mls @ 100 mls/hr IVPB Q8H [facility]; Protocol Last Admin: 12/12/18 12:43 Dose: 100 mls/hr Lactated Ringer's (Lactated Ringer's) 1,000 mls @ 150 mls/hr IV .Q6H40M [facility] Last Admin: 12/12/18 18:18 Dose: Not Given Metoclopramide HCl (Reglan) 5 mg IVP Q6H [facility] Last Admin: 12/12/18 12:46 Dose: Not Given Metronidazole (Flagyl) 500 mg PO ONCE ONE; Protocol Stop: 12/12/18 22:01 Morphine Sulfate (Morphine) 2 mg IVP Q4 PRN PRN Reason: Pain, moderate (4-7) Neomycin Sulfate (Neomycin Tab) 1,000 mg PO ONCE ONE Stop: 12/12/18 22:01 Pantoprazole Sodium (Protonix Ec Tab) 40 mg PO DAILY [facility] Last Admin: 12/12/18 09:47 Dose: 40 mg Tamsulosin HCl (Flomax) 0.4 mg PO DAILY [facility] Last Admin: 12/12/18 09:47 Dose: 0.4 mg - Labs Labs: 12/12/18 13:50 12/12/18 13:50 PT 14.5 SECONDS (9.7-12.2) H 12/11/18 06:58 INR 1.3 12/11/18 06:58 APTT 29 SECONDS (21-34) 12/11/18 06:58 - Constitutional Appears: Well - Head Exam Head Exam: ATRAUMATIC, NORMAL INSPECTION, NORMOCEPHALIC - Eye Exam Eye Exam: EOMI, Normal appearance, PERRL Pupil Exam: NORMAL ACCOMODATION, PERRL - ENT Exam ENT Exam: Mucous Membranes Moist, Normal Exam - Neck Exam Neck Exam: Full ROM, Normal Inspection. absent: Lymphadenopathy - Respiratory Exam Respiratory Exam: Clear to Ausculation Bilateral, NORMAL BREATHING PATTERN - Cardiovascular Exam Cardiovascular Exam: REGULAR RHYTHM, +S1, +S2. absent: Murmur - GI/Abdominal Exam GI & Abdominal Exam: Soft, Normal Bowel Sounds. absent: Tenderness - Rectal Exam Rectal Exam: NORMAL INSPECTION - Exam Exam: Circumcision, NORMAL INSPECTION External exam: NORMAL EXTERNAL EXAM Speculum exam: NORMAL SPECULUM EXAM Bimanual exam: NORMAL BIMANUAL EXAM - Extremities Exam Extremities Exam: Full ROM, Normal Capillary Refill, Normal Inspection. absent: Joint Swelling, Pedal Edema - Back Exam Back Exam: NORMAL INSPECTION - Neurological Exam Neurological Exam: Alert, Awake, CN II-XII Intact, Normal Gait, Oriented x3 - Psychiatric Exam Psychiatric exam: Normal Affect, Normal Mood - Skin Skin Exam: Dry, Intact, Normal Color, Warm Assessment and Plan (1) Hydronephrosis Status: Acute (2) ESBL (extended spectrum beta-lactamase) producing bacteria infection Status: Acute - Assessment and Plan (Free Text) Assessment: for resection colon, stent placement , contiue antibiotics
--- NOTE | 2018-12-12 20:00 | CP.PCM.CON ---
Past Patient History - Infectious Disease Hx of Infectious Diseases: None - Tetanus Immunizations Tetanus Immunization: Unknown - Past Medical History & Family History Past Medical History?: Yes Past Family History: Reviewed and not pertinent - Past Social History Smoking Status: Never Smoked Chewing Tobacco Use: No Cigar Use: No Alcohol: None Drugs: Denies Home Situation {Lives}: With Family Domestic Violence: Negative - CARDIAC Hx Hypertension: Yes - PULMONARY Hx Respiratory Disorders: No - NEUROLOGICAL Hx Neurological Disorder: No - HEENT Hx HEENT Problems: No - ENDOCRINE/METABOLIC Hx Endocrine Disorders: No - HEMATOLOGICAL/ONCOLOGICAL Hx Blood Disorders: No - INTEGUMENTARY Other/Comment: last year had an abscess and it was I/D - MUSCULOSKELETAL/RHEUMATOLOGICAL Hx Musculoskeletal Disorders: No Hx Falls: No - GASTROINTESTINAL Hx Colitis: Yes HX Swallowing Problems: No Hx Vomiting: No - GENITOURINARY/GYNECOLOGICAL Hx Genitourinary Disorders: Yes Hx Prostate Problems: Yes (BPH) - PSYCHIATRIC Hx Substance Use: No - SURGICAL HISTORY Hx Surgeries: Yes Other/Comment: STOMACH SURGERY PER PATIENT. HX: CYSTOSCOPY - ANESTHESIA Hx Anesthesia: Yes Hx Anesthesia Reactions: No Has any member of the family had a problem w/ anesthesia?: No Meds Allergies/Adverse Reactions: Allergies Allergy/AdvReac Type Severity Reaction Status Date / Time No Known Allergies Allergy Verified 12/08/18 08:19 - Medications Medications: Current Medications Amlodipine Besylate (Norvasc) 10 mg PO DAILY [facility] Last Admin: 12/12/18 09:47 Dose: 10 mg Docusate Sodium (Colace) 100 mg PO DAILY [facility] Last Admin: 12/12/18 09:46 Dose: 100 mg Metronidazole (Flagyl) 500 mg in 100 mls @ 100 mls/hr IVPB Q8H [facility]; Protocol Last Admin: 12/12/18 16:16 Dose: 100 mls/hr Sodium Chloride (Sodium Chloride 0.45%) 1,000 mls @ 150 mls/hr IV .Q6H40M [facility] Last Admin: 12/12/18 16:52 Dose: Not Given Meropenem 1 gm/ Sodium (Chloride) 100 mls @ 100 mls/hr IVPB Q8H [facility]; Protocol Last Admin: 12/12/18 12:43 Dose: 100 mls/hr Lactated Ringer's (Lactated Ringer's) 1,000 mls @ 150 mls/hr IV .Q6H40M [facility] Last Admin: 12/12/18 18:18 Dose: Not Given Metoclopramide HCl (Reglan) 5 mg IVP Q6H [facility] Last Admin: 12/12/18 12:46 Dose: Not Given Metoprolol Succinate (Toprol Xl) 25 mg PO STAT ONE Stop: 12/12/18 20:00 Metronidazole (Flagyl) 500 mg PO ONCE ONE; Protocol Stop: 12/12/18 22:01 Morphine Sulfate (Morphine) 2 mg IVP Q4 PRN PRN Reason: Pain, moderate (4-7) Neomycin Sulfate (Neomycin Tab) 1,000 mg PO ONCE ONE Stop: 12/12/18 22:01 Pantoprazole Sodium (Protonix Ec Tab) 40 mg PO DAILY [facility] Last Admin: 12/12/18 09:47 Dose: 40 mg Tamsulosin HCl (Flomax) 0.4 mg PO DAILY [facility] Last Admin: 12/12/18 09:47 Dose: 0.4 mg Results - Vital Signs Recent Vital Signs: Last Vital Signs Temp 97.4 F L 12/12/18 16:00 Pulse 68 12/12/18 16:00 Resp 20 12/12/18 16:00 BP 152/74 H 12/12/18 16:00 Pulse Ox 96 12/12/18 16:00 - Labs Result Diagrams: 12/12/18 13:50 12/12/18 13:50 Labs: Laboratory Results - last 24 hr 12/12/18 12/12/18 12/12/18 13:50 13:50 16:28 WBC 4.2 L RBC 4.13 L Hgb 11.8 L Hct 35.4 MCV 85.7 MCH 28.6 MCHC 33.3 RDW 14.3 Plt Count 252 MPV 9.3 Neut % (Auto) 72.0 Lymph % (Auto) 17.2 L [place] % (Auto) 6.9 Eos % (Auto) 2.8 Baso % (Auto) 1.1 Neut # (Auto) 3.0 Lymph # (Auto) 0.7 L [place] # (Auto) 0.3 Eos # (Auto) 0.1 Baso # (Auto) 0.0 Sodium 139 Potassium 3.8 Chloride 104 Carbon Dioxide 27 Anion Gap 12 BUN 4 L Creatinine 0.8 Est GFR ( Amer) > 60 Est GFR (Non-Af Amer) > 60 Random Glucose 150 H D Calcium 9.5 Phosphorus 3.7 Magnesium 1.9 Total Bilirubin 0.3 AST 45 ALT 32 Alkaline Phosphatase 84 Total Protein 7.5 Albumin 4.0 Globulin 3.5 Albumin/Globulin Ratio 1.1 Blood Type O POSITIVE Antibody Screen Negative
--- NOTE | 2018-12-12 21:09 | CP.PCM.CON ---
History of Present Illness - History of Present Illness History of Present Illness: 63 year old male with a history of BPH, HTN, presenting with abdominal pain, found to have a colonic mass concerning for malignancy. The patient notes to increasing abdominal discomfort which he initially attributed to eating junk meredith d and being constipated. The pain worsened and he came to the hospital. A colonoscopy was done which revealed a transverse colon mass. A CT chest is negative for overt metastasis. He is schedule for surgery tomorrow. Past medical history: BPH, HTN Past surgical history: Denies Family history: Denies hematologic and oncologic problems Social history: Denies tobacco, alcohol, and illicit drug use Allergies: NKA Review of systems: All remaining review of systems including HEENT, c ardiovascular, respiratory, gastrointestinal, genitourinary, musculoskeletal, dermatologic, neurologic and psychiatric are negative unless mentioned in the HPI. Past Patient History - Infectious Disease Hx of Infectious Diseases: None - Tetanus Immunizations Tetanus Immunization: Unknown - Past Medical History & Family History Past Medical History?: Yes Past Family History: Reviewed and not pertinent - Past Social History Smoking Status: Never Smoked Chewing Tobacco Use: No Cigar Use: No Alcohol: None Drugs: Denies Home Situation {Lives}: With Family Domestic Violence: Negative - CARDIAC Hx Hypertension: Yes - PULMONARY Hx Respiratory Disorders: No - NEUROLOGICAL Hx Neurological Disorder: No - HEENT Hx HEENT Problems: No - ENDOCRINE/METABOLIC Hx Endocrine Disorders: No - HEMATOLOGICAL/ONCOLOGICAL Hx Blood Disorders: No - INTEGUMENTARY Other/Comment: last year had an abscess and it was I/D - MUSCULOSKELETAL/RHEUMATOLOGICAL Hx Musculoskeletal Disorders: No Hx Falls: No - GASTROINTESTINAL Hx Colitis: Yes HX Swallowing Problems: No Hx Vomiting: No - GENITOURINARY/GYNECOLOGICAL Hx Genitourinary Disorders: Yes Hx Prostate Problems: Yes (BPH) - PSYCHIATRIC Hx Substance Use: No - SURGICAL HISTORY Hx Surgeries: Yes Other/Comment: STOMACH SURGERY PER PATIENT. HX: CYSTOSCOPY - ANESTHESIA Hx Anesthesia: Yes Hx Anesthesia Reactions: No Has any member of the family had a problem w/ anesthesia?: No Meds Allergies/Adverse Reactions: Allergies Allergy/AdvReac Type Severity Reaction Status Date / Time No Known Allergies Allergy Verified 12/08/18 08:19 - Medications Medications: Current Medications Amlodipine Besylate (Norvasc) 10 mg PO DAILY TIO Last Admin: 12/12/18 09:47 Dose: 10 mg Docusate Sodium (Colace) 100 mg PO DAILY FOR[facility], [facility] Last Admin: 12/12/18 09:46 Dose: 100 mg Metronidazole (Flagyl) 500 mg in 100 mls @ 100 mls/hr IVPB Q8H FORMERLY [facility], [facility]1983; Protocol Last Admin: 12/12/18 16:16 Dose: 100 mls/hr Sodium Chloride (Sodium Chloride 0.45%) 1,000 mls @ 150 mls/hr IV .Q6H40M FORMERLY [facility], 1928–1983 Last Admin: 12/12/18 16:52 Dose: Not Given Meropenem 1 gm/ Sodium (Chloride) 100 mls @ 100 mls/hr IVPB Q8H FOR[facility]LY [facility], [facility]; Protocol Last Admin: 12/12/18 20:12 Dose: 100 mls/hr Lactated Ringer's (Lactated Ringer's) 1,000 mls @ 150 mls/hr IV .Q6H40M FOR[facility], [facility]1983 Last Admin: 12/12/18 20:22 Dose: 150 mls/hr Metoclopramide HCl (Reglan) 5 mg IVP Q6H FOR[facility]LY [facility], [facility]1983 Last Admin: 12/12/18 20:12 Dose: 5 mg Metronidazole (Flagyl) 500 mg PO ONCE ONE; Protocol Stop: 12/12/18 22:01 Morphine Sulfate (Morphine) 2 mg IVP Q4 PRN PRN Reason: Pain, moderate (4-7) Neomycin Sulfate (Neomycin Tab) 1,000 mg PO ONCE ONE Stop: 12/12/18 22:01 Pantoprazole Sodium (Protonix Ec Tab) 40 mg PO DAILY [facility] Last Admin: 12/12/18 09:47 Dose: 40 mg Tamsulosin HCl (Flomax) 0.4 mg PO DAILY [facility] Last Admin: 12/12/18 09:47 Dose: 0.4 mg Physical Exam - Head Exam Head Exam: ATRAUMATIC - Eye Exam Eye Exam: Normal appearance - ENT Exam ENT Exam: Mucous Membranes Dry - Respiratory Exam Respiratory Exam: NORMAL BREATHING PATTERN - Cardiovascular Exam Cardiovascular Exam: +S1, +S2 - GI/Abdominal Exam GI & Abdominal Exam: Normal Bowel Sounds - Extremities Exam Extremities exam: Positive for: normal inspection - Neurological Exam Neurological exam: Oriented x3 - Psychiatric Exam Psychiatric exam: Normal Affect, Normal Mood - Skin Skin Exam: Warm Results - Vital Signs Recent Vital Signs: Last Vital Signs Temp 97.4 F L 12/12/18 16:00 Pulse 68 12/12/18 16:00 Resp 20 12/12/18 16:00 BP 152/74 H 12/12/18 16:00 Pulse Ox 96 12/12/18 16:00 - Labs Result Diagrams: 12/12/18 13:50 12/12/18 13:50 Labs: Laboratory Results - last 24 hr 12/12/18 12/12/18 12/12/18 13:50 13:50 16:28 WBC 4.2 L RBC 4.13 L Hgb 11.8 L Hct 35.4 MCV 85.7 MCH 28.6 MCHC 33.3 RDW 14.3 Plt Count 252 MPV 9.3 Neut % (Auto) 72.0 Lymph % (Auto) 17.2 L Daggett % (Auto) 6.9 Eos % (Auto) 2.8 Baso % (Auto) 1.1 Neut # (Auto) 3.0 Lymph # (Auto) 0.7 L Daggett # (Auto) 0.3 Eos # (Auto) 0.1 Baso # (Auto) 0.0 Sodium 139 Potassium 3.8 Chloride 104 Carbon Dioxide 27 Anion Gap 12 BUN 4 L Creatinine 0.8 Est GFR ( Amer) > 60 Est GFR (Non-Af Amer) > 60 Random Glucose 150 H D Calcium 9.5 Phosphorus 3.7 Magnesium 1.9 Total Bilirubin 0.3 AST 45 ALT 32 Alkaline Phosphatase 84 Total Protein 7.5 Albumin 4.0 Globulin 3.5 Albumin/Globulin Ratio 1.1 Blood Type O POSITIVE Antibody Screen Negative Assessment & Plan (1) Colonic mass Assessment and Plan: likely malignancy for surgical resection no evidence of distant metastasis elevated CEA noted f/u surgical pathology Status: Acute (2) Anemia Assessment and Plan: retic count, b12, folate, ferritin to further characterize likely chronic tumor bleed Thank you for this interesting consult. Status: Acute
[2018-12-13] MEDS: metroNIDAZOLE IV 500 mg/100 ml 500 MG/100 ML BAG IVPB SCH ×3 (00:19→16:45)
[2018-12-13] MEDS: Meropenem 1 GM in Sodium Chloride 0.9% 100 ML IVPB SCH ×3 (04:04→20:30)
--- NOTE | 2018-12-13 06:15 | CON ---
DATE: 12/10/2018 UROLOGY CONSULTATION REQUESTED BY: Konrad Nicole MD FILLED BY: Chica Boss MD REASON FOR CONSULTATION: Hydronephrosis. HISTORY OF PRESENT ILLNESS: The patient is a 63-year-old male with hydronephrosis. The patient is in otherwise fair health. The patient was admitted with abdominal pain. The patient reports history of previous urinary tract infection. The patient has history of previous cystoscopy. The patient is uncertain regarding possible previous prostate surgery. The patient voids with good urinary stream and good control. No hematuria. No dysuria. No incontinence. The patient has abdominal pain. The patient also has back pain. The pain in the abdomen has been in the lower abdomen. The patient reports no history of urolithiasis. The patient was evaluated for abdominal pain. CT scan revealed left hydroureteronephrosis down to the bladder. There was bladder herniation within a left inguinal hernia noted as well. The patient reports that he is feeling better during this admission. The patient was also found to have urinary tract infection. See attached reports. PHYSICAL EXAMINATION: GENERAL: The patient is a well-developed, well-nourished overweight male, appearing his stated age. ABDOMEN: Soft, nontender, and moderately distended. Overweight. No mass or organomegaly appreciated. BACK: No CVA tenderness. GENITOURINARY: There is a large left inguinal hernia with scrotal descent. The right scrotal contents are normal. Normal penis. Normal right testicle. The left testicle is not well palpated. RECTAL: Normal sphincter tone. Prostate is enlarged. Prostate is approximately 35 g in size. Prostate is smooth and firm and symmetric without fixation, induration, or nodularity. LABORATORY DATA: Reviewed as well. IMPRESSION: 1. Left hydronephrosis. 2. Benign prostatic hypertrophy. 3. Left inguinal hernia. 4. Urinary tract infection. RECOMMENDATIONS AND PLAN: Continue antibiotic therapy. Please obtain serum PSA. Monitor urine output. We will discuss further regarding management. The evaluation and treatment of the hydronephrosis will depend on the plans by General Surgery. Thank you for recommending the patient for urology consultation. Chica Boss MD cc: MD Hugh Restrepo MD [facility] # [phone]
--- NOTE | 2018-12-13 07:18 | CP.PCM.PN ---
Subjective - Date & Time of Evaluation Date of Evaluation: 12/13/18 Time of Evaluation: 07:06 - Subjective Subjective: Progress not for Dr. Nicole Patient was seen and examined at bedside in no acute distress. Patient has no complaints today; he denies chest pain, palpitations, dyspnea, nausea, vomiting, fevers, headaches, abdominal pain, leg pain. Objective - Vital Signs/Intake and Output Vital Signs (last 24 hours): Temp Pulse Resp BP Pulse Ox 98.2 F 67 20 133/73 95 12/13/18 01:00 12/13/18 01:00 12/13/18 01:00 12/13/18 01:00 12/13/18 01:00 Intake and Output: 12/13/18 12/13/18 06:59 18:59 Intake Total 2580 Balance 2580 - Medications Medications: Current Medications Amlodipine Besylate (Norvasc) 10 mg PO DAILY ON LICENSE OF [facility] Last Admin: 12/12/18 09:47 Dose: 10 mg Docusate Sodium (Colace) 100 mg PO DAILY ON LICENSE OF [facility] Last Admin: 12/12/18 09:46 Dose: 100 mg Metronidazole (Flagyl) 500 mg in 100 mls @ 100 mls/hr IVPB Q8H ON LICENSE OF [facility]; Protocol Last Admin: 12/13/18 00:19 Dose: 100 mls/hr Sodium Chloride (Sodium Chloride 0.45%) 1,000 mls @ 150 mls/hr IV .Q6H40M ON LICENSE OF [facility] Last Admin: 12/12/18 16:52 Dose: Not Given Meropenem 1 gm/ Sodium (Chloride) 100 mls @ 100 mls/hr IVPB Q8H ON LICENSE OF [facility]; Protocol Last Admin: 12/13/18 04:04 Dose: 100 mls/hr Lactated Ringer's (Lactated Ringer's) 1,000 mls @ 150 mls/hr IV .Q6H40M ON LICENSE OF [facility] Last Admin: 12/12/18 20:22 Dose: 150 mls/hr Metoclopramide HCl (Reglan) 5 mg IVP Q6H ON LICENSE OF [facility] Last Admin: 12/13/18 06:59 Dose: 5 mg Morphine Sulfate (Morphine) 2 mg IVP Q4 PRN PRN Reason: Pain, moderate (4-7) Pantoprazole Sodium (Protonix Ec Tab) 40 mg PO DAILY ON LICENSE OF [facility] Last Admin: 12/12/18 09:47 Dose: 40 mg Tamsulosin HCl (Flomax) 0.4 mg PO DAILY TIO Last Admin: 12/12/18 09:47 Dose: 0.4 mg - Labs Labs: 12/12/18 13:50 12/12/18 13:50 PT 14.5 SECONDS (9.7-12.2) H 12/11/18 06:58 INR 1.3 12/11/18 06:58 APTT 29 SECONDS (21-34) 12/11/18 06:58 - Additional Findings Additional findings: - Constitutional Appears: No Acute Distress - Head Exam Head Exam: ATRAUMATIC, NORMAL INSPECTION - Eye Exam Eye Exam: EOMI, Normal appearance - ENT Exam ENT Exam: Mucous Membranes Moist - Respiratory Exam Respiratory Exam: NORMAL BREATHING PATTERN. absent: Rales, Rhonchi, Wheezes, Respiratory Distress - Cardiovascular Exam Cardiovascular Exam: REGULAR RHYTHM, +S1, +S2 - GI/Abdominal Exam GI & Abdominal Exam: Distended, Soft, Hernia, Normal Bowel Sounds. absent: Tenderness - Extremities Exam Extremities Exam: Normal Inspection. absent: Pedal Edema, Tenderness - Neurological Exam Neurological Exam: Alert, Awake, Oriented x3 - Psychiatric Exam Psychiatric exam: Normal Affect, Normal Mood - Skin Skin Exam: Dry, Warm Assessment and Plan - Assessment and Plan (Free Text) Plan: Adenocardinoma of the Proximal Descending Colon * GI Consult: Dr. Zamora --> help appreciated * Surgery Consult: Dr. Adam --> help appreciated * Hem/Onc Consult: Dr. Lewis --> help appreciated * Per Dr. Lewis, likely a malignancy, no evidence of mets,f/u surgical pathology * Chest CT: Cardiomegaly. Medial left upper lobe bronchiectasis and small bulla evident. 4 mm nodular opacity along the pleura, possibly intrapulmonary lymph node. 2 mm right middle lobe nodule. Recommend [address] follow-up. Limited visualization of the upper abdomen reveals partially imaged moderate to severe wall thickening of the mid to distal transverse colon which appears consistent with provided history of colonic carcinoma. 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 * s/p colonoscopy 12/11/18 * Findings: Malignant-appearing intrinsic severe stenosis was found in the transverse colon and non-transverse colon * Pathology: adenocarcinoma of the proximal descending colon * Patient is scheduled for a colon resection 12/13/[address] Adam * Cardiac Clearance --> Cardiac Consult: Dr. Carias --> help appreciated * Per Dr. Carias: Patient is at intermediate risk for the planned proced ure. Recommend perioperative betablocker to attenuate operative risk. There is no cardiovascular contraindication to the planned surgery. * f/u ECHO Colitis * GI Consult: Dr. Zamora --> help appreciated * Liquid Diet/NPO after midnight * Images: * CT of Abdomen/Pelvis: Segmental moderate to marked wall thickening of the mid and distal transverse colon surrounding with inflammatory changes consistent with colitis. The possibility of underline infiltrative neoplasm is not totally excluded. The differential consideration includes ischemic infection or inflammatory colitis. 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 Mild to moderate left hydroureter. The distal portion of the left ureter is extending into large left inguinal hernia. Part of urinary bladder is also herniated and the left UV junction is likely in the left inguinal hernia. The possibility of distal left ureter stone is not totally excluded. The differential consideration includes compression on the distal left ureter at left inguinal hernia. Otherwise no evidence of acute pathology in the abdomen and pelvis. * s/p Colonoscopy on 12/11/18 please see results above * Blood Culture Negative * Medications: * Metronidazole 500mg IV q8h * NS @150cc/hr * Colace 100mg po daily * Reglan 5mg IV q6h * Morphine 2mg IV q4 prn UTI * UA: +1LE * Urine Culture: + Ecoli, + ESBL * ID consulted, Dr. Melara. Help appreciated * Medications: * Merrem 1g IV Q8 (active since 12/11/18) Left inguinal hernia * Contains portion of the bladder, left hydronephrosis indicating possible involvement of left ureter * Surgery Consult: Dr. Adam --> help appreciated * Urology Consult: Dr. Chica Boss --> help appreciated Anemia * Hem/onc consulted, Dr. Lewis. Help appreciated * Likely chronic tumor bleed * f/u anemia work up HTN * Continue home medication Norvasc 10mg po daily History of BPH * Continue home medication Flomax 0.4mg po daily Prophylaxis * Protonix daily * Colace 100mg dialy * SCDs * VTE prophylaxis - hold Case discussed with Dr. Corey Menon, PGY2
[2018-12-13 07:29] LABS: HEMOGLOBIN 11.9 g/dL (12.0-18.0); MEAN CELL VOLUME 86.3 fL (80.0-94.0); MEAN CORPUSCULAR HEMOGLOBIN 28.4 pg (27.0-31.0); MEAN CORPUSCULAR HGB CONC 32.9 g/dL (33.0-37.0); MEAN PLATELET VOLUME 9.6 fL (7.2-11.7); RBC 4.19 Mil/uL (4.40-5.90); RED CELL DISTRIBUTION WIDTH 14.3 % (11.5-14.5)
[2018-12-13 07:31] LABS: BLOOD UREA NITROGEN 6 mg/dL (9-20); CALCIUM 8.8 mg/dl (8.6-10.4); GFR NON-AFRICAN AMERICAN > 60
[2018-12-13 08:06] LABS: INR 1.3; PROTHROMBIN TIME 14.5 SECONDS (9.7-12.2)
--- NOTE | 2018-12-13 09:01 | PN ---
DATE: 12/12/2018 SUBJECTIVE: The patient is currently awake, in his chair. Family is visiting at the bedside. Past medical and surgical, no other changes. PHYSICAL EXAMINATION: No major changes. DIAGNOSIS: Resolving infection. From urology standpoint, no interval changes. We will continue to follow along. Lj Boss MD
[2018-12-13] MEDS: Pantoprazole 40 mg EC Tab PO SCH (09:11)
[2018-12-13 09:19] LABS: FERRITIN 71.9 ng/mL
[2018-12-13 09:49] LABS: FOLATE 16.4 ng/mL
[2018-12-13] MEDS ORDERED: Propofol 10 mg/ml Inj (20 ML) ONE (10:16)
[2018-12-13] MEDS ORDERED: Midazolam 2 MG/2 ML VIAL ONE (10:16)
[2018-12-13] MEDS ORDERED: Iohexol 240 (50 ml) ONE ×2 (10:36→11:00)
[2018-12-13] MEDS ORDERED: BUPIVACAINE 0.125%/0.9% NACL 600 ML IJ ONE (11:30)
[2018-12-13] MEDS ORDERED: Bupivacaine 0.5%/Epi 1:200,000 (10 ML SOL) ONE (12:12)
--- NOTE | 2018-12-13 12:18 | CARD ---
APPROVED REPORT Date of service: 12/13/2018 EXAM: Two-dimensional and M-mode echocardiogram with Doppler and color Doppler. Other Information Quality : GoodRhythm : RISK FACTORS Hypertension 2D DIMENSIONS IVSd1.1 (0.7-1.1cm)LVDd5.1 (3.9-5.9cm) PWd1.1 (0.7-1.1cm)LA Ewkrbj07 (18-58mL) LVDs3.1 (2.5-4.0cm)FS (%) 38.9 % LVEF (%)69.0 (>50%)LVEF (Manuel's)70 % M-Mode DIMENSIONS Left Atrium (MM)5.00 (2.5-4.0cm)IVSd0.91 (0.7-1.1cm) Aortic Root3.63 (2.2-3.7cm)LVDd5.59 (4.0-5.6cm) Aortic Cusp Exc.2.80 (1.5-2.0cm)PWd0.99 (0.7-1.1cm) FS (%) 42 %LVDs3.23 (2.0-3.8cm) LVEF (%)73 (>50%) Mitral Valve MV E Rucqvjty40.9cm/sMV A Myqfidyd43.9cm/sE/A ratio0.8 TDI Lateral E' Peak V7.96cm/sMedial E' Peak V6.71cm/sE/Lateral E'9.7 E/Medial E'11.5 LEFT VENTRICLE The left ventricle is normal size. There is borderline to mild concentric left ventricular hypertrophy. Left ventricle systolic function is normal. The Ejection Fraction is 65-70%. There is normal LV segmental wall motion. Transmitral Doppler flow pattern is Grade I-abnormal relaxation pattern. There is no ventricular septal defect visualized. RIGHT VENTRICLE The right ventricle is normal size. The right ventricular systolic function is normal. ATRIA The left atrium is mildly dilated. The right atrium size is normal. AORTIC VALVE The aortic valve is mildly sclerotic. The aortic valve is tri-cuspid. No aortic regurgitation is present. There is no aortic valvular stenosis. MITRAL VALVE The mitral valve is normal in structure. There is no evidence of mitral valve prolapse. There is no mitral valve regurgitation noted. TRICUSPID VALVE The tricuspid valve is normal in structure. There is trace tricuspid regurgitation. Right ventricular systolic pressure is estimated at less than 30 mmHg. There is no pulmonary hypertension. PULMONIC VALVE The pulmonic valve is not well visualized. There is mild to moderate pulmonic valvular regurgitation. GREAT VESSELS The aortic root is normal in size. The ascending aorta is normal in size. The IVC is normal in size and collapses >50% with inspiration. PERICARDIAL EFFUSION There is no pericardial effusion. <Conclusion> There is borderline to mild concentric left ventricular hypertrophy. Left ventricle systolic function is normal. The Ejection Fraction is 65-70%. Transmitral Doppler flow pattern is Grade I-abnormal relaxation pattern.
[2018-12-13] MEDS ORDERED: Bupivacaine HCl 0.5% PF (10 ml) Inj ONE (12:27)
--- NOTE | 2018-12-13 13:02 | RAD ---
Date of service: 12/13/2018 PROCEDURE: Intraoperative Fluoroscopy. HISTORY: LT. HYDRONEPHROSIS FINDINGS: Fluoroscopic assistance was provided. Fluoroscopy time = 65.8 sec. Radiation dose = 14.33 mGy. Please refer to the operative report from Dr. MCCORMICK, LOHN.
--- NOTE | 2018-12-13 14:21 | PN ---
DATE: 12/13/2018 LOCATION: Room 655. SUBJECTIVE: This 63-year-old male post colonoscopy with biopsy with apparent diagnosis of adenocarcinoma of the colon, seen and examined, scheduled for OR today after echocardiogram to be done. The patient denies any actual chest pain, palpitations, but slight shortness of breath with abdominal pain. No reported active bleeding, chills or fever. LABORATORY DATA: Most recent lab results today showed hemoglobin at 11.5, white blood cells 4 with normal platelet count. PT 14.5. BUN 6, creatinine 4.7. Chest x-ray official report is seen as well as chest CAT scan report. PHYSICAL EXAMINATION: GENERAL: A 63-year-old male. Afebrile. Awake, alert, oriented. VITAL SIGNS: Pulse of 64, respiratory rate 20 to 22, blood pressure 130/72. HEENT: Showed pale dry oral mucous membrane. Nonicteric sclerae. LUNGS: Few scattered crepitation. Decreased air entry at bases. HEART: Positive S1 and S2. ABDOMEN: Soft with mild generalized tenderness. No mass or organomegaly. No rebound tenderness or guarding. EXTREMITIES: No significant clubbing, cyanosis or edema. NEUROLOGIC: No reported new neurological deficits, sensory or motor. IMPRESSION: 1. Adenocarcinoma of the colon with near complete obstruction. 2. Reported abdominal wall hernia. 3. Anemia, secondary to above. 4. Peptic ulcer disease by upper endoscopy. 5. Lung nodules of unclear etiology that could be however metastatic lesion. 6. Known history of hypertension, benign prostatic hypertrophy. 7. Mild obesity. SUGGESTIONS: 1. Continue current management. 2. Peripheral hyperalimentation. 3. Flagyl IV. 4. Further recommendation to follow post surgery. Eric Silva MD
[2018-12-13] MEDS ORDERED: Morphine 4 MG/ML VIAL ONE (15:03)
[2018-12-13] MEDS ORDERED: HYDROmorphone 0.5 mg/0.5 ml ISec IVP PRN (15:23)
--- NOTE | 2018-12-13 15:29 | PCM.SURG1 ---
Surgeon's Initial Post Op Note - Surgeon's Notes Surgeon: MD [facility] [place] [employer] Group Leader: Tammy, PGY3. José Luis, PGY4. Larry, PGY3. Ousmane Adams, MS3 Pre-Operative Diagnosis: Colon cancer, Left Inguinal hernia, Umbilical hernia Operative Findings: Left inguinal hernia defect, Tranverse colon mass*2, umbilical hernia Post-Operative Diagnosis: Colon cancer, Left Inguinal hernia, Umbilical hernia Operation Performed: Left Inguinal Hernia repair with mesh, Exploratory Laparotomy, Tranverse colectomy with anastomosis with mobilization of splenic flexure, repair of umbilical hernia. Cystoscopy with left double J ureteral stent placement by Dr. Boss Specimen/Specimens Removed: Tranverse colon/splenic flexure colon, left inguinal hernia sac, lipoma of left inguinal cord Estimated Blood Loss: EBL {In ML}: 200 Drains Used: Marcio Post-Op Condition: Fair Date of Surgery/Procedure: 12/13/18 Time of Surgery/Procedure: 12:00
--- NOTE | 2018-12-13 16:21 | CP.PCM.CON ---
<Pravin Pérez M - Last Filed: 12/13/18 20:31> History of Present Illness - History of Present Illness History of Present Illness: ICU Consult Note for Dr. Mariya Wu Consult note for post operative monitoring s/p hemicolectomy. 63 year old male with PMHx of HTN and BPH, presented to the ED on 12/08 for abdominal pain. Patient underwent a colonoscopy on 12/11 and was found to have a descending colon mass. Pathology for colon mass is adenocarcinoma. Patient is POD #0 s/p ex-lap transverse colectomy with anastomosis, umbilical hernia repair, and left inguinal hernia repair and s/p cystoscopy with left double J ureteral stent placement. Estimated blood loss during the operation is 200mL. Limited ROS obtainable due to patient is post op and still drowsy form the anesthesia. Patient states pain is well controlled, no complaints. PMHx: Groin Abscess, HTN, BPH PSH: I&D of groin abscess repair, colonoscopy 10 years ago Allergies: NKDA Social Hx: Patient denies alcohol, tobacco, or illicit drug use Review of Systems - Review of Systems All systems: reviewed and no additional remarkable complaints except - Constitutional Constitutional: As Per HPI Past Patient History - Infectious Disease Hx of Infectious Diseases: None - Tetanus Immunizations Tetanus Immunization: Unknown - Past Medical History & Family History Past Medical History?: Yes Past Family History: Reviewed and not pertinent - Past Social History Smoking Status: Never Smoked Chewing Tobacco Use: No Cigar Use: No Alcohol: None Drugs: Denies Home Situation {Lives}: With Family Domestic Violence: Negative - CARDIAC Hx Hypertension: Yes - PULMONARY Hx Respiratory Disorders: No - NEUROLOGICAL Hx Neurological Disorder: No - HEENT Hx HEENT Problems: No - ENDOCRINE/METABOLIC Hx Endocrine Disorders: No - HEMATOLOGICAL/ONCOLOGICAL Hx Blood Disorders: No - INTEGUMENTARY Other/Comment: last year had an abscess and it was I/D - MUSCULOSKELETAL/RHEUMATOLOGICAL Hx Musculoskeletal Disorders: No Hx Falls: No - GASTROINTESTINAL Hx Colitis: Yes HX Swallowing Problems: No Hx Vomiting: No - GENITOURINARY/GYNECOLOGICAL Hx Genitourinary Disorders: Yes Hx Prostate Problems: Yes (BPH) - PSYCHIATRIC Hx Substance Use: No - SURGICAL HISTORY Hx Surgeries: Yes Other/Comment: STOMACH SURGERY PER PATIENT. HX: CYSTOSCOPY - ANESTHESIA Hx Anesthesia: Yes Hx Anesthesia Reactions: No Has any member of the family had a problem w/ anesthesia?: No Meds Allergies/Adverse Reactions: Allergies Allergy/AdvReac Type Severity Reaction Status Date / Time No Known Allergies Allergy Verified 12/08/18 08:19 - Medications Medications: Current Medications Amlodipine Besylate (Norvasc) 10 mg PO DAILY [facility] Last Admin: 12/13/18 09:11 Dose: Not Given Docusate Sodium (Colace) 100 mg PO DAILY [facility] Last Admin: 12/13/18 09:11 Dose: Not Given Enoxaparin Sodium (Lovenox) 40 mg SC DAILY [facility] Hydromorphone HCl (Dilaudid) 0.5 mg IVP Q5M PRN PRN Reason: Pain, severe (8-10) Stop: 12/13/18 17:23 Hydromorphone HCl (Dilaudid) 1 mg IVP Q4H PRN PRN Reason: Pain, severe (8-10) Metronidazole (Flagyl) 500 mg in 100 mls @ 100 mls/hr IVPB Q8H [facility]; Protocol Last Admin: 12/13/18 07:39 Dose: 100 mls/hr Sodium Chloride (Sodium Chloride 0.45%) 1,000 mls @ 150 mls/hr IV .Q6H40M [facility] Last Admin: 12/12/18 16:52 Dose: Not Given Meropenem 1 gm/ Sodium (Chloride) 100 mls @ 100 mls/hr IVPB Q8H [facility]; Protocol Last Admin: 12/13/18 11:37 Dose: Not Given Lactated Ringer's (Lactated Ringer's) 1,000 mls @ 150 mls/hr IV .Q6H40M [facility] Last Admin: 12/12/18 20:22 Dose: 150 mls/hr BUPIVACAINE 0.125%/0.9% NACL (Bupivacaine-Ns 0.125% On-Q Wind Tunnel Engineer) 600 mls @ 4 mls/hr IJ ONCE ONE Stop: 12/19/18 17:29 Lactated Ringer's (Lactated Ringer's) 1,000 mls @ 150 mls/hr IV .Q6H40M [facility] Metoclopramide HCl (Reglan) 5 mg IVP Q6H [facility] Last Admin: 12/13/18 14:16 Dose: Not Given Ondansetron HCl (Zofran Inj) 4 mg IVP ONCE PRN PRN Reason: Nausea/Vomiting Stop: 12/13/18 17:23 Ondansetron HCl (Zofran Inj) 4 mg IVP Q4 PRN PRN Reason: Nausea/Vomiting Pantoprazole Sodium (Protonix Ec Tab) 40 mg PO DAILY [facility] Last Admin: 12/13/18 09:11 Dose: Not Given Tamsulosin HCl (Flomax) 0.4 mg PO DAILY [facility] Last Admin: 12/13/18 09:11 Dose: Not Given Physical Exam - Constitutional Appears: Non-toxic, No Acute Distress - Head Exam Head Exam: NORMAL INSPECTION - Eye Exam Eye Exam: Normal appearance - ENT Exam ENT Exam: Mucous Membranes Moist - GI/Abdominal Exam GI & Abdominal Exam: Normal Bowel Sounds, Soft. absent: Distended, Firm, Guarding Additional comments: onq in place, drain on L mid - abdomen midline dressing in place - Extremities Exam Extremities exam: Negative for: calf tenderness, pedal edema - Neurological Exam Neurological exam: Alert Additional comments: drowsy - Psychiatric Exam Psychiatric exam: Normal Affect, Normal Mood - Skin Skin Exam: Dry, Normal Color, Warm Results - Vital Signs Recent Vital Signs: Last Vital Signs Temp 98 F 12/13/18 15:20 Pulse 73 12/13/18 15:20 Resp 18 12/13/18 15:20 BP 132/61 12/13/18 15:20 Pulse Ox 100 12/13/18 15:20 - Labs Result Diagrams: 12/13/18 16:21 12/13/18 16:21 Labs: Laboratory Results - last 24 hr 12/12/18 12/13/18 12/13/18 16:28 07:09 07:09 WBC 4.0 L RBC 4.19 L Hgb 11.9 L Hct 36.2 MCV 86.3 MCH 28.4 MCHC 32.9 L RDW 14.3 Plt Count 256 MPV 9.6 Retic Count PT 14.5 H INR 1.3 APTT 34 D Sodium Potassium Chloride Carbon Dioxide Anion Gap BUN Creatinine Est GFR ( Amer) Est GFR (Non-Af Amer) Random Glucose Calcium Phosphorus Magnesium Ferritin Vitamin B12 Folate Blood Type O POSITIVE Antibody Screen Negative 12/13/18 12/13/18 07:09 07:09 WBC RBC Hgb Hct MCV MCH MCHC RDW Plt Count MPV Retic Count 0.7 PT INR APTT Sodium 141 Potassium 3.6 Chloride 105 Carbon Dioxide 28 Anion Gap 12 BUN 6 L Creatinine 0.7 L Est GFR ( Amer) > 60 Est GFR (Non-Af Amer) > 60 Random Glucose 107 D Calcium 8.8 Phosphorus 3.0 Magnesium 1.9 Ferritin 71.9 Vitamin B12 314 Folate 16.4 Blood Type Antibody Screen Assessment & Plan - Assessment and Plan (Free Text) Assessment: 63 year old male with PMHx of HTN, BPH, and new diagnosis of adenocarcinoma of the colon cancer. Patient is POD#0 s/p ex-lap with transverse colectomy with anastomosis, umbilical hernia repair, left inguinal hernia repair and s/p cystoscopy with left double J ureteral stent placement. Plan: Neuro - AAOx3 - no acute issues Cardiac - Hx of HTN-- Norvasc 10mg daily - Troponin negative (<0.012) - continue to monitor vitals Pulm - 99% on NC 3L - encourage Incentive spirometer use - no acute issues GI - s/p ex-lap with transverse colectomy - NPO - NGT - Monitor return of bowel function - f/u Dr. Shantanu dickinson - Colace 100mg PO for constipation - Zofran PRN for nausea - Protonix 40mg for GI ppx Renal - s/p cystoscopy with left double J ureteral stent placement - Maintain Hart per Urology - management per Urology Dr. Sudha Boss - LR at 150ml/hr - hx of BPH-- Flomax 0.4mg PO daily - monitor I&O Heme/Onc - 200mL intraoperative blood loss - post-op H/H 11.7/ 36.7 - Adeonocarcinoma of the Colon - CEA: 204 - CA 19-9: 126 - Transverse colon resection - f/u recs--- Dr. Lewis - Lovenox 40mg for DVT ppx - monitor CBC ID - Leukocytosis possibly 2/2 post-op reaction - continue Flagyl 500mg Q8, Meropenem 1gm Q8H - lactate 1.3 - continue to monitor - Blood cx (12/08)-- negative - Urine Cx (12/08)-- positive for E. Coli - f/u repeat urine cx - f/u RPR - monitor CBC PPx - DVT ppx-- Lovenox 40mg, SCDs - GI ppx-- Protonix 40mg - Pain ppx-- On-Q pump, Dilaudid 1mg q4H PRN <Wu Wu M - Last Filed: 12/14/18 09:41> Meds - Medications Medications: Current Medications Amlodipine Besylate (Norvasc) 10 mg PO DAILY [facility] Last Admin: 12/13/18 09:11 Dose: Not Given Enoxaparin Sodium (Lovenox) 40 mg SC DAILY [facility] Hydromorphone HCl (Dilaudid) 1 mg IVP Q4H PRN PRN Reason: Pain, severe (8-10) Last Admin: 12/14/18 08:10 Dose: 1 mg Metronidazole (Flagyl) 500 mg in 100 mls @ 100 mls/hr IVPB Q8H [facility]; Protocol Last Admin: 12/14/18 08:07 Dose: 100 mls/hr Meropenem 1 gm/ Sodium (Chloride) 100 mls @ 100 mls/hr IVPB Q8H [facility]; Protocol Last Admin: 12/14/18 04:30 Dose: 100 mls/hr BUPIVACAINE 0.125%/0.9% NACL (Bupivacaine-Ns 0.125% On-Q Wind Tunnel Engineer) 600 mls @ 4 mls/hr IJ ONCE ONE Stop: 12/19/18 17:29 Last Admin: 12/13/18 18:08 Dose: Not Given Potassium Chloride/Dextrose/Sod Cl (Potassium Chl 20 Meq In D5-1/2ns) 1,000 mls @ 125 mls/hr IV .Q8H [facility] Last Admin: 12/14/18 08:41 Dose: 125 mls/hr Metoclopramide HCl (Reglan) 5 mg IVP Q6H [facility] Last Admin: 12/14/18 08:11 Dose: 5 mg Ondansetron HCl (Zofran Inj) 4 mg IVP Q4 PRN PRN Reason: Nausea/Vomiting Pantoprazole Sodium (Protonix Inj) 40 mg IVP DAILY [facility] Tamsulosin HCl (Flomax) 0.4 mg PO DAILY COUNT [facility] Last Admin: 12/13/18 09:11 Dose: Not Given Vitamin A (Vitamin A & D Oint Ud Foilpak) 0.5 ea TOP PRN PRN PRN Reason: Dry mouth Last Admin: 12/14/18 00:06 Dose: 0.5 ea Results - Vital Signs Recent Vital Signs: Last Vital Signs Temp 98.6 F 12/14/18 08:00 Pulse 75 12/14/18 08:00 Resp 16 12/14/18 08:00 BP 162/70 H 12/14/18 07:25 Pulse Ox 97 12/14/18 08:00 - Labs Result Diagrams: 12/14/18 06:12 12/14/18 06:31 Labs: Laboratory Results - last 24 hr 12/13/18 12/13/18 12/13/18 07:09 16:21 16:21 WBC RBC Hgb Hct MCV MCH MCHC RDW Plt Count MPV Neut % (Auto) Lymph % (Auto) [place] % (Auto) Eos % (Auto) Baso % (Auto) Neut # (Auto) Lymph # (Auto) [place] # (Auto) Eos # (Auto) Baso # (Auto) Neutrophils % (Manual) Band Neutrophils % Lymphocytes % (Manual) Monocytes % (Manual) Platelet Estimate Large Platelets Anisocytosis (manual) Sodium Potassium Chloride Carbon Dioxide Anion Gap BUN Creatinine Est GFR ( Amer) Est GFR (Non-Af Amer) Random Glucose Lactic Acid Calcium Phosphorus Magnesium Total Bilirubin AST ALT Alkaline Phosphatase Total Creatine Kinase CK-MB (Mass) Troponin I Total Protein Albumin Globulin Albumin/Globulin Ratio Vitamin B12 314 Folate 16.4 RPR Hepatitis A IgM Ab Negative Hep Bs Antigen Negative Hep Bs Antibody Hep B Core IgM Ab Negative Hepatitis C Antibody Negative HIV 1&2 Antibody Screen Negative 12/13/18 12/13/18 12/13/18 16:21 16:21 16:21 WBC 14.8 H D RBC 4.28 L Hgb 11.7 L Hct 36.7 MCV 85.9 MCH 27.4 MCHC 32.0 L RDW 14.2 Plt Count 300 MPV 9.6 Neut % (Auto) 87.3 H Lymph % (Auto) 8.1 L [place] % (Auto) 4.0 Eos % (Auto) 0.3 Baso % (Auto) 0.3 Neut # (Auto) 12.9 H Lymph # (Auto) 1.2 [place] # (Auto) 0.6 Eos # (Auto) 0.0 Baso # (Auto) 0.0 Neutrophils % (Manual) 80 H Band Neutrophils % 3 H Lymphocytes % (Manual) 9 L Monocytes % (Manual) 8 Platelet Estimate Normal Large Platelets Anisocytosis (manual) Sodium 141 Potassium 3.7 Chloride 104 Carbon Dioxide 27 Anion Gap 14 BUN 7 L Creatinine 0.8 Est GFR ( Amer) > 60 Est GFR (Non-Af Amer) > 60 Random Glucose 166 H D Lactic Acid Calcium 8.8 Phosphorus Magnesium Total Bilirubin 0.4 AST 66 H D ALT 40 Alkaline Phosphatase 81 Total Creatine Kinase 129 CK-MB (Mass) 1.63 Troponin I < 0.0120 Total Protein 6.7 Albumin 3.6 Globulin 3.1 Albumin/Globulin Ratio 1.1 Vitamin B12 Folate RPR Hepatitis A IgM Ab Hep Bs Antigen Hep Bs Antibody Negative Hep B Core IgM Ab Hepatitis C Antibody HIV 1&2 Antibody Screen 12/13/18 12/13/18 12/13/18 16:21 16:24 22:04 WBC RBC Hgb Hct MCV MCH MCHC RDW Plt Count MPV Neut % (Auto) Lymph % (Auto) [place] % (Auto) Eos % (Auto) Baso % (Auto) Neut # (Auto) Lymph # (Auto) [place] # (Auto) Eos # (Auto) Baso # (Auto) Neutrophils % (Manual) Band Neutrophils % Lymphocytes % (Manual) Monocytes % (Manual) Platelet Estimate Large Platelets Anisocytosis (manual) Sodium Potassium Chloride Carbon Dioxide Anion Gap BUN Creatinine Est GFR ( Amer) Est GFR (Non-Af Amer) Random Glucose Lactic Acid 1.3 0.8 Calcium Phosphorus Magnesium Total Bilirubin AST ALT Alkaline Phosphatase Total Creatine Kinase CK-MB (Mass) Troponin I Total Protein Albumin Globulin Albumin/Globulin Ratio Vitamin B12 Folate RPR Nonreactive Hepatitis A IgM Ab Hep Bs Antigen Hep Bs Antibody Hep B Core IgM Ab Hepatitis C Antibody HIV 1&2 Antibody Screen 12/14/18 12/14/18 12/14/18 06:12 06:12 06:12 WBC 10.0 RBC 3.91 L Hgb 11.1 L Hct 33.8 L MCV 86.5 MCH 28.3 MCHC 32.7 L RDW 14.3 Plt Count 244 MPV 9.6 Neut % (Auto) 84.4 H Lymph % (Auto) 7.1 L [place] % (Auto) 7.9 Eos % (Auto) 0.4 Baso % (Auto) 0.2 Neut # (Auto) 8.4 H Lymph # (Auto) 0.7 L [place] # (Auto) 0.8 Eos # (Auto) 0.0 Baso # (Auto) 0.0 Neutrophils % (Manual) 86 H Band Neutrophils % Lymphocytes % (Manual) 7 L Monocytes % (Manual) 7 Platelet Estimate Normal Large Platelets Present Anisocytosis (manual) Slight Sodium Potassium Chloride Carbon Dioxide Anion Gap BUN Creatinine Est GFR ( Amer) Est GFR (Non-Af Amer) Random Glucose Lactic Acid 0.7 Calcium Phosphorus 4.0 Magnesium 1.8 Total Bilirubin AST ALT Alkaline Phosphatase Total Creatine Kinase CK-MB (Mass) Troponin I Total Protein Albumin Globulin Albumin/Globulin Ratio Vitamin B12 Folate RPR Hepatitis A IgM Ab Hep Bs Antigen Hep Bs Antibody Hep B Core IgM Ab Hepatitis C Antibody HIV 1&2 Antibody Screen 12/14/18 06:31 WBC RBC Hgb Hct MCV MCH MCHC RDW Plt Count MPV Neut % (Auto) Lymph % (Auto) [place] % (Auto) Eos % (Auto) Baso % (Auto) Neut # (Auto) Lymph # (Auto) [place] # (Auto) Eos # (Auto) Baso # (Auto) Neutrophils % (Manual) Band Neutrophils % Lymphocytes % (Manual) Monocytes % (Manual) Platelet Estimate Large Platelets Anisocytosis (manual) Sodium 143 Potassium 4.2 Chloride 103 Carbon Dioxide 31 H Anion Gap 13 BUN 9 Creatinine 0.9 Est GFR ( Amer) > 60 Est GFR (Non-Af Amer) > 60 Random Glucose 124 H D Lactic Acid Calcium 8.6 Phosphorus Magnesium Total Bilirubin 0.3 AST 48 ALT 39 Alkaline Phosphatase 64 Total Creatine Kinase CK-MB (Mass) Troponin I Total Protein 6.1 L Albumin 3.1 L Globulin 3.0 Albumin/Globulin Ratio 1.1 Vitamin B12 Folate RPR Hepatitis A IgM Ab Hep Bs Antigen Hep Bs Antibody Hep B Core IgM Ab Hepatitis C Antibody HIV 1&2 Antibody Screen Assessment & Plan - Assessment and Plan (Free Text) Plan: Patient seen and examined at bedside. POD #0 -continue NG tube to suction, no flatus -abdominal band -fluid hydration -lactic normalized -incentive spirometry -Patient will benefit from ICU level care post op. -above note reviewed and verified. - Date & Time Date: 12/13/18 Time: 21:00
[2018-12-13 16:31] LABS: BASO % 0.3 % (0.0-2.0); EOS % 0.3 % (0.0-4.0); HEMOGLOBIN 11.7 g/dL (12.0-18.0); LYMPH # 1.2 K/uL (1.0-4.3); LYMPH % 8.1 % (20.0-40.0); MEAN CELL VOLUME 85.9 fL (80.0-94.0); MEAN CORPUSCULAR HEMOGLOBIN 27.4 pg (27.0-31.0); MEAN PLATELET VOLUME 9.6 fL (7.2-11.7); MONO # 0.6 K/uL (0.0-0.8); NEUT # 12.9 K/uL (1.8-7.0); NEUT % 87.3 % (50.0-75.0); PLATELET COUNT 300 K/uL (130-400); RBC 4.28 Mil/uL (4.40-5.90); RED CELL DISTRIBUTION WIDTH 14.2 % (11.5-14.5)
[2018-12-13 16:38] LABS: WHITE BLOOD COUNT 14.8 K/uL (4.8-10.8)
[2018-12-13 16:46] LABS: ALB/GLOB RATIO 1.1 (1.0-2.1); ALBUMIN 3.6 g/dL (3.5-5.0); ALT/SGPT 40 U/L (21-72); AST/SGOT 66 U/L (17-59); BLOOD UREA NITROGEN 7 mg/dL (9-20); CALCIUM 8.8 mg/dl (8.6-10.4); GFR NON-AFRICAN AMERICAN > 60
[2018-12-13 16:55] LABS: CK-MB 1.63 ng/mL (0.0-3.38)
[2018-12-13 17:15] LABS: HEPATITIS B SURFACE AG Negative (NEGATIVE)
[2018-12-13 17:21] LABS: HEPATITIS A IGM NEGATIVE (NEGATIVE); HEPATITIS B CORE AB NEGATIVE (NEGATIVE)
--- NOTE | 2018-12-13 17:22 | CP.PCM.PN ---
Subjective - Date & Time of Evaluation Date of Evaluation: 12/13/18 Time of Evaluation: 08:00 - Subjective Subjective: s/p colectomy cont merrem for uti Objective - Vital Signs/Intake and Output Vital Signs (last 24 hours): Temp Pulse Resp BP Pulse Ox 98 F 79 20 139/61 98 12/13/18 15:20 12/13/18 16:45 12/13/18 16:45 12/13/18 16:45 12/13/18 16:45 Intake and Output: 12/13/18 12/13/18 06:59 18:59 Intake Total 2580 1500 Output Total 250 Balance 2580 1250 - Medications Medications: Current Medications Amlodipine Besylate (Norvasc) 10 mg PO DAILY [facility] Last Admin: 12/13/18 09:11 Dose: Not Given Docusate Sodium (Colace) 100 mg PO DAILY [facility] Last Admin: 12/13/18 09:11 Dose: Not Given Enoxaparin Sodium (Lovenox) 40 mg SC DAILY [facility] Hydromorphone HCl (Dilaudid) 0.5 mg IVP Q5M PRN PRN Reason: Pain, severe (8-10) Stop: 12/13/18 17:23 Last Admin: 12/13/18 16:31 Dose: 0.5 mg Hydromorphone HCl (Dilaudid) 1 mg IVP Q4H PRN PRN Reason: Pain, severe (8-10) Metronidazole (Flagyl) 500 mg in 100 mls @ 100 mls/hr IVPB Q8H [facility]; Protocol Last Admin: 12/13/18 16:45 Dose: 0 mls Sodium Chloride (Sodium Chloride 0.45%) 1,000 mls @ 150 mls/hr IV .Q6H40M [facility] Last Admin: 12/12/18 16:52 Dose: Not Given Meropenem 1 gm/ Sodium (Chloride) 100 mls @ 100 mls/hr IVPB Q8H [facility]; Protocol Last Admin: 12/13/18 11:37 Dose: Not Given Lactated Ringer's (Lactated Ringer's) 1,000 mls @ 150 mls/hr IV .Q6H40M [facility] Last Admin: 12/12/18 20:22 Dose: 150 mls/hr BUPIVACAINE 0.125%/0.9% NACL (Bupivacaine-Ns 0.125% On-Q Spray Applicator) 600 mls @ 4 mls/hr IJ ONCE ONE Stop: 12/19/18 17:29 Lactated Ringer's (Lactated Ringer's) 1,000 mls @ 150 mls/hr IV .Q6H40M [facility] Metoclopramide HCl (Reglan) 5 mg IVP Q6H [facility] Last Admin: 12/13/18 14:16 Dose: Not Given Ondansetron HCl (Zofran Inj) 4 mg IVP ONCE PRN PRN Reason: Nausea/Vomiting Stop: 12/13/18 17:23 Ondansetron HCl (Zofran Inj) 4 mg IVP Q4 PRN PRN Reason: Nausea/Vomiting Pantoprazole Sodium (Protonix Ec Tab) 40 mg PO DAILY [facility] Last Admin: 12/13/18 09:11 Dose: Not Given Tamsulosin HCl (Flomax) 0.4 mg PO DAILY [facility] Last Admin: 12/13/18 09:11 Dose: Not Given - Labs Labs: 12/13/18 16:21 12/13/18 16:21 PT 14.5 SECONDS (9.7-12.2) H 12/13/18 07:09 INR 1.3 12/13/18 07:09 APTT 34 SECONDS (21-34) D 12/13/18 07:09 - Constitutional Appears: Non-toxic, Chronically Ill - Head Exam Head Exam: NORMOCEPHALIC - Eye Exam Eye Exam: absent: Scleral icterus Pupil Exam: NORMAL ACCOMODATION - ENT Exam ENT Exam: Mucous Membranes Dry, Normal External Ear Exam - Neck Exam Neck Exam: absent: Lymphadenopathy - Respiratory Exam Respiratory Exam: Decreased Breath Sounds - Cardiovascular Exam Cardiovascular Exam: REGULAR RHYTHM, +S1, +S2 - GI/Abdominal Exam GI & Abdominal Exam: Distended, Soft. absent: Tenderness - Rectal Exam Rectal Exam: Deferred - Exam Exam: NORMAL INSPECTION - Extremities Exam Extremities Exam: absent: Pedal Edema - Back Exam Back Exam: absent: CVA tenderness (L), CVA tenderness (R) - Neurological Exam Neurological Exam: Alert, Awake, CN II-XII Intact, Oriented x3 - Psychiatric Exam Psychiatric exam: Normal Mood - Skin Skin Exam: Dry Assessment and Plan (1) Hydronephrosis Status: Acute (2) ESBL (extended spectrum beta-lactamase) producing bacteria infection Status: Acute - Assessment and Plan (Free Text) Assessment: cont IV rx for ESBL + UTI for 10-14 days
[2018-12-13 17:32] LABS: HEPATITIS C ANTIBODY NEGATIVE (NEGATIVE)
--- NOTE | 2018-12-13 17:37 | PCM.SURG1 ---
Surgeon's Initial Post Op Note - Surgeon's Notes Surgeon: Sudha Boss Ice Guard Tester: none Type of Anesthesia: General Endo Pre-Operative Diagnosis: L Hydronephrosis. UTI. BPH. Colon ca. LIH Operative Findings: same. cystitis. BPH. Bladder deviated to L side of pelvis. L hydroureteronephrosis Post-Operative Diagnosis: same Operation Performed: cystoscopy. R ureteral catheterization. L RTG pyelogram. Insertion of L ureteral stent Specimen/Specimens Removed: urine Estimated Blood Loss: EBL {In ML}: 0 Blood Products Given: N/A Post-Op Condition: Good Date of Surgery/Procedure: 12/13/18 Time of Surgery/Procedure: 12:10
[2018-12-13 19:11] LABS: BANDS 3 % (0-2); LYMPHOCYTE 9 % (20-40); MONOCYTE 8 % (0-10); NEUTROPHIL 80 % (50-75); PLATELET ESTIMATE NORMAL (NORMAL); TOTAL CELLS COUNTED 100
[2018-12-13] MEDS: Lactated Ringer's 1,000 ML IV SCH ×3 (19:30→22:25)
[2018-12-13] MEDS: HYDROmorphone 1 mg/ml ISec IVP PRN (19:40)
[2018-12-13] MEDS ORDERED: Vitamins A & D Oint UD Foilpak TOP PRN (23:00)
[2018-12-14] MEDS: Lactated Ringer's 1,000 ML IV SCH
[2018-12-14] MEDS: metroNIDAZOLE IV 500 mg/100 ml 500 MG/100 ML BAG IVPB SCH ×3 (00:30→15:33)
[2018-12-14] MEDS: HYDROmorphone 1 mg/ml ISec IVP PRN ×5 (02:40→21:56)
[2018-12-14] MEDS: Meropenem 1 GM in Sodium Chloride 0.9% 100 ML IVPB SCH ×3 (04:30→19:33)
[2018-12-14 06:17] LABS: BASO % 0.2 % (0.0-2.0); EOS % 0.4 % (0.0-4.0); HEMOGLOBIN 11.1 g/dL (12.0-18.0); LYMPH # 0.7 K/uL (1.0-4.3); LYMPH % 7.1 % (20.0-40.0); MEAN CELL VOLUME 86.5 fL (80.0-94.0); MEAN CORPUSCULAR HEMOGLOBIN 28.3 pg (27.0-31.0); MEAN CORPUSCULAR HGB CONC 32.7 g/dL (33.0-37.0); MEAN PLATELET VOLUME 9.6 fL (7.2-11.7); MONO # 0.8 K/uL (0.0-0.8); MONO % 7.9 % (0.0-10.0); NEUT # 8.4 K/uL (1.8-7.0); NEUT % 84.4 % (50.0-75.0); PLATELET COUNT 244 K/uL (130-400); RBC 3.91 Mil/uL (4.40-5.90); RED CELL DISTRIBUTION WIDTH 14.3 % (11.5-14.5)
[2018-12-14 06:43] LABS: ALB/GLOB RATIO 1.1 (1.0-2.1); ALBUMIN 3.1 g/dL (3.5-5.0); ALT/SGPT 39 U/L (21-72); AST/SGOT 48 U/L (17-59); BLOOD UREA NITROGEN 9 mg/dL (9-20); CALCIUM 8.6 mg/dl (8.6-10.4); GFR NON-AFRICAN AMERICAN > 60
--- NOTE | 2018-12-14 07:32 | CP.PCM.PN ---
Subjective - Date & Time of Evaluation Date of Evaluation: 12/14/18 Time of Evaluation: 07:00 - Subjective Subjective: GENERAL SURGERY PROGRESS NOTE FOR DR. BURNETTE Patient seen and examined at bedside in the ICU. He reports that his pain is well controlled. He denies nausea or vomiting. He reports that he passed a little flatus. No BM since surgery. Marcio drain with 60cc serosanguinous drainage over material handler 2nd shift Hart in place with 800cc over material handler 2nd shift NG tube in place with minimal output On-Q in place on 7cc/hr Objective - Vital Signs/Intake and Output Vital Signs (last 24 hours): Temp Pulse Resp BP Pulse Ox 97.7 F 67 22 136/63 99 12/14/18 06:00 12/14/18 06:24 12/14/18 06:24 12/14/18 06:24 12/14/18 06:24 Intake and Output: 12/14/18 12/14/18 06:59 18:59 Intake Total 1750 150 Output Total 860 0 Balance 890 150 - Medications Medications: Current Medications Amlodipine Besylate (Norvasc) 10 mg PO DAILY [facility] Last Admin: 12/13/18 09:11 Dose: Not Given Docusate Sodium (Colace) 100 mg PO DAILY [facility] Last Admin: 12/13/18 09:11 Dose: Not Given Enoxaparin Sodium (Lovenox) 40 mg SC DAILY [facility] Hydromorphone HCl (Dilaudid) 1 mg IVP Q4H PRN PRN Reason: Pain, severe (8-10) Last Admin: 12/14/18 02:40 Dose: 1 mg Metronidazole (Flagyl) 500 mg in 100 mls @ 100 mls/hr IVPB Q8H [facility]; Protocol Last Admin: 12/14/18 00:30 Dose: 100 mls/hr Meropenem 1 gm/ Sodium (Chloride) 100 mls @ 100 mls/hr IVPB Q8H [facility]; Protocol Last Admin: 12/14/18 04:30 Dose: 100 mls/hr BUPIVACAINE 0.125%/0.9% NACL (Bupivacaine-Ns 0.125% On-Q Funeral Service Practitioner/Embalmer) 600 mls @ 4 mls/hr IJ ONCE ONE Stop: 12/19/18 17:29 Last Admin: 12/13/18 18:08 Dose: Not Given Lactated Ringer's (Lactated Ringer's) 1,000 mls @ 150 mls/hr IV .Q6H40M [facility] Last Admin: 12/14/18 00:00 Dose: 150 mls/hr Metoclopramide HCl (Reglan) 5 mg IVP Q6H [facility] Last Admin: 12/14/18 01:30 Dose: Not Given Ondansetron HCl (Zofran Inj) 4 mg IVP Q4 PRN PRN Reason: Nausea/Vomiting Pantoprazole Sodium (Protonix Ec Tab) 40 mg PO DAILY [facility] Last Admin: 12/13/18 09:11 Dose: Not Given Tamsulosin HCl (Flomax) 0.4 mg PO DAILY [facility] Last Admin: 12/13/18 09:11 Dose: Not Given Vitamin A (Vitamin A & D Oint Ud Foilpak) 0.5 ea TOP PRN PRN PRN Reason: Dry mouth Last Admin: 12/14/18 00:06 Dose: 0.5 ea - Labs Labs: 12/14/18 06:12 12/14/18 06:31 PT 14.5 SECONDS (9.7-12.2) H 12/13/18 07:09 INR 1.3 12/13/18 07:09 APTT 34 SECONDS (21-34) D 12/13/18 07:09 - Constitutional Appears: Non-toxic, No Acute Distress - Head Exam Head Exam: ATRAUMATIC, NORMAL INSPECTION - Eye Exam Eye Exam: EOMI, Normal appearance - Respiratory Exam Respiratory Exam: NORMAL BREATHING PATTERN. absent: Respiratory Distress - Cardiovascular Exam Cardiovascular Exam: +S1, +S2 - GI/Abdominal Exam GI & Abdominal Exam: Soft, Tenderness (mild cele-incisional tenderness). absent: Distended, Firm, Guarding, Rigid, Rebound Additional comments: Dressing clean/dry/intact Marcio drain with 60cc serosanguinous drainage over material handler 2nd shift Hart in place with 800cc over material handler 2nd shift NG tube in place with minimal output On-Q in place on 7cc/hr - Neurological Exam Neurological Exam: Alert, Awake, Oriented x3 - Psychiatric Exam Psychiatric exam: Normal Affect, Normal Mood - Skin Skin Exam: Dry, Normal Color, Warm Assessment and Plan - Assessment and Plan (Free Text) Assessment: 63yo M with transverse colon adenocarcinoma, left inguinal hernia s/p Left Ingu inal Hernia repair w/ mesh, Tranverse colectomy with anastomosis with mobilization of splenic flexure, repair of umbilical hernia. Cystoscopy with left double J ureteral stent placement by Dr. Boss, POD#1 - Afebrile, VSS - H&H stable - Will switch to D5 1/2 NS + 20K - OOB to chair this AM - Remain NPO w/ NG tube for now - Hart per Dr. Boss - Encourage ambulation and IS - DVT PPx: Lovenox - Discussed plan with Dr. Kia Ordonez PGY-4
[2018-12-14 08:40] LABS: LYMPHOCYTE 7 % (20-40); MONOCYTE 7 % (0-10); NEUTROPHIL 86 % (50-75); TOTAL CELLS COUNTED 100
[2018-12-14 08:41] LABS: PLATELET ESTIMATE NORMAL (NORMAL)
[2018-12-14] MEDS: Potassium Ch 20mEq in D5-1/2NS 1,000 ML IV SCH ×3 (08:41→19:32)
[2018-12-14 08:42] LABS: ANISOCYTOSIS SLIGHT
[2018-12-14 08:43] LABS: LARGE PLATELETS PRESENT
--- NOTE | 2018-12-14 08:53 | PN ---
DATE: 12/14/2018 LOCATION: ICU 11. SUBJECTIVE: This is a 63-year-old male with recently diagnosed colon CA with status post partial colon resection. Complained of abdominal pain on and off post surgically without any reported active bleeding, generalized chills or fever. The entire chart is reviewed including but not limited to the most recent lab and radiology study results, current and the previous medication list, current and the previous medical events. Case discussed with the staff at length. The most recent lab results showed hemoglobin 11.1, hematocrit 33.8 with normal white blood cells and normal platelet count. Blood glucose level 124, albumin 3.1, total protein 6.1. Troponin 1.012 with normal vitamin B12 and folate level recently. Intraoperative fluoroscopy, official report pending. PHYSICAL EXAMINATION: GENERAL: A 63-year-old male, afebrile with pulse of 72, respiratory rate 20-24, blood pressure 130/66. HEENT: Pale dry oral mucoid membrane. Nonicteric sclerae. LUNGS: Scattered crepitation. Decreased air entry at bases. HEART: Positive S1 and S2. ABDOMEN: Soft with mild generalized tenderness. No mass or organomegaly. No rebound tenderness or guarding, but generalized abdominal tenderness covered with clean dressing. NEUROLOGIC: No reported new neurological deficits, sensory or motor. No reported focal deficits. IMPRESSION: 1. Adenocarcinoma of the colon status post partial colon resection as well as umbilical hernia repair and inguinal hernia repair. The patient also had cystoscopy with left double ureteral stent placement prior to his surgery. 2. Known history of benign prostatic hypertrophy. 3. Hypertension by history. 4. Peptic ulcer disease by history. 5. Mild anemia secondary to above. 6. Reported recent history of urinary tract infection, on IV antibiotics by ID travel consultant. SUGGESTIONS: 1. Agree with your plan. 2. Peripheral hyperalimentation. 3. Antireflux measure with proton pump inhibitors. 4. Follow up colonoscopy after 1 year as recommended. Eric Silva MD
[2018-12-14] MEDS: Enoxaparin 40 mg Syringe SC SCH (09:48)
[2018-12-15] MEDS: metroNIDAZOLE IV 500 mg/100 ml 500 MG/100 ML BAG IVPB SCH ×3 (00:30→17:15)
[2018-12-15] MEDS: Potassium Ch 20mEq in D5-1/2NS 1,000 ML IV SCH ×5 (01:50→23:54)
[2018-12-15] MEDS: Meropenem 1 GM in Sodium Chloride 0.9% 100 ML IVPB SCH ×3 (03:53→20:19)
[2018-12-15] MEDS: HYDROmorphone 1 mg/ml ISec IVP PRN ×4 (03:53→21:26)
[2018-12-15] MEDS: Lactated Ringer's 1,000 ML IV SCH (05:02)
[2018-12-15 05:57] LABS: BASO % 0.1 % (0.0-2.0); EOS # 0.1 K/uL (0.0-0.7); EOS % 0.7 % (0.0-4.0); HEMOGLOBIN 10.9 g/dL (12.0-18.0); LYMPH # 0.5 K/uL (1.0-4.3); LYMPH % 5.8 % (20.0-40.0); MEAN CELL VOLUME 86.8 fL (80.0-94.0); MEAN CORPUSCULAR HEMOGLOBIN 28.4 pg (27.0-31.0); MEAN CORPUSCULAR HGB CONC 32.7 g/dL (33.0-37.0); MEAN PLATELET VOLUME 9.6 fL (7.2-11.7); MONO # 0.7 K/uL (0.0-0.8); MONO % 8.6 % (0.0-10.0); NEUT # 6.7 K/uL (1.8-7.0); NEUT % 84.8 % (50.0-75.0); PLATELET COUNT 234 K/uL (130-400); RBC 3.85 Mil/uL (4.40-5.90); RED CELL DISTRIBUTION WIDTH 14.3 % (11.5-14.5)
[2018-12-15 06:09] LABS: ALBUMIN 3.1 g/dL (3.5-5.0); ALT/SGPT 33 U/L (21-72); AST/SGOT 30 U/L (17-59); BLOOD UREA NITROGEN 9 mg/dL (9-20); CALCIUM 8.8 mg/dl (8.6-10.4); GFR NON-AFRICAN AMERICAN > 60
[2018-12-15] MEDS ORDERED: BUPIVACAINE 0.125%/0.9% NACL 600 ML IJ ONE (07:35)
--- NOTE | 2018-12-15 07:55 | CP.PCM.PN ---
Subjective - Date & Time of Evaluation Date of Evaluation: 12/15/18 Time of Evaluation: 07:52 - Subjective Subjective: Surgery: Dr. Adam Pt seen and examined. No acute overnight events. Pt states he feels well and abdominal pain is well controlled at this time. He denies any nausea or vomiting, denies BM or flatus. Pt states he has been out of bed to chair and ambulating with PT. Denies fevers/chills. Objective - Vital Signs/Intake and Output Vital Signs (last 24 hours): Temp Pulse Resp BP Pulse Ox 98.6 F 65 16 118/52 L 100 12/15/18 04:00 12/15/18 07:24 12/15/18 07:24 12/15/18 07:24 12/15/18 07:24 Intake and Output: 12/15/18 12/15/18 06:59 18:59 Intake Total 1700 225 Output Total 1510 Balance 190 225 - Medications Medications: Current Medications Amlodipine Besylate (Norvasc) 10 mg PO DAILY [facility] Last Admin: 12/14/18 09:48 Dose: 10 mg Enoxaparin Sodium (Lovenox) 40 mg SC DAILY [facility] Last Admin: 12/14/18 09:48 Dose: 40 mg Hydromorphone HCl (Dilaudid) 1 mg IVP Q4H PRN PRN Reason: Pain, severe (8-10) Last Admin: 12/15/18 03:53 Dose: 1 mg Meropenem 1 gm/ Sodium (Chloride) 100 mls @ 100 mls/hr IVPB Q8H [facility]; Protocol Last Admin: 12/15/18 03:53 Dose: 100 mls/hr BUPIVACAINE 0.125%/0.9% NACL (Bupivacaine-Ns 0.125% On-Q Residential Supervisor) 600 mls @ 4 mls/hr IJ ONCE ONE Stop: 12/19/18 17:29 Last Admin: 12/13/18 18:08 Dose: Not Given Potassium Chloride/Dextrose/Sod Cl (Potassium Chl 20 Meq In D5-1/2ns) 1,000 mls @ 125 mls/hr IV .Q8H [facility] Last Admin: 12/15/18 05:02 Dose: 125 mls/hr Metronidazole (Flagyl) 500 mg in 100 mls @ 100 mls/hr IVPB Q8H [facility]; Protocol Last Admin: 12/15/18 00:30 Dose: 100 mls/hr BUPIVACAINE 0.125%/0.9% NACL (Bupivacaine-Ns 0.125% On-Q Residential Supervisor) 600 mls @ 4 mls/hr IJ ONCE ONE Stop: 12/21/18 13:34 Metoclopramide HCl (Reglan) 5 mg IVP Q6H [facility] Last Admin: 12/15/18 01:54 Dose: 5 mg Ondansetron HCl (Zofran Inj) 4 mg IVP Q4 PRN PRN Reason: Nausea/Vomiting Pantoprazole Sodium (Protonix Inj) 40 mg IVP DAILY [facility] Last Admin: 12/14/18 09:49 Dose: 40 mg Tamsulosin HCl (Flomax) 0.4 mg PO DAILY [facility] Last Admin: 12/14/18 09:48 Dose: 0.4 mg Vitamin A (Vitamin A & D Oint Ud Foilpak) 0.5 ea TOP PRN PRN PRN Reason: Dry mouth Last Admin: 12/14/18 00:06 Dose: 0.5 ea - Labs Labs: 12/15/18 05:48 12/15/18 05:48 PT 14.5 SECONDS (9.7-12.2) H 12/13/18 07:09 INR 1.3 12/13/18 07:09 APTT 34 SECONDS (21-34) D 12/13/18 07:09 - Constitutional Appears: Well, No Acute Distress - Head Exam Head Exam: ATRAUMATIC, NORMOCEPHALIC - Eye Exam Eye Exam: Normal appearance - ENT Exam Additional comments: NGT in place w/130cc over 12hr shift - Respiratory Exam Respiratory Exam: NORMAL BREATHING PATTERN - Cardiovascular Exam Cardiovascular Exam: RRR - GI/Abdominal Exam GI & Abdominal Exam: Soft, Tenderness (around midline incision, L inguinal incision C/D/I, aleena in place with serosang output, On-Q catheter in place ). absent: Distended, Guarding - Neurological Exam Neurological Exam: Alert, Awake, Oriented x3 - Skin Skin Exam: Dry, Warm Assessment and Plan - Assessment and Plan (Free Text) Assessment: 63M s/p Ex-Lap with transverse colectomy for AdenoCA & left inguinal hernia repair with mesh; POD#2 Plan: - will plan to DC NGT and start CLD after discussion with Dr. Adam - cont to monitor strict Is&Os with drain and sharma outputs - sharma to stay in place per urology recs - will replace On-Q - cont to encourage ambulation/incentive spirometry Annalisa
--- NOTE | 2018-12-15 08:37 | CP.PCM.PN ---
Subjective - Date & Time of Evaluation Date of Evaluation: 12/15/18 Time of Evaluation: 08:36 - Subjective Subjective: POD #2, no flatus, WBC normalized Objective - Vital Signs/Intake and Output Vital Signs (last 24 hours): Temp Pulse Resp BP Pulse Ox 98.8 F 78 21 118/52 L 98 12/15/18 08:00 12/15/18 08:00 12/15/18 08:00 12/15/18 07:24 12/15/18 08:00 Intake and Output: 12/15/18 12/15/18 06:59 18:59 Intake Total 1700 475 Output Total 1510 Balance 190 475 - Medications Medications: Current Medications Amlodipine Besylate (Norvasc) 10 mg PO DAILY [facility] Last Admin: 12/14/18 09:48 Dose: 10 mg Enoxaparin Sodium (Lovenox) 40 mg SC DAILY [facility] Last Admin: 12/14/18 09:48 Dose: 40 mg Hydromorphone HCl (Dilaudid) 1 mg IVP Q4H PRN PRN Reason: Pain, severe (8-10) Last Admin: 12/15/18 03:53 Dose: 1 mg Meropenem 1 gm/ Sodium (Chloride) 100 mls @ 100 mls/hr IVPB Q8H [facility]; Protocol Last Admin: 12/15/18 03:53 Dose: 100 mls/hr BUPIVACAINE 0.125%/0.9% NACL (Bupivacaine-Ns 0.125% On-Q Bolter Helper) 600 mls @ 4 mls/hr IJ ONCE ONE Stop: 12/19/18 17:29 Last Admin: 12/13/18 18:08 Dose: Not Given Potassium Chloride/Dextrose/Sod Cl (Potassium Chl 20 Meq In D5-1/2ns) 1,000 mls @ 125 mls/hr IV .Q8H [facility] Last Admin: 12/15/18 05:02 Dose: 125 mls/hr Metronidazole (Flagyl) 500 mg in 100 mls @ 100 mls/hr IVPB Q8H [facility]; Protocol Last Admin: 12/15/18 07:52 Dose: 100 mls/hr BUPIVACAINE 0.125%/0.9% NACL (Bupivacaine-Ns 0.125% On-Q Bolter Helper) 600 mls @ 4 mls/hr IJ ONCE ONE Stop: 12/21/18 13:34 Metoclopramide HCl (Reglan) 5 mg IVP Q6H [facility] Last Admin: 12/15/18 07:52 Dose: 5 mg Ondansetron HCl (Zofran Inj) 4 mg IVP Q4 PRN PRN Reason: Nausea/Vomiting Pantoprazole Sodium (Protonix Inj) 40 mg IVP DAILY [facility] Last Admin: 12/14/18 09:49 Dose: 40 mg Tamsulosin HCl (Flomax) 0.4 mg PO DAILY [facility] Last Admin: 12/14/18 09:48 Dose: 0.4 mg Vitamin A (Vitamin A & D Oint Ud Foilpak) 0.5 ea TOP PRN PRN PRN Reason: Dry mouth Last Admin: 12/14/18 00:06 Dose: 0.5 ea - Labs Labs: 12/15/18 05:48 12/15/18 05:48 PT 14.5 SECONDS (9.7-12.2) H 12/13/18 07:09 INR 1.3 12/13/18 07:09 APTT 34 SECONDS (21-34) D 12/13/18 07:09 - Head Exam Head Exam: ATRAUMATIC, NORMOCEPHALIC - Eye Exam Eye Exam: EOMI - ENT Exam ENT Exam: Mucous Membranes Moist - Neck Exam Neck Exam: Normal Inspection - Respiratory Exam Respiratory Exam: NORMAL BREATHING PATTERN. absent: Prolonged Expiratory Phase, Rales, Respiratory Distress, Stridor - Cardiovascular Exam Cardiovascular Exam: REGULAR RHYTHM, +S1, +S2. absent: Murmur - GI/Abdominal Exam GI & Abdominal Exam: Soft, Hypoactive Bowel Sounds. absent: Guarding, Rigid, Tenderness, Organomegaly - Extremities Exam Extremities Exam: Normal Inspection - Neurological Exam Neurological Exam: Alert, Awake, Oriented x3 Assessment and Plan - Assessment and Plan (Free Text) Assessment: Patient seen and examined at bedside. POD #2 -continue NG tube to suction, no flatus -PT/OT out of bed, encourage walking -fluid hydration -incentive spirometry -Patient remains hemodynamically stable
--- NOTE | 2018-12-15 08:39 | CP.PCM.PN ---
Subjective - Date & Time of Evaluation Date of Evaluation: 12/14/18 Time of Evaluation: 13:00 - Subjective Subjective: no BMS, no flatus, oob to chair Objective - Vital Signs/Intake and Output Vital Signs (last 24 hours): Temp Pulse Resp BP Pulse Ox 98.8 F 78 21 118/52 L 98 12/15/18 08:00 12/15/18 08:00 12/15/18 08:00 12/15/18 07:24 12/15/18 08:00 Intake and Output: 12/15/18 12/15/18 06:59 18:59 Intake Total 1700 475 Output Total 1510 Balance 190 475 - Medications Medications: Current Medications Amlodipine Besylate (Norvasc) 10 mg PO DAILY [facility] Last Admin: 12/14/18 09:48 Dose: 10 mg Enoxaparin Sodium (Lovenox) 40 mg SC DAILY [facility] Last Admin: 12/14/18 09:48 Dose: 40 mg Hydromorphone HCl (Dilaudid) 1 mg IVP Q4H PRN PRN Reason: Pain, severe (8-10) Last Admin: 12/15/18 03:53 Dose: 1 mg Meropenem 1 gm/ Sodium (Chloride) 100 mls @ 100 mls/hr IVPB Q8H [facility]; Protocol Last Admin: 12/15/18 03:53 Dose: 100 mls/hr BUPIVACAINE 0.125%/0.9% NACL (Bupivacaine-Ns 0.125% On-Q Law Secretary) 600 mls @ 4 mls/hr IJ ONCE ONE Stop: 12/19/18 17:29 Last Admin: 12/13/18 18:08 Dose: Not Given Potassium Chloride/Dextrose/Sod Cl (Potassium Chl 20 Meq In D5-1/2ns) 1,000 mls @ 125 mls/hr IV .Q8H [facility] Last Admin: 12/15/18 05:02 Dose: 125 mls/hr Metronidazole (Flagyl) 500 mg in 100 mls @ 100 mls/hr IVPB Q8H [facility]; Protocol Last Admin: 12/15/18 07:52 Dose: 100 mls/hr BUPIVACAINE 0.125%/0.9% NACL (Bupivacaine-Ns 0.125% On-Q Law Secretary) 600 mls @ 4 mls/hr IJ ONCE ONE Stop: 12/21/18 13:34 Metoclopramide HCl (Reglan) 5 mg IVP Q6H [facility] Last Admin: 12/15/18 07:52 Dose: 5 mg Ondansetron HCl (Zofran Inj) 4 mg IVP Q4 PRN PRN Reason: Nausea/Vomiting Pantoprazole Sodium (Protonix Inj) 40 mg IVP DAILY [facility] Last Admin: 12/14/18 09:49 Dose: 40 mg Tamsulosin HCl (Flomax) 0.4 mg PO DAILY [facility] Last Admin: 12/14/18 09:48 Dose: 0.4 mg Vitamin A (Vitamin A & D Oint Ud Foilpak) 0.5 ea TOP PRN PRN PRN Reason: Dry mouth Last Admin: 12/14/18 00:06 Dose: 0.5 ea - Labs Labs: 12/15/18 05:48 12/15/18 05:48 PT 14.5 SECONDS (9.7-12.2) H 12/13/18 07:09 INR 1.3 12/13/18 07:09 APTT 34 SECONDS (21-34) D 12/13/18 07:09 - Head Exam Head Exam: ATRAUMATIC, NORMAL INSPECTION - Eye Exam Pupil Exam: NORMAL ACCOMODATION - ENT Exam ENT Exam: Mucous Membranes Moist - Respiratory Exam Respiratory Exam: NORMAL BREATHING PATTERN. absent: Prolonged Expiratory Phase, Wheezes, Respiratory Distress, Stridor - Cardiovascular Exam Cardiovascular Exam: REGULAR RHYTHM, +S1, +S2 - GI/Abdominal Exam GI & Abdominal Exam: Soft, Hypoactive Bowel Sounds. absent: Firm, Guarding, Rigid, Tenderness - Extremities Exam Extremities Exam: Full ROM, Normal Inspection Assessment and Plan - Assessment and Plan (Free Text) Assessment: Patient seen and examined at bedside. POD #1 -continue NG tube to suction, no flatus -abdominal band -fluid hydration -incentive spirometry -restart home medications for HTN and BPH
[2018-12-15 08:42] LABS: ANISOCYTOSIS SLIGHT; HYPOCHROMIC SLIGHT; LYMPHOCYTE 7 % (20-40); MONOCYTE 7 % (0-10); NEUTROPHIL 86 % (50-75); PLATELET ESTIMATE NORMAL (NORMAL); POLYCHROMIC SLIGHT; TOTAL CELLS COUNTED 100
[2018-12-15 08:43] LABS: LARGE PLATELETS PRESENT
[2018-12-15] MEDS: Enoxaparin 40 mg Syringe SC SCH (09:15)
--- NOTE | 2018-12-15 09:45 | PN ---
DATE: 12/15/2018 LOCATION: ICU 11. SUBJECTIVE: This is a 63-year-old man post partial colon resection due to colon CA, adenocarcinoma of the colon, seen and evaluated this morning with intermittent period of abdominal pain post surgery, abdominal binder is in place. The patient is out of bed. The entire chart is reviewed including, but not limited to, most recent lab results with hemoglobin 10.9, hematocrit 33.4, CO2 content 32 indicative of respiratory alkalosis. Blood glucose level 131, albumin 3.1. PHYSICAL EXAMINATION: GENERAL: A 63-year-old male, afebrile, awake, alert, oriented. VITAL SIGNS: Pulse of 70, respiratory rate 18 to 20, blood pressure 120/58. HEENT: Showed pale, dry oral mucous membrane. Nonicteric sclerae. LUNGS: Few scattered crepitation. Decreased air entry at bases. HEART: Positive S1 and S2. ABDOMEN: Soft with mild generalized tenderness. No mass or organomegaly. No rebound tenderness or guarding. EXTREMITIES: Without significant clubbing, cyanosis or edema. NEUROLOGIC: No reported new neurological deficit, sensory or motor. It has to be mentioned that the patient's bowel sounds are excessively hypoactive, no passing gas yet and no reported bowel movement. Abdominal incision covered with abdominal binder. IMPRESSION: 1. Adenocarcinoma of the colon. 2. Status post partial colon resection. 3. Known history of benign prostatic hypertrophy. 4. History of peptic ulcer disease, hypertension. 5. Mild anemia secondary to above. 6. Recent history of urinary tract infection, on intravenous antibiotics. 7. Abdominal wall hernia repair by recent surgery. SUGGESTIONS: 1. Continue current management. 2. Antireflux measure. 3. Follow up in cancer markers. Eric Silva MD
--- NOTE | 2018-12-15 15:40 | OP ---
PROCEDURE DATE: 12/13/2018 PREOPERATIVE DIAGNOSES: Left hydronephrosis. Colon carcinoma. POSTOPERATIVE DIAGNOSES: Left hydronephrosis. Benign prostatic hypertrophy. Cystitis. Bladder herniation into left inguinal hernia. Colon carcinoma. OPERATING SURGEON: Dr. Chica Boss. PROCEDURES: Cystoscopy. Right ureteral catheterization. Left retrograde pyelogram. Insertion of left ureteral stent. Rigid cystoscopy. Flexible cystoscopy. Insertion of Hart catheter. DESCRIPTION OF PROCEDURE: The patient had received antibiotics in conjunction with his planned General Surgery procedures. The general anesthesia was administered through the endotracheal tube. The patient was placed in lithotomy position. Genitalia prepped and draped sterilely. A 22-Algerian cystoscope sheath was introduced under direct vision. Procedure was formed under video endoscopic control as well as under fluoroscopic control with C-arm. The urethra, prostate and bladder were inspected with 30-degree and 70-degree lens. FINDINGS: There was no stricture in the anterior urethra. There was evidence of trilobar prostatic hypertrophy which was occlusive. Prostatic urethra was approximately 3.5 to 4 cm in length. There was a high-riding bladder neck and intravesical middle lobe as well. There was moderate bladder trabeculation. There was no bladder tumor. There was no bladder stone. The ureteral orifice was identified on the left side of the bladder. A guidewire was inserted into this ureteral orifice. Under fluoroscopic control, this orifice was determined to be the right ureteral orifice, despite being located on the left side of the patient. Apparently, the bladder was markedly deviated to the left, likely due to being pulled into the left inguinal hernia. An open-ended catheter was placed over the guidewire into this ureter to determine its position, with the intent of locating the left ureteral orifice. The left ureteral orifice was not able to be identified using the 30-degree lens. Using the 70-degree lens, the left ureteral orifice was noted to be located at a distance from the end of the cystoscope. Mobility was limited due to the patient's anatomy and his genitalia as well as his hernia and scrotal size. The orifice was able to be catheterized using the Sylvester catheter and a guidewire. However, the guidewire could not be advanced proximally due to the ureteral deviation and curvature. Further attempts using the 70-degree lens as well as multiple catheters and guidewires were unsuccessful. The cystoscope was subsequently removed. A 16-Algerian flexible cystoscope was then introduced under direct vision. Persistent diligent inspection of the bladder floor, with reference to the know side of the right ureteral orifice, ultimately revealed the presence of the left ureteral orifice. The left ureteral orifice was able to be catheterized with a Glidewire placed through a 5-Algerian ureteral catheter. Retrograde ureteral pyelogram was performed. There was noted to be marked dilation of the ureter. There was marked kinking and secondary kinking of the ureter. The guidewire and catheter were able to be inserted up to level of the kidney. The ureter was left straightened. The flexible cystoscope was removed. A rigid cystoscope with 30-degree lens was backloaded over the guidewire. A 6-Algerian multilength stent was inserted over the guidewire. Proper stent position was confirmed with fluoroscopy and endoscopy. The bladder was reinspected and confirmed the above findings. The bladder was then drained. Cystoscope and sheath removed. Hart catheter was inserted. The ureteral catheter on the right was secured to the Hart catheter. The patient was returned to the supine position. The patient tolerated the procedure without complication. Chica Boss MD cc: 1. Hugh Adam MD 2. Konrad Nicole MD
--- NOTE | 2018-12-15 17:56 | CP.PCM.PN ---
Subjective - Date & Time of Evaluation Date of Evaluation: 12/15/18 Time of Evaluation: 10:00 - Subjective Subjective: comfortable in ICU in NAD Objective - Vital Signs/Intake and Output Vital Signs (last 24 hours): Temp Pulse Resp BP Pulse Ox 98.4 F 71 14 124/73 98 12/15/18 16:00 12/15/18 17:00 12/15/18 17:00 12/15/18 15:25 12/15/18 17:00 Intake and Output: 12/15/18 12/15/18 06:59 18:59 Intake Total 1700 2235 Output Total 1510 1500 Balance 190 735 - Medications Medications: Current Medications Amlodipine Besylate (Norvasc) 10 mg PO DAILY [facility] Last Admin: 12/15/18 09:16 Dose: 10 mg Enoxaparin Sodium (Lovenox) 40 mg SC DAILY [facility] Last Admin: 12/15/18 09:15 Dose: 40 mg Hydromorphone HCl (Dilaudid) 1 mg IVP Q4H PRN PRN Reason: Pain, severe (8-10) Last Admin: 12/15/18 15:11 Dose: 1 mg Meropenem 1 gm/ Sodium (Chloride) 100 mls @ 100 mls/hr IVPB Q8H [facility]; Protocol Last Admin: 12/15/18 12:01 Dose: 100 mls/hr BUPIVACAINE 0.125%/0.9% NACL (Bupivacaine-Ns 0.125% On-Q Medical Secretary) 600 mls @ 4 mls/hr IJ ONCE ONE Stop: 12/19/18 17:29 Last Admin: 12/13/18 18:08 Dose: Not Given Metronidazole (Flagyl) 500 mg in 100 mls @ 100 mls/hr IVPB Q8H [facility]; Protocol Last Admin: 12/15/18 17:15 Dose: 100 mls/hr BUPIVACAINE 0.125%/0.9% NACL (Bupivacaine-Ns 0.125% On-Q Medical Secretary) 600 mls @ 4 mls/hr IJ ONCE ONE Stop: 12/21/18 13:34 Last Admin: 12/15/18 09:07 Dose: 4 mls/hr Potassium Chloride/Dextrose/Sod Cl (Potassium Chl 20 Meq In D5-1/2ns) 1,000 mls @ 100 mls/hr IV .Q10H [facility] Last Admin: 12/15/18 15:10 Dose: 100 mls/hr Metoclopramide HCl (Reglan) 5 mg IVP Q6H [facility] Last Admin: 12/15/18 13:12 Dose: 5 mg Ondansetron HCl (Zofran Inj) 4 mg IVP Q4 PRN PRN Reason: Nausea/Vomiting Oxycodone/Acetaminophen (Percocet 5/325 Mg Tab) 1 tab PO Q4H PRN PRN Reason: Pain, moderate (4-7) Stop: 12/18/18 12:47 Pantoprazole Sodium (Protonix Inj) 40 mg IVP DAILY [facility] Last Admin: 12/15/18 09:15 Dose: 40 mg Tamsulosin HCl (Flomax) 0.4 mg PO DAILY [facility] Last Admin: 12/15/18 09:15 Dose: 0.4 mg Vitamin A (Vitamin A & D Oint Ud Foilpak) 0.5 ea TOP PRN PRN PRN Reason: Dry mouth Last Admin: 12/14/18 00:06 Dose: 0.5 ea - Labs Labs: 12/15/18 05:48 12/15/18 05:48 PT 14.5 SECONDS (9.7-12.2) H 12/13/18 07:09 INR 1.3 12/13/18 07:09 APTT 34 SECONDS (21-34) D 12/13/18 07:09 - Constitutional Appears: Non-toxic, Chronically Ill - Head Exam Head Exam: NORMOCEPHALIC - Eye Exam Eye Exam: absent: Scleral icterus - ENT Exam ENT Exam: Mucous Membranes Dry - Neck Exam Neck Exam: absent: Lymphadenopathy - Respiratory Exam Respiratory Exam: Decreased Breath Sounds, Clear to Ausculation Bilateral - Cardiovascular Exam Cardiovascular Exam: REGULAR RHYTHM, +S1, +S2 - GI/Abdominal Exam GI & Abdominal Exam: Distended, Soft. absent: Tenderness - Rectal Exam Rectal Exam: Deferred - Exam Exam: NORMAL INSPECTION - Extremities Exam Extremities Exam: absent: Pedal Edema - Back Exam Back Exam: absent: CVA tenderness (L), CVA tenderness (R) - Neurological Exam Neurological Exam: Alert, Awake, Oriented x3 - Psychiatric Exam Psychiatric exam: Depressed - Skin Skin Exam: Dry Assessment and Plan (1) Hydronephrosis Status: Acute (2) ESBL (extended spectrum beta-lactamase) producing bacteria infection Status: Acute - Assessment and Plan (Free Text) Assessment: cont merrem for e coli UTI
--- NOTE | 2018-12-15 22:41 | CP.PCM.PN ---
Subjective - Date & Time of Evaluation Date of Evaluation: 12/13/18 Time of Evaluation: 19:00 - Subjective Subjective: No complaints, s/p surgery. Objective - Vital Signs/Intake and Output Vital Signs (last 24 hours): Temp Pulse Resp BP Pulse Ox 98.1 F 74 17 149/71 99 12/15/18 20:00 12/15/18 20:00 12/15/18 20:00 12/15/18 20:00 12/15/18 20:00 Intake and Output: 12/15/18 12/16/18 18:59 06:59 Intake Total 2335 200 Output Total 1510 Balance 825 200 - Medications Medications: Current Medications Amlodipine Besylate (Norvasc) 10 mg PO DAILY [facility] Last Admin: 12/15/18 09:16 Dose: 10 mg Enoxaparin Sodium (Lovenox) 40 mg SC DAILY [facility] Last Admin: 12/15/18 09:15 Dose: 40 mg Hydromorphone HCl (Dilaudid) 1 mg IVP Q4H PRN PRN Reason: Pain, severe (8-10) Last Admin: 12/15/18 21:26 Dose: 1 mg Meropenem 1 gm/ Sodium (Chloride) 100 mls @ 100 mls/hr IVPB Q8H [facility]; Protocol Last Admin: 12/15/18 20:19 Dose: 100 mls/hr BUPIVACAINE 0.125%/0.9% NACL (Bupivacaine-Ns 0.125% On-Q Mental Health Professional) 600 mls @ 4 mls/hr IJ ONCE ONE Stop: 12/19/18 17:29 Last Admin: 12/13/18 18:08 Dose: Not Given Metronidazole (Flagyl) 500 mg in 100 mls @ 100 mls/hr IVPB Q8H [facility]; Protocol Last Admin: 12/15/18 17:15 Dose: 100 mls/hr BUPIVACAINE 0.125%/0.9% NACL (Bupivacaine-Ns 0.125% On-Q Mental Health Professional) 600 mls @ 4 mls/hr IJ ONCE ONE Stop: 12/21/18 13:34 Last Admin: 12/15/18 09:07 Dose: 4 mls/hr Potassium Chloride/Dextrose/Sod Cl (Potassium Chl 20 Meq In D5-1/2ns) 1,000 mls @ 100 mls/hr IV .Q10H [facility] Last Admin: 12/15/18 15:10 Dose: 100 mls/hr Metoclopramide HCl (Reglan) 5 mg IVP Q6H [facility] Last Admin: 12/15/18 18:37 Dose: 5 mg Ondansetron HCl (Zofran Inj) 4 mg IVP Q4 PRN PRN Reason: Nausea/Vomiting Oxycodone/Acetaminophen (Percocet 5/325 Mg Tab) 1 tab PO Q4H PRN PRN Reason: Pain, moderate (4-7) Stop: 12/18/18 12:47 Pantoprazole Sodium (Protonix Inj) 40 mg IVP DAILY [facility] Last Admin: 12/15/18 09:15 Dose: 40 mg Tamsulosin HCl (Flomax) 0.4 mg PO DAILY [facility] Last Admin: 12/15/18 09:15 Dose: 0.4 mg Vitamin A (Vitamin A & D Oint Ud Foilpak) 0.5 ea TOP PRN PRN PRN Reason: Dry mouth Last Admin: 12/14/18 00:06 Dose: 0.5 ea - Labs Labs: 12/15/18 05:48 12/15/18 05:48 PT 14.5 SECONDS (9.7-12.2) H 12/13/18 07:09 INR 1.3 12/13/18 07:09 APTT 34 SECONDS (21-34) D 12/13/18 07:09 - Head Exam Head Exam: ATRAUMATIC - Eye Exam Eye Exam: Normal appearance - ENT Exam ENT Exam: Mucous Membranes Dry - Respiratory Exam Respiratory Exam: NORMAL BREATHING PATTERN - Cardiovascular Exam Cardiovascular Exam: +S1, +S2 - GI/Abdominal Exam GI & Abdominal Exam: Normal Bowel Sounds Assessment and Plan (1) Colon cancer Assessment & Plan: s/p hemicolectomy f/u pathology Status: Acute (2) Anemia Assessment & Plan: mild surgical blood loss Status: Acute
--- NOTE | 2018-12-15 22:43 | CP.PCM.PN ---
Subjective - Date & Time of Evaluation Date of Evaluation: 12/14/18 Time of Evaluation: 18:00 - Subjective Subjective: No complaints, family at bedside. Objective - Vital Signs/Intake and Output Vital Signs (last 24 hours): Temp Pulse Resp BP Pulse Ox 98.1 F 74 17 149/71 99 12/15/18 20:00 12/15/18 20:00 12/15/18 20:00 12/15/18 20:00 12/15/18 20:00 Intake and Output: 12/15/18 12/16/18 18:59 06:59 Intake Total 2335 200 Output Total 1510 Balance 825 200 - Medications Medications: Current Medications Amlodipine Besylate (Norvasc) 10 mg PO DAILY TIO Last Admin: 12/15/18 09:16 Dose: 10 mg Enoxaparin Sodium (Lovenox) 40 mg SC DAILY TIO Last Admin: 12/15/18 09:15 Dose: 40 mg Hydromorphone HCl (Dilaudid) 1 mg IVP Q4H PRN PRN Reason: Pain, severe (8-10) Last Admin: 12/15/18 21:26 Dose: 1 mg Meropenem 1 gm/ Sodium (Chloride) 100 mls @ 100 mls/hr IVPB Q8H TIO; Protocol Last Admin: 12/15/18 20:19 Dose: 100 mls/hr BUPIVACAINE 0.125%/0.9% NACL (Bupivacaine-Ns 0.125% On-Q Water Resource Specialist) 600 mls @ 4 mls/hr IJ ONCE ONE Stop: 12/19/18 17:29 Last Admin: 12/13/18 18:08 Dose: Not Given Metronidazole (Flagyl) 500 mg in 100 mls @ 100 mls/hr IVPB Q8H TIO; Protocol Last Admin: 12/15/18 17:15 Dose: 100 mls/hr BUPIVACAINE 0.125%/0.9% NACL (Bupivacaine-Ns 0.125% On-Q Water Resource Specialist) 600 mls @ 4 mls/hr IJ ONCE ONE Stop: 12/21/18 13:34 Last Admin: 12/15/18 09:07 Dose: 4 mls/hr Potassium Chloride/Dextrose/Sod Cl (Potassium Chl 20 Meq In D5-1/2ns) 1,000 mls @ 100 mls/hr IV .Q10H TIO Last Admin: 12/15/18 15:10 Dose: 100 mls/hr Metoclopramide HCl (Reglan) 5 mg IVP Q6H [facility] Last Admin: 12/15/18 18:37 Dose: 5 mg Ondansetron HCl (Zofran Inj) 4 mg IVP Q4 PRN PRN Reason: Nausea/Vomiting Oxycodone/Acetaminophen (Percocet 5/325 Mg Tab) 1 tab PO Q4H PRN PRN Reason: Pain, moderate (4-7) Stop: 12/18/18 12:47 Pantoprazole Sodium (Protonix Inj) 40 mg IVP DAILY [facility] Last Admin: 12/15/18 09:15 Dose: 40 mg Tamsulosin HCl (Flomax) 0.4 mg PO DAILY [facility] Last Admin: 12/15/18 09:15 Dose: 0.4 mg Vitamin A (Vitamin A & D Oint Ud Foilpak) 0.5 ea TOP PRN PRN PRN Reason: Dry mouth Last Admin: 12/14/18 00:06 Dose: 0.5 ea - Labs Labs: 12/15/18 05:48 12/15/18 05:48 PT 14.5 SECONDS (9.7-12.2) H 12/13/18 07:09 INR 1.3 12/13/18 07:09 APTT 34 SECONDS (21-34) D 12/13/18 07:09 - Head Exam Head Exam: ATRAUMATIC - Eye Exam Eye Exam: Normal appearance - ENT Exam ENT Exam: Mucous Membranes Dry - Respiratory Exam Respiratory Exam: NORMAL BREATHING PATTERN - Cardiovascular Exam Cardiovascular Exam: +S1, +S2 - GI/Abdominal Exam GI & Abdominal Exam: Normal Bowel Sounds Assessment and Plan (1) Colon cancer Assessment & Plan: no evidence of distant metastasis s/p hemicolectomy f/u pathology Status: Acute (2) Anemia Assessment & Plan: mild surgical blood loss Status: Acute
[2018-12-16] MEDS: metroNIDAZOLE IV 500 mg/100 ml 500 MG/100 ML BAG IVPB SCH ×3 (01:00→16:12)
[2018-12-16] MEDS: HYDROmorphone 1 mg/ml ISec IVP PRN ×2 (03:46→10:37)
[2018-12-16] MEDS: Meropenem 1 GM in Sodium Chloride 0.9% 100 ML IVPB SCH ×3 (04:25→20:29)
[2018-12-16] MEDS: Potassium Ch 20mEq in D5-1/2NS 1,000 ML IV SCH ×4 (04:26→20:29)
[2018-12-16 05:50] LABS: BASO % 0.3 % (0.0-2.0); EOS # 0.1 K/uL (0.0-0.7); EOS % 1.7 % (0.0-4.0); HEMOGLOBIN 11.1 g/dL (12.0-18.0); LYMPH # 0.6 K/uL (1.0-4.3); LYMPH % 7.7 % (20.0-40.0); MEAN CELL VOLUME 87.7 fL (80.0-94.0); MEAN CORPUSCULAR HEMOGLOBIN 28.3 pg (27.0-31.0); MEAN CORPUSCULAR HGB CONC 32.3 g/dL (33.0-37.0); MONO # 0.5 K/uL (0.0-0.8); MONO % 6.4 % (0.0-10.0); NEUT # 6.5 K/uL (1.8-7.0); NEUT % 83.9 % (50.0-75.0); PLATELET COUNT 213 K/uL (130-400); WHITE BLOOD COUNT 7.8 K/uL (4.8-10.8)
[2018-12-16 06:07] LABS: ALT/SGPT 27 U/L (21-72); AST/SGOT 27 U/L (17-59); BLOOD UREA NITROGEN 7 mg/dL (9-20); CALCIUM 8.9 mg/dl (8.6-10.4); GFR NON-AFRICAN AMERICAN > 60
[2018-12-16 08:38] LABS: EOSINOPHIL 2 % (0-4); NEUTROPHIL 85 % (50-75); TOTAL CELLS COUNTED 100
[2018-12-16 08:39] LABS: ANISOCYTOSIS SLIGHT; GIANT PLATELETS PRESENT; HYPOCHROMIC SLIGHT; LARGE PLATELETS PRESENT; LYMPHOCYTE 7 % (20-40); MONOCYTE 6 % (0-10); PLATELET ESTIMATE NORMAL (NORMAL); POIKILOCYTOSIS SLIGHT
[2018-12-16] MEDS: Enoxaparin 40 mg Syringe SC SCH (09:54)
--- NOTE | 2018-12-16 11:29 | CP.PCM.PN ---
Subjective - Date & Time of Evaluation Date of Evaluation: 12/16/18 Time of Evaluation: 08:00 - Subjective Subjective: Medicine Progress note for Dr. Nicole Patient was seen and examined at bedside in no acute distress. Patient states his pain is minimal. He has not pass flatus yet. Patient denies chest pain, shortness of breath, palpitations, nausea, vomiting or fever. Objective - Vital Signs/Intake and Output Vital Signs (last 24 hours): Temp Pulse Resp BP Pulse Ox 98.1 F 66 16 137/68 100 12/16/18 08:00 12/16/18 08:00 12/16/18 08:00 12/16/18 07:19 12/16/18 08:00 Intake and Output: 12/16/18 12/16/18 06:59 18:59 Intake Total 2300 Output Total 1430 Balance 870 - Medications Medications: Current Medications Amlodipine Besylate (Norvasc) 10 mg PO DAILY [facility] Last Admin: 12/16/18 09:53 Dose: 10 mg Enoxaparin Sodium (Lovenox) 40 mg SC DAILY [facility] Last Admin: 12/16/18 09:54 Dose: 40 mg Hydromorphone HCl (Dilaudid) 1 mg IVP Q4H PRN PRN Reason: Pain, severe (8-10) Last Admin: 12/16/18 10:37 Dose: 1 mg Meropenem 1 gm/ Sodium (Chloride) 100 mls @ 100 mls/hr IVPB Q8H TIO; Protocol Last Admin: 12/16/18 04:25 Dose: 100 mls/hr BUPIVACAINE 0.125%/0.9% NACL (Bupivacaine-Ns 0.125% On-Q Coal [employer] Supervisor) 600 mls @ 4 mls/hr IJ ONCE ONE Stop: 12/19/18 17:29 Last Admin: 12/13/18 18:08 Dose: Not Given Metronidazole (Flagyl) 500 mg in 100 mls @ 100 mls/hr IVPB Q8H TIO; Protocol Last Admin: 12/16/18 08:40 Dose: 100 mls/hr BUPIVACAINE 0.125%/0.9% NACL (Bupivacaine-Ns 0.125% On-Q [employer] Supervisor) 600 mls @ 4 mls/hr IJ ONCE ONE Stop: 12/21/18 13:34 Last Admin: 12/15/18 09:07 Dose: 4 mls/hr Potassium Chloride/Dextrose/Sod Cl (Potassium Chl 20 Meq In D5-1/2ns) 1,000 mls @ 100 mls/hr IV .Q10H [facility] Last Admin: 12/16/18 09:47 Dose: Not Given Metoclopramide HCl (Reglan) 5 mg IVP Q6H [facility] Last Admin: 12/16/18 06:47 Dose: 5 mg Ondansetron HCl (Zofran Inj) 4 mg IVP Q4 PRN PRN Reason: Nausea/Vomiting Oxycodone/Acetaminophen (Percocet 5/325 Mg Tab) 1 tab PO Q4H PRN PRN Reason: Pain, moderate (4-7) Stop: 12/18/18 12:47 Pantoprazole Sodium (Protonix Inj) 40 mg IVP DAILY [facility] Last Admin: 12/16/18 09:54 Dose: 40 mg Tamsulosin HCl (Flomax) 0.4 mg PO DAILY [facility] Last Admin: 12/16/18 09:54 Dose: 0.4 mg Vitamin A (Vitamin A & D Oint Ud Foilpak) 0.5 ea TOP PRN PRN PRN Reason: Dry mouth Last Admin: 12/14/18 00:06 Dose: 0.5 ea - Labs Labs: 12/16/18 05:37 12/16/18 05:37 PT 14.5 SECONDS (9.7-12.2) H 12/13/18 07:09 INR 1.3 12/13/18 07:09 APTT 34 SECONDS (21-34) D 12/13/18 07:09 - Constitutional Appears: No Acute Distress - Head Exam Head Exam: ATRAUMATIC, NORMAL INSPECTION - Eye Exam Eye Exam: EOMI, Normal appearance - ENT Exam ENT Exam: Mucous Membranes Moist - Respiratory Exam Respiratory Exam: Clear to Ausculation Bilateral, NORMAL BREATHING PATTERN - Cardiovascular Exam Cardiovascular Exam: REGULAR RHYTHM, +S1, +S2 - GI/Abdominal Exam GI & Abdominal Exam: Soft, Normal Bowel Sounds Additional comments: dressing - c/d/i; drain - serous sanguineous fluid - Extremities Exam Extremities Exam: Normal Inspection - Neurological Exam Neurological Exam: Alert, Awake, Oriented x3 - Psychiatric Exam Psychiatric exam: Normal Affect - Skin Skin Exam: Normal Color Assessment and Plan - Assessment and Plan (Free Text) Assessment: Adenocardinoma of the Proximal Descending Colon - GI Consult: Dr. Zamora --> help appreciated - Surgery Consult: Dr. Adam --> help appreciated * s/p (12/13/18) Left Inguinal Hernia repair with mesh, Exploratory Laparotomy, Tranverse colectomy with anastomosis with mobilization of splenic flexure, repair of umbilical hernia. Cystoscopy with left double J ureteral stent placement by Dr. Boss - Hem/Onc Consult: Dr. Lewis --> help appreciated * Per Dr. Lewis, likely a malignancy, no evidence of mets,f/u surgical pathology - Chest CT: Cardiomegaly. Medial left upper lobe bronchiectasis and small bulla evident. 4 mm nodular opacity along the pleura, possibly intrapulmonary lymph node. 2 mm right middle lobe nodule. Recommend [address] follow-up. Limited visualization of the upper abdomen reveals partially imaged moderate to severe wall thickening of the mid to distal transverse colon which appears consistent with provided history of colonic carcinoma. 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 - s/p colonoscopy 12/11/18 * Findings: Malignant-appearing intrinsic severe stenosis was found in the transverse colon and non-transverse colon * Pathology: adenocarcinoma of the proximal descending colon - Patient is scheduled for a colon resection 12/13/[address] Adam - Cardiac Clearance --> Cardiac Consult: Dr. Carias --> help appreciated - Per Dr. Carias: Patient is at intermediate risk for the planned procedure. Recommend perioperative betablocker to attenuate operative risk. There is no cardiovascular contraindication to the planned surgery. - ECHO (12/13/18): EF 65-70%; mild concentric left ventricular hypertrophy; the left ventricle systolic function is normal Colitis - GI Consult: Dr. Zamora --> help appreciated - Liquid Diet - Images: * CT of Abdomen/Pelvis: Segmental moderate to marked wall thickening of the mid and distal transverse colon surrounding with inflammatory changes consistent with colitis. The possibility of underline infiltrative neoplasm is not totally excluded. The differential consideration includes ischemic infection or inflammatory colitis. 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 Mild to moderate left hydroureter. The distal portion of the left ureter is extending into large left inguinal hernia. Part of urinary bladder is also herniated and the left UV junction is likely in the left inguinal hernia. The possibility of distal left ureter stone is not totally excluded. The differential consideration includes compression on the distal left ureter at left inguinal hernia. Otherwise no evidence of acute pathology in the abdomen and pelvis. - s/p Colonoscopy on 12/11/18 please see results above - Blood Culture Negative - Medications: * Metronidazole 500mg IV q8h * NS @150cc/hr * Colace 100mg po daily * Reglan 5mg IV q6h * Morphine 2mg IV q4 prn UTI - UA: +1LE - Urine Culture: + Ecoli, + ESBL - ID consulted, Dr. Melara --> Help appreciated - Medications: * Merrem 1g IV Q8 (active since 12/11/18) continue till 12/18/18 Left inguinal hernia - Contains portion of the bladder, left hydronephrosis indicating possible involvement of left ureter - Surgery Consult: Dr. Adam --> help appreciated - Urology Consult: Dr. Chica Boss --> help appreciated Anemia - Hem/onc consulted, Dr. Lewis --> Help appreciated - Likely chronic tumor bleed - f/u anemia work up HTN - Continue home medication Norvasc 10mg po daily History of BPH - Continue home medication Flomax 0.4mg po daily Prophylaxis - Protonix daily - Colace 100mg dialy - SCDs - Lovenox 40mg SC daily Case discussed with Dr. Corey Pelaez PGY-2
--- NOTE | 2018-12-16 13:17 | PN ---
DATE: 12/16/2018 LOCATION: ICU 11. SUBJECTIVE: This 63-year-old male seen and examined early today in the intensive care unit with his family members at the bedside without any reported active bleeding. The patient is out of bed, sitting on a chair, tolerating oral intake of liquid. No reported active bleeding. The entire chart is reviewed and today's lab results showed hemoglobin 11.1, hematocrit 34.3 with CO2 content 32. Blood glucose level 129, protein 6.2, albumin 3. PHYSICAL EXAMINATION: GENERAL: A 63-year-old male. VITAL SIGNS: Afebrile with pulse of 62, respiratory rate 16 to 18, blood pressure 132/66. HEENT: Showed pale dry oral mucous membrane. Nonicteric sclerae. LUNGS: Few scattered crepitation. Decreased air entry at bases. HEART: Positive S1 and S2. ABDOMEN: Soft with mild generalized tenderness. No mass or organomegaly. No rebound tenderness or guarding, but generalized tenderness with clean abdominal dressing. Bowel sounds are excessively hypoactive. NEUROLOGIC: No reported new neurological deficits, sensory or motor. IMPRESSION: 1. Colon carcinoma with partial colon resection and status post abdominal wall hernia and left inguinal hernia repair, done surgically. 2. Re-exacerbation of peptic ulcer disease. 3. Anemia, secondary to above. 4. Known history of hypertension, benign prostatic hypertrophy with reported sleep apnea before. SUGGESTIONS: 1. Agree with your plan. 2. tab one twice a day. 3. Followup colonoscopy after 1 year as suggested and recommended. Eric Silva MD
--- NOTE | 2018-12-16 13:51 | CP.PCM.PN ---
Subjective - Date & Time of Evaluation Date of Evaluation: 12/16/18 Time of Evaluation: 07:00 - Subjective Subjective: GENERAL SURGERY PROGRESS NOTE FOR DR. BURNETTE Patient seen and examined at bedside in the ICU. He reports that his pain is well controlled. He denies nausea or vomiting. Yesterday, the NG tube was removed and he was started on CLD which he is tolerating. No BM or flatus. Marcio drain with 40cc serosanguinous drainage over past [address] with 2900cc over past 24 hours On-Q in place on 4cc/hr Objective - Vital Signs/Intake and Output Vital Signs (last 24 hours): Temp Pulse Resp BP Pulse Ox 98 F 74 16 127/59 L 99 12/16/18 11:43 12/16/18 11:00 12/16/18 11:00 12/16/18 08:44 12/16/18 10:00 Intake and Output: 12/16/18 12/16/18 06:59 18:59 Intake Total 2300 Output Total 1430 Balance 870 - Medications Medications: Current Medications Amlodipine Besylate (Norvasc) 10 mg PO DAILY [facility] Last Admin: 12/16/18 09:53 Dose: 10 mg Enoxaparin Sodium (Lovenox) 40 mg SC DAILY [facility] Last Admin: 12/16/18 09:54 Dose: 40 mg Meropenem 1 gm/ Sodium (Chloride) 100 mls @ 100 mls/hr IVPB Q8H [facility]; Protocol Last Admin: 12/16/18 12:17 Dose: 100 mls/hr BUPIVACAINE 0.125%/0.9% NACL (Bupivacaine-Ns 0.125% On-Q Buttonholer) 600 mls @ 4 mls/hr IJ ONCE ONE Stop: 12/19/18 17:29 Last Admin: 12/13/18 18:08 Dose: Not Given Metronidazole (Flagyl) 500 mg in 100 mls @ 100 mls/hr IVPB Q8H [facility]; Protocol Last Admin: 12/16/18 08:40 Dose: 100 mls/hr BUPIVACAINE 0.125%/0.9% NACL (Bupivacaine-Ns 0.125% On-Q Buttonholer) 600 mls @ 4 mls/hr IJ ONCE ONE Stop: 12/21/18 13:34 Last Admin: 12/15/18 09:07 Dose: 4 mls/hr Potassium Chloride/Dextrose/Sod Cl (Potassium Chl 20 Meq In D5-1/2ns) 1,000 mls @ 100 mls/hr IV .Q10H [facility] Last Admin: 12/16/18 09:47 Dose: Not Given Metoclopramide HCl (Reglan) 5 mg IVP Q6H [facility] Last Admin: 12/16/18 13:03 Dose: 5 mg Ondansetron HCl (Zofran Inj) 4 mg IVP Q4 PRN PRN Reason: Nausea/Vomiting Oxycodone/Acetaminophen (Percocet 5/325 Mg Tab) 1 tab PO Q4H PRN PRN Reason: Pain, moderate (4-7) Stop: 12/18/18 12:47 Pantoprazole Sodium (Protonix Inj) 40 mg IVP DAILY [facility] Last Admin: 12/16/18 09:54 Dose: 40 mg Tamsulosin HCl (Flomax) 0.4 mg PO DAILY [facility] Last Admin: 12/16/18 09:54 Dose: 0.4 mg Vitamin A (Vitamin A & D Oint Ud Foilpak) 0.5 ea TOP PRN PRN PRN Reason: Dry mouth Last Admin: 12/14/18 00:06 Dose: 0.5 ea - Labs Labs: 12/16/18 05:37 12/16/18 05:37 PT 14.5 SECONDS (9.7-12.2) H 12/13/18 07:09 INR 1.3 12/13/18 07:09 APTT 34 SECONDS (21-34) D 12/13/18 07:09 - Constitutional Appears: Non-toxic, No Acute Distress - Head Exam Head Exam: ATRAUMATIC, NORMAL INSPECTION - Eye Exam Eye Exam: EOMI, Normal appearance - Respiratory Exam Respiratory Exam: Respiratory Distress, NORMAL BREATHING PATTERN - Cardiovascular Exam Cardiovascular Exam: +S1, +S2 - GI/Abdominal Exam GI & Abdominal Exam: Soft, Tenderness (mild cele-incisional tenderness). abs ent: Distended, Firm, Guarding, Rigid, Rebound Additional comments: Dressing clean/dry/intact On-Q in place on 4cc/hr Marcio drain in place with 40cc serosanguinous output over past 24 hours - Neurological Exam Neurological Exam: Alert, Awake, Oriented x3 - Psychiatric Exam Psychiatric exam: Normal Affect, Normal Mood - Skin Skin Exam: Normal Color Assessment and Plan - Assessment and Plan (Free Text) Assessment: 63yo M with transverse colon adenocarcinoma, left inguinal hernia s/p Left Inguinal Hernia repair w/ mesh, Tranverse colectomy with anastomosis with mobilization of splenic flexure, repair of umbilical hernia. Cystoscopy with left double J ureteral stent placement by Dr. Boss, POD#3 - OOB to chair this AM - Remain on CLD for now, will monitor for bowel function - Hart per Dr. Boss - Encourage ambulation and IS, PT following - DVT PPx: Lovenox - Clear for transfer out of ICU per surgical team - Discussed plan with Dr. Kia Ordonez PGY-4
--- NOTE | 2018-12-16 22:27 | OP ---
PROCEDURE DATE: 12/13/2018 PREOPERATIVE DIAGNOSES: Colon cancer, left inguinal hernia. POSTOPERATIVE DIAGNOSES: Colon cancer, left inguinal hernia. OPERATION PERFORMED: Left inguinal hernia repair with mesh and segmental colon resection with primary anastomosis. SURGEON: Hugh Adam MD ASSISTANTS: Eros Munoz DO, PGY-3; Ana Lilia Ordonez DO, PGY-4; Maricruz Juarez DO, PGY-3. Ousmane Adams, MS3 ANESTHESIA: General. ANESTHESIOLOGIST: Marie Pérez CRNA ESTIMATED BLOOD LOSS: 300 mL. DESCRIPTION OF OPERATION: Upon intubation and sedation, the patient was prepped and draped in the usual sterile fashion from inguinal region including thigh and scrotum to the nipples. Left inguinal hernia was noted. An incision was made in the left inguinal region with scalpel. Dissection was made all the way down to the external obliques which were by blunt dissection and into the hernia defect. The cord was seen exiting the defect, and dissection around the cord was done. Then, we were able to grasp the circumferential cord which was then grasped with a Chamois drain. Upon grasping the cord, further dissection was done in order to determine the hernia sac which was noted. Care was taken to avoid all the nerves and minimize any bleeding. Upon identification of the sac, sac was ligated very proximally and then reduced back into the cavity. The hernia defects were plugged. Mesh was placed into the hernia defect and was sutured into place using loop PDS sutures. A patch mesh was also placed around the cord which was also sutured into place using PDS suture. The layer over the defect was closed using Vicryl sutures. The external oblique edges were also closed using 2-0 Vicryl sutures in a running fashion. Any oozing of blood was taken care of with electrocautery, and skin was stapled with mariana and dressed with 4x4 dressing. Care was then focused to the abdominal pathology. Midline incision was made supraumbilically, measuring approximately 5 to 6 inches. Dissection was done all the way to the level of the fascia. The abdomen was entered in the midline. Upon entry of the abdomen, inspection was done and noted showing no intra-abdominal injury. Portion of the colon was extended out of the body and palpated for masses. Two masses were identified, one in the midtransverse colon and one in the distal transverse colon at the level of the splenic flexure. Lesser sac was entered via lesser omentum connecting the stomach and the transverse colon. LigaSure was used to mobilize transverse colon all the way to the level of the splenic flexure. Sharp dissection was done with Miller scissors at the level of the splenic flexure for further mobilization. The proximal portion of the descending colon was also mobilized using sharp dissection. Care was then taken to the mesocolon of the transverse colon which was also entered with LigaSure. Most proximal mass was noted, and transection of the transverse colon was made 5 cm proximal to this mass. Most distal mass was also noted and transection of the colon was also made 5 cm distal to this mass. Upon transection of the colon proximally and distally involving both masses, LigaSure was used to transect the colon from its mesentery. Enough mesentery was involved in specimen in order to obtaining as many lymph nodes as possible. Upon transection of the mesentery of the colon, the colon was then removed from the body and sent to Pathology as specimen. Both ends of the colon that were transected were now brought together for primary anastomosis. Anastomosis was done using EFREN and TA. Upon making the anastomosis, palpation of the anastomosis was done to ensure that the lumen was patent and large enough. The mesenteric defect was closed using Vicryl sutures in a running fashion. Abdomen was irrigated and suctioned. Marcio drain was placed with the tip pointing into the left upper quadrant into left abdominal space. The fascia was closed using two loop PDS sutures, one starting from the top of the incision and one starting from the bottom of the incision meeting intermediate and sutured down and showing that there was no defects along the way. Subcutaneous tissue was approximated together using Vicryl sutures, and skin was approximated with mariana. A 4x4 dressing and tape were used for dressing. Upon completion of the operation, the patient was awaken from anesthesia and extubated without any complication. The patient was then taken to the PACU and tolerated the procedure well. Estimated blood loss was 200 mL. Eros Munoz DO Hugh Adam MD [facility] # [id number] LUZ
[2018-12-16] MEDS: Oxycodone/Acetaminophen 5/325 mg Tab PO PRN (23:16)
[2018-12-17] MEDS: metroNIDAZOLE IV 500 mg/100 ml 500 MG/100 ML BAG IVPB SCH ×3 (00:59→17:00)
[2018-12-17] MEDS: Meropenem 1 GM in Sodium Chloride 0.9% 100 ML IVPB SCH ×3 (05:26→20:40)
[2018-12-17] MEDS: Potassium Ch 20mEq in D5-1/2NS 1,000 ML IV SCH ×4 (05:28→18:44)
[2018-12-17 06:30] LABS: BASO % 0.7 % (0.0-2.0); EOS # 0.2 K/uL (0.0-0.7); EOS % 3.2 % (0.0-4.0); HEMOGLOBIN 10.5 g/dL (12.0-18.0); LYMPH # 0.8 K/uL (1.0-4.3); LYMPH % 14.6 % (20.0-40.0); MEAN CELL VOLUME 86.5 fL (80.0-94.0); MEAN CORPUSCULAR HEMOGLOBIN 27.5 pg (27.0-31.0); MEAN CORPUSCULAR HGB CONC 31.8 g/dL (33.0-37.0); MEAN PLATELET VOLUME 9.8 fL (7.2-11.7); MONO # 0.4 K/uL (0.0-0.8); MONO % 8.6 % (0.0-10.0); NEUT # 3.8 K/uL (1.8-7.0); NEUT % 72.9 % (50.0-75.0); RBC 3.83 Mil/uL (4.40-5.90); RED CELL DISTRIBUTION WIDTH 14.5 % (11.5-14.5); WHITE BLOOD COUNT 5.2 K/uL (4.8-10.8)
[2018-12-17 06:46] LABS: ALBUMIN 2.9 g/dL (3.5-5.0); ALT/SGPT 29 U/L (21-72); AST/SGOT 27 U/L (17-59); BLOOD UREA NITROGEN 8 mg/dL (9-20); CALCIUM 8.9 mg/dl (8.6-10.4); GFR NON-AFRICAN AMERICAN > 60
[2018-12-17] MEDS ORDERED: Potassium Chloride 20 mEq ER Tab PO ONE (07:48)
--- NOTE | 2018-12-17 07:49 | CP.PCM.PN ---
Subjective - Date & Time of Evaluation Date of Evaluation: 12/17/18 Time of Evaluation: 07:47 - Subjective Subjective: SURGERY NOTE FOR DR. BURNETTE 63M seen and examined at bedside. Patient states pain is well controlled, denies nausea or vomiting. Patient also denies flatus and bowel movement. Currently tolerating clear liquid diet. Objective - Vital Signs/Intake and Output Vital Signs (last 24 hours): Temp Pulse Resp BP Pulse Ox 98.3 F 69 18 135/63 99 12/17/18 04:00 12/17/18 06:00 12/17/18 06:00 12/17/18 03:41 12/17/18 06:00 Intake and Output: 12/17/18 12/17/18 06:59 18:59 Intake Total 1650 Output Total 760 Balance 890 - Medications Medications: Current Medications Amlodipine Besylate (Norvasc) 10 mg PO DAILY [facility] Last Admin: 12/16/18 09:53 Dose: 10 mg Enoxaparin Sodium (Lovenox) 40 mg SC DAILY [facility] Last Admin: 12/16/18 09:54 Dose: 40 mg Meropenem 1 gm/ Sodium (Chloride) 100 mls @ 100 mls/hr IVPB Q8H [facility]; Protocol Last Admin: 12/17/18 05:26 Dose: 100 mls/hr BUPIVACAINE 0.125%/0.9% NACL (Bupivacaine-Ns 0.125% On-Q Maintenance Shop Clerk) 600 mls @ 4 mls/hr IJ ONCE ONE Stop: 12/19/18 17:29 Last Admin: 12/13/18 18:08 Dose: Not Given Metronidazole (Flagyl) 500 mg in 100 mls @ 100 mls/hr IVPB Q8H [facility]; Protocol Last Admin: 12/17/18 00:59 Dose: 100 mls/hr BUPIVACAINE 0.125%/0.9% NACL (Bupivacaine-Ns 0.125% On-Q Maintenance Shop Clerk) 600 mls @ 4 mls/hr IJ ONCE ONE Stop: 12/21/18 13:34 Last Admin: 12/15/18 09:07 Dose: 4 mls/hr Potassium Chloride/Dextrose/Sod Cl (Potassium Chl 20 Meq In D5-1/2ns) 1,000 mls @ 100 mls/hr IV .Q10H [facility] Last Admin: 12/17/18 07:26 Dose: 100 mls/hr Metoclopramide HCl (Reglan) 5 mg IVP Q6H [facility] Last Admin: 12/17/18 07:25 Dose: 5 mg Ondansetron HCl (Zofran Inj) 4 mg IVP Q4 PRN PRN Reason: Nausea/Vomiting Oxycodone/Acetaminophen (Percocet 5/325 Mg Tab) 1 tab PO Q4H PRN PRN Reason: Pain, moderate (4-7) Stop: 12/18/18 12:47 Last Admin: 12/16/18 23:16 Dose: 1 tab Pantoprazole Sodium (Protonix Inj) 40 mg IVP DAILY [facility] Last Admin: 12/16/18 09:54 Dose: 40 mg Tamsulosin HCl (Flomax) 0.4 mg PO DAILY [facility] Last Admin: 12/16/18 09:54 Dose: 0.4 mg Vitamin A (Vitamin A & D Oint Ud Foilpak) 0.5 ea TOP PRN PRN PRN Reason: Dry mouth Last Admin: 12/14/18 00:06 Dose: 0.5 ea - Labs Labs: 12/17/18 06:25 12/17/18 06:25 PT 14.5 SECONDS (9.7-12.2) H 12/13/18 07:09 INR 1.3 12/13/18 07:09 APTT 34 SECONDS (21-34) D 12/13/18 07:09 - Constitutional Appears: Non-toxic, No Acute Distress - Respiratory Exam Respiratory Exam: Clear to Ausculation Bilateral, NORMAL BREATHING PATTERN - Cardiovascular Exam Cardiovascular Exam: REGULAR RHYTHM, +S1, +S2 - GI/Abdominal Exam GI & Abdominal Exam: Soft, Tenderness. absent: Distended, Firm, Guarding, Rigid, Rebound Additional comments: incision CDI Marcio drain having serosanguinous output On-Q ball in place - Neurological Exam Neurological Exam: Alert, Awake - Psychiatric Exam Psychiatric exam: Normal Affect, Normal Mood - Skin Skin Exam: Dry, Intact, Normal Color, Warm Assessment and Plan - Assessment and Plan (Free Text) Assessment: 63yo M with transverse colon adenocarcinoma, left inguinal hernia s/p Left Inguinal Hernia repair w/ mesh, Transverse colectomy with anastomosis with mobilization of splenic flexure, repair of umbilical hernia. Cystoscopy with left double J ureteral stent placement by Dr. Boss, POD#4 Plan: - Continue diet - Continue IVF - Monitor On-Q - Hart in place - Await bowel function - Await pathology Further recs discuss with Dr. Kia Munoz, PGY3
--- NOTE | 2018-12-17 09:28 | CP.PCM.PN ---
Subjective - Date & Time of Evaluation Date of Evaluation: 12/17/18 Time of Evaluation: 08:00 - Subjective Subjective: Medicine Progress note for Dr. Nicole Patient was seen and examined at bedside in no acute distress. Patient states his pain is minimal. He has not passed flatus or had a bowel movement yet. Patient states he has moved out of bed to chair. He is tolerating liquid diet well. Patient denies chest pain, shortness of breath, palpitations, nausea, vomiting or fever. Objective - Vital Signs/Intake and Output Vital Signs (last 24 hours): Temp Pulse Resp BP Pulse Ox 98.3 F 69 18 135/63 99 12/17/18 04:00 12/17/18 06:00 12/17/18 06:00 12/17/18 03:41 12/17/18 06:00 Intake and Output: 12/17/18 12/17/18 06:59 18:59 Intake Total 1650 Output Total 760 Balance 890 - Medications Medications: Current Medications Amlodipine Besylate (Norvasc) 10 mg PO DAILY [facility] Last Admin: 12/16/18 09:53 Dose: 10 mg Enoxaparin Sodium (Lovenox) 40 mg SC DAILY [facility] Last Admin: 12/16/18 09:54 Dose: 40 mg Meropenem 1 gm/ Sodium (Chloride) 100 mls @ 100 mls/hr IVPB Q8H [facility]IO; Protocol Last Admin: 12/17/18 05:26 Dose: 100 mls/hr BUPIVACAINE 0.125%/0.9% NACL (Bupivacaine-Ns 0.125% On-Q Head Wrestling Coach) 600 mls @ 4 mls/hr IJ ONCE ONE Stop: 12/19/18 17:29 Last Admin: 12/13/18 18:08 Dose: Not Given Metronidazole (Flagyl) 500 mg in 100 mls @ 100 mls/hr IVPB Q8H [facility]IO; Protocol Last Admin: 12/17/18 00:59 Dose: 100 mls/hr BUPIVACAINE 0.125%/0.9% NACL (Bupivacaine-Ns 0.125% On-Q Head Wrestling Coach) 600 mls @ 4 mls/hr IJ ONCE ONE Stop: 12/21/18 13:34 Last Admin: 12/15/18 09:07 Dose: 4 mls/hr Potassium Chloride/Dextrose/Sod Cl (Potassium Chl 20 Meq In D5-1/2ns) 1,000 mls @ 100 mls/hr IV .Q10H [facility] Last Admin: 12/17/18 07:26 Dose: 100 mls/hr Metoclopramide HCl (Reglan) 5 mg IVP Q6H [facility] Last Admin: 12/17/18 07:25 Dose: 5 mg Ondansetron HCl (Zofran Inj) 4 mg IVP Q4 PRN PRN Reason: Nausea/Vomiting Oxycodone/Acetaminophen (Percocet 5/325 Mg Tab) 1 tab PO Q4H PRN PRN Reason: Pain, moderate (4-7) Stop: 12/18/18 12:47 Last Admin: 12/16/18 23:16 Dose: 1 tab Pantoprazole Sodium (Protonix Inj) 40 mg IVP DAILY [facility] Last Admin: 12/16/18 09:54 Dose: 40 mg Tamsulosin HCl (Flomax) 0.4 mg PO DAILY [facility] Last Admin: 12/16/18 09:54 Dose: 0.4 mg Vitamin A (Vitamin A & D Oint Ud Foilpak) 0.5 ea TOP PRN PRN PRN Reason: Dry mouth Last Admin: 12/14/18 00:06 Dose: 0.5 ea - Labs Labs: 12/17/18 06:25 12/17/18 06:25 PT 14.5 SECONDS (9.7-12.2) H 12/13/18 07:09 INR 1.3 12/13/18 07:09 APTT 34 SECONDS (21-34) D 12/13/18 07:09 - Constitutional Appears: No Acute Distress - Head Exam Head Exam: ATRAUMATIC, NORMAL INSPECTION - Eye Exam Eye Exam: EOMI, Normal appearance - ENT Exam ENT Exam: Mucous Membranes Moist - Respiratory Exam Respiratory Exam: Clear to Ausculation Bilateral, NORMAL BREATHING PATTERN - Cardiovascular Exam Cardiovascular Exam: REGULAR RHYTHM, +S1, +S2 - GI/Abdominal Exam GI & Abdominal Exam: Soft, Normal Bowel Sounds Additional comments: binder/dressing - c/d/i; aleena drain - serous sanguineous fluid - Exam Additional comments: sharma in place - Extremities Exam Extremities Exam: Normal Inspection - Neurological Exam Neurological Exam: Alert, Awake, Oriented x3 - Psychiatric Exam Psychiatric exam: Normal Affect - Skin Skin Exam: Normal Color Assessment and Plan - Assessment and Plan (Free Text) Assessment: Adenocardinoma of the Proximal Descending Colon - GI Consult: Dr. Zamora --> help appreciated - Surgery Consult: Dr. Adam --> help appreciated * s/p (12/13/18) Left Inguinal Hernia repair with mesh, Exploratory Laparotomy, Tranverse colectomy with anastomosis with mobilization of splenic flexure, repair of umbilical hernia. Cystoscopy with left double J ureteral stent placement by Dr. Boss * f/u pathology results - Hem/Onc Consult: Dr. Lewis --> help appreciated * Per Dr. Lewis, likely a malignancy, no evidence of mets,f/u surgical pathology - Chest CT: Cardiomegaly. Medial left upper lobe bronchiectasis and small bulla evident. 4 mm nodular opacity along the pleura, possibly intrapulmonary lymph node. 2 mm right middle lobe nodule. Recommend [address] follow-up. Limited visualization of the upper abdomen reveals partially imaged moderate to severe wall thickening of the mid to distal transverse colon which appears consistent with provided history of colonic carcinoma. 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 - s/p colonoscopy 12/11/18 * Findings: Malignant-appearing intrinsic severe stenosis was found in the transverse colon and non-transverse colon * Pathology: adenocarcinoma of the proximal descending colon - Patient is scheduled for a colon resection 12/13/[address] Adam - Cardiac Clearance --> Cardiac Consult: Dr. Carias --> help appreciated - Per Dr. Carias: Patient is at intermediate risk for the planned procedure. Recommend perioperative betablocker to attenuate operative risk. There is no cardiovascular contraindication to the planned surgery. - ECHO (12/13/18): EF 65-70%; mild concentric left ventricular hypertrophy; the left ventricle systolic function is normal Colitis - GI Consult: Dr. Zamora --> help appreciated - Liquid Diet - Images: * CT of Abdomen/Pelvis: Segmental moderate to marked wall thickening of the mid and distal transverse colon surrounding with inflammatory changes consistent with colitis. The possibility of underline infiltrative neoplasm is not totally excluded. The differential consideration includes ischemic infection or inflammatory colitis. 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 Mild to moderate left hydroureter. The distal portion of the left ureter is extending into large left inguinal hernia. Part of urinary bladder is also he rniated and the left UV junction is likely in the left inguinal hernia. The possibility of distal left ureter stone is not totally excluded. The differential consideration includes compression on the distal left ureter at left inguinal hernia. Otherwise no evidence of acute pathology in the abdomen and pelvis. - s/p Colonoscopy on 12/11/18 please see results above - Blood Culture Negative - Medications: * Metronidazole 500mg IV q8h * NS @150cc/hr * Colace 100mg po daily * Reglan 5mg IV q6h * Morphine 2mg IV q4 prn UTI - UA: +1LE - Urine Culture: + Ecoli, + ESBL - ID consulted, Dr. Melara --> Help appreciated - Medications: * Merrem 1g IV Q8 (active since 12/11/18) continue till 12/18/18 Left inguinal hernia - Contains portion of the bladder, left hydronephrosis indicating possible involvement of left ureter - Surgery Consult: Dr. Adam --> help appreciated - Urology Consult: Dr. Chica Boss --> help appreciated Anemia - Hem/onc consulted, Dr. Lewis --> Help appreciated - Likely chronic tumor bleed - f/u anemia work up HTN - Continue home medication Norvasc 10mg po daily History of BPH - Continue home medication Flomax 0.4mg po daily Prophylaxis - Protonix daily - Colace 100mg dialy - SCDs - Lovenox 40mg SC daily Case discussed with Dr. Corey Pelaez PGY-2
--- NOTE | 2018-12-17 10:05 | PCM.URO ---
Urology Progress Note - General General: Tolerating Diet - Subjective Abdominal Pain: Yes Flank Pain: No Nausea: No Vomiting: No Voiding Well: No (sharma catheter in place) Hematuria: No Dsypnea: No Chest Pain: No - Objective Lab Studies: Reviewed Lab Results Last 24 Hours: Laboratory Results - last 24 hr 12/17/18 12/17/18 12/17/18 06:25 06:25 06:25 WBC 5.2 RBC 3.83 L Hgb 10.5 L Hct 33.2 L MCV 86.5 MCH 27.5 MCHC 31.8 L RDW 14.5 Plt Count 209 MPV 9.8 Neut % (Auto) 72.9 Lymph % (Auto) 14.6 L Jackson % (Auto) 8.6 Eos % (Auto) 3.2 Baso % (Auto) 0.7 Neut # (Auto) 3.8 Lymph # (Auto) 0.8 L Jackson # (Auto) 0.4 Eos # (Auto) 0.2 Baso # (Auto) 0.0 Sodium 139 Potassium 3.5 L Chloride 103 Carbon Dioxide 33 H Anion Gap 7 L BUN 8 L Creatinine 0.7 L Est GFR ( Amer) > 60 Est GFR (Non-Af Amer) > 60 Random Glucose 129 H Calcium 8.9 Phosphorus 2.6 Magnesium 1.9 Total Bilirubin 0.4 AST 27 ALT 29 Alkaline Phosphatase 64 Total Protein 5.7 L Albumin 2.9 L Globulin 2.8 Albumin/Globulin Ratio 1.0 Intake & Output: Intake & Output 12/16/18 12/17/18 12/17/18 18:59 06:59 18:59 Intake Total 2200 1650 Output Total 975 760 Balance 1225 890 Intake: Intake, IV Amount 1200 1200 Right Hand 1200 1200 Oral 1000 450 Output: Drainage 275 160 Left Abdomen 275 160 Urine 700 600 Urethral (Sharma) 700 600 Other: # Bowel Movements 0 Vital Signs: Vital Signs - 24 hr 12/16/18 12/16/18 12/16/18 11:00 11:43 12:00 Temperature 98 F Pulse Rate 74 70 Respiratory 16 10 L Rate Blood Pressure O2 Sat by Pulse Oximetry 12/16/18 12/16/18 12/16/18 12:44 13:00 14:00 Temperature Pulse Rate 70 76 71 Respiratory 19 18 17 Rate Blood Pressure 148/78 O2 Sat by Pulse Oximetry 12/16/18 12/16/18 12/16/18 15:00 15:50 15:53 Temperature 98.3 F Pulse Rate 65 71 Respiratory 16 Rate Blood Pressure O2 Sat by Pulse Oximetry 12/16/18 12/16/18 12/16/18 16:00 16:44 17:00 Temperature Pulse Rate 70 65 69 Respiratory 18 19 23 Rate Blood Pressure 148/71 O2 Sat by Pulse 98 100 Oximetry 12/16/18 12/16/18 12/16/18 18:00 19:41 20:00 Temperature 98.2 F Pulse Rate 67 69 69 Respiratory 19 17 14 Rate Blood Pressure 149/70 O2 Sat by Pulse 100 97 99 Oximetry 12/16/18 12/16/18 12/16/18 20:48 23:00 23:10 Temperature Pulse Rate 67 65 Respiratory 19 19 Rate Blood Pressure 152/72 H O2 Sat by Pulse 100 100 Oximetry 12/16/18 12/17/18 12/17/18 23:41 00:00 01:00 Temperature 99 F Pulse Rate 70 65 64 Respiratory 18 15 14 Rate Blood Pressure 145/72 O2 Sat by Pulse 100 100 100 Oximetry 12/17/18 12/17/18 12/17/18 03:41 04:00 05:00 Temperature 98.3 F Pulse Rate 66 64 Respiratory 21 15 Rate Blood Pressure 135/63 O2 Sat by Pulse 100 100 Oximetry 12/17/18 06:00 Temperature Pulse Rate 69 Respiratory 18 Rate Blood Pressure O2 Sat by Pulse 99 Oximetry - Physical Exam Abdominal Exam: Soft, Non-Distended Back: No CVA Tenderness Genitalia: Without Inflammation Urinary Catheter Draining Well: Yes Urine Color: Yellow - Male Phallus: Normal Scrotum: Normal - Plan Catheter Care: Yes (rec: trial of voiding when you no longer require hourly output measurement) Intake & Output: Yes Additional Information: IMP: urologically stable. stable p cysto and L stent insertion. L hydronephrosis. s/p surgery for colon ca and LIH - Date & Time of Note Date: 12/16/18 Time: 11:30
[2018-12-17] MEDS: Enoxaparin 40 mg Syringe SC SCH (10:57)
--- NOTE | 2018-12-17 11:51 | PN ---
DATE: 12/17/2018 LOCATION: ICU 11. SUBJECTIVE: This 63-year-old male post partial resection due to colon adenocarcinoma, seen and examined in rounds without significant clinical changes, but less abdominal pain. No reported active bleeding, out of bed safely tolerating some oral intake. The entire chart is reviewed including but not limited to the most recent lab and radiology study results, current and the previous medication list, current and the previous medical events. LABORATORY DATA: Today's lab results showed hemoglobin 10.5, hematocrit 33.2 with normal platelet count. Potassium 3.5, CO2 content 33 indicative of respiratory alkalosis with low albumin and low total protein with BUN 8, creatinine 0.7, blood glucose level 129. PHYSICAL EXAMINATION: GENERAL: A 63-year-old male, awake, alert, oriented. VITAL SIGNS: Afebrile. Denied any chest pain, palpitations, or shortness of breath. Pulse of 68, respiratory rate 16 to 18, blood pressure 130/62. HEENT: Showed pale dry oral mucous membrane. Nonicteric sclerae. LUNGS: Few scattered crepitation with mild decreased air entry at bases. HEART: Positive S1 and S2. ABDOMEN: Covered with clean dressing. Bowel sounds are hypoactive with mild distention. No mass or organomegaly. EXTREMITIES: With lower extremities mild edematous changes. No clubbing or cyanosis. NEUROLOGIC: No reported new neurological deficits, sensory or motor. IMPRESSION: 1. Adenocarcinoma of the colon with partial colon resection. 2. Anemia, most likely secondary to above. 3. Known history of sleep apnea. 4. Known history of hypertension, benign prostatic hypertrophy. 5. Status post inguinal hernia repair. SUGGESTIONS: 1. Continue current management. 2. Advance diet gradually as per surgical consult. 3. Blood transfusion as needed to keep hemoglobin around 10 g%. 4. Further recommendation to follow. Eric Silva MD
--- NOTE | 2018-12-18 00:07 | CP.PCM.PN ---
Subjective - Date & Time of Evaluation Date of Evaluation: 12/16/18 Time of Evaluation: 12:00 - Subjective Subjective: No complaints. Objective - Vital Signs/Intake and Output Vital Signs (last 24 hours): Temp Pulse Resp BP Pulse Ox 97.8 F 68 20 129/65 94 L 12/17/18 20:00 12/17/18 21:00 12/17/18 21:00 12/17/18 20:42 12/17/18 13:00 Intake and Output: 12/17/18 12/18/18 18:59 06:59 Intake Total 500 100 Output Total 1000 120 Balance -500 -20 - Medications Medications: Current Medications Amlodipine Besylate (Norvasc) 10 mg PO DAILY [facility] Last Admin: 12/17/18 10:57 Dose: 10 mg Docusate Sodium (Colace) 100 mg PO BID [facility] Last Admin: 12/17/18 18:43 Dose: 100 mg Enoxaparin Sodium (Lovenox) 40 mg SC DAILY [facility] Last Admin: 12/17/18 10:57 Dose: 40 mg Meropenem 1 gm/ Sodium (Chloride) 100 mls @ 100 mls/hr IVPB Q8H [facility]; Protocol Last Admin: 12/17/18 20:40 Dose: 100 mls/hr BUPIVACAINE 0.125%/0.9% NACL (Bupivacaine-Ns 0.125% On-Q Fiscal Services Director) 600 mls @ 4 mls/hr IJ ONCE ONE Stop: 12/19/18 17:29 Last Admin: 12/13/18 18:08 Dose: Not Given Metronidazole (Flagyl) 500 mg in 100 mls @ 100 mls/hr IVPB Q8H [facility]; Protocol Last Admin: 12/17/18 17:00 Dose: 100 mls/hr BUPIVACAINE 0.125%/0.9% NACL (Bupivacaine-Ns 0.125% On-Q Fiscal Services Director) 600 mls @ 4 mls/hr IJ ONCE ONE Stop: 12/21/18 13:34 Last Admin: 12/15/18 09:07 Dose: 4 mls/hr Potassium Chloride/Dextrose/Sod Cl (Potassium Chl 20 Meq In D5-1/2ns) 1,000 mls @ 100 mls/hr IV .Q10H [facility] Last Admin: 12/17/18 18:44 Dose: 100 mls/hr Metoclopramide HCl (Reglan) 5 mg IVP Q6H [facility] Last Admin: 12/17/18 20:40 Dose: 5 mg Ondansetron HCl (Zofran Inj) 4 mg IVP Q4 PRN PRN Reason: Nausea/Vomiting Oxycodone/Acetaminophen (Percocet 5/325 Mg Tab) 1 tab PO Q4H PRN PRN Reason: Pain, moderate (4-7) Stop: 12/18/18 12:47 Last Admin: 12/16/18 23:16 Dose: 1 tab Pantoprazole Sodium (Protonix Ec Tab) 40 mg PO DAILY [facility] Tamsulosin HCl (Flomax) 0.4 mg PO DAILY [facility] Last Admin: 12/17/18 10:55 Dose: 0.4 mg Vitamin A (Vitamin A & D Oint Ud Foilpak) 0.5 ea TOP PRN PRN PRN Reason: Dry mouth Last Admin: 12/14/18 00:06 Dose: 0.5 ea - Labs Labs: 12/17/18 06:25 12/17/18 06:25 PT 14.5 SECONDS (9.7-12.2) H 12/13/18 07:09 INR 1.3 12/13/18 07:09 APTT 34 SECONDS (21-34) D 12/13/18 07:09 - Head Exam Head Exam: ATRAUMATIC - Eye Exam Eye Exam: Normal appearance - ENT Exam ENT Exam: Mucous Membranes Dry - Respiratory Exam Respiratory Exam: NORMAL BREATHING PATTERN - Cardiovascular Exam Cardiovascular Exam: +S1, +S2 - GI/Abdominal Exam GI & Abdominal Exam: Normal Bowel Sounds Assessment and Plan (1) Colon cancer Assessment & Plan: s/p hemicolectomy f/u pathology Status: Acute (2) Anemia Assessment & Plan: surgical blood loss Status: Acute
--- NOTE | 2018-12-18 00:08 | CP.PCM.PN ---
Subjective - Date & Time of Evaluation Date of Evaluation: 12/17/18 Time of Evaluation: 19:00 - Subjective Subjective: Feeling better. Objective - Vital Signs/Intake and Output Vital Signs (last 24 hours): Temp Pulse Resp BP Pulse Ox 97.8 F 68 20 129/65 94 L 12/17/18 20:00 12/17/18 21:00 12/17/18 21:00 12/17/18 20:42 12/17/18 13:00 Intake and Output: 12/17/18 12/18/18 18:59 06:59 Intake Total 500 100 Output Total 1000 120 Balance -500 -20 - Medications Medications: Current Medications Amlodipine Besylate (Norvasc) 10 mg PO DAILY [facility] Last Admin: 12/17/18 10:57 Dose: 10 mg Docusate Sodium (Colace) 100 mg PO BID [facility] Last Admin: 12/17/18 18:43 Dose: 100 mg Enoxaparin Sodium (Lovenox) 40 mg SC DAILY [facility] Last Admin: 12/17/18 10:57 Dose: 40 mg Meropenem 1 gm/ Sodium (Chloride) 100 mls @ 100 mls/hr IVPB Q8H [facility]; Protocol Last Admin: 12/17/18 20:40 Dose: 100 mls/hr BUPIVACAINE 0.125%/0.9% NACL (Bupivacaine-Ns 0.125% On-Q Resort Manager) 600 mls @ 4 mls/hr IJ ONCE ONE Stop: 12/19/18 17:29 Last Admin: 12/13/18 18:08 Dose: Not Given Metronidazole (Flagyl) 500 mg in 100 mls @ 100 mls/hr IVPB Q8H [facility]; Protocol Last Admin: 12/17/18 17:00 Dose: 100 mls/hr BUPIVACAINE 0.125%/0.9% NACL (Bupivacaine-Ns 0.125% On-Q Resort Manager) 600 mls @ 4 mls/hr IJ ONCE ONE Stop: 12/21/18 13:34 Last Admin: 12/15/18 09:07 Dose: 4 mls/hr Potassium Chloride/Dextrose/Sod Cl (Potassium Chl 20 Meq In D5-1/2ns) 1,000 mls @ 100 mls/hr IV .Q10H [facility] Last Admin: 12/17/18 18:44 Dose: 100 mls/hr Metoclopramide HCl (Reglan) 5 mg IVP Q6H [facility] Last Admin: 12/17/18 20:40 Dose: 5 mg Ondansetron HCl (Zofran Inj) 4 mg IVP Q4 PRN PRN Reason: Nausea/Vomiting Oxycodone/Acetaminophen (Percocet 5/325 Mg Tab) 1 tab PO Q4H PRN PRN Reason: Pain, moderate (4-7) Stop: 12/18/18 12:47 Last Admin: 12/16/18 23:16 Dose: 1 tab Pantoprazole Sodium (Protonix Ec Tab) 40 mg PO DAILY [facility] Tamsulosin HCl (Flomax) 0.4 mg PO DAILY [facility] Last Admin: 12/17/18 10:55 Dose: 0.4 mg Vitamin A (Vitamin A & D Oint Ud Foilpak) 0.5 ea TOP PRN PRN PRN Reason: Dry mouth Last Admin: 12/14/18 00:06 Dose: 0.5 ea - Labs Labs: 12/17/18 06:25 12/17/18 06:25 PT 14.5 SECONDS (9.7-12.2) H 12/13/18 07:09 INR 1.3 12/13/18 07:09 APTT 34 SECONDS (21-34) D 12/13/18 07:09 - Head Exam Head Exam: ATRAUMATIC - Eye Exam Eye Exam: Normal appearance - ENT Exam ENT Exam: Mucous Membranes Dry - Respiratory Exam Respiratory Exam: NORMAL BREATHING PATTERN - Cardiovascular Exam Cardiovascular Exam: +S1, +S2 - GI/Abdominal Exam GI & Abdominal Exam: Normal Bowel Sounds Assessment and Plan (1) Colon cancer Assessment & Plan: s/p hemicolectomy f/u pathology Status: Acute (2) Anemia Status: Acute
[2018-12-18] MEDS: Oxycodone/Acetaminophen 5/325 mg Tab PO PRN ×3 (01:22→23:45)
[2018-12-18] MEDS: metroNIDAZOLE IV 500 mg/100 ml 500 MG/100 ML BAG IVPB SCH ×4 (01:30→23:45)
[2018-12-18] MEDS: Potassium Ch 20mEq in D5-1/2NS 1,000 ML IV SCH ×3 (01:45→16:29)
[2018-12-18] MEDS: Meropenem 1 GM in Sodium Chloride 0.9% 100 ML IVPB SCH ×3 (04:29→20:14)
--- NOTE | 2018-12-18 07:26 | CP.PCM.PN ---
Subjective - Date & Time of Evaluation Date of Evaluation: 12/18/18 Time of Evaluation: 07:24 - Subjective Subjective: Progress note for Dr. Nicole Patient was seen and examined at bedside in no acute distress. Patient reports having gas and several BMs since last night. He denies chest pain, dyspnea, palpitations, nausea, vomiting, fevers, headaches, leg pain and swelling. He is tolerating his diet. Objective - Vital Signs/Intake and Output Vital Signs (last 24 hours): Temp Pulse Resp BP Pulse Ox 97.8 F 77 24 118/67 98 12/18/18 04:00 12/18/18 02:00 12/18/18 02:00 12/17/18 23:45 12/18/18 02:00 Intake and Output: 12/18/18 12/18/18 06:59 18:59 Intake Total 100 Output Total 120 Balance -20 - Medications Medications: Current Medications Amlodipine Besylate (Norvasc) 10 mg PO DAILY REPLACED BY [facility] Last Admin: 12/17/18 10:57 Dose: 10 mg Docusate Sodium (Colace) 100 mg PO BID REPLACED BY [facility] Last Admin: 12/17/18 18:43 Dose: 100 mg Enoxaparin Sodium (Lovenox) 40 mg SC DAILY REPLACED BY [facility] Last Admin: 12/17/18 10:57 Dose: 40 mg Meropenem 1 gm/ Sodium (Chloride) 100 mls @ 100 mls/hr IVPB Q8H REPLACED BY [facility]; Protocol Last Admin: 12/18/18 04:29 Dose: 100 mls/hr BUPIVACAINE 0.125%/0.9% NACL (Bupivacaine-Ns 0.125% On-Q Channel Business Manager) 600 mls @ 4 mls/hr IJ ONCE ONE Stop: 12/19/18 17:29 Last Admin: 12/13/18 18:08 Dose: Not Given Metronidazole (Flagyl) 500 mg in 100 mls @ 100 mls/hr IVPB Q8H [facility]; Protocol Last Admin: 12/18/18 01:30 Dose: 100 mls/hr BUPIVACAINE 0.125%/0.9% NACL (Bupivacaine-Ns 0.125% On-Q Channel Business Manager) 600 mls @ 4 mls/hr IJ ONCE ONE Stop: 12/21/18 13:34 Last Admin: 12/15/18 09:07 Dose: 4 mls/hr Potassium Chloride/Dextrose/Sod Cl (Potassium Chl 20 Meq In D5-1/2ns) 1,000 mls @ 100 mls/hr IV .Q10H REPLACED BY [facility] Last Admin: 12/18/18 04:29 Dose: 100 mls/hr Metoclopramide HCl (Reglan) 5 mg IVP Q6H REPLACED BY [facility] Last Admin: 12/18/18 06:43 Dose: 5 mg Ondansetron HCl (Zofran Inj) 4 mg IVP Q4 PRN PRN Reason: Nausea/Vomiting Oxycodone/Acetaminophen (Percocet 5/325 Mg Tab) 1 tab PO Q4H PRN PRN Reason: Pain, moderate (4-7) Stop: 12/18/18 12:47 Last Admin: 12/18/18 01:22 Dose: 1 tab Pantoprazole Sodium (Protonix Ec Tab) 40 mg PO DAILY REPLACED BY [facility] Tamsulosin HCl (Flomax) 0.4 mg PO DAILY REPLACED BY [facility] Last Admin: 12/17/18 10:55 Dose: 0.4 mg Vitamin A (Vitamin A & D Oint Ud Foilpak) 0.5 ea TOP PRN PRN PRN Reason: Dry mouth Last Admin: 12/14/18 00:06 Dose: 0.5 ea - Labs Labs: 12/17/18 06:25 12/17/18 06:25 PT 14.5 SECONDS (9.7-12.2) H 12/13/18 07:09 INR 1.3 12/13/18 07:09 APTT 34 SECONDS (21-34) D 12/13/18 07:09 - Additional Findings Additional findings: - Constitutional Appears: No Acute Distress - Head Exam Head Exam: ATRAUMATIC, NORMAL INSPECTION - Eye Exam Eye Exam: EOMI, Normal appearance - ENT Exam ENT Exam: Mucous Membranes Moist - Respiratory Exam Respiratory Exam: NORMAL BREATHING PATTERN. absent: Rales, Rhonchi, Wheezes, Respiratory Distress - Cardiovascular Exam Cardiovascular Exam: REGULAR RHYTHM, +S1, +S2 - GI/Abdominal Exam GI & Abdominal Exam: Normal Bowel Sounds, Binder, On-Q andDrain in place; dressings are clean, dry, and intact. - Extremities Exam Extremities Exam: Normal Inspection. absent: Pedal Edema, Tenderness - Neurological Exam Neurological Exam: Alert, Awake, Oriented x3 - Psychiatric Exam Psychiatric exam: Normal Affect, Normal Mood - Skin Skin Exam: Dry, Warm Assessment and Plan - Assessment and Plan (Free Text) Plan: Adenocardinoma of the Proximal Descending Colon - GI Consult: Dr. Zamora --> help appreciated - Surgery Consult: Dr. Adam --> help appreciated - Hem/Onc Consult: Dr. Lewis --> help appreciated * Per Dr. Lewis, likely a malignancy, no evidence of mets,f/u surgical pathology - Document Control Assistant consult for cardiac clearance prior to surgeries: Dr. Carias, help appreciated * Per Dr. Carias: Patient is at intermediate risk for the planned procedure. Recommend perioperative betablocker to attenuate operative risk. There is no cardiovascular contraindication to the planned surgery. * ECHO (12/13/18): EF 65-70%; mild concentric left ventricular hypertrophy; the left ventricle systolic function is normal - Chest CT: Cardiomegaly. Medial left upper lobe bronchiectasis and small bulla evident. 4 mm nodular opacity along the pleura, possibly intrapulmonary lymph node. 2 mm right middle lobe nodule. Recommend [address] follow-up. Limited visualization of the upper abdomen reveals partially imaged moderate to severe wall thickening of the mid to distal transverse colon which appears consistent with provided history of colonic carcinoma. 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 - s/p colonoscopy 12/11/[address] Zamora * Findings: Malignant-appearing intrinsic severe stenosis was found in the transverse colon and non-transverse colon * Pathology: adenocarcinoma of the proximal descending colon - s/p (12/13/18) Left Inguinal Hernia repair with mesh, Exploratory Laparotomy, Tranverse colectomy with anastomosis with mobilization of splenic flexure, repair of umbilical hernia with Dr. Adam. - s/p (12/13/18) Cystoscopy with left double J ureteral stent placement by Dr. Boss - f/u pathology results Colitis - GI Consult: Dr. Zamora --> help appreciated - Liquid Diet, diet will be advanced as tolerated - Images: * CT of Abdomen/Pelvis: Segmental moderate to marked wall thickening of the mid and distal transverse colon surrounding with inflammatory changes consistent with colitis. The possibility of underline infiltrative neoplasm is not tot ally excluded. The differential consideration includes ischemic infection or inflammatory colitis. 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 Mild to moderate left hydroureter. The distal portion of the left ureter is extending into large left inguinal hernia. Part of urinary bladder is also herniated and the left UV junction is likely in the left inguinal hernia. The possibility of distal left ureter stone is not totally excluded. The differential consideration includes compression on the distal left ureter at left inguinal hernia. Otherwise no evidence of acute pathology in the abdomen and pelvis. - s/p Colonoscopy on 12/11/18 please see results above - Blood Culture Negative - Medications: * Metronidazole 500mg IV q8h (active since 12/14/18; last dose to be given on 12/18/18) * Colace 100mg po daily * Reglan 5mg IV q6h * Pain control per surgery team; Percocet prn UTI - UA: +1LE - Urine Culture: + Ecoli, + ESBL - ID consulted, Dr. Melara --> Help appreciated - Medications: * Merrem 1g IV Q8 (active since 12/11/18; last dose to be given on 12/20/18 for a total of 10 days) Left inguinal hernia - s/p (12/13/18) Left Inguinal Hernia repair with mesh, repair of umbilical hernia. Cystoscopy with left double J ureteral stent placement by Dr. Boss - Surgery Consult: Dr. Adam --> help appreciated - Urology Consult: Dr. Chica Boss --> help appreciated Anemia - Hem/onc consulted, Dr. Lewis --> Help appreciated - Likely chronic tumor bleed HTN - Continue home medication Norvasc 10mg po daily History of BPH - Continue home medication Flomax 0.4mg po daily Prophylaxis - Protonix daily - Colace 100mg dialy - SCDs - Lovenox 40mg SC daily Case discussed with and patient seen with Dr. Corey Menon, PGY2
[2018-12-18 08:32] LABS: BASO % 0.6 % (0.0-2.0); EOS # 0.2 K/uL (0.0-0.7); EOS % 5.3 % (0.0-4.0); LYMPH # 0.5 K/uL (1.0-4.3); LYMPH % 10.7 % (20.0-40.0); MEAN CELL VOLUME 85.9 fL (80.0-94.0); MEAN CORPUSCULAR HEMOGLOBIN 29.6 pg (27.0-31.0); MEAN CORPUSCULAR HGB CONC 34.4 g/dL (33.0-37.0); MEAN PLATELET VOLUME 9.3 fL (7.2-11.7); MONO # 0.4 K/uL (0.0-0.8); MONO % 8.3 % (0.0-10.0); NEUT # 3.3 K/uL (1.8-7.0); NEUT % 75.1 % (50.0-75.0); RBC 3.73 Mil/uL (4.40-5.90); RED CELL DISTRIBUTION WIDTH 14.7 % (11.5-14.5); WHITE BLOOD COUNT 4.4 K/uL (4.8-10.8)
[2018-12-18 08:55] LABS: ALB/GLOB RATIO 1.1 (1.0-2.1); ALBUMIN 3.1 g/dL (3.5-5.0); ALT/SGPT 26 U/L (21-72); AST/SGOT 29 U/L (17-59); BLOOD UREA NITROGEN 8 mg/dL (9-20); CALCIUM 8.9 mg/dl (8.6-10.4); GFR NON-AFRICAN AMERICAN > 60
[2018-12-18] MEDS: Enoxaparin 40 mg Syringe SC SCH (09:55)
[2018-12-18] MEDS: Pantoprazole 40 mg EC Tab PO SCH (09:57)
--- NOTE | 2018-12-18 10:26 | PN ---
DATE: 12/18/2018 LOCATION: ICU 11. SUBJECTIVE: This is a 63-year-old male seen and examined in rounds post partial colon resection without any reported active bleeding or significant shortness of breath. The entire chart is reviewed including but not limited to the most recent lab and radiology study results and today's lab results still pending. The patient still has low hemoglobin and hematocrit. PHYSICAL EXAMINATION: GENERAL: This is a 63-year-old male, afebrile. VITAL SIGNS: Pulse 72, respiratory rate 20-22, blood pressure 124/68. HEENT: Pale dry oral mucoid membrane. Nonicteric sclerae. LUNGS: Few scattered crepitation. Decreased air entry at bases. HEART: Positive S1 and S2. ABDOMEN: Soft with mild generalized tenderness. No mass or organomegaly. No rebound tenderness or guarding, but hypoactive bowel sounds. Abdominal binding is seen. EXTREMITIES: Lower extremities mild edematous changes. NEUROLOGIC: No reported new neurological deficits, sensory or motor. No reported new focal deficits. IMPRESSION: 1. Adenocarcinoma of the colon. 2. Anemia secondary to adenocarcinoma of the colon. 3. Status post partial colon resection. 4. Known history of hypertension, sleep apnea, benign prostatic hypertrophy. 5. Status post inguinal hernia repair. SUGGESTIONS: 1. Continue current management. 2. Antireflux measures. 3. Blood transfusion as needed to keep hemoglobin around 10 g%. Eric Silva MD
--- NOTE | 2018-12-18 16:55 | CP.PCM.PN ---
Subjective - Date & Time of Evaluation Date of Evaluation: 12/18/18 Time of Evaluation: 09:00 - Subjective Subjective: seen in ICU awake alert OOB too chair Objective - Vital Signs/Intake and Output Vital Signs (last 24 hours): Temp Pulse Resp BP Pulse Ox 97.8 F 64 16 126/59 L 98 12/18/18 12:00 12/18/18 14:08 12/18/18 14:00 12/18/18 14:00 12/18/18 14:00 Intake and Output: 12/18/18 12/18/18 06:59 18:59 Intake Total 100 740 Output Total 120 320 Balance -20 420 - Medications Medications: Current Medications Amlodipine Besylate (Norvasc) 10 mg PO DAILY [facility] Last Admin: 12/18/18 09:55 Dose: 10 mg Docusate Sodium (Colace) 100 mg PO BID [facility] Last Admin: 12/18/18 09:53 Dose: 100 mg Enoxaparin Sodium (Lovenox) 40 mg SC DAILY [facility] Last Admin: 12/18/18 09:55 Dose: 40 mg Meropenem 1 gm/ Sodium (Chloride) 100 mls @ 100 mls/hr IVPB Q8H [facility]; Protocol Last Admin: 12/18/18 12:42 Dose: 100 mls/hr BUPIVACAINE 0.125%/0.9% NACL (Bupivacaine-Ns 0.125% On-Q Production Broacher) 600 mls @ 4 m ls/hr IJ ONCE ONE Stop: 12/19/18 17:29 Last Admin: 12/13/18 18:08 Dose: Not Given Metronidazole (Flagyl) 500 mg in 100 mls @ 100 mls/hr IVPB Q8H [facility]; Protocol Last Admin: 12/18/18 16:27 Dose: 100 mls/hr BUPIVACAINE 0.125%/0.9% NACL (Bupivacaine-Ns 0.125% On-Q Production Broacher) 600 mls @ 4 mls/hr IJ ONCE ONE Stop: 12/21/18 13:34 Last Admin: 12/15/18 09:07 Dose: 4 mls/hr Metoclopramide HCl (Reglan) 5 mg IVP Q6H [facility] Last Admin: 12/18/18 14:02 Dose: 5 mg Ondansetron HCl (Zofran Inj) 4 mg IVP Q4 PRN PRN Reason: Nausea/Vomiting Pantoprazole Sodium (Protonix Ec Tab) 40 mg PO DAILY [facility] Last Admin: 12/18/18 09:57 Dose: 40 mg Tamsulosin HCl (Flomax) 0.4 mg PO DAILY [facility] Last Admin: 12/18/18 09:54 Dose: 0.4 mg Vitamin A (Vitamin A & D Oint Ud Foilpak) 0.5 ea TOP PRN PRN PRN Reason: Dry mouth Last Admin: 12/14/18 00:06 Dose: 0.5 ea - Labs Labs: 12/18/18 08:22 12/18/18 08:22 PT 14.5 SECONDS (9.7-12.2) H 12/13/18 07:09 INR 1.3 12/13/18 07:09 APTT 34 SECONDS (21-34) D 12/13/18 07:09 - Constitutional Appears: Non-toxic, Chronically Ill - Head Exam Head Exam: NORMOCEPHALIC - Eye Exam Eye Exam: absent: Scleral icterus - ENT Exam ENT Exam: Mucous Membranes Dry - Neck Exam Neck Exam: absent: Lymphadenopathy - Respiratory Exam Respiratory Exam: Decreased Breath Sounds - Cardiovascular Exam Cardiovascular Exam: REGULAR RHYTHM - GI/Abdominal Exam GI & Abdominal Exam: Distended, Soft - Rectal Exam Rectal Exam: Deferred - Exam Exam: NORMAL INSPECTION - Extremities Exam Extremities Exam: absent: Pedal Edema - Back Exam Back Exam: absent: CVA tenderness (L), CVA tenderness (R) - Neurological Exam Neurological Exam: Alert, Awake, Oriented x3 - Psychiatric Exam Psychiatric exam: Depressed - Skin Skin Exam: Dry Assessment and Plan (1) Hydronephrosis Status: Acute (2) ESBL (extended spectrum beta-lactamase) producing bacteria infection Status: Acute - Assessment and Plan (Free Text) Assessment: cont IV antibiotics 10-14 days for ESBL Urine
--- NOTE | 2018-12-18 18:10 | PCM.URO ---
Urology Progress Note - General General: Tolerating Diet - Subjective Abdominal Pain: Yes Flank Pain: No Nausea: No Vomiting: No Hematuria: No Dsypnea: No Chest Pain: No Fever & Chills: No - Objective Lab Studies: Reviewed Lab Results Last 24 Hours: Laboratory Results - last 24 hr 12/18/18 12/18/18 08:22 08:22 WBC 4.4 L RBC 3.73 L Hgb 11.0 L Hct 32.0 L MCV 85.9 MCH 29.6 MCHC 34.4 RDW 14.7 H Plt Count 211 MPV 9.3 Neut % (Auto) 75.1 H Lymph % (Auto) 10.7 L [place] % (Auto) 8.3 Eos % (Auto) 5.3 H Baso % (Auto) 0.6 Neut # (Auto) 3.3 Lymph # (Auto) 0.5 L [place] # (Auto) 0.4 Eos # (Auto) 0.2 Baso # (Auto) 0.0 Sodium 139 Potassium 3.4 L Chloride 102 Carbon Dioxide 34 H Anion Gap 6 L BUN 8 L Creatinine 0.7 L Est GFR ( Amer) > 60 Est GFR (Non-Af Amer) > 60 Random Glucose 120 H Calcium 8.9 Total Bilirubin 0.3 AST 29 ALT 26 Alkaline Phosphatase 66 Total Protein 5.9 L Albumin 3.1 L Globulin 2.9 Albumin/Globulin Ratio 1.1 Intake & Output: Intake & Output 12/17/18 12/18/18 12/18/18 18:59 06:59 18:59 Intake Total 500 100 740 Output Total 1000 120 320 Balance -500 -20 420 Intake: Intake, IV Amount 100 500 Right Hand 100 500 Oral 500 240 Output: Drainage 250 120 20 Left Abdomen 250 120 20 Urine 750 300 Urethral (Hart) 750 300 Other: # Bowel Movements 1 Vital Signs: Vital Signs - 24 hr 12/17/18 12/17/18 12/17/18 18:25 19:00 19:45 Temperature Pulse Rate 74 Respiratory 23 17 13 Rate Blood Pressure 138/67 O2 Sat by Pulse Oximetry 12/17/18 12/17/18 12/17/18 20:00 20:42 21:00 Temperature 97.8 F Pulse Rate 72 71 68 Respiratory 14 23 20 Rate Blood Pressure 129/65 O2 Sat by Pulse Oximetry 12/17/18 12/17/18 12/17/18 21:01 22:00 23:31 Temperature Pulse Rate 69 72 76 Respiratory 21 22 Rate Blood Pressure O2 Sat by Pulse 93 L Oximetry 12/17/18 12/17/18 12/18/18 23:34 23:45 00:00 Temperature 98.2 F Pulse Rate 72 72 86 Respiratory 18 16 26 H Rate Blood Pressure 118/70 118/67 O2 Sat by Pulse 90 L 94 L 92 L Oximetry 12/18/18 12/18/18 12/18/18 01:00 02:00 03:00 Temperature Pulse Rate 76 77 63 Respiratory 13 24 15 Rate Blood Pressure O2 Sat by Pulse 98 99 Oximetry 12/18/18 12/18/18 12/18/18 03:45 04:00 05:00 Temperature 97.8 F Pulse Rate 66 61 60 Respiratory 14 13 15 Rate Blood Pressure 131/65 O2 Sat by Pulse 96 100 99 Oximetry 12/18/18 12/18/18 12/18/18 06:00 07:00 07:45 Temperature Pulse Rate 58 L 71 68 Respiratory 15 19 20 Rate Blood Pressure 130/64 O2 Sat by Pulse 100 98 97 Oximetry 12/18/18 12/18/18 12/18/18 08:00 10:00 11:45 Temperature 97.6 F Pulse Rate 78 67 Respiratory 17 Rate Blood Pressure 126/60 O2 Sat by Pulse 100 Oximetry 12/18/18 12/18/18 12/18/18 12:00 14:00 14:08 Temperature 97.8 F Pulse Rate 66 64 Respiratory 16 Rate Blood Pressure 126/59 L O2 Sat by Pulse 98 Oximetry - Physical Exam Abdominal Exam: Soft, Non-Tender, Non-Distended Dressing: Dry, Intact Back: No CVA Tenderness Genitalia: Without Inflammation Urinary Catheter Draining Well: Yes Urine Color: Clear - Male Phallus: Normal Scrotum: Normal Testes: Normal: Bilateral - Plan Discontinue Urinary Catheter: Yes Ambulation - Out of Bed: Yes Intake & Output: Yes Additional Information: IMP: UROLOGICALLY STABLE. HX OF BPH, UTI. L URETERAL STENT IN PLACE. REC: REMOVE CATHETER. MONITOR OUTPUT. PT WILL NEED CYSTO , STENT REMOVAL. DISCUSSED W PT AND SURGICAL AND MEDICAL RESIDENTS. YS - Date & Time of Note Date: 12/18/18 Time: 11:55
[2018-12-18] MEDS ORDERED: HYDROmorphone 1 mg/ml ISec IVP STA (21:38)
--- NOTE | 2018-12-18 23:52 | CP.PCM.PN ---
Subjective - Date & Time of Evaluation Date of Evaluation: 12/18/18 Time of Evaluation: 07:00 - Subjective Subjective: GENERAL SURGERY PROGRESS NOTE FOR DR. BURNETTE Patient seen and examined at bedside in the ICU. He is still up for transfer out of ICU. He reports that his pain is well controlled. He had a BM last night and is passing flatus. He denies nausea or vomiting. He is tolerating liquid diet. He states that he ambulated with PT yesterday. Marcio drain with 370cc serosanguinous drainage over past [address] with 750cc over past 24 hours On-Q in place Objective - Vital Signs/Intake and Output Vital Signs (last 24 hours): Temp Pulse Resp BP Pulse Ox 97.8 F 64 20 128/58 L 98 12/18/18 12:00 12/18/18 18:00 12/18/18 18:00 12/18/18 15:45 12/18/18 16:00 Intake and Output: 12/18/18 12/19/18 18:59 06:59 Intake Total 1490 Output Total 730 Balance 760 - Medications Medications: Current Medications Amlodipine Besylate (Norvasc) 10 mg PO DAILY [facility] Last Admin: 12/18/18 09:55 Dose: 10 mg Docusate Sodium (Colace) 100 mg PO BID [facility] Last Admin: 12/18/18 17:32 Dose: 100 mg Enoxaparin Sodium (Lovenox) 40 mg SC DAILY [facility] Last Admin: 12/18/18 09:55 Dose: 40 mg Meropenem 1 gm/ Sodium (Chloride) 100 mls @ 100 mls/hr IVPB Q8H [facility]; Protocol Last Admin: 12/18/18 20:14 Dose: 100 mls/hr BUPIVACAINE 0.125%/0.9% NACL (Bupivacaine-Ns 0.125% On-Q Facsimile Operator) 600 mls @ 4 mls/hr IJ ONCE ONE Stop: 12/19/18 17:29 Last Admin: 12/13/18 18:08 Dose: Not Given Metronidazole (Flagyl) 500 mg in 100 mls @ 100 mls/hr IVPB Q8H [facility]; Protocol Last Admin: 12/18/18 16:27 Dose: 100 mls/hr BUPIVACAINE 0.125%/0.9% NACL (Bupivacaine-Ns 0.125% On-Q Facsimile Operator) 600 mls @ 4 mls/h r IJ ONCE ONE Stop: 12/21/18 13:34 Last Admin: 12/15/18 09:07 Dose: 4 mls/hr Metoclopramide HCl (Reglan) 5 mg IVP Q6H [facility] Last Admin: 12/18/18 20:19 Dose: 5 mg Ondansetron HCl (Zofran Inj) 4 mg IVP Q4 PRN PRN Reason: Nausea/Vomiting Oxycodone/Acetaminophen (Percocet 5/325 Mg Tab) 1 tab PO Q6H PRN PRN Reason: Pain, moderate (4-7) Stop: 12/21/18 21:38 Pantoprazole Sodium (Protonix Ec Tab) 40 mg PO DAILY [facility] Last Admin: 12/18/18 09:57 Dose: 40 mg Tamsulosin HCl (Flomax) 0.4 mg PO DAILY [facility] Last Admin: 12/18/18 09:54 Dose: 0.4 mg Vitamin A (Vitamin A & D Oint Ud Foilpak) 0.5 ea TOP PRN PRN PRN Reason: Dry mouth Last Admin: 12/14/18 00:06 Dose: 0.5 ea - Labs Labs: 12/18/18 08:22 12/18/18 08:22 PT 14.5 SECONDS (9.7-12.2) H 12/13/18 07:09 INR 1.3 12/13/18 07:09 APTT 34 SECONDS (21-34) D 12/13/18 07:09 - Constitutional Appears: Non-toxic, No Acute Distress - Head Exam Head Exam: ATRAUMATIC, NORMAL INSPECTION - Eye Exam Eye Exam: EOMI, Normal appearance - Respiratory Exam Respiratory Exam: NORMAL BREATHING PATTERN. absent: Respiratory Distress - Cardiovascular Exam Cardiovascular Exam: +S1, +S2 - GI/Abdominal Exam GI & Abdominal Exam: Soft, Tenderness (cele-incisional tenderness). absent: Di stended, Firm, Guarding, Rigid, Rebound Additional comments: Marcio drain in place with 370cc serosanguinous output over past 24 hrs On-Q in place on 4cc/hr Abdominal binder Dressings clean/dry/intact - Neurological Exam Neurological Exam: Alert, Awake, Oriented x3 - Psychiatric Exam Psychiatric exam: Normal Affect, Normal Mood - Skin Skin Exam: Normal Color, Warm Assessment and Plan - Assessment and Plan (Free Text) Assessment: 63yo M with transverse colon adenocarcinoma, left inguinal hernia s/p Left Inguinal Hernia repair w/ mesh, Tranverse colectomy with anastomosis with mobilization of splenic flexure, repair of umbilical hernia. Cystoscopy with left double J ureteral stent placement by Dr. Boss, POD#5 - Advance to full liquids and then advance further if tolerated - Hart per Dr. Boss - Encourage ambulation and IS, PT following - DVT PPx: Lovenox - Will remove On-Q when empty - Clear for transfer out of ICU per surgical team - Discussed plan with Dr. Kia Ordonez PGY-4
[2018-12-19] MEDS ORDERED: HYDROmorphone 1 mg/ml ISec IVP STA ×2 (01:25→06:21)
[2018-12-19] MEDS: Meropenem 1 GM in Sodium Chloride 0.9% 100 ML IVPB SCH ×3 (05:29→20:15)
[2018-12-19 06:23] LABS: HEMOGLOBIN 11.1 g/dL (12.0-18.0); MEAN CELL VOLUME 86.2 fL (80.0-94.0); MEAN CORPUSCULAR HGB CONC 32.5 g/dL (33.0-37.0); MEAN PLATELET VOLUME 10.1 fL (7.2-11.7); RBC 3.97 Mil/uL (4.40-5.90); RED CELL DISTRIBUTION WIDTH 14.3 % (11.5-14.5); WHITE BLOOD COUNT 4.7 K/uL (4.8-10.8)
[2018-12-19 06:34] LABS: BLOOD UREA NITROGEN 8 mg/dL (9-20); CALCIUM 9.2 mg/dl (8.6-10.4); GFR NON-AFRICAN AMERICAN > 60
--- NOTE | 2018-12-19 08:33 | CP.PCM.PN ---
Subjective - Date & Time of Evaluation Date of Evaluation: 12/19/18 Time of Evaluation: 08:30 - Subjective Subjective: SURGERY NOTE FOR DR. BURNETTE 63M seen and examined at bedside. Patient denies abdominal pain, denies nausea and vomiting, states that he is passing gas and bowel movement. He is tolerating diet. Objective - Vital Signs/Intake and Output Vital Signs (last 24 hours): Temp Pulse Resp BP Pulse Ox 97.8 F 64 20 128/58 L 97 12/18/18 12:00 12/18/18 18:00 12/18/18 18:00 12/18/18 15:45 12/19/18 07:58 - Medications Medications: Current Medications Amlodipine Besylate (Norvasc) 10 mg PO DAILY [facility] Last Admin: 12/18/18 09:55 Dose: 10 mg Docusate Sodium (Colace) 100 mg PO BID [facility] Last Admin: 12/18/18 17:32 Dose: 100 mg Enoxaparin Sodium (Lovenox) 40 mg SC DAILY [facility] Last Admin: 12/18/18 09:55 Dose: 40 mg Meropenem 1 gm/ Sodium (Chloride) 100 mls @ 100 mls/hr IVPB Q8H [facility]; Protocol Last Admin: 12/19/18 05:29 Dose: 100 mls/hr BUPIVACAINE 0.125%/0.9% NACL (Bupivacaine-Ns 0.125% On-Q Trailer Park Manager) 600 mls @ 4 mls/hr IJ ONCE ONE Stop: 12/19/18 17:29 Last Admin: 12/13/18 18:08 Dose: Not Given Metronidazole (Flagyl) 500 mg in 100 mls @ 100 mls/hr IVPB Q8H [facility]; Protocol Last Admin: 12/18/18 23:45 Dose: 100 mls/hr BUPIVACAINE 0.125%/0.9% NACL (Bupivacaine-Ns 0.125% On-Q Trailer Park Manager) 600 mls @ 4 mls/hr IJ ONCE ONE Stop: 12/21/18 13:34 Last Admin: 12/15/18 09:07 Dose: 4 mls/hr Metoclopramide HCl (Reglan) 5 mg IVP Q6H [facility] Last Admin: 12/19/18 06:36 Dose: 5 mg Ondansetron HCl (Zofran Inj) 4 mg IVP Q4 PRN PRN Reason: Nausea/Vomiting Oxycodone/Acetaminophen (Percocet 5/325 Mg Tab) 1 tab PO Q6H PRN PRN Reason: Pain, moderate (4-7) Stop: 12/21/18 21:38 Last Admin: 12/18/18 23:45 Dose: 1 tab Pantoprazole Sodium (Protonix Ec Tab) 40 mg PO DAILY [facility] Last Admin: 12/18/18 09:57 Dose: 40 mg Tamsulosin HCl (Flomax) 0.4 mg PO DAILY [facility] Last Admin: 12/18/18 09:54 Dose: 0.4 mg Vitamin A (Vitamin A & D Oint Ud Foilpak) 0.5 ea TOP PRN PRN PRN Reason: Dry mouth Last Admin: 12/14/18 00:06 Dose: 0.5 ea - Labs Labs: 12/19/18 06:09 12/19/18 06:10 PT 14.5 SECONDS (9.7-12.2) H 12/13/18 07:09 INR 1.3 12/13/18 07:09 APTT 34 SECONDS (21-34) D 12/13/18 07:09 - Constitutional Appears: Non-toxic, No Acute Distress - Respiratory Exam Respiratory Exam: Clear to Ausculation Bilateral, NORMAL BREATHING PATTERN - Cardiovascular Exam Cardiovascular Exam: REGULAR RHYTHM, +S1, +S2 - GI/Abdominal Exam GI & Abdominal Exam: Soft. absent: Distended, Firm, Guarding, Rigid, Tenderness, Rebound Additional comments: dressing CDI Marcio drain in place - 130 cc/24hrs serosanguinous output - Neurological Exam Neurological Exam: Alert, Awake - Skin Skin Exam: Dry, Intact, Normal Color, Warm Assessment and Plan - Assessment and Plan (Free Text) Assessment: 63M s/p left inguinal hernia repair, exlap with partial colon resection, POD#6 Plan: - Continue diet - continue antibiotics - f/u urology for sharma management - OOB - Further recs discuss with Dr. Kia Munoz, PGY3
[2018-12-19] MEDS: metroNIDAZOLE IV 500 mg/100 ml 500 MG/100 ML BAG IVPB SCH (09:07)
[2018-12-19] MEDS: Pantoprazole 40 mg EC Tab PO SCH (09:14)
[2018-12-19] MEDS: Enoxaparin 40 mg Syringe SC SCH (09:15)
--- NOTE | 2018-12-19 11:33 | CP.PCM.PN ---
Subjective - Date & Time of Evaluation Date of Evaluation: 12/19/18 Time of Evaluation: 11:30 - Subjective Subjective: Progress note. Attending: Dr. Nicole. Pt seen and examined at bedside. No acute distress. No events overnight. No fevers, chills, vomiting, diarrhea. Tolerating diet and having BM. Objective - Vital Signs/Intake and Output Vital Signs (last 24 hours): Temp Pulse Resp BP Pulse Ox 98.9 F 76 18 132/69 97 12/19/18 10:00 12/19/18 10:00 12/19/18 10:00 12/19/18 04:28 12/19/18 10:00 Intake and Output: 12/19/18 12/19/18 06:59 18:59 Intake Total 660 Output Total 1580 Balance -920 - Medications Medications: Current Medications Amlodipine Besylate (Norvasc) 10 mg PO DAILY [facility] Last Admin: 12/19/18 09:14 Dose: 10 mg Docusate Sodium (Colace) 100 mg PO BID [facility] Last Admin: 12/19/18 09:14 Dose: 100 mg Enoxaparin Sodium (Lovenox) 40 mg SC DAILY [facility] Last Admin: 12/19/18 09:15 Dose: 40 mg Meropenem 1 gm/ Sodium (Chloride) 100 mls @ 100 mls/hr IVPB Q8H [facility]; Protocol Last Admin: 12/19/18 05:29 Dose: 100 mls/hr BUPIVACAINE 0.125%/0.9% NACL (Bupivacaine-Ns 0.125% On-Q Plastic Installer) 600 mls @ 4 mls/hr IJ ONCE ONE Stop: 12/19/18 17:29 Last Admin: 12/13/18 18:08 Dose: Not Given Metronidazole (Flagyl) 500 mg in 100 mls @ 100 mls/hr IVPB Q8H [facility]; Protocol Last Admin: 12/19/18 09:07 Dose: 100 mls/hr BUPIVACAINE 0.125%/0.9% NACL (Bupivacaine-Ns 0.125% On-Q Plastic Installer) 600 mls @ 4 mls/hr IJ ONCE ONE Stop: 12/21/18 13:34 Last Admin: 12/15/18 09:07 Dose: 4 mls/hr Metoclopramide HCl (Reglan) 5 mg IVP Q6H [facility] Last Admin: 12/19/18 06:36 Dose: 5 mg Ondansetron HCl (Zofran Inj) 4 mg IVP Q4 PRN PRN Reason: Nausea/Vomiting Oxycodone/Acetaminophen (Percocet 5/325 Mg Tab) 1 tab PO Q6H PRN PRN Reason: Pain, moderate (4-7) Stop: 12/21/18 21:38 Last Admin: 12/18/18 23:45 Dose: 1 tab Pantoprazole Sodium (Protonix Ec Tab) 40 mg PO DAILY [facility] Last Admin: 12/19/18 09:14 Dose: 40 mg Tamsulosin HCl (Flomax) 0.4 mg PO DAILY [facility] Last Admin: 12/19/18 09:14 Dose: 0.4 mg Vitamin A (Vitamin A & D Oint Ud Foilpak) 0.5 ea TOP PRN PRN PRN Reason: Dry mouth Last Admin: 12/14/18 00:06 Dose: 0.5 ea - Labs Labs: 12/19/18 06:09 12/19/18 06:10 PT 14.5 SECONDS (9.7-12.2) H 12/13/18 07:09 INR 1.3 12/13/18 07:09 APTT 34 SECONDS (21-34) D 12/13/18 07:09 - Constitutional Appears: Non-toxic, No Acute Distress - Head Exam Head Exam: ATRAUMATIC, NORMAL INSPECTION, NORMOCEPHALIC - Eye Exam Eye Exam: EOMI - ENT Exam ENT Exam: Mucous Membranes Moist - Neck Exam Neck Exam: Full ROM, Normal Inspection - Respiratory Exam Respiratory Exam: NORMAL BREATHING PATTERN. absent: Respiratory Distress - Cardiovascular Exam Cardiovascular Exam: +S1, +S2 - GI/Abdominal Exam GI & Abdominal Exam: Soft, Normal Bowel Sounds. absent: Tenderness - Extremities Exam Extremities Exam: Full ROM, Normal Inspection Additional comments: scds in place - Neurological Exam Neurological Exam: Alert, Awake, Oriented x3 - Psychiatric Exam Psychiatric exam: Normal Affect, Normal Mood - Skin Skin Exam: Dry, Intact, Normal Color, Warm Assessment and Plan - Assessment and Plan (Free Text) Assessment: This is a 63 yo male, originally from [facility], with 1. Adenocardinoma of the Proximal Descending Colon - GI Consult: Dr. Zamora. recs appreciated. - Surgery Consult: Dr. Adam. recs appreciated. - Hem/Onc Consult: Dr. Lewis. recs appreciated. * Per Dr. Lewis, likely a malignancy, no evidence of mets,f/u surgical pathology - Photograph Enlarger consult for cardiac clearance prior to surgeries: Dr. Carias, help appreciated * Per Dr. Carias: Patient is at intermediate risk for the planned procedure. Recommend perioperative betablocker to attenuate operative risk. There is no cardiovascular contraindication to the planned surgery. * ECHO (12/13/18): EF 65-70%; mild concentric left ventricular hypertrophy; the left ventricle systolic function is normal - Chest CT: Cardiomegaly. Medial left upper lobe bronchiectasis and small bulla evident. 4 mm nodular opacity along the pleura, possibly intrapulmonary lymph node. 2 mm right middle lobe nodule. Recommend [address] follow-up. Limited visualization of the upper abdomen reveals partially imaged moderate to severe wall thickening of the mid to distal transverse colon which appears consistent with provided history of colonic carcinoma. 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 - s/p colonoscopy 12/11/[address] Zamora * Findings: Malignant-appearing intrinsic severe stenosis was found in the transverse colon and non-transverse colon * Pathology: adenocarcinoma of the proximal descending colon - s/p (12/13/18) Left Inguinal Hernia repair with mesh, Exploratory Laparotomy, Tranverse colectomy with anastomosis with mobilization of splenic flexure, repa ir of umbilical hernia with Dr. Adam. - s/p (12/13/18) Cystoscopy with left double J ureteral stent placement by Dr. Boss - f/u pathology results>>> pt4 pn1 Colitis - GI Consult: Dr. Zamora. recs appreciated. - pt tolerating diet well - Images: * CT of Abdomen/Pelvis: Segmental moderate to marked wall thickening of the mid and distal transverse colon surrounding with inflammatory changes consistent with colitis. The possibility of underline infiltrative neoplasm is not totally excluded. The differential consideration includes ischemic infection or inflammatory colitis. 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 Mild to moderate left hydroureter. The distal portion of the left ureter is extending into large left inguinal hernia. Part of urinary bladder is also herniated and the left UV junction is likely in the left inguinal hernia. The possibility of distal left ureter stone is not totally excluded. The differential consideration includes compression on the distal left ureter at left inguinal hernia. Otherwise no evidence of acute pathology in the abdomen and pelvis. - s/p Colonoscopy on 12/11/18 please see results above - Blood Culture Negative - Medications: * Metronidazole 500mg IV q8h (active since 12/14/18; last dose to be given on 12/18/18)>>> discontinue today * Colace 100mg po daily * Reglan 5mg IV q6h * Pain control per surgery team; Percocet prn UTI - UA: showed 1 plus leukocyte esterase - Urine Culture: + Ecoli, + ESBL - ID consulted, Dr. Melara. recs appreciated. - Medications: * Merrem 1g IV Q8 (active since 12/11/18; last dose to be given on 12/20/18 for a total of 10 days) Left inguinal hernia - s/p (12/13/18) Left Inguinal Hernia repair with mesh, repair of umbilical hernia. Cystoscopy with left double J ureteral stent placement by Dr. Boss - Surgery Consult: Dr. Adam --> help appreciated - Urology Consult: Dr. Chica Boss --> help appreciated Anemia - Hem/onc consulted, Dr. Lewis. recs appreciated. - Likely chronic tumor bleed HTN - Continue home medication Norvasc 10 mg po daily History of BPH - continue flomax .4 mg po daily GI/ DVT Prophylaxis - Protonix daily - Colace 100mg dialy - SCDs - Lovenox 40mg SC daily discussed with Dr Nicole.
--- NOTE | 2018-12-19 11:40 | PN ---
DATE: 12/19/2018 LOCATION: ICU 11. SUBJECTIVE: This 63-year-old male, seen and examined in rounds without significant clinical changes, appeared to be awake, alert, oriented postsurgically, no reported active bleeding, no chest pain or palpitation. No nausea or vomiting, but mild dyspepsia, claiming passing gas and bowel movements. Tolerating oral intake well without significant abdominal pain. The entire chart is reviewed including but not limited to the most recent lab and radiology study results with today's latest hemoglobin 11.1, hematocrit 34.2, white blood cells 4.7 with normal platelet count but potassium 3.5, CO2 content of 32 with low BUN and creatinine, but normal liver function test. The patient still has low albumin and low total protein due to poor oral intake. PHYSICAL EXAMINATION: GENERAL: A 63-year-old male. VITAL SIGNS: Afebrile with pulse of 70, respiratory rate 20 to 22, with reported blood pressure 130/64. HEENT: Showed pale dry oral mucous membrane. Nonicteric sclerae. LUNGS: Few scattered crepitation. Decreased air entry at bases. HEART: Positive S1 and S2. ABDOMEN: Soft with mild generalized tenderness. No mass or organomegaly. No rebound tenderness or guarding. EXTREMITIES: Without significant clubbing, cyanosis or edema. NEUROLOGIC: No reported new neurological deficits, sensory or motor. IMPRESSION: 1. Colon adenocarcinoma. 2. Status post partial colon resection. 3. Anemia, secondary to above. 4. Known history of but not limited to benign prostatic hypertrophy, hypertension, sleep apnea. 5. Anemia, secondary to above. 6. Status post inguinal hernia repair. 7. Mild obesity, by history. SUGGESTIONS: 1. Continue current management. 2. Followup colonoscopy after 1 year is suggested. 3. Further recommendation to follow. Eirc Silva MD
[2018-12-19] MEDS ORDERED: Potassium Chloride 20 mEq/15 ml LIQ UD PO ONE (15:00)
--- NOTE | 2018-12-20 01:03 | CP.PCM.PN ---
Subjective - Date & Time of Evaluation Date of Evaluation: 12/18/18 Time of Evaluation: 12:00 - Subjective Subjective: Feeling better. Objective - Vital Signs/Intake and Output Vital Signs (last 24 hours): Temp Pulse Resp BP Pulse Ox 98.5 F 71 25 H 136/65 95 12/19/18 22:00 12/19/18 20:21 12/19/18 20:21 12/19/18 20:21 12/19/18 22:00 Intake and Output: 12/19/18 12/20/18 18:59 06:59 Intake Total 800 Output Total 385 Balance 415 - Medications Medications: Current Medications Amlodipine Besylate (Norvasc) 10 mg PO DAILY [facility] Last Admin: 12/19/18 09:14 Dose: 10 mg Docusate Sodium (Colace) 100 mg PO BID [facility] Last Admin: 12/19/18 17:08 Dose: 100 mg Enoxaparin Sodium (Lovenox) 40 mg SC DAILY [facility] Last Admin: 12/19/18 09:15 Dose: 40 mg Meropenem 1 gm/ Sodium (Chloride) 100 mls @ 100 mls/hr IVPB Q8H [facility]; Protocol Last Admin: 12/19/18 20:15 Dose: 100 mls/hr BUPIVACAINE 0.125%/0.9% NACL (Bupivacaine-Ns 0.125% On-Q Rn Psych) 600 mls @ 4 mls/hr IJ ONCE ONE Stop: 12/21/18 13:34 Last Admin: 12/15/18 09:07 Dose: 4 mls/hr Metoclopramide HCl (Reglan) 5 mg IVP Q6H [facility] Last Admin: 12/19/18 19:24 Dose: Not Given Ondansetron HCl (Zofran Inj) 4 mg IVP Q4 PRN PRN Reason: Nausea/Vomiting Oxycodone/Acetaminophen (Percocet 5/325 Mg Tab) 1 tab PO Q6H PRN PRN Reason: Pain, moderate (4-7) Stop: 12/21/18 21:38 Last Admin: 12/18/18 23:45 Dose: 1 tab Pantoprazole Sodium (Protonix Ec Tab) 40 mg PO DAILY [facility] Last Admin: 12/19/18 09:14 Dose: 40 mg Tamsulosin HCl (Flomax) 0.4 mg PO DAILY [facility] Last Admin: 12/19/18 09:14 Dose: 0.4 mg Vitamin A (Vitamin A & D Oint Ud Foilpak) 0.5 ea TOP PRN PRN PRN Reason: Dry mouth Last Admin: 12/14/18 00:06 Dose: 0.5 ea - Labs Labs: 12/19/18 06:09 12/19/18 06:10 PT 14.5 SECONDS (9.7-12.2) H 12/13/18 07:09 INR 1.3 12/13/18 07:09 APTT 34 SECONDS (21-34) D 12/13/18 07:09 - Head Exam Head Exam: ATRAUMATIC - Eye Exam Eye Exam: Normal appearance - ENT Exam ENT Exam: Mucous Membranes Dry - Respiratory Exam Respiratory Exam: NORMAL BREATHING PATTERN - Cardiovascular Exam Cardiovascular Exam: +S1, +S2 - GI/Abdominal Exam GI & Abdominal Exam: Normal Bowel Sounds Assessment and Plan (1) Colon cancer Assessment & Plan: s/p hemicolectomy stage III discuss benefit of adjuvant chemotherapy as outpatient prefers portacath placement be done as outpatient Status: Acute (2) Anemia Status: Acute
--- NOTE | 2018-12-20 01:05 | CP.PCM.PN ---
Subjective - Date & Time of Evaluation Date of Evaluation: 12/19/18 Time of Evaluation: 13:00 - Subjective Subjective: Feeling better. Objective - Vital Signs/Intake and Output Vital Signs (last 24 hours): Temp Pulse Resp BP Pulse Ox 98.5 F 71 25 H 136/65 95 12/19/18 22:00 12/19/18 20:21 12/19/18 20:21 12/19/18 20:21 12/19/18 22:00 Intake and Output: 12/19/18 12/20/18 18:59 06:59 Intake Total 800 Output Total 385 Balance 415 - Medications Medications: Current Medications Amlodipine Besylate (Norvasc) 10 mg PO DAILY [facility] Last Admin: 12/19/18 09:14 Dose: 10 mg Docusate Sodium (Colace) 100 mg PO BID [facility] Last Admin: 12/19/18 17:08 Dose: 100 mg Enoxaparin Sodium (Lovenox) 40 mg SC DAILY [facility] Last Admin: 12/19/18 09:15 Dose: 40 mg Meropenem 1 gm/ Sodium (Chloride) 100 mls @ 100 mls/hr IVPB Q8H [facility]; Protocol Last Admin: 12/19/18 20:15 Dose: 100 mls/hr BUPIVACAINE 0.125%/0.9% NACL (Bupivacaine-Ns 0.125% On-Q Sap Analyst) 600 mls @ 4 mls/hr IJ ONCE ONE Stop: 12/21/18 13:34 Last Admin: 12/15/18 09:07 Dose: 4 mls/hr Metoclopramide HCl (Reglan) 5 mg IVP Q6H [facility] Last Admin: 12/19/18 19:24 Dose: Not Given Ondansetron HCl (Zofran Inj) 4 mg IVP Q4 PRN PRN Reason: Nausea/Vomiting Oxycodone/Acetaminophen (Percocet 5/325 Mg Tab) 1 tab PO Q6H PRN PRN Reason: Pain, moderate (4-7) Stop: 12/21/18 21:38 Last Admin: 12/18/18 23:45 Dose: 1 tab Pantoprazole Sodium (Protonix Ec Tab) 40 mg PO DAILY [facility] Last Admin: 12/19/18 09:14 Dose: 40 mg Tamsulosin HCl (Flomax) 0.4 mg PO DAILY [facility] Last Admin: 12/19/18 09:14 Dose: 0.4 mg Vitamin A (Vitamin A & D Oint Ud Foilpak) 0.5 ea TOP PRN PRN PRN Reason: Dry mouth Last Admin: 12/14/18 00:06 Dose: 0.5 ea - Labs Labs: 12/19/18 06:09 12/19/18 06:10 PT 14.5 SECONDS (9.7-12.2) H 12/13/18 07:09 INR 1.3 12/13/18 07:09 APTT 34 SECONDS (21-34) D 12/13/18 07:09 - Head Exam Head Exam: ATRAUMATIC - Eye Exam Eye Exam: Normal appearance - ENT Exam ENT Exam: Mucous Membranes Dry - Respiratory Exam Respiratory Exam: NORMAL BREATHING PATTERN - Cardiovascular Exam Cardiovascular Exam: +S1, +S2 - GI/Abdominal Exam GI & Abdominal Exam: Normal Bowel Sounds Assessment and Plan (1) Colon cancer Assessment & Plan: s/p hemicolectomy stage III would benefit from adjuvant chemotherapy prefers portacath placement as outpatient Status: Acute (2) Anemia Status: Acute
[2018-12-20] MEDS: Meropenem 1 GM in Sodium Chloride 0.9% 100 ML IVPB SCH ×3 (05:30→21:00)
[2018-12-20 06:55] LABS: HEMOGLOBIN 10.4 g/dL (12.0-18.0); MEAN CELL VOLUME 86.4 fL (80.0-94.0); MEAN CORPUSCULAR HEMOGLOBIN 28.2 pg (27.0-31.0); MEAN CORPUSCULAR HGB CONC 32.7 g/dL (33.0-37.0); MEAN PLATELET VOLUME 10.2 fL (7.2-11.7); RBC 3.67 Mil/uL (4.40-5.90); RED CELL DISTRIBUTION WIDTH 14.3 % (11.5-14.5)
[2018-12-20 07:36] LABS: BLOOD UREA NITROGEN 10 mg/dL (9-20); CALCIUM 8.6 mg/dl (8.6-10.4); GFR NON-AFRICAN AMERICAN > 60
--- NOTE | 2018-12-20 08:33 | CP.PCM.PN ---
Subjective - Date & Time of Evaluation Date of Evaluation: 12/20/18 Time of Evaluation: 08:30 - Subjective Subjective: SURGERY NOTE FOR DR. BURNETTE 63M seen and examined at bedside. Patient doing well tolerating diet. Having bowel function. Ambulating. Seen by oncology, he understand that he needs chemotherapy and requires a portacath placement. Objective - Vital Signs/Intake and Output Vital Signs (last 24 hours): Temp Pulse Resp BP Pulse Ox 99 F 73 12 131/68 96 12/20/18 02:00 12/20/18 08:00 12/20/18 08:00 12/20/18 07:45 12/20/18 08:00 Intake and Output: 12/20/18 12/20/18 06:59 18:59 Intake Total 560 Output Total 570 Balance -10 - Medications Medications: Current Medications Amlodipine Besylate (Norvasc) 10 mg PO DAILY [facility] Last Admin: 12/19/18 09:14 Dose: 10 mg Docusate Sodium (Colace) 100 mg PO BID [facility] Last Admin: 12/19/18 17:08 Dose: 100 mg Enoxaparin Sodium (Lovenox) 40 mg SC DAILY [facility] Last Admin: 12/19/18 09:15 Dose: 40 mg Meropenem 1 gm/ Sodium (Chloride) 100 mls @ 100 mls/hr IVPB Q8H [facility]; Protocol Last Admin: 12/20/18 05:30 Dose: 100 mls/hr BUPIVACAINE 0.125%/0.9% NACL (Bupivacaine-Ns 0.125% On-Q Lead Simulation Modeling Engineer) 600 mls @ 4 mls/hr IJ ONCE ONE Stop: 12/21/18 13:34 Last Admin: 12/15/18 09:07 Dose: 4 mls/hr Potassium Chloride (Potassium Chloride 20 Meq/100 Ml) 20 meq in 100 mls @ 50 mls/hr IVPB ONCE ONE Stop: 12/20/18 10:15 Metoclopramide HCl (Reglan) 5 mg IVP Q6H [facility] Last Admin: 12/20/18 07:42 Dose: Not Given Ondansetron HCl (Zofran Inj) 4 mg IVP Q4 PRN PRN Reason: Nausea/Vomiting Oxycodone/Acetaminophen (Percocet 5/325 Mg Tab) 1 tab PO Q6H PRN PRN Reason: Pain, moderate (4-7) Stop: 12/21/18 21:38 Last Admin: 12/18/18 23:45 Dose: 1 tab Pantoprazole Sodium (Protonix Ec Tab) 40 mg PO DAILY [facility] Last Admin: 12/19/18 09:14 Dose: 40 mg Potassium Chloride (K-Dur 20 Meq Er Tab) 20 meq PO DAILY [facility] Tamsulosin HCl (Flomax) 0.4 mg PO DAILY [facility] Last Admin: 12/19/18 09:14 Dose: 0.4 mg Vitamin A (Vitamin A & D Oint Ud Foilpak) 0.5 ea TOP PRN PRN PRN Reason: Dry mouth Last Admin: 12/14/18 00:06 Dose: 0.5 ea - Labs Labs: 12/20/18 06:52 12/20/18 06:52 PT 14.5 SECONDS (9.7-12.2) H 12/13/18 07:09 INR 1.3 12/13/18 07:09 APTT 34 SECONDS (21-34) D 12/13/18 07:09 - Constitutional Appears: Non-toxic, No Acute Distress - Respiratory Exam Respiratory Exam: Clear to Ausculation Bilateral, NORMAL BREATHING PATTERN - Cardiovascular Exam Cardiovascular Exam: REGULAR RHYTHM, +S1, +S2 - GI/Abdominal Exam GI & Abdominal Exam: Soft. absent: Distended, Firm, Guarding, Rigid, Tenderness, Rebound Additional comments: incision CDI Drain - serosanguinous output 155cc/24hrs - Neurological Exam Neurological Exam: Alert, Awake Assessment and Plan - Assessment and Plan (Free Text) Assessment: 63M s/p left inguinal hernia repair, ex-lap with partial colon resection, POD#7 Pathology [id number] Plan: - Patient may go to regular floor - Oncology on board - Patient will require Portacath - Will speak to patient and family about portacath placement Further recs discuss with Dr. Kia Munoz, PGY3
--- NOTE | 2018-12-20 08:43 | CP.PCM.PN ---
Subjective - Date & Time of Evaluation Date of Evaluation: 12/20/18 Time of Evaluation: 08:39 - Subjective Subjective: Progress note for Dr. Nicole Patient was seen and examined at bedside in no acute distress. Patient states hes having excessive gas and mild pain, but otherwise feels well. He denies chest pain, dyspnea, palpitations, nausea, vomiting, fevers, headaches leg pain. Objective - Vital Signs/Intake and Output Vital Signs (last 24 hours): Temp Pulse Resp BP Pulse Ox 98.7 F 73 12 131/68 98 12/20/18 08:00 12/20/18 08:00 12/20/18 08:00 12/20/18 07:45 12/20/18 08:00 Intake and Output: 12/20/18 12/20/18 06:59 18:59 Intake Total 560 Output Total 570 Balance -10 - Medications Medications: Current Medications Amlodipine Besylate (Norvasc) 10 mg PO DAILY [facility] Last Admin: 12/19/18 09:14 Dose: 10 mg Docusate Sodium (Colace) 100 mg PO BID [facility] Last Admin: 12/19/18 17:08 Dose: 100 mg Enoxaparin Sodium (Lovenox) 40 mg SC DAILY [facility] Last Admin: 12/19/18 09:15 Dose: 40 mg Meropenem 1 gm/ Sodium (Chloride) 100 mls @ 100 mls/hr IVPB Q8H [facility]; Protocol Last Admin: 12/20/18 05:30 Dose: 100 mls/hr BUPIVACAINE 0.125%/0.9% NACL (Bupivacaine-Ns 0.125% On-Q Corn Popper) 600 mls @ 4 mls/hr IJ ONCE ONE Stop: 12/21/18 13:34 Last Admin: 12/15/18 09:07 Dose: 4 mls/hr Potassium Chloride (Potassium Chloride 20 Meq/100 Ml) 20 meq in 100 mls @ 50 mls/hr IVPB ONCE ONE Stop: 12/20/18 10:15 Metoclopramide HCl (Reglan) 5 mg IVP Q6H [facility] Last Admin: 12/20/18 07:42 Dose: Not Given Ondansetron HCl (Zofran Inj) 4 mg IVP Q4 PRN PRN Reason: Nausea/Vomiting Oxycodone/Acetaminophen (Percocet 5/325 Mg Tab) 1 tab PO Q6H PRN PRN Reason: Pain, moderate (4-7) Stop: 12/21/18 21:38 Last Admin: 12/18/18 23:45 Dose: 1 tab Pantoprazole Sodium (Protonix Ec Tab) 40 mg PO DAILY [facility] Last Admin: 12/19/18 09:14 Dose: 40 mg Potassium Chloride (K-Dur 20 Meq Er Tab) 20 meq PO DAILY [facility] Tamsulosin HCl (Flomax) 0.4 mg PO DAILY [facility] Last Admin: 12/19/18 09:14 Dose: 0.4 mg Vitamin A (Vitamin A & D Oint Ud Foilpak) 0.5 ea TOP PRN PRN PRN Reason: Dry mouth Last Admin: 12/14/18 00:06 Dose: 0.5 ea - Labs Labs: 12/20/18 06:52 12/20/18 06:52 PT 14.5 SECONDS (9.7-12.2) H 12/13/18 07:09 INR 1.3 12/13/18 07:09 APTT 34 SECONDS (21-34) D 12/13/18 07:09 - Additional Findings Additional findings: - Constitutional Appears: No Acute Distress - Head Exam Head Exam: ATRAUMATIC, NORMAL INSPECTION - Eye Exam Eye Exam: EOMI, Normal appearance - ENT Exam ENT Exam: Mucous Membranes Moist - Respiratory Exam Respiratory Exam: NORMAL BREATHING PATTERN. absent: Rales, Rhonchi, Wheezes, Respiratory Distress - Cardiovascular Exam Cardiovascular Exam: REGULAR RHYTHM, +S1, +S2 - GI/Abdominal Exam GI & Abdominal Exam: Normal Bowel Sounds, Binder and drain in place; mariana/incision clean, dry, and intact. - Extremities Exam Extremities Exam: Normal Inspection. absent: Pedal Edema, Tenderness - Neurological Exam Neurological Exam: Alert, Awake, Oriented x3 - Psychiatric Exam Psychiatric exam: Normal Affect, Normal Mood - Skin Skin Exam: Dry, Warm Assessment and Plan - Assessment and Plan (Free Text) Plan: Adenocardinoma of the Proximal Descending Colon - GI Consult: Dr. Zamora --> help appreciated - Surgery Consult: Dr. Adam --> help appreciated - Hem/Onc Consult: Dr. Lewis --> help appreciated * Per Dr. Lewis, patient requires a portacath * Patient requests placing a portacath as outpatient. - Cold Type Artist consult for cardiac clearance prior to surgeries: Dr. Carias, help appreciated * Per Dr. Carias: Patient is at intermediate risk for the planned procedure. Recommend perioperative betablocker to attenuate operative risk. There is no cardiovascular contraindication to the planned surgery. * ECHO (12/13/18): EF 65-70%; mild concentric left ventricular hypertrophy; the left ventricle systolic function is normal - Chest CT: Cardiomegaly. Medial left upper lobe bronchiectasis and small bulla evident. 4 mm nodular opacity along the pleura, possibly intrapulmonary lymph node. 2 mm right middle lobe nodule. Recommend [address] follow-up. Limited visualization of the upper abdomen reveals partially imaged moderate to severe wall thickening of the mid to distal transverse colon which appears consistent with provided history of colonic carcinoma. 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 - s/p colonoscopy 12/11/[address] Zamora * Findings: Malignant-appearing intrinsic severe stenosis was found in the transverse colon and non-transverse colon * Pathology: adenocarcinoma of the proximal descending colon - s/p (12/13/18) Left Inguinal Hernia repair with mesh, Exploratory Laparotomy, Tranverse colectomy with anastomosis with mobilization of splenic flexure, repair of umbilical hernia with Dr. Adam. - s/p (12/13/18) Cystoscopy with left double J ureteral stent placement by Dr. Boss - Pathology: stage 3 colon cancer (adenocarcinoma of the proximal descending colon) Colitis - GI Consult: Dr. Zamora --> help appreciated - Liquid Diet, diet will be advanced as tolerated - Images: * CT of Abdomen/Pelvis: Segmental moderate to marked wall thickening of the mid and distal transverse colon surrounding with inflammatory changes consistent with colitis. The possibility of underline infiltrative neoplasm is not totally excluded. The differential consideration includes ischemic infection or inflammatory colitis. 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 Mild to moderate left hydroureter. The distal portion of the left ureter is extending into large left inguinal hernia. Part of urinary bladder is also herniated and the left UV junction is likely in the left inguinal hernia. The possibility of distal left ureter stone is not totally excluded. The di fferential consideration includes compression on the distal left ureter at left inguinal hernia. Otherwise no evidence of acute pathology in the abdomen and pelvis. - s/p Colonoscopy on 12/11/18 please see results above - Blood Culture Negative - Medications: * Metronidazole 500mg IV q8h (active since 2/23/19; last dose was given on 12/19/18) * Colace 100mg po daily * Reglan 5mg IV q6h * Pain control per surgery team; Percocet prn UTI - UA: +1LE - Urine Culture: + Ecoli, + ESBL - Repeat Cx x 2 were negative; discontinued isolation - ID consulted, Dr. Melara --> Help appreciated - Medications: * Merrem 1g IV Q8 (active since 12/11/18; last dose to be given on 12/20/18 for a total of 10 days) Left inguinal hernia - s/p (12/13/18) Left Inguinal Hernia repair with mesh, repair of umbilical hernia. Cystoscopy with left double J ureteral stent placement by Dr. Boss - Surgery Consult: Dr. Adam --> help appreciated - Urology Consult: Dr. Chica Boss --> help appreciated Anemia - Hem/onc consulted, Dr. Lewis --> Help appreciated - Likely chronic tumor bleed HTN - Continue home medication Norvasc 10mg po daily History of BPH - Continue home medication Flomax 0.4mg po daily Prophylaxis - Protonix daily - Colace 100mg dialy - SCDs - Lovenox 40mg SC daily Dispo: Upon discharge, patient will need home services and home PT, a bedside commode, and a walker. Patient will need to follow up with Dr. Adam (surgery), Dr. Lewis (oncology), Dr. Boss (Urology) and Dr. Nicole (PMD) within one week of discharge. Patient is stable for discharge to home per Dr. Nicole and Dr. Adam Patient must continue home medications: Norvasc 5mg PO daily, Flomax 0.4mg PO daily Patient must take the following medications for 3 days: Potassium 20mEq by mouth once a day for 3 days. Patient must follow up with Dr. Adam (surgeon) within one week of discharge. Please make an appointment. Patient must follow up with Dr. Lewis (oncologist) within one week of discharge. Patient must follow up with Dr. Boss (urologist) within one week of discharge. Patient must also follow up with PMD, Dr. Nicole within one-two weeks of discharge. Directions per surgery team: - Empty drain daily - You may shower but no bath - No heavy lifting for 4 weeks - No need for dressing on incisions - Make an appointment with Dr. Adam for next week. - Patient is scheduled for portacath with Dr. Adam on December 30, 2018. If symptoms worsen or reoccur, patient should return to the nearest emergency room. Case discussed with and patient seen with Dr. Corey Menon, PGY2
--- NOTE | 2018-12-20 09:09 | PN ---
DATE: 12/18/[address] Ng SUBJECTIVE: I was called for GI consultation by the admitting MD. The patient is seen and fully examined on 12/08/2018 as requested by the admitting medical. The entire chart is reviewed including but not limited to the most recent lab and radiology study results, current and the previous medication list, current and the previous medical events. Case discussed with the staff at length at the time of my GI consultation on 12/08/2018. Short handwritten consultation sheet left in the chart on 12/08/2018. This is a 63-year-old male who was admitted to the hospital with reported intermittent complaint of severe abdominal pain for the last 2 to 3 weeks prior to his admission with postprandial abdominal distention and change of bowel movement habit including diarrhea with reported trace of fresh blood on and off followed by a period of constipation. No reported chest pain, palpitation, chills or fever or significant shortness of breath. No reported body weight loss recently. PAST MEDICAL HISTORY: Including but not limited to, 1. Hypertension. 2. Sleep apnea. 3. Obesity, mild. 4. Reported pelvis abscess formation, treated surgically. FAMILY HISTORY: Unknown. SOCIAL HISTORY: No reported recent history of cigarette smoking or alcohol intake. CURRENT MEDICATIONS: Post admission, medication lists were reviewed. ALLERGIES TO MEDICATION: NONE REPORTED. Official lab results post admission showed initially subnormal CBC with blood glucose level 131, potassium 3.5, AST 82. The patient had abdominopelvic CAT scan at the time of the admission, official report is seen, was abnormal transverse and sigmoid colon appearance with possible colitis according to their statement, please see radiology report. PHYSICAL EXAMINATION: GENERAL: A 63-year-old male awake, alert, oriented complaining of some abdominal pain with postprandial abdominal distention with periods of constipation followed by diarrhea before. The patient is afebrile. VITAL SIGNS: At that time he was seen by me with pulse of 82, respiratory rate 20-22, blood pressure of 148/80. HEENT: Showed pale dry oral mucous membrane. Nonicteric sclerae. LUNGS: Few scattered crepitation. Breathing sounds are decreased bilaterally. HEART: Positive S1 and S2. ABDOMEN: Soft with mild generalized tenderness. No mass or organomegaly, no rebound tenderness or guarding. EXTREMITIES: With lower extremity mild edematous changes,no clubbing or cyanosis. No reported new neurological deficit, sensory or motor. IMPRESSION: 1. Re-exacerbation of peptic ulcer disease. 2. Abnormal CAT scan of the abdomen and pelvis to rule out early stage of inflammatory bowel disease, to rule out occult gastrointestinal malignancy. 3. Past medical history as mentioned above. 4. Electrolyte imbalance with hypokalemia. SUGGESTIONS: 1. Agree with your plan. 2. Cancer markers. 3. Proton pump inhibitors. 4. tab p.o. 5. Endoscopic evaluation of the lower GI tract due to the abnormal CAT scan of the abdomen and pelvis, keeping in mind that the patient never had colonoscopy before. 6. Further recommendation to follow when the patient is more stable clinically. It has to be mentioned that during the physical examination, the patient was found to have also left inguinal hernia as well as the anterior abdominal wall ventral hernia which most likely needs to be operated on. Case discussed at length with the admitting medical team on 12/08/2018 at the time of my GI consultation. Eric Silva MD
[2018-12-20] MEDS: Potassium Chloride 20 mEq ER Tab PO SCH (09:27)
[2018-12-20] MEDS: Enoxaparin 40 mg Syringe SC SCH (09:27)
[2018-12-20] MEDS: Pantoprazole 40 mg EC Tab PO SCH (09:28)
--- NOTE | 2018-12-20 11:28 | PN ---
DATE: 12/20/2018 LOCATION: ICU 11. SUBJECTIVE: This is a 63-year-old male post partial colon resection due to colon adenocarcinoma, seen and examined in rounds, appeared to be fully awake, alert, oriented, tolerating oral intake well without reported significant abdominal pain, chest pain, palpitation or significant shortness of breath. Abdominal dressing is still in place and as per the surgical team, the abdominal dressing Is to be removed. The entire chart is reviewed including, but not limited to, the most recent lab and radiology study results and today's hemoglobin is 10.4, hematocrit 31.7, white blood cells of 4, potassium 3.5, creatinine 0.7 and the patient is still having low albumin and low total protein from before. PHYSICAL EXAMINATION: GENERAL: A 63-year-old male, afebrile with pulse of 70, respiratory rate 20-22, blood pressure of 128/66. HEENT: Showed pale dry oral mucoid membrane. Nonicteric sclerae. LUNGS: Few scattered crepitation. Decreased air entry at bases. HEART: Positive S1 and S2. ABDOMEN: Soft with slight distention, abdominal binder is in place. Bowel sounds are present but still hypoactive. Mild abdominal slight tenderness is positive. EXTREMITIES: With mild lower extremity edematous changes. No clubbing or cyanosis. NEUROLOGIC: No reported new neurological deficits, sensory or motor. IMPRESSION: 1. Colon adenocarcinoma. 2. Status post partial colon resection due to above. 3. Status post inguinal hernia repair. 4. Anemia secondary to above. 5. Known history of, but not limited to, sleep apnea, hypertension, mild obesity as well as benign prostatic hypertrophy. SUGGESTIONS: 1. Continue current management. 2. Advance diet. 3. Follow up with PET scan that could be done as outpatient. 4. The patient will need followup colonoscopy after 1 year, as outpatient. 5. Further recommendation to follow. Eric Silva MD
--- NOTE | 2018-12-20 17:59 | CP.PCM.PN ---
Subjective - Date & Time of Evaluation Date of Evaluation: 12/20/18 Time of Evaluation: 08:00 - Subjective Subjective: awake alert OOB to chair Objective - Vital Signs/Intake and Output Vital Signs (last 24 hours): Temp Pulse Resp BP Pulse Ox 98.5 F 69 22 145/75 96 12/20/18 16:00 12/20/18 16:19 12/20/18 16:19 12/20/18 16:00 12/20/18 16:19 Intake and Output: 12/20/18 12/20/18 06:59 18:59 Intake Total 560 900 Output Total 570 1050 Balance -10 -150 - Medications Medications: Current Medications Amlodipine Besylate (Norvasc) 10 mg PO DAILY [facility] Last Admin: 12/20/18 09:28 Dose: 10 mg Docusate Sodium (Colace) 100 mg PO BID [facility] Last Admin: 12/20/18 09:27 Dose: 100 mg Enoxaparin Sodium (Lovenox) 40 mg SC DAILY [facility] Last Admin: 12/20/18 09:27 Dose: 40 mg Meropenem 1 gm/ Sodium (Chloride) 100 mls @ 100 mls/hr IVPB Q8H [facility]; Protocol Last Admin: 12/20/18 11:49 Dose: 100 mls/hr BUPIVACAINE 0.125%/0.9% NACL (Bupivacaine-Ns 0.125% On-Q Air Conditioning Engineer) 600 mls @ 4 mls/hr IJ ONCE ONE Stop: 12/21/18 13:34 Last Admin: 12/15/18 09:07 Dose: 4 mls/hr Metoclopramide HCl (Reglan) 5 mg IVP Q6H [facility] Last Admin: 12/20/18 12:32 Dose: Not Given Ondansetron HCl (Zofran Inj) 4 mg IVP Q4 PRN PRN Reason: Nausea/Vomiting Oxycodone/Acetaminophen (Percocet 5/325 Mg Tab) 1 tab PO Q6H PRN PRN Reason: Pain, moderate (4-7) Stop: 12/21/18 21:38 Last Admin: 12/18/18 23:45 Dose: 1 tab Pantoprazole Sodium (Protonix Ec Tab) 40 mg PO DAILY [facility] Last Admin: 12/20/18 09:28 Dose: 40 mg Potassium Chloride (K-Dur 20 Meq Er Tab) 20 meq PO DAILY [facility] Last Admin: 12/20/18 09:27 Dose: 20 meq Tamsulosin HCl (Flomax) 0.4 mg PO DAILY [facility] Last Admin: 12/20/18 09:27 Dose: 0.4 mg Vitamin A (Vitamin A & D Oint Ud Foilpak) 0.5 ea TOP PRN PRN PRN Reason: Dry mouth Last Admin: 12/14/18 00:06 Dose: 0.5 ea - Labs Labs: 12/20/18 06:52 12/20/18 06:52 PT 14.5 SECONDS (9.7-12.2) H 12/13/18 07:09 INR 1.3 12/13/18 07:09 APTT 34 SECONDS (21-34) D 12/13/18 07:09 - Constitutional Appears: Well - Head Exam Head Exam: ATRAUMATIC, NORMAL INSPECTION, NORMOCEPHALIC - Eye Exam Eye Exam: EOMI, Normal appearance, PERRL Pupil Exam: NORMAL ACCOMODATION, PERRL - ENT Exam ENT Exam: Mucous Membranes Moist, Normal Exam - Neck Exam Neck Exam: Full ROM, Normal Inspection. absent: Lymphadenopathy - Respiratory Exam Respiratory Exam: Clear to Ausculation Bilateral, NORMAL BREATHING PATTERN - Cardiovascular Exam Cardiovascular Exam: REGULAR RHYTHM, +S1, +S2. absent: Murmur - GI/Abdominal Exam GI & Abdominal Exam: Distended, Soft, Normal Bowel Sounds. absent: Tenderness Additional comments: midline incision dry left KATHY drain in place - Rectal Exam Rectal Exam: Deferred - Exam Exam: NORMAL INSPECTION - Extremities Exam Extremities Exam: Full ROM, Normal Capillary Refill, Normal Inspection. absent: Joint Swelling, Pedal Edema - Back Exam Back Exam: NORMAL INSPECTION - Neurological Exam Neurological Exam: Alert, Awake, CN II-XII Intact, Normal Gait, Oriented x3 - Psychiatric Exam Psychiatric exam: Normal Affect, Normal Mood - Skin Skin Exam: Dry, Intact, Normal Color, Warm Assessment and Plan (1) Hydronephrosis Status: Acute (2) ESBL (extended spectrum beta-lactamase) producing bacteria infection Status: Acute - Assessment and Plan (Free Text) Assessment: s/p E Coli UTI ESBL s/p colon resection improving cont rx as planned
[2018-12-20 22:20] VITALS: RESP 20
[2018-12-21] MEDS: Meropenem 1 GM in Sodium Chloride 0.9% 100 ML IVPB SCH (03:45)
[2018-12-21] MEDS: Oxycodone/Acetaminophen 5/325 mg Tab PO PRN (03:48)
--- NOTE | 2018-12-21 07:28 | CP.PCM.PN ---
Subjective - Date & Time of Evaluation Date of Evaluation: 12/21/18 Time of Evaluation: 07:26 - Subjective Subjective: SURGERY NOTE FOR DR. BURNETTE 63M seen and examined at bedside. Patient doing well, denies pain, denies nausea or vomiting. He is passing flatus and having bowel function. Objective - Vital Signs/Intake and Output Vital Signs (last 24 hours): Temp Pulse Resp BP Pulse Ox 98.1 F 73 20 153/54 H 96 12/21/18 06:10 12/21/18 06:10 12/21/18 06:10 12/21/18 06:10 12/21/18 06:10 Intake and Output: 12/21/18 12/21/18 06:59 18:59 Intake Total 640 Output Total 860 Balance -220 - Medications Medications: Current Medications Amlodipine Besylate (Norvasc) 10 mg PO DAILY [facility] Last Admin: 12/20/18 09:28 Dose: 10 mg Docusate Sodium (Colace) 100 mg PO BID [facility] Last Admin: 12/20/18 18:10 Dose: Not Given Enoxaparin Sodium (Lovenox) 40 mg SC DAILY [facility] Last Admin: 12/20/18 09:27 Dose: 40 mg Meropenem 1 gm/ Sodium (Chloride) 100 mls @ 100 mls/hr IVPB Q8H [facility]; Protocol Last Admin: 12/21/18 03:45 Dose: 100 mls/hr BUPIVACAINE 0.125%/0.9% NACL (Bupivacaine-Ns 0.125% On-Q Mammalogist) 600 mls @ 4 mls/hr IJ ONCE ONE Stop: 12/21/18 13:34 Last Admin: 12/15/18 09:07 Dose: 4 mls/hr Metoclopramide HCl (Reglan) 5 mg IVP Q6H [facility] Last Admin: 12/21/18 01:30 Dose: Not Given Ondansetron HCl (Zofran Inj) 4 mg IVP Q4 PRN PRN Reason: Nausea/Vomiting Oxycodone/Acetaminophen (Percocet 5/325 Mg Tab) 1 tab PO Q6H PRN PRN Reason: Pain, moderate (4-7) Stop: 12/21/18 21:38 Last Admin: 12/21/18 03:48 Dose: 1 tab Pantoprazole Sodium (Protonix Ec Tab) 40 mg PO DAILY [facility] Last Admin: 12/20/18 09:28 Dose: 40 mg Potassium Chloride (K-Dur 20 Meq Er Tab) 20 meq PO DAILY [facility] Last Admin: 12/20/18 09:27 Dose: 20 meq Tamsulosin HCl (Flomax) 0.4 mg PO DAILY [facility] Last Admin: 12/20/18 09:27 Dose: 0.4 mg Vitamin A (Vitamin A & D Oint Ud Foilpak) 0.5 ea TOP PRN PRN PRN Reason: Dry mouth Last Admin: 12/14/18 00:06 Dose: 0.5 ea - Labs Labs: 12/20/18 06:52 12/20/18 06:52 PT 14.5 SECONDS (9.7-12.2) H 12/13/18 07:09 INR 1.3 12/13/18 07:09 APTT 34 SECONDS (21-34) D 12/13/18 07:09 - Constitutional Appears: Non-toxic, No Acute Distress - Respiratory Exam Respiratory Exam: Clear to Ausculation Bilateral, NORMAL BREATHING PATTERN - Cardiovascular Exam Cardiovascular Exam: REGULAR RHYTHM, +S1, +S2 - GI/Abdominal Exam GI & Abdominal Exam: Soft. absent: Distended, Firm, Guarding, Rigid, Tenderness, Rebound Additional comments: incision CDI Aleena drain 70cc/12hrs - Extremities Exam Extremities Exam: absent: Pedal Edema, Tenderness - Neurological Exam Neurological Exam: Alert, Awake Assessment and Plan - Assessment and Plan (Free Text) Assessment: 63M s/p left inguinal hernia repair, ex-lap with partial colon resection, POD#8 Pathology [id number] Plan: - monitor aleena output - TCU vs home - will require portacath - booked for December 30pm outpatient - If patient still in patient nx week will move date up. Further recs discussed with Dr. Kia Munoz, PGY3
[2018-12-21 08:47] LABS: BASO % 0.5 % (0.0-2.0); EOS # 0.2 K/uL (0.0-0.7); EOS % 3.7 % (0.0-4.0); HEMOGLOBIN 10.9 g/dL (12.0-18.0); LYMPH # 0.8 K/uL (1.0-4.3); LYMPH % 17.2 % (20.0-40.0); MEAN CELL VOLUME 86.4 fL (80.0-94.0); MEAN CORPUSCULAR HEMOGLOBIN 28.1 pg (27.0-31.0); MEAN CORPUSCULAR HGB CONC 32.5 g/dL (33.0-37.0); MONO # 0.5 K/uL (0.0-0.8); MONO % 9.7 % (0.0-10.0); NEUT # 3.4 K/uL (1.8-7.0); NEUT % 68.9 % (50.0-75.0); NRBC % 0.2 % (0.0-2.0); RBC 3.88 Mil/uL (4.40-5.90); RED CELL DISTRIBUTION WIDTH 14.5 % (11.5-14.5); WHITE BLOOD COUNT 4.9 K/uL (4.8-10.8)
[2018-12-21 09:01] LABS: ALBUMIN 3.3 g/dL (3.5-5.0); ALT/SGPT 43 U/L (21-72); AST/SGOT 57 U/L (17-59); BLOOD UREA NITROGEN 10 mg/dL (9-20); CALCIUM 8.8 mg/dl (8.6-10.4); GFR NON-AFRICAN AMERICAN > 60
[2018-12-21] MEDS: Potassium Chloride 20 mEq ER Tab PO SCH (10:01)
[2018-12-21] MEDS: Pantoprazole 40 mg EC Tab PO SCH (10:01)
[2018-12-21] MEDS: Enoxaparin 40 mg Syringe SC SCH (10:02)
--- NOTE | 2018-12-21 11:18 | PN ---
DATE: 12/21/2018 LOCATION: 665, bed A. SUBJECTIVE: This 63-year-old male seen out of the intensive care unit early this morning without reported significant clinical changes. No active bleeding. No chest pain or palpitation, but occasional mild abdominal pain postsurgically. The patient still has left KATHY drain in place with no drainage so far. The entire chart is reviewed including the most recent lab results, as per yesterday, with hemoglobin of 10.4, hematocrit 31.7 with low potassium, low creatinine and recently reported low albumin and low total protein postsurgically. The patient denied any signs of active bleeding from the GI tract. PHYSICAL EXAMINATION: GENERAL: This is a 63-year-old male. VITAL SIGNS: Afebrile with pulse 70, respiratory rate 20-22, blood pressure 148/56. HEENT: Pale dry oral mucoid membrane. Nonicteric sclerae. LUNGS: Few scattered crepitation. Decreased air entry at bases. HEART: Positive S1 and S2. ABDOMEN: With slight distention and hypoactive bowel sounds with mild generalized tenderness. The patient was out of bed to the chair before. No mass or organomegaly. KATHY drain is in place. EXTREMITIES: Without significant clubbing, cyanosis or edema. NEUROLOGIC: No reported new neurological deficits, sensory or motor. IMPRESSION: 1. Adenocarcinoma of the colon with status post partial colon resection. 2. Recent reported bacteremia, treated by the Infectious Disease foreign legal consultant. 3. Anemia secondary to above. 4. Morbid obesity by history. 5. Status post inguinal hernia repair. 6. Known history of sleep apnea, hypertension, benign prostatic hypertrophy. SUGGESTIONS: 1. Continue current management. 2. Peripheral hyperalimentation in the meantime. 3. Repeat stool for occult blood as well as C. Diff 4. Further recommendation to follow. Eric Silva MD
--- NOTE | 2018-12-22 07:12 | CP.PCM.PN ---
Subjective - Date & Time of Evaluation Date of Evaluation: 12/22/18 Time of Evaluation: 06:50 - Subjective Subjective: General Surgery Dr. Adam Pt S&E @bedside. No acute events overnight. has no complaints this AM. pain well controlled. denies F/C, N/V, D/C. tolerating diet. (+)BM/Flatus. OOb, ambulating. Aleena 80cc serous x24hrs Objective - Vital Signs/Intake and Output Vital Signs (last 24 hours): Temp Pulse Resp BP Pulse Ox 98.1 F 82 20 145/71 96 12/22/18 00:10 12/22/18 00:10 12/22/18 00:10 12/22/18 00:10 12/22/18 00:10 Intake and Output: 12/22/18 12/22/18 06:59 18:59 Intake Total 120 Output Total 30 Balance 90 - Medications Medications: Current Medications Amlodipine Besylate (Norvasc) 10 mg PO DAILY [facility] Last Admin: 12/21/18 10:01 Dose: 10 mg Docusate Sodium (Colace) 100 mg PO BID [facility] Last Admin: 12/21/18 19:51 Dose: 100 mg Metoclopramide HCl (Reglan) 5 mg IVP Q6H [facility] Last Admin: 12/22/18 01:10 Dose: 5 mg Ondansetron HCl (Zofran Inj) 4 mg IVP Q4 PRN PRN Reason: Nausea/Vomiting Pantoprazole Sodium (Protonix Ec Tab) 40 mg PO DAILY [facility] Last Admin: 12/21/18 10:01 Dose: 40 mg Potassium Chloride (K-Dur 20 Meq Er Tab) 20 meq PO DAILY [facility] Last Admin: 12/21/18 10:01 Dose: 20 meq Tamsulosin HCl (Flomax) 0.4 mg PO DAILY [facility] Last Admin: 12/21/18 10:01 Dose: 0.4 mg Vitamin A (Vitamin A & D Oint Ud Foilpak) 0.5 ea TOP PRN PRN PRN Reason: Dry mouth Last Admin: 12/14/18 00:06 Dose: 0.5 ea - Labs Labs: 12/21/18 08:31 12/21/18 08:31 PT 14.5 SECONDS (9.7-12.2) H 12/13/18 07:09 INR 1.3 12/13/18 07:09 APTT 34 SECONDS (21-34) D 12/13/18 07:09 - Constitutional Appears: Non-toxic, No Acute Distress - Head Exam Head Exam: NORMAL INSPECTION - Eye Exam Eye Exam: Normal appearance - ENT Exam ENT Exam: Mucous Membranes Moist - Respiratory Exam Respiratory Exam: NORMAL BREATHING PATTERN. absent: Accessory Muscle Use, Respiratory Distress - Cardiovascular Exam Cardiovascular Exam: REGULAR RHYTHM. absent: Bradycardia, Tachycardia - GI/Abdominal Exam GI & Abdominal Exam: Soft. absent: Distended, Tenderness Additional comments: incisions c/d/i aleena drain in place - Extremities Exam Extremities Exam: Normal Inspection - Neurological Exam Neurological Exam: Alert, Awake, Oriented x3 - Psychiatric Exam Psychiatric exam: Normal Affect, Normal Mood - Skin Skin Exam: Dry, Intact, Normal Color, Warm Assessment and Plan - Assessment and Plan (Free Text) Assessment: 63 y/o M POD#9 s/p left inguinal hernia repair, ex-lap with partial colon resection Pathology [id number] Plan: - monitor aleena output - monitor bowel fxn - ADTA - will require portacath - booked for December 30, outpatient - encourage OOB to chair/Amb - pt cleared for discharge from surgical standpoint Pt discussed w/ Dr. Kia Juarez DO PGY3
[2018-12-22 08:25] LABS: BASO % 0.3 % (0.0-2.0); EOS # 0.1 K/uL (0.0-0.7); EOS % 2.4 % (0.0-4.0); HEMOGLOBIN 10.9 g/dL (12.0-18.0); LYMPH # 0.6 K/uL (1.0-4.3); LYMPH % 15.5 % (20.0-40.0); MEAN CELL VOLUME 85.7 fL (80.0-94.0); MEAN CORPUSCULAR HEMOGLOBIN 28.2 pg (27.0-31.0); MEAN CORPUSCULAR HGB CONC 32.9 g/dL (33.0-37.0); MEAN PLATELET VOLUME 10.5 fL (7.2-11.7); MONO # 0.5 K/uL (0.0-0.8); NEUT # 2.8 K/uL (1.8-7.0); NEUT % 69.8 % (50.0-75.0); NRBC % 0.1 % (0.0-2.0); RBC 3.88 Mil/uL (4.40-5.90); RED CELL DISTRIBUTION WIDTH 14.2 % (11.5-14.5)
[2018-12-22 08:43] LABS: ALBUMIN 3.3 g/dL (3.5-5.0); ALT/SGPT 38 U/L (21-72); AST/SGOT 39 U/L (17-59); BLOOD UREA NITROGEN 10 mg/dL (9-20); CALCIUM 8.8 mg/dl (8.6-10.4); GFR NON-AFRICAN AMERICAN > 60
[2018-12-22] MEDS: Potassium Chloride 20 mEq ER Tab PO SCH (09:19)
[2018-12-22] MEDS: Pantoprazole 40 mg EC Tab PO SCH (09:20)
[2018-12-22] MEDS ORDERED: Petrolatum Oint Foilpak (5 gm) TOP PRN (11:00)
--- NOTE | 2018-12-22 11:46 | PN ---
DATE: 12/22/2018 LOCATION: 5, bed A. SUBJECTIVE: This 63-year-old male, post partial colon resection due to CA of the colon, seen and examined in rounds today, out of the intensive care unit without reported abdominal pain, chest pain or palpitation but slight shortness of breath. No reported active bleeding and KATHY drainage is much less than reported, about zero amount. The patient still has abdominal binder on. Most recent lab results as per yesterday showed low hemoglobin and hematocrit with low potassium, low creatinine, and low albumin. PHYSICAL EXAMINATION: GENERAL: A 63-year-old male. VITAL SIGNS: Afebrile with pulse of 74, respiratory rate 20 to 22, blood pressure 140/80. HEENT: Showed pale, dry, oral mucous membranes. Nonicteric sclerae. LUNGS: Few scattered crepitations. Decreased air entry at bases. HEART: Positive S1 and S2. ABDOMEN: Soft. Bowel sounds present but mildly hypoactive with slight generalized tenderness. No mass or organomegaly. No rebound tenderness or guarding. EXTREMITIES: Without significant clubbing cyanosis or edema. IMPRESSION: 1. Adenocarcinoma of the colon with status post partial colon resection. 2. Status post inguinal hernia repair. 3. Morbid obesity, by history. 4. Sleep apnea, by history. 5. Known history of hypertension, benign prostatic hypertrophy. SUGGESTIONS: 1. Continue current management. 2. Advance diet as tolerated. 3. Followup in cancer markers postsurgically. 4. Further recommendations to follow. Eric Silva MD
--- NOTE | 2018-12-22 12:14 | CARD ---
APPROVED REPORT Date of service: 12/09/2018 EKG Measurement Heart [id number] CT [id number] <Conclusion> Normal sinus rhythm Right bundle branch block Abnormal ECG
--- NOTE | 2018-12-22 16:40 | PCM.URO ---
Urology Progress Note - General General: No Complaints, Tolerating Diet - Subjective Abdominal Pain: No Flank Pain: No Nausea: No Voiding Well: Yes ([place]) Hematuria: No Weak Stream: No Stone Passed: No Dsypnea: No Chest Pain: No Fever & Chills: No - Objective Lab Studies: Reviewed Lab Results Last 24 Hours: Laboratory Results - last 24 hr 12/21/18 12/22/18 12/22/18 10:59 08:12 08:12 WBC 4.0 L RBC 3.88 L Hgb 10.9 L Hct 33.2 L MCV 85.7 MCH 28.2 MCHC 32.9 L RDW 14.2 Plt Count 213 MPV 10.5 Neut % (Auto) 69.8 Lymph % (Auto) 15.5 L Coke % (Auto) 12.0 H Eos % (Auto) 2.4 Baso % (Auto) 0.3 Neut # (Auto) 2.8 Lymph # (Auto) 0.6 L Coke # (Auto) 0.5 Eos # (Auto) 0.1 Baso # (Auto) 0.0 Sodium 138 Potassium 3.1 L Chloride 101 Carbon Dioxide 29 Anion Gap 11 BUN 10 Creatinine 0.7 L Est GFR ( Amer) > 60 Est GFR (Non-Af Amer) > 60 POC Glucose (mg/dL) 101 Random Glucose 99 Calcium 8.8 Total Bilirubin 0.5 AST 39 ALT 38 Alkaline Phosphatase 75 Total Protein 6.5 Albumin 3.3 L Globulin 3.2 Albumin/Globulin Ratio 1.0 Intake & Output: Intake & Output 12/21/18 12/22/18 12/22/18 18:59 06:59 18:59 Intake Total 120 Output Total 30 Balance 90 Intake: Oral 120 Output: Drainage 30 Left Abdomen 30 Other: # Voids Urine, Voided 2 # Bowel Movements 1 Vital Signs: Vital Signs - 24 hr 12/22/18 12/22/18 00:10 07:05 Temperature 98.1 F 97.9 F Pulse Rate 82 79 Respiratory 20 20 Rate Blood Pressure 145/71 147/82 O2 Sat by Pulse 96 96 Oximetry - Physical Exam Abdominal Exam: Soft, Non-Tender, Non-Distended Back: No CVA Tenderness Genitalia: Without Inflammation - Male Phallus: Normal Scrotum: Normal - Plan Ambulation - Out of Bed: Yes Intake & Output: Yes Additional Information: IMP: stable p catheter removal. BPH. Hx of UTI. L ureteral stent in place for L hydronephrosis. Colon cancer with + LN. REC/p: Discussed w pt re need for urologic f/u and stent removal. He plans to go to rehab facility. He will contact me thereafter. - Date & Time of Note Date: 12/22/18 Time: 08:20
[2018-12-22] MEDS: Mupirocin 2% Ointment (NASAL) NAS SCH (17:28)
[2018-12-23 08:07] LABS: BASO % 0.3 % (0.0-2.0); EOS # 0.1 K/uL (0.0-0.7); EOS % 2.6 % (0.0-4.0); LYMPH # 0.7 K/uL (1.0-4.3); LYMPH % 18.5 % (20.0-40.0); MEAN CELL VOLUME 85.6 fL (80.0-94.0); MEAN CORPUSCULAR HEMOGLOBIN 27.8 pg (27.0-31.0); MEAN CORPUSCULAR HGB CONC 32.5 g/dL (33.0-37.0); MEAN PLATELET VOLUME 10.6 fL (7.2-11.7); MONO # 0.5 K/uL (0.0-0.8); MONO % 12.4 % (0.0-10.0); NEUT # 2.5 K/uL (1.8-7.0); NEUT % 66.2 % (50.0-75.0); RBC 3.94 Mil/uL (4.40-5.90); RED CELL DISTRIBUTION WIDTH 14.4 % (11.5-14.5); WHITE BLOOD COUNT 3.8 K/uL (4.8-10.8)
[2018-12-23 08:28] LABS: ALB/GLOB RATIO 1.2 (1.0-2.1); ALBUMIN 3.5 g/dL (3.5-5.0); ALT/SGPT 36 U/L (21-72); AST/SGOT 37 U/L (17-59); BLOOD UREA NITROGEN 8 mg/dL (9-20); CALCIUM 8.7 mg/dl (8.6-10.4); GFR NON-AFRICAN AMERICAN > 60
--- NOTE | 2018-12-23 09:26 | CP.PCM.PN ---
Subjective - Date & Time of Evaluation Date of Evaluation: 12/23/18 Time of Evaluation: 08:00 - Subjective Subjective: Progress note for Dr. Nicole Patient was seen and examined at bedside in no acute distress. Patient states he had a bowel movement this morning. He denies chest pain, dyspnea, palpitations, nausea, vomiting, fevers, headaches leg pain. Objective - Vital Signs/Intake and Output Vital Signs (last 24 hours): Temp Pulse Resp BP Pulse Ox 99.4 F 70 20 140/72 96 12/23/18 08:12 12/23/18 08:12 12/23/18 08:12 12/23/18 08:12 12/23/18 08:12 - Medications Medications: Current Medications Amlodipine Besylate (Norvasc) 10 mg PO DAILY [facility] Last Admin: 12/22/18 09:21 Dose: 10 mg Docusate Sodium (Colace) 100 mg PO BID [facility] Last Admin: 12/22/18 17:28 Dose: 100 mg Emollient Ointment (Vaseline Oint) 5 gm TOP PRN PRN PRN Reason: Dry LIPS Metoclopramide HCl (Reglan) 5 mg IVP Q6H [facility] Last Admin: 12/23/18 08:10 Dose: Not Given Mupirocin (Bactroban 2% Nasal) 0.25 gm JOSE BID [facility] Last Admin: 12/22/18 17:28 Dose: 0.25 gm Ondansetron HCl (Zofran Inj) 4 mg IVP Q4 PRN PRN Reason: Nausea/Vomiting Pantoprazole Sodium (Protonix Ec Tab) 40 mg PO DAILY [facility] Last Admin: 12/22/18 09:20 Dose: 40 mg Potassium Chloride (K-Dur 20 Meq Er Tab) 20 meq PO DAILY [facility] Last Admin: 12/22/18 09:19 Dose: 20 meq Tamsulosin HCl (Flomax) 0.4 mg PO DAILY [facility] Last Admin: 12/22/18 09:20 Dose: 0.4 mg - Labs Labs: 12/23/18 07:55 12/23/18 07:55 PT 14.5 SECONDS (9.7-12.2) H 12/13/18 07:09 INR 1.3 12/13/18 07:09 APTT 34 SECONDS (21-34) D 12/13/18 07:09 - Constitutional Appears: No Acute Distress - Head Exam Head Exam: ATRAUMATIC, NORMAL INSPECTION - Eye Exam Eye Exam: EOMI, Normal appearance - ENT Exam ENT Exam: Mucous Membranes Moist - Respiratory Exam Respiratory Exam: Clear to Ausculation Bilateral, NORMAL BREATHING PATTERN - Cardiovascular Exam Cardiovascular Exam: REGULAR RHYTHM, +S1, +S2 - GI/Abdominal Exam GI & Abdominal Exam: Soft, Normal Bowel Sounds. absent: Tenderness Additional comments: binder in place c/d/i - Extremities Exam Extremities Exam: Normal Inspection - Neurological Exam Neurological Exam: Alert, Awake, Oriented x3 - Psychiatric Exam Psychiatric exam: Normal Affect - Skin Skin Exam: Normal Color Assessment and Plan - Assessment and Plan (Free Text) Assessment: Adenocardinoma of the Proximal Descending Colon - GI Consult: Dr. Zamora --> help appreciated - Surgery Consult: Dr. Adam --> help appreciated - Hem/Onc Consult: Dr. Lewis --> help appreciated * Per Dr. Lewis, patient requires a portacath * Patient requests placing a portacath as outpatient. - Roofing Machine Tender consult for cardiac clearance prior to surgeries: Dr. Carias, help appreciated * Per Dr. Carias: Patient is at intermediate risk for the planned procedure. Recommend perioperative betablocker to attenuate operative risk. There is no cardiovascular contraindication to the planned surgery. * ECHO (12/13/18): EF 65-70%; mild concentric left ventricular hypertrophy; the left ventricle systolic function is normal - Chest CT: Cardiomegaly. Medial left upper lobe bronchiectasis and small bulla evident. 4 mm nodular opacity along the pleura, possibly intrapulmonary lymph node. 2 mm right middle lobe nodule. Recommend [address] follow-up. Limited visualization of the upper abdomen reveals partially imaged moderate to severe wall thickening of the mid to distal transverse colon which appears consistent with provided history of colonic carcinoma. 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 - s/p colonoscopy 12/11/[address] Zamora * Findings: Malignant-appearing intrinsic severe stenosis was found in the tr ansverse colon and non-transverse colon * Pathology: adenocarcinoma of the proximal descending colon - s/p (12/13/18) Left Inguinal Hernia repair with mesh, Exploratory Laparotomy, Tranverse colectomy with anastomosis with mobilization of splenic flexure, repair of umbilical hernia with Dr. Adam. - s/p (12/13/18) Cystoscopy with left double J ureteral stent placement by Dr. Boss - Pathology: stage 3 colon cancer (adenocarcinoma of the proximal descending colon) Colitis - resolved - GI Consult: Dr. Zamora --> help appreciated - Liquid Diet, diet will be advanced as tolerated - Images: * CT of Abdomen/Pelvis: Segmental moderate to marked wall thickening of the mid and distal transverse colon surrounding with inflammatory changes consistent with colitis. The possibility of underline infiltrative neoplasm is not totally excluded. The differential consideration includes ischemic infection or inflammatory colitis. 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 Mild to moderate left hydroureter. The distal portion of the left ureter is extending into large left inguinal hernia. Part of urinary bladder is also herniated and the left UV junction is likely in the left inguinal hernia. The possibility of distal left ureter stone is not totally excluded. The differential consideration includes compression on the distal left ureter at left inguinal hernia. Otherwise no evidence of acute pathology in the abdomen and pelvis. - s/p Colonoscopy on 12/11/18 please see results above - Blood Culture Negative - Medications: * Metronidazole 500mg IV q8h (active since 12/14/18; last dose was given on 12/19/18) * Colace 100mg po daily * Reglan 5mg IV q6h * Pain control per surgery team; Percocet prn UTI - resolved - UA: +1LE - Urine Culture: + Ecoli, + ESBL - Repeat Cx x 2 were negative; discontinued isolation - ID consulted, Dr. Melara --> Help appreciated - Medications: * Merrem 1g IV Q8 (active since 12/11/18; last dose to be given on 12/20/18 for a total of 10 days) Left inguinal hernia - s/p (12/13/18) Left Inguinal Hernia repair with mesh, repair of umbilical hernia. Cystoscopy with left double J ureteral stent placement by Dr. Boss - Surgery Consult: Dr. Adam --> help appreciated - Urology Consult: Dr. Chica Boss --> help appreciated Anemia - Hem/onc consulted, Dr. Lewis --> Help appreciated - Likely chronic tumor bleed HTN - Continue home medication Norvasc 10mg po daily History of BPH - Continue home medication Flomax 0.4mg po daily Prophylaxis - Protonix daily - Colace 100mg dialy - SCDs - Lovenox 40mg SC daily Dispo: Upon discharge, patient will need home services and home PT, a bedside commode, and a walker. Patient will need to follow up with Dr. Adam (surgery), Dr. Lewis (oncology), Dr. Boss (Urology) and Dr. Nicole (PMD) within one week of discharge. Patient will require portacath - booked for December 30, as an outpatient. Case management/social work planning discharge to TCU. Patient was accepted, pending authorization. Case discussed with Dr. Corey Pelaez PGY-2
[2018-12-23] MEDS: Pantoprazole 40 mg EC Tab PO SCH (09:48)
[2018-12-23] MEDS: Potassium Chloride 20 mEq ER Tab PO SCH (09:48)
[2018-12-23] MEDS: Mupirocin 2% Ointment (NASAL) NAS SCH ×2 (09:48→17:22)
--- NOTE | 2018-12-23 16:53 | PN ---
DATE: 12/23/2018 LOCATION: 5. SUBJECTIVE: This 63-year-old male seen and examined in rounds without significant clinical changes, tolerating oral intake well, but with reported some constipation and abdominal pain on and off. The entire chart is reviewed and today's lab results showed hemoglobin of 11, hematocrit 33.7 with low indices, BUN 8, creatinine 0.6 with normal liver function test. PHYSICAL EXAMINATION: GENERAL: A 63-year-old male, awake, alert, oriented. Denied any actual chest pain, palpitation or significant shortness of breath, but mild to moderate abdominal distention and discomfort. VITAL SIGNS: Low-grade temperature of 99.4. HEENT: Showed pale dry oral mucous membrane. Nonicteric sclerae. LUNGS: Few scattered crepitation. Decreased air entry at bases. HEART: Positive S1 and S2. ABDOMEN: Soft with mild generalized tenderness. No mass or organomegaly. No rebound tenderness or guarding. EXTREMITIES: Without significant clubbing, cyanosis or edema. No reported new neurological deficits, sensory or motor. It has to be mentioned that the abdominal dressing is still in place, dry and intact. IMPRESSION: 1. Adenocarcinoma of the colon with status post partial colon resection. 2. Status post inguinal hernia repair. 3. Sleep apnea by history. 4. Morbid obesity by history. 5. Known history of benign prostatic hypertrophy, hypertension. 6. Anemia secondary to above. SUGGESTIONS: 1. Continue current management. 2. Follow up on the pathology report of the operative status which was indicative of invasive moderately differentiated adenocarcinoma with peritoneal invasion with 3/6 lymph nodes are positive for metastatic disease, but benign omentum. 3. Further recommendation and followup to be arranged. 4. The patient will need followup colonoscopy with PET scan after 1 year. Eric Silva MD
--- NOTE | 2018-12-23 23:26 | CP.PCM.PN ---
Subjective - Date & Time of Evaluation Date of Evaluation: 12/20/18 Time of Evaluation: 12:00 - Subjective Subjective: No complaints. Objective - Vital Signs/Intake and Output Vital Signs (last 24 hours): Temp Pulse Resp BP Pulse Ox 97.9 F 70 20 134/72 98 12/23/18 16:00 12/23/18 16:00 12/23/18 16:00 12/23/18 16:00 12/23/18 16:00 Intake and Output: 12/23/18 12/24/18 18:59 06:59 Intake Total 350 Balance 350 - Medications Medications: Current Medications Amlodipine Besylate (Norvasc) 10 mg PO DAILY [facility] Last Admin: 12/23/18 09:48 Dose: 10 mg Docusate Sodium (Colace) 100 mg PO BID [facility] Last Admin: 12/23/18 17:21 Dose: 100 mg Emollient Ointment (Vaseline Oint) 5 gm TOP PRN PRN PRN Reason: Dry LIPS Metoclopramide HCl (Reglan) 5 mg IVP Q6H [facility] Last Admin: 12/23/18 21:27 Dose: 5 mg Mupirocin (Bactroban 2% Nasal) 0.25 gm JOSE BID [facility] Last Admin: 12/23/18 17:22 Dose: 0.25 gm Ondansetron HCl (Zofran Inj) 4 mg IVP Q4 PRN PRN Reason: Nausea/Vomiting Pantoprazole Sodium (Protonix Ec Tab) 40 mg PO DAILY [facility] Last Admin: 12/23/18 09:48 Dose: 40 mg Potassium Chloride (K-Dur 20 Meq Er Tab) 20 meq PO DAILY [facility] Last Admin: 12/23/18 09:48 Dose: 20 meq Tamsulosin HCl (Flomax) 0.4 mg PO DAILY [facility] Last Admin: 12/23/18 09:48 Dose: 0.4 mg - Labs Labs: 12/23/18 07:55 12/23/18 07:55 PT 14.5 SECONDS (9.7-12.2) H 12/13/18 07:09 INR 1.3 12/13/18 07:09 APTT 34 SECONDS (21-34) D 12/13/18 07:09 - Head Exam Head Exam: ATRAUMATIC - Eye Exam Eye Exam: Normal appearance - ENT Exam ENT Exam: Mucous Membranes Dry - Respiratory Exam Respiratory Exam: NORMAL BREATHING PATTERN - Cardiovascular Exam Cardiovascular Exam: +S1, +S2 - GI/Abdominal Exam GI & Abdominal Exam: Normal Bowel Sounds Assessment and Plan (1) Colon cancer Assessment & Plan: s/p hemicolectomy stage III outpatient adjuvant chemotherapy Status: Acute (2) Anemia Status: Acute
--- NOTE | 2018-12-23 23:27 | CP.PCM.PN ---
Subjective - Date & Time of Evaluation Date of Evaluation: 12/21/18 Time of Evaluation: 17:00 - Subjective Subjective: No complaints. Objective - Vital Signs/Intake and Output Vital Signs (last 24 hours): Temp Pulse Resp BP Pulse Ox 97.9 F 70 20 134/72 98 12/23/18 16:00 12/23/18 16:00 12/23/18 16:00 12/23/18 16:00 12/23/18 16:00 Intake and Output: 12/23/18 12/24/18 18:59 06:59 Intake Total 350 Balance 350 - Medications Medications: Current Medications Amlodipine Besylate (Norvasc) 10 mg PO DAILY [facility] Last Admin: 12/23/18 09:48 Dose: 10 mg Docusate Sodium (Colace) 100 mg PO BID [facility] Last Admin: 12/23/18 17:21 Dose: 100 mg Emollient Ointment (Vaseline Oint) 5 gm TOP PRN PRN PRN Reason: Dry LIPS Metoclopramide HCl (Reglan) 5 mg IVP Q6H [facility] Last Admin: 12/23/18 21:27 Dose: 5 mg Mupirocin (Bactroban 2% Nasal) 0.25 gm JOSE BID [facility] Last Admin: 12/23/18 17:22 Dose: 0.25 gm Ondansetron HCl (Zofran Inj) 4 mg IVP Q4 PRN PRN Reason: Nausea/Vomiting Pantoprazole Sodium (Protonix Ec Tab) 40 mg PO DAILY [facility] Last Admin: 12/23/18 09:48 Dose: 40 mg Potassium Chloride (K-Dur 20 Meq Er Tab) 20 meq PO DAILY [facility] Last Admin: 12/23/18 09:48 Dose: 20 meq Tamsulosin HCl (Flomax) 0.4 mg PO DAILY [facility] Last Admin: 12/23/18 09:48 Dose: 0.4 mg - Labs Labs: 12/23/18 07:55 12/23/18 07:55 PT 14.5 SECONDS (9.7-12.2) H 12/13/18 07:09 INR 1.3 12/13/18 07:09 APTT 34 SECONDS (21-34) D 12/13/18 07:09 - Head Exam Head Exam: ATRAUMATIC - Eye Exam Eye Exam: Normal appearance - ENT Exam ENT Exam: Mucous Membranes Dry - Respiratory Exam Respiratory Exam: NORMAL BREATHING PATTERN - Cardiovascular Exam Cardiovascular Exam: +S1, +S2 - GI/Abdominal Exam GI & Abdominal Exam: Normal Bowel Sounds Assessment and Plan (1) Colon cancer Assessment & Plan: s/p hemicolectomy stage III outpatient adjuvant chemotherapy Status: Acute (2) Anemia Status: Acute
--- NOTE | 2018-12-23 23:28 | CP.PCM.PN ---
Subjective - Date & Time of Evaluation Date of Evaluation: 12/23/18 Time of Evaluation: 19:00 - Subjective Subjective: No complaints. Objective - Vital Signs/Intake and Output Vital Signs (last 24 hours): Temp Pulse Resp BP Pulse Ox 97.9 F 70 20 134/72 98 12/23/18 16:00 12/23/18 16:00 12/23/18 16:00 12/23/18 16:00 12/23/18 16:00 Intake and Output: 12/23/18 12/24/18 18:59 06:59 Intake Total 350 Balance 350 - Medications Medications: Current Medications Amlodipine Besylate (Norvasc) 10 mg PO DAILY [facility] Last Admin: 12/23/18 09:48 Dose: 10 mg Docusate Sodium (Colace) 100 mg PO BID [facility] Last Admin: 12/23/18 17:21 Dose: 100 mg Emollient Ointment (Vaseline Oint) 5 gm TOP PRN PRN PRN Reason: Dry LIPS Metoclopramide HCl (Reglan) 5 mg IVP Q6H [facility] Last Admin: 12/23/18 21:27 Dose: 5 mg Mupirocin (Bactroban 2% Nasal) 0.25 gm JOSE BID [facility] Last Admin: 12/23/18 17:22 Dose: 0.25 gm Ondansetron HCl (Zofran Inj) 4 mg IVP Q4 PRN PRN Reason: Nausea/Vomiting Pantoprazole Sodium (Protonix Ec Tab) 40 mg PO DAILY [facility] Last Admin: 12/23/18 09:48 Dose: 40 mg Potassium Chloride (K-Dur 20 Meq Er Tab) 20 meq PO DAILY [facility] Last Admin: 12/23/18 09:48 Dose: 20 meq Tamsulosin HCl (Flomax) 0.4 mg PO DAILY [facility] Last Admin: 12/23/18 09:48 Dose: 0.4 mg - Labs Labs: 12/23/18 07:55 12/23/18 07:55 PT 14.5 SECONDS (9.7-12.2) H 12/13/18 07:09 INR 1.3 12/13/18 07:09 APTT 34 SECONDS (21-34) D 12/13/18 07:09 - Head Exam Head Exam: ATRAUMATIC - Eye Exam Eye Exam: Normal appearance - ENT Exam ENT Exam: Mucous Membranes Dry - Respiratory Exam Respiratory Exam: NORMAL BREATHING PATTERN - Cardiovascular Exam Cardiovascular Exam: +S1, +S2 - GI/Abdominal Exam GI & Abdominal Exam: Normal Bowel Sounds Assessment and Plan (1) Colon cancer Assessment & Plan: s/p hemicolectomy stage III outpatient adjuvant chemotherapy Status: Acute (2) Anemia Status: Acute
[2018-12-24 06:42] LABS: BASO % 0.3 % (0.0-2.0); EOS # 0.2 K/uL (0.0-0.7); EOS % 3.5 % (0.0-4.0); HEMOGLOBIN 11.9 g/dL (12.0-18.0); LYMPH # 1.2 K/uL (1.0-4.3); LYMPH % 27.6 % (20.0-40.0); MEAN CELL VOLUME 84.6 fL (80.0-94.0); MEAN CORPUSCULAR HEMOGLOBIN 27.9 pg (27.0-31.0); MEAN PLATELET VOLUME 10.7 fL (7.2-11.7); MONO # 0.5 K/uL (0.0-0.8); MONO % 11.6 % (0.0-10.0); NEUT # 2.5 K/uL (1.8-7.0); RBC 4.26 Mil/uL (4.40-5.90); RED CELL DISTRIBUTION WIDTH 14.3 % (11.5-14.5); WHITE BLOOD COUNT 4.3 K/uL (4.8-10.8)
[2018-12-24 07:08] LABS: ALB/GLOB RATIO 1.1 (1.0-2.1); ALBUMIN 3.7 g/dL (3.5-5.0); ALT/SGPT 31 U/L (21-72); AST/SGOT 32 U/L (17-59); BLOOD UREA NITROGEN 8 mg/dL (9-20); CALCIUM 9.4 mg/dl (8.6-10.4); GFR NON-AFRICAN AMERICAN > 60
--- NOTE | 2018-12-24 07:57 | CP.PCM.PN ---
Subjective - Date & Time of Evaluation Date of Evaluation: 12/24/18 Time of Evaluation: 08:00 - Subjective Subjective: Progress note for Dr. Nicole Patient was seen and examined at bedside in no acute distress. Patient denies chest pain, dyspnea, palpitations, nausea, vomiting, fevers or headaches. Objective - Vital Signs/Intake and Output Vital Signs (last 24 hours): Temp Pulse Resp BP Pulse Ox 98.2 F 71 20 144/78 97 12/23/18 23:15 12/23/18 23:15 12/23/18 23:15 12/23/18 23:15 12/23/18 23:15 Intake and Output: 12/24/18 12/24/18 06:59 18:59 Intake Total 120 Balance 120 - Medications Medications: Current Medications Amlodipine Besylate (Norvasc) 10 mg PO DAILY [facility] [place] Last Admin: 12/23/18 09:48 Dose: 10 mg Docusate Sodium (Colace) 100 mg PO BID [facility] [place] Last Admin: 12/23/18 17:21 Dose: 100 mg Emollient Ointment (Vaseline Oint) 5 gm TOP PRN PRN PRN Reason: Dry LIPS Metoclopramide HCl (Reglan) 5 mg IVP Q6H [facility] [place] Last Admin: 12/24/18 06:48 Dose: Not Given Mupirocin (Bactroban 2% Nasal) 0.25 gm JOSE BID [facility] [place] Last Admin: 12/23/18 17:22 Dose: 0.25 gm Ondansetron HCl (Zofran Inj) 4 mg IVP Q4 PRN PRN Reason: Nausea/Vomiting Pantoprazole Sodium (Protonix Ec Tab) 40 mg PO DAILY [facility] [place] Last Admin: 12/23/18 09:48 Dose: 40 mg Potassium Chloride (K-Dur 20 Meq Er Tab) 20 meq PO DAILY [facility] [place] Last Admin: 12/23/18 09:48 Dose: 20 meq Tamsulosin HCl (Flomax) 0.4 mg PO DAILY [facility] [place] Last Admin: 12/23/18 09:48 Dose: 0.4 mg - Labs Labs: 12/24/18 06:26 12/24/18 06:26 PT 14.5 SECONDS (9.7-12.2) H 12/13/18 07:09 INR 1.3 12/13/18 07:09 APTT 34 SECONDS (21-34) D 12/13/18 07:09 - Constitutional Appears: No Acute Distress - Head Exam Head Exam: ATRAUMATIC, NORMAL INSPECTION - Eye Exam Eye Exam: EOMI, Normal appearance - ENT Exam ENT Exam: Mucous Membranes Moist - Respiratory Exam Respiratory Exam: Clear to Ausculation Bilateral, NORMAL BREATHING PATTERN - GI/Abdominal Exam GI & Abdominal Exam: Soft, Normal Bowel Sounds. absent: Tenderness Additional comments: binder in place c/d/i - Extremities Exam Extremities Exam: absent: Normal Inspection, Pedal Edema, Tenderness - Neurological Exam Neurological Exam: Alert, Awake, Oriented x3 - Psychiatric Exam Psychiatric exam: Normal Affect - Skin Skin Exam: Normal Color Assessment and Plan - Assessment and Plan (Free Text) Assessment: Adenocardinoma of the Proximal Descending Colon - GI Consult: Dr. Zamora --> help appreciated - Surgery Consult: Dr. Adam --> help appreciated - Hem/Onc Consult: Dr. Lewis --> help appreciated * Per Dr. Lewis, patient requires a portacath * Patient requests placing a portacath as outpatient. - Tray Drier Operator consult for cardiac clearance prior to surgeries: Dr. Carias, help appreciated * Per Dr. Carias: Patient is at intermediate risk for the planned procedure. Recommend perioperative betablocker to attenuate operative risk. There is no cardiovascular contraindication to the planned surgery. * ECHO (12/13/18): EF 65-70%; mild concentric left ventricular hypertrophy; the left ventricle systolic function is normal - Chest CT: Cardiomegaly. Medial left upper lobe bronchiectasis and small bulla evident. 4 mm nodular opacity along the pleura, possibly intrapulmonary lymph node. 2 mm right middle lobe nodule. Recommend [address] follow-up. Limited visualization of the upper abdomen reveals partially imaged moderate to severe wall thickening of the mid to distal transverse colon which appears consistent with provided history of colonic carcinoma. 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 - s/p colonoscopy 12/11/[address] Zamora * Findings: Malignant-appearing intrinsic severe stenosis was found in the transverse colon and non-transverse colon * Pathology: adenocarcinoma of the proximal descending colon - s/p (12/13/18) Left Inguinal Hernia repair with mesh, Exploratory Laparotomy, Tranverse colectomy with anastomosis with mobilization of splenic flexure, repair of umbilical hernia with Dr. Adam. - s/p (12/13/18) Cystoscopy with left double J ureteral stent placement by Dr. Boss - Pathology: stage 3 colon cancer (adenocarcinoma of the proximal descending colon) Colitis - resolved - GI Consult: Dr. Zamora --> help appreciated - Liquid Diet, diet will be advanced as tolerated - Images: * CT of Abdomen/Pelvis: Segmental moderate to marked wall thickening of the mid and distal transverse colon surrounding with inflammatory changes consistent with colitis. The possibility of underline infiltrative neoplasm is not totally excluded. The differential consideration includes ischemic infection or inflammatory colitis. 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 Mild to moderate left hydroureter. The distal portion of the left ureter is extending into large left inguinal hernia. Part of urinary bladder is also herniated and the left UV junction is likely in the left inguinal hernia. The possibility of distal left ureter stone is not totally excluded. The differential consideration includes compression on the distal left ureter at left inguinal hernia. Otherwise no evidence of acute pathology in the abdomen and pelvis. - s/p Colonoscopy on 12/11/18 please see results above - Blood Culture Negative - Medications: * Metronidazole 500mg IV q8h (active since 12/14/18; last dose was given on 12/19/18) * Colace 100mg po daily * Reglan 5mg IV q6h * Pain control per surgery team; Percocet prn UTI - resolved - UA: +1LE - Urine Culture: + Ecoli, + ESBL - Repeat Cx x 2 were negative; discontinued isolation - ID consulted, Dr. Melara --> Help appreciated - Medications: * Merrem 1g IV Q8 (active since 12/11/18; last dose to be given on 12/20/18 for a total of 10 days) Left inguinal hernia - s/p (12/13/18) Left Inguinal Hernia repair with mesh, repair of umbilical hernia. Cystoscopy with left double J ureteral stent placement by Dr. Boss - Surgery Consult: Dr. Adam --> help appreciated - Urology Consult: Dr. Chica Boss --> help appreciated Anemia - Hem/onc consulted, Dr. Lewis --> Help appreciated - Likely chronic tumor bleed HTN - Continue home medication Norvasc 10mg po daily History of BPH - Continue home medication Flomax 0.4mg po daily Prophylaxis - Protonix daily - Colace 100mg dialy - SCDs - Lovenox 40mg SC daily Dispo: Patient will need to follow up with Dr. Adam (surgery), Dr. Lewis (oncology), Dr. Boss (Urology) and Dr. Nicole (PMD) within one week of discharge. Patient is stable for discharge to home per Dr. Nicole and Dr. Adam Patient must continue home medications: Norvasc 5mg PO daily, Flomax 0.4mg PO daily, Percocet 1 tablet q6prn for pain Patient was given a rolling walker prescription. Patient must follow up with Dr. Adam (surgeon) within one week of discharge. Please make an appointment. Patient must follow up with Dr. Lewis (oncologist) within one week of discharge. Patient must follow up with Dr. Boss (urologist) within one week of discharge. Patient must also follow up with PMD, Dr. Nicole within one-two weeks of discharge. Directions per surgery team: - You may shower but no bath - No heavy lifting for 4 weeks - No need for dressing on incisions - Make an appointment with Dr. Adam for next week. - Patient is scheduled for portacath with Dr. Adam on December 30, 2018. If symptoms worsen or reoccur, patient should return to the nearest emergency room. Case discussed with Dr. Corey Pelaez PGY-2
[2018-12-24] MEDS: Oxycodone/Acetaminophen 5/325 mg Tab PO PRN ×2 (10:16→17:52)
[2018-12-24] MEDS: Potassium Chloride 20 mEq ER Tab PO SCH (10:17)
[2018-12-24] MEDS: Pantoprazole 40 mg EC Tab PO SCH (10:17)
[2018-12-24] MEDS: Mupirocin 2% Ointment (NASAL) NAS SCH (11:00)
[2018-12-24 17:15] VITALS: BP 118/63; PULSE 70; TEMP 98.1; O2SAT 97
--- NOTE | 2018-12-24 22:17 | CP.PCM.PN ---
Subjective - Date & Time of Evaluation Date of Evaluation: 12/24/18 Time of Evaluation: 14:00 - Subjective Subjective: No complaints. Objective - Vital Signs/Intake and Output Vital Signs (last 24 hours): Temp Pulse Resp BP Pulse Ox 98.1 F 70 20 118/63 97 12/24/18 15:14 12/24/18 15:14 12/24/18 15:14 12/24/18 15:14 12/24/18 15:14 Intake and Output: 12/24/18 12/25/18 18:59 06:59 Intake Total 320 Balance 320 - Labs Labs: 12/24/18 06:26 12/24/18 06:26 PT 14.5 SECONDS (9.7-12.2) H 12/13/18 07:09 INR 1.3 12/13/18 07:09 APTT 34 SECONDS (21-34) D 12/13/18 07:09 - Head Exam Head Exam: ATRAUMATIC - Eye Exam Eye Exam: Normal appearance - ENT Exam ENT Exam: Mucous Membranes Dry - Respiratory Exam Respiratory Exam: NORMAL BREATHING PATTERN - Cardiovascular Exam Cardiovascular Exam: +S1, +S2 - GI/Abdominal Exam GI & Abdominal Exam: Normal Bowel Sounds Assessment and Plan (1) Colon cancer Assessment & Plan: s/p hemicolectomy stage III outpatient adjuvant chemotherapy Status: Acute (2) Anemia Status: Acute
== END 2018-12-24 17:58 | disposition home or self-care (01) | DRG 330 ==
LOC: C.ER 08:16 → C.3T 12:14 → C.6T 12-11 20:10 → C.9I 12-13 17:28 → C.6T 12-21 06:00
PROVIDERS: ADMIT Hospitalist; ATTEND Internal Medicine Pulmonary Disease
PROC: 0DBL8ZX Excision of Transverse Colon, Via Natural or Artificial Opening Endoscopic, Diagnostic (ICD-10-PCS; 2018-12-11)
PROC: 0T768DZ Dilation of Right Ureter with Intraluminal Device, Via Natural or Artificial Opening Endoscopic (ICD-10-PCS; 2018-12-13)
PROC: 0T778DZ Dilation of Left Ureter with Intraluminal Device, Via Natural or Artificial Opening Endoscopic (ICD-10-PCS; 2018-12-13)
PROC: BT1F1ZZ Fluoroscopy of Left Kidney, Ureter and Bladder using Low Osmolar Contrast (ICD-10-PCS; 2018-12-13)
PROC: 0T9B70Z Drainage of Bladder with Drainage Device, Via Natural or Artificial Opening (ICD-10-PCS; 2018-12-13)
PROC: 0DTL0ZZ Resection of Transverse Colon, Open Approach (ICD-10-PCS; principal; 2018-12-13 10:00)
PROC: 0YU60JZ Supplement Left Inguinal Region with Synthetic Substitute, Open Approach (ICD-10-PCS; 2018-12-13 10:00)
PROC: 0WQF0ZZ Repair Abdominal Wall, Open Approach (ICD-10-PCS; 2018-12-13 10:00)
PROC: 3E0336Z Introduction of Nutritional Substance into Peripheral Vein, Percutaneous Approach (ICD-10-PCS; 2018-12-21)
DX: C18.4 Malignant neoplasm of transverse colon (principal); K40.30 Unilateral inguinal hernia, with obstruction, without gangrene, not specified as recurrent; N13.6 Pyonephrosis; D68.9 Coagulation defect, unspecified; K56.699 Other intestinal obstruction unspecified as to partial versus complete obstruction; E87.3 Alkalosis; K42.9 Umbilical hernia without obstruction or gangrene; N30.90 Cystitis, unspecified without hematuria; B96.20 Unspecified Escherichia coli [E. coli] as the cause of diseases classified elsewhere; E87.6 Hypokalemia; J47.9 Bronchiectasis, uncomplicated; N40.0 Benign prostatic hyperplasia without lower urinary tract symptoms; N32.89 Other specified disorders of bladder; K52.9 Noninfective gastroenteritis and colitis, unspecified; D64.9 Anemia, unspecified; K64.8 Other hemorrhoids; K64.4 Residual hemorrhoidal skin tags; I11.9 Hypertensive heart disease without heart failure; I51.7 Cardiomegaly; Z16.12 Extended spectrum beta lactamase (ESBL) resistance; K59.00 Constipation, unspecified; G47.30 Sleep apnea, unspecified; E66.9 Obesity, unspecified; Q63.8 Other specified congenital malformations of kidney; Z87.440 Personal history of urinary (tract) infections; Z87.11 Personal history of peptic ulcer disease

== ENCOUNTER 2018-12-30 09:41 | Day surgery (SDC) | payer BC | END 2018-12-30 14:47 | disposition home or self-care (01) | LOC: C.SDS 09:41 | DX: C18.9 Malignant neoplasm of colon, unspecified (principal) ==

== ENCOUNTER 2019-01-20 12:16 | Outpatient (CLI) | payer BC, OTHER | END 2019-01-20 12:17 | disposition home or self-care (01) | LOC: C.CTH 12:16 ==